=== PATIENT | female | born 1965 | race Two or more races ===

== ENCOUNTER 2020-09-21 14:27 | Outpatient (REF) | payer MEDICAID, SELFPAY | END 2020-09-21 14:28 | disposition home or self-care (01) | LOC: HO.RESP 14:27 | DX: Z13.89 Encounter for screening for other disorder (principal) ==

== ENCOUNTER 2020-09-26 12:56 | Outpatient (REF) | payer MEDICAID, SELFPAY ==
--- NOTE | 2020-09-26 | PFT_ITS ---
FLOWS: FEV1 of 73% of predicted at 2.22 L. FVC 70% of predicted at 2.65 L. FEV1 to FVC ratio of 0.84. No bronchodilator response. LUNG VOLUMES: Total lung capacity 77% of predicted at 4.27 L. Residual volume 75% of predicted at 1.51 L. Slow vital capacity 78% of predicted at 2.75 L. Expiratory reserve volume 22% of predicted at 0.24 L. Diffusion capacity is mildly decreased, diffusion capacity corrects to normal after adjustment for alveolar ventilation. IMPRESSION: Mild restrictive ventilatory defect with no bronchodilator response. Decreased expiratory reserve volume suggests extrathoracic restriction likely secondary to abdominal obesity. MD ELINA Spicer/MODL / [id number]
== END 2020-09-26 12:57 | disposition home or self-care (01) ==
LOC: HO.RESP 12:56
PROVIDERS: PCP Nurse Practitioner; Visit Provider Nurse Practitioner
DX: R06.02 Shortness of breath (principal)
CPT/HCPCS: 94060; 94727; 94729

== ENCOUNTER → 2020-12-22 08:50 | Outpatient (BNVA) | payer MEDICAID, SELFPAY | PROVIDERS: PCP Nurse Practitioner; Visit Provider Nurse Practitioner ==

== ENCOUNTER 2021-02-13 15:01 | Outpatient (REF) | payer MEDICAID, SELFPAY ==
--- NOTE | ~2021-02-13 | XR_ITS ---
EXAMINATION: XR ANKLE, RIGHT CLINICAL INFORMATION: Pain. Fall. COMPARISON: None TECHNIQUE: AP, lateral, and mortise views of the right ankle. FINDINGS: There is a soft tissue ossification adjacent to the inferior lateral malleolus suggestive of an avulsion fracture, age indeterminate. Clinical correlation is recommended. No other fracture is seen. The ankle mortise is normal. There is lateral soft tissue swelling. There are calcaneal spurs. XR/XR ankle RT min 3V IMPRESSION: Nondisplaced avulsion fracture of the lateral malleolus, age indeterminate. Clinical correlation recommended. Lateral soft tissue swelling. Reading will be provided by the Frederic work flow hoop punch and coiler operator on 02/14/2021
[2021-02-13 16:51] LABS: Alanine Aminotransferase 30 U/L (0-31); Albumin Level 4.4 g/dL (3.5-5.0); Alkaline Phosphatase 100 U/L (39-117); Amylase 39 U/L (28-100); Anion Gap 14 (12-20); Aspartate Amino Transferase 22 U/L (5-31); Bilirubin Total 0.4 mg/dL (0.0-1.0); Blood Urea Nitrogen 8 mg/dL (9-16); C Reactive Protein 0.74 mg/dL (< or = 0.50); Calcium 9.1 mg/dL (8.4-10.2); Carbon Dioxide 25 mmol/L (22-29); Chloride 101 mmol/L (96-108); Estimated Glomerular Filt Rate > 60; Glucose Random 103 mg/dL (60-115); Lipase 22 U/L (8-78); Potassium 4.2 mmol/L (3.3-5.1); Sodium 136 mmol/L (135-145); Total Protein 6.8 g/dL (6.5-8.0)
[2021-02-13 17:07] LABS: Basophils Percent Auto 0.4 % (0-2); Eosinophils Absolute Auto 0.1 X10*3/uL (0.0-0.4); Eosinophils Percent Auto 0.9 % (0-4); Hematocrit 36.3 % (37-47); Hemoglobin 12.3 g/dl (12.0-16.0); Imm Gran Abs Auto 0.02 X10*3/uL (0.00-0.03); Imm Gran Pct Auto 0.4 % (0.0-0.4); Lymphocytes Absolute Auto 1.3 X10*3/uL (1.2-4.9); MANUAL DIFF FLAG SCAN; Mean Corpuscular HGB Conc 33.9 g/dl (31.0-35.0); Mean Corpuscular Hemoglobin 29.7 pg (27.0-33.0); Mean Corpuscular Volume 87.7 fL (80-98); Mean Platelet Volume 11.1 fL (9.4-12.3); Monocytes Absolute Auto 0.6 X10*3/uL (0.1-1.2); Monocytes Percent Auto 9.8 % (2-11); Neutrophils Absolute Auto 3.7 X10*3/uL (2.0-8.3); Neutrophils Percent Auto 65.5 % (45-73); PLT CLUMP 1; Platelet Count 160 X10*3/uL (160-400); Red Blood Count 4.14 X10*6/uL (4.20-5.50); Red Cell Distribution Width 12.9 % (11.0-16.0); SCAN SMEAR FLAG 1; White Blood Count 5.7 X10*3/uL (4.8-10.8)
[2021-02-13 17:08] LABS: SLIDE REVIEW VERIFIED
[2021-02-13 17:13] LABS: TSH reflex Free T4 1.16 uIU/mL (0.32-4.0)
[2021-02-14 14:22] LABS: Transglutaminase Ab IgG 6 U/mL; Transglutaminase IgA 1 U/mL
== END 2021-02-13 15:02 | disposition home or self-care (01) ==
LOC: HO.XRAY 15:01
PROVIDERS: Absent Provider Emergency Medicine; PCP Nurse Practitioner; Visit Provider Nurse Practitioner
DX: M25.471 Effusion, right ankle (principal); M25.571 Pain in right ankle and joints of right foot; R68.81 Early satiety; R19.7 Diarrhea, unspecified; R14.0 Abdominal distension (gaseous); R11.10 Vomiting, unspecified; Z91.81 History of falling
CPT/HCPCS: 36415; 73610; 80053; 82150; 83516; 83690; 84443; 85025; 86140

== ENCOUNTER 2021-02-13 21:00 | Outpatient (REF) | payer MEDICAID, SELFPAY | END 2021-02-13 21:01 | disposition home or self-care (01) | LOC: HO.LNP 21:00 | PROVIDERS: Visit Provider Nurse Practitioner | DX: R10.9 Unspecified abdominal pain (principal) | CPT/HCPCS: 87338 ==

== ENCOUNTER 2021-12-31 09:34 | Emergency (ER) | payer MEDICAID, SELFPAY ==
--- NOTE | ~2021-12-31 | CT_ITS ---
EXAMINATION: CT ABDOMEN AND PELVIS WITH CONTRAST CLINICAL INFORMATION: Abdominal pain, distention. COMPARISON: CT abdomen 03/05/2018 TECHNIQUE: Multidetector volumetric images were obtained from the superior aspect of the liver through the pubic symphysis following administration 85 mL of Omnipaque 350 intravenous contrast. Sagittal and coronal reformatted images were obtained on the technologist's workstation. Oral contrast: No This CT examination was performed using dose optimization techniques as appropriate, variously including the following: *Automated exposure control *Adjustment of mA and/or kV according to patient size (this includes techniques or standardized protocols for targeted exams where dose is matched to indication/reason for exam; i.e. extremities or head) *Use of iterative reconstruction technique DLP: 895 mGy-cm FINDINGS: LUNG BASES: Mild linear and groundglass opacities in the right lower lobe, unchanged from previous. Normal heart size. No pericardial or pleural effusion. LIVER, GALLBLADDER, AND BILIARY TREE: The liver is normal in size, shape, and attenuation. No focal hepatic lesion or biliary ductal dilatation is present. Status postcholecystectomy. PANCREAS: Unremarkable. SPLEEN: Unremarkable. ADRENAL GLANDS: Unremarkable. KIDNEYS AND URETERS: The kidneys are normal in size, shape, and attenuation. No hydronephrosis, hydroureter, or calculi seen. Mild fullness of the left ureter, but no calculi seen. No perinephric stranding. 2.1 x 1.9 cm left renal upper pole cyst, mildly complex with peripheral wall calcification,, overall slightly smaller in size as compared to previous. BLADDER: Unremarkable. GASTROINTESTINAL TRACT: Stomach is partially distended. No dilated small bowel loops is seen. There is apparent wall thickening/submucosal prominence of the transverse colon, splenic flexure, descending colon, which could be related to lack of distention, but colitis cannot be excluded. There are colonic diverticula present. No evidence of definite diverticulitis. There is apparent wall thickening/submucosal prominence of the distal sigmoid colon and rectum, which could be related to lack of distention versus colitis. Redemonstrated is fat stranding adjacent to the rectum which was seen the prior study, and could be related to prior postsurgical result. No free fluid is seen. ABDOMINAL WALL: No significant hernia is appreciated. LYMPH NODES: No pathologically enlarged lymph nodes are seen. VASCULAR: Normal caliber aorta. PELVIC VISCERA: Uterus is surgically absent. No adnexal masses are seen. OSSEOUS STRUCTURES: Multilevel degenerative changes in the spine. No suspicious lytic or blastic lesion is seen. Spinal stimulator device seen in the thoracolumbar region. CT/CT abdomen pelvis w con IMPRESSION: 1. Apparent wall thickening/submucosal prominence of the transverse colon, splenic flexure, descending colon and portions of the sigmoid colon. This could be related to lack of distention, but colitis cannot be excluded. Colonic diverticulosis without evidence of diverticulitis. Clinically correlate. Follow-up CT for reassessment as clinically warranted. 2. Fat stranding in the pelvis and adjacent to the rectum, appearing similar to previous, could be related to postoperative scarring. 3. Mildly complex left renal cyst (Bosniak 2), slightly smaller in size as compared to the prior study. 4. Status postcholecystectomy. 5. Mild fullness of the left ureter, but no radiodense calculi seen. 6. Additional findings and details as above. Fleischner guidelines were followed.
[2021-12-31 09:42] VITALS: BP 91/53; PULSE 83; RESP 18; TEMP 36.8; O2SAT 99; BMI 36.1
--- NOTE | 2021-12-31 09:42 | ED.ABDPAIN ---
HPI - Abdominal Pain General Chief Complaint: Abdominal Pain Stated Complaint: abd pain Time Seen by Provider: 12/31/21 09:41 Source: patient Mode of arrival: ambulatory Limitations: no limitations History of Present Illness HPI narrative: Patient is a 56 year old female presenting to the emergency department today with upper abdominal pain. Patient states that last night she began to have upper abdominal pain and today, it is still present. Patient states that she is nauseous as well but has not vomited. Patient states that eating makes the pain worse. Patient denies any history of ulcers. Patient denies any NSAID use. Patient states that she has a history of diabetes for which she takes metformin. Patient denies any dizziness, lightheadedness, vomiting, fever, chills, blurry vision, double vision, loss of vision, chest pain, difficulty breathing, shortness of breath, back pain, night sweats, pain with urination, increased urinary frequency, increased urinary urgency, blood in her urine or stool, syncope or a near syncopal episode, recent trauma or falls, bowel incontinence, bladder incontinence, bowel retention, bladder retention, or any other complaints at this time. MD elicited complaint: abdominal pain Pertinent past history: none Onset (ago): day(s) (1) Exacerbating factors: eating Relieving factors: nothing Related Data Home Medications Medication Instructions Recorded Confirmed duloxetine 30 mg capsule,delayed 30 mg PO DAILY 12/22/20 release (Cymbalta) duloxetine 30 mg capsule,delayed 30 mg PO DAILY 12/22/20 release (Cymbalta) duloxetine 60 mg capsule,delayed 60 mg PO DAILY 12/22/20 release (Cymbalta) risperidone 3 mg tablet (Risperdal) 3 mg PO DAILY 12/22/20 Allergies Allergy/AdvReac Type Severity Reaction Status Date / Time bee pollen [BEE STINGS] Allergy Unknown UNKNOWN Verified 12/22/20 08:52 gabapentin [GABAPENTIN] Allergy Unknown UNKNOWN, Verified 12/22/20 08:52 memory loss shrimp [SHRIMP] Allergy Unknown UNKNOWN Verified 12/22/20 08:52 TARA Inhibitors AdvReac Unknown cough Uncoded 04/26/20 00:00 Review of Systems Constitutional: Reports no additional constitutional complaints, Denies chills, Denies fever(s) and Denies night sweats Eyes: Reports no additional eye complaints, Denies blurry vision, Denies change in vision, Denies diplopia, Denies eye discharge, Denies loss of vision and Denies eye pain Denies dizziness Cardiovascular: Reports no additional cardiovascular complaints, Denies chest pain, Denies lightheadedness, Denies Loss of Consciousness and Denies dyspnea Respiratory: Reports no additional respiratory complaints and Denies dyspnea Gastrointestinal: Reports no additional gastrointestinal complaints, Reports abdominal pain, Denies melena, Denies hematochezia, Denies change in bowel habits, Denies change in stool character and Reports nausea Genitourinary: Denies hematuria, Denies urinary frequency, Denies dysuria, Denies urinary incontinence, Denies urinary hesitancy and Denies urinary urgency Musculoskeletal: Reports no additional musculoskeletal complaints, Denies numbness and Denies tingling Denies dizziness, Denies loss of vision, Denies numbness and Denies tingling Psychiatric: Reports no additional psychiatric complaints Endocrine: Reports no additional endocrine complaints Hematologic/Lymphatic: Reports no additional hematologic/lymphatic complaints Allergic/Immunologic: Reports no additional allergic/immunologic complaints PMFSH Past Medical History Attestation statement: The following information was validated with the patient. Source: old records reviewed Surgical History History of carpal tunnel surgery History of cholecystectomy Hx of appendectomy Hx of colonoscopy (~2019) Hx of elbow surgery Hx of hysterectomy Family History Family History Father Dialysis patient Mother HTN (hypertension) Diabetes Maternal Grandmother Stroke Maternal Grandfather Alcoholic Paternal Uncle Stomach cancer Family/Other Stomach cancer Social History Social History Alcohol intake: current Alcohol intake frequency: does not drink Advance Directives: No Advance Directives Information Provided: No Physical Exam ED Vital Signs: Vital Signs - 24 hr 12/31/21 09:42 12/31/21 09:50 12/31/21 11:42 Temperature 98.3 F 97.6 F Pulse Rate 83 80 75 Respiratory Rate 18 18 15 Blood Pressure 91/53 L 101/48 L 128/50 L Pulse Oximetry 99 97 12/31/21 12:11 Temperature Pulse Rate 83 Respiratory Rate 15 Blood Pressure 143/54 H Pulse Oximetry 98 BMI result Body Mass Index 36.1 Const General: cooperative, no acute distress, alert and awake Nutritional Appearance: well nourished Orientation/consciousness: patient oriented x3 Limitations: no limitations HENMT Head: Yes normal to inspection and Yes atraumatic Ears: hearing grossly normal bilaterally and external ears normal General nose exam: Normal external nose present, no nasal discharge noted and no epistaxis Face and sinus: Yes normal facial exam, No abrasion and No laceration Mouth: Normal oral and palatal mucosa present, no drooling and no muffled voice Eyes General: appearance normal, both eyes and all related structures Periorbital: periorbital findings normal Eyelids: Yes eyelids normal Conjunctivae: conjunctivae normal Pupils: Equal, round and reactive pupils present EOM: EOMs intact bilaterally Neck Neck: Yes normal visual inspection, Yes full ROM and Yes no lymphadenopathy Chest Chest palpation & inspection: normal inspection of the chest Resp Effort & Inspection: normal respiratory effort and able to speak in complete sentences Auscultation: clear to auscultation bilaterally Cardio Rate: regular rate Rhythm: regular rhythm GI Inspection: Yes normal to inspection Palpation (GI): Soft to palpation and Tenderness to palpation present (GI) in the epigastrum Neuro General: patient oriented x3 and moves all extremities Cranial nerves: Yes Equal, round and reactive pupils present Cognition (Neuro): normal cognition Motor exam (neuro): 5/5 motor strength present throughout Sensory Exam: Normal double simultaneous stimulation for sensation Coordination: [id number] test normal Extrem General: Yes normal to inspection, Yes full ROM and Yes capillary refill normal Psych Appearance: grossly normal Mental Status: mental status grossly normal Affect: normal affect Attitude: cooperative Thought process: Normal thought process present Thought content: Normal thought content present Insight: Good insight present (Psych) MDM - Abdominal Pain MDM Narrative Medical decision making narrative: Patient is a 56 year old female presenting to the emergency department today with abdominal pain. Patient's physical exam showed tenderness to palpation in the epigastric area but was otherwise unremarkable. Patient's blood work was unremarkable. Patient's urine showed no acute process. Patient's abdominal CT showed a possible acute colitis but was otherwise unremarkable. I explained my physical exam findings as well as all test results to the patient. I answered all questions asked by the patient. Patient received IV protonix which she stated helped her symptoms significantly. I stressed the importance of the patient taking her medication as prescribed. I stressed the importance of the patient following up with her primary care provider. I stressed the importance of the patient returning to the emergency department immediately if her symptoms were to worsen or if she were to develop any dizziness, shortness of breath, difficulty breathing, chest pain, blurry vision, loss of vision, nausea, vomiting, abdominal pain, fever, chills, back pain, or any other complaints. Patient verbalized agreement and understanding with this treatment plan and discharge. Differential Diagnosis Differential diagnosis: Likely abdominal pain Differential diagnosis narrative:: gastritis, colitis Medical Records Attestation: I reviewed the patient's medical records. Lab Data Attestation: I reviewed the patient's lab results. Result diagrams: 12/31/21 10:07 12/31/21 10:07 Labs: Lab Results 12/31/21 12/31/21 12/31/21 Range/Units 09:52 10:07 10:07 WBC 4.7 L (4.8-10.8) X10*3/uL RBC 4.44 (4.20-5.50) X10*6/uL Hgb 13.1 (12.0-16.0) g/dl Hct 38.0 (37.0-47.0) % MCV 85.6 (80.0-98.0) fL MCH 29.5 (27.0-33.0) pg MCHC 34.5 (31.0-35.0) g/dl RDW 12.5 (11.0-16.0) % Plt Count 176 (160-400) X10*3/uL MPV 9.9 (9.4-12.3) fL Immature Gran % (Auto) 0.2 (0.0-0.4) % Neut % (Auto) 55.4 (45-73) % Lymph % (Auto) 31.8 (20-40) % [place] % (Auto) 9.8 (2-11) % Eos % (Auto) 2.6 (0-4) % Baso % (Auto) 0.2 (0-2) % Lymph # (Auto) 1.5 (1.2-4.9) X10*3/uL [place] # (Auto) 0.5 (0.1-1.2) X10*3/uL Eos # (Auto) 0.1 (0.0-0.4) X10*3/uL Baso # (Auto) 0.0 (0.0-0.2) X10*3/uL Abs Immat Gran (auto) 0.01 (0.00-0.03) X10*3/uL Absolute Neuts (auto) 2.6 (2.0-8.3) x10*3/uL Absolute Nucleated RBC 0.000 (0.0-0.012) X10*3/uL Nucleated RBC % (auto) 0.0 (0.0-0.2) /100WBC PT (9.9-13.0) SEC INR (0.9-1.1) APTT (24.1-38.0) SEC Sodium 139 (135-145) mmol/L Potassium 3.6 (3.3-5.1) mmol/L Chloride 105 (96-108) mmol/L Carbon Dioxide 23 (22-29) mmol/L Anion Gap 15 (12-20) BUN 11 (9-16) mg/dL Creatinine 0.84 (0.5-1.4) mg/dL Estim Creat Clear Calc 95.3 Estimated GFR > 60 POC Glucose 141 H (60-115) mg/dL Random Glucose 146 H (60-115) mg/dL Calcium 9.7 D (8.4-10.2) mg/dL Total Bilirubin 0.3 (0.0-1.0) mg/dL AST 24 (5-31) U/L ALT 21 (0-31) U/L Alkaline Phosphatase 72 D (39-117) U/L Total Protein 7.0 (6.5-8.0) g/dL Albumin 4.4 (3.5-5.0) g/dL Lipase 26 (8-78) U/L Urine Color Urine Appearance Urine pH (5.0-8.0) Ur Specific [place] (1.005-1.025) Urine Protein (NEG-TRACE) MG/DL Urine Glucose (UA) (NEG) MG/DL Urine Ketones (NEG) MG/DL Urine Blood (NEG) Urine Nitrite (NEG) Ur Leukocyte Esterase (NEG) Urine RBC (0) /HPF Urine WBC (0-4) /HPF Ur Squamous Epith Cells /LPF Urine Bacteria /LPF Hyaline Casts /LPF 12/31/21 12/31/21 Range/Units 10:07 11:41 WBC (4.8-10.8) X10*3/uL RBC (4.20-5.50) X10*6/uL Hgb (12.0-16.0) g/dl Hct (37.0-47.0) % MCV (80.0-98.0) fL MCH (27.0-33.0) pg MCHC (31.0-35.0) g/dl RDW (11.0-16.0) % Plt Count (160-400) X10*3/uL MPV (9.4-12.3) fL Immature Gran % (Auto) (0.0-0.4) % Neut % (Auto) (45-73) % Lymph % (Auto) (20-40) % [place] % (Auto) (2-11) % Eos % (Auto) (0-4) % Baso % (Auto) (0-2) % Lymph # (Auto) (1.2-4.9) X10*3/uL [place] # (Auto) (0.1-1.2) X10*3/uL Eos # (Auto) (0.0-0.4) X10*3/uL Baso # (Auto) (0.0-0.2) X10*3/uL Abs Immat Gran (auto) (0.00-0.03) X10*3/uL Absolute Neuts (auto) (2.0-8.3) x10*3/uL Absolute Nucleated RBC (0.0-0.012) X10*3/uL Nucleated RBC % (auto) (0.0-0.2) /100WBC PT 10.4 (9.9-13.0) SEC INR 0.9 (0.9-1.1) APTT 31.1 (24.1-38.0) SEC Sodium (135-145) mmol/L Potassium (3.3-5.1) mmol/L Chloride (96-108) mmol/L Carbon Dioxide (22-29) mmol/L Anion Gap (12-20) BUN (9-16) mg/dL Creatinine (0.5-1.4) mg/dL Estim Creat Clear Calc Estimated GFR POC Glucose (60-115) mg/dL Random Glucose (60-115) mg/dL Calcium (8.4-10.2) mg/dL Total Bilirubin (0.0-1.0) mg/dL AST (5-31) U/L ALT (0-31) U/L Alkaline Phosphatase (39-117) U/L Total Protein (6.5-8.0) g/dL Albumin (3.5-5.0) g/dL Lipase (8-78) U/L Urine Color YELLOW Urine Appearance CLEAR Urine pH 6.0 (5.0-8.0) Ur Specific [place] 1.015 (1.005-1.025) Urine Protein NEG (NEG-TRACE) MG/DL Urine Glucose (UA) NEG (NEG) MG/DL Urine Ketones NEG (NEG) MG/DL Urine Blood NEG (NEG) Urine Nitrite NEG (NEG) Ur Leukocyte Esterase NEG (NEG) Urine RBC 0 (0) /HPF Urine WBC 0 (0-4) /HPF Ur Squamous Epith Cells TRACE /LPF Urine Bacteria TRACE /LPF Hyaline Casts 1-4 /LPF Imaging Data CT scan - abdomen: Attestation: I personally reviewed and interpreted this imaging study as follows: Radiologist's impression: EXAMINATION: CT ABDOMEN AND PELVIS WITH CONTRAST? CLINICAL INFORMATION: Abdominal pain, distention.? COMPARISON: CT abdomen 03/05/2018? TECHNIQUE: Multidetector volumetric images were obtained from the superior aspect of the liver through the pubic symphysis following administration 85 mL of Omnipaque 350 intravenous contrast. Sagittal and coronal reformatted images were obtained on the technologist's workstation.? Oral contrast: No This CT examination was performed using dose optimization techniques as appropriate, variously including the following: *Automated exposure control *Adjustment of mA and/or kV according to patient size (this includes techniques or standardized protocols for targeted exams where dose is matched to indication/reason for exam; i.e. extremities or head) *Use of iterative reconstruction technique DLP: 895 mGy-cm FINDINGS: LUNG BASES: Mild linear and groundglass opacities in the right lower lobe, unchanged from previous. Normal heart size. No pericardial or pleural effusion.? LIVER, GALLBLADDER, AND BILIARY TREE: The liver is normal in size, shape, and attenuation. No focal hepatic lesion or biliary ductal dilatation is present. Status postcholecystectomy.? PANCREAS: Unremarkable.? SPLEEN: Unremarkable.? ADRENAL GLANDS: Unremarkable.? KIDNEYS AND URETERS: The kidneys are normal in size, shape, and attenuation. No hydronephrosis, hydroureter, or calculi seen. Mild fullness of the left ureter, but no calculi seen. No perinephric stranding.? 2.1 x 1.9 cm left renal upper pole cyst, mildly complex with peripheral wall calcification,, overall slightly smaller in size as compared to previous. BLADDER: Unremarkable.? GASTROINTESTINAL TRACT: Stomach is partially distended. No dilated small bowel loops is seen. There is apparent wall thickening/submucosal prominence of the transverse colon, splenic flexure, descending colon, which could be related to lack of distention, but colitis cannot be excluded. There are colonic diverticula present. No evidence of definite diverticulitis. There is apparent wall thickening/submucosal prominence of the distal sigmoid colon and rectum, which could be related to lack of distention versus colitis. Redemonstrated is fat stranding adjacent to the rectum which was seen the prior study, and could be related to prior postsurgical result. No free fluid is seen.? ABDOMINAL WALL: No significant hernia is appreciated.? LYMPH NODES: No pathologically enlarged lymph nodes are seen. VASCULAR: Normal caliber aorta. PELVIC VISCERA: Uterus is surgically absent. No adnexal masses are seen.? OSSEOUS STRUCTURES: Multilevel degenerative changes in the spine. No suspicious lytic or blastic lesion is seen. Spinal stimulator device seen in the thoracolumbar region.? CT/CT abdomen pelvis w con IMPRESSION: 1. Apparent wall thickening/submucosal prominence of the transverse colon, splenic flexure, descending colon and portions of the sigmoid colon. This could be related to lack of distention, but colitis cannot be excluded. Colonic diverticulosis without evidence of diverticulitis. Clinically correlate. Follow-up CT for reassessment as clinically warranted. ? 2. Fat stranding in the pelvis and adjacent to the rectum, appearing similar to previous, could be related to postoperative scarring. ? 3. Mildly complex left renal cyst (Bosniak 2), slightly smaller in size as compared to the prior study. ? 4. Status postcholecystectomy. ? 5. Mild fullness of the left ureter, but no radiodense calculi seen. ? 6. Additional findings and details as above. ? Fleischner guidelines were followed. Dictated By: Pepe Monroy MD Signed By: Electronically signed by Pepe Monroy MD 12/31/21 [id number] Discharge Plan Discharge Clinical Impression: Colitis Patient Disposition: Home, Self-Care Instructions: Colitis (ED) Additional Instructions: Follow up with your primary care provider. Return to the emergency department immediately if your symptoms worsen or if you develop any dizziness, shortness of breath, difficulty breathing, chest pain, blurry vision, loss of vision, nausea, vomiting, abdominal pain, fever, chills, back pain, or any other complaints. Referrals: Kavitha Hill [Primary Care Provider] - 2 days Interventions: ED Discharge Assessment Last Done: 12/31/21 13:21 Print Language: Austrian
--- NOTE | 2021-12-31 09:46 | PC.NURSE ---
Pt received from [facility]: Pt AOx4 and offers c/o epigastric abd pain. Pt states after BM this morning that was yellow and oily she started feeling dizziness and lightheadness. Pt states abd pain has been occurring since last night. NSR noted and lungs clear. Pt abd sound, soft and epigastric tenderness.
[2021-12-31 09:50] VITALS: BP 101/48; PULSE 80; RESP 18
[2021-12-31 09:55] LABS: Glucose, Whole Blood 141 mg/dL (60-115)
[2021-12-31 10:12] LABS: MANUAL DIFF FLAG NO
[2021-12-31] MEDS: 0.9 % Sodium Chloride 1,000 ML 999 ML IVCONT (10:12)
[2021-12-31] MEDS: Pantoprazole Sodium 40 MG/10 ML VIAL IVPUSH (10:13)
[2021-12-31 10:17] LABS: Basophils Percent Auto 0.2 % (0-2); Eosinophils Absolute Auto 0.1 X10*3/uL (0.0-0.4); Eosinophils Percent Auto 2.6 % (0-4); Hemoglobin 13.1 g/dl (12.0-16.0); Imm Gran Abs Auto 0.01 X10*3/uL (0.00-0.03); Imm Gran Pct Auto 0.2 % (0.0-0.4); Lymphocytes Absolute Auto 1.5 X10*3/uL (1.2-4.9); Lymphocytes Percent Auto 31.8 % (20-40); Mean Corpuscular HGB Conc 34.5 g/dl (31.0-35.0); Mean Corpuscular Hemoglobin 29.5 pg (27.0-33.0); Mean Corpuscular Volume 85.6 fL (80.0-98.0); Mean Platelet Volume 9.9 fL (9.4-12.3); Monocytes Absolute Auto 0.5 X10*3/uL (0.1-1.2); Monocytes Percent Auto 9.8 % (2-11); Neutrophils Absolute Auto 2.6 x10*3/uL (2.0-8.3); Neutrophils Percent Auto 55.4 % (45-73); Platelet Count 176 X10*3/uL (160-400); Red Blood Count 4.44 X10*6/uL (4.20-5.50); Red Cell Distribution Width 12.5 % (11.0-16.0); White Blood Count 4.7 X10*3/uL (4.8-10.8)
[2021-12-31 10:22] LABS: INTERNATIONAL NORM RATIO 0.9 (0.9-1.1); Prothrombin Time 10.4 SEC (9.9-13.0)
[2021-12-31 10:25] LABS: Partial Thromboplastin Time 31.1 SEC (24.1-38.0)
[2021-12-31 10:32] LABS: Alanine Aminotransferase 21 U/L (0-31); Albumin Level 4.4 g/dL (3.5-5.0); Alkaline Phosphatase 72 U/L (39-117); Anion Gap 15 (12-20); Aspartate Amino Transferase 24 U/L (5-31); Bilirubin Total 0.3 mg/dL (0.0-1.0); Blood Urea Nitrogen 11 mg/dL (9-16); Calcium 9.7 mg/dL (8.4-10.2); Carbon Dioxide 23 mmol/L (22-29); Chloride 105 mmol/L (96-108); Creatinine Clr Calc Pharmacy 95.3; Estimated Glomerular Filt Rate > 60; Glucose Random 146 mg/dL (60-115); Lipase 26 U/L (8-78); Potassium 3.6 mmol/L (3.3-5.1); Sodium 139 mmol/L (135-145)
[2021-12-31 11:42] VITALS: BP 128/50; PULSE 75; RESP 15; TEMP 36.4; O2SAT 97
[2021-12-31 11:48] LABS: Appearance Urine CLEAR; Color Urine YELLOW; Glucose Urine UA NEG (NEG); Leukocyte Esterase Urine NEG (NEG); Nitrite Urine NEG (NEG); Specific Gravity - Urine 1.015 (1.005-1.025); Urine Blood NEG (NEG); Urine Ketones NEG (NEG); Urine Protein NEG (NEG-TRACE)
[2021-12-31 11:58] LABS: Bacteria Urine TRACE /LPF; RBC Urine 0 /HPF (0); Squamous Epithelial Cell Urine TRACE /LPF; WBC Urine 0 /HPF (0-4)
[2021-12-31 12:11] VITALS: BP 143/54; PULSE 83; RESP 15; O2SAT 98
[2021-12-31] MEDS: iohexoL 350 MG/ML 100 ML INFUS..BTL IV (12:11)
== END 2021-12-31 13:41 | disposition home or self-care (01) ==
PROVIDERS: Physician Assistant Medical; Emergency Provider Emergency Medicine; PCP Nurse Practitioner
DX: K52.9 Noninfective gastroenteritis and colitis, unspecified (principal); E11.9 Type 2 diabetes mellitus without complications; Z90.49 Acquired absence of other specified parts of digestive tract; Z90.710 Acquired absence of both cervix and uterus
CPT/HCPCS: 36415; 74177; 80053; 81001; 82947; 83690; 85025; 85610; 85730; 96361; 96374; 99283; 99284; Q9967

== ENCOUNTER → 2022-02-11 16:01 | Outpatient (BNVA) | payer MEDICAID, SELFPAY | PROVIDERS: PCP Nurse Practitioner; Referring Provider Nurse Practitioner; Visit Provider Nurse Practitioner | DX: R14.0 Abdominal distension (gaseous) (principal); R19.7 Diarrhea, unspecified; R11.10 Vomiting, unspecified | CPT/HCPCS: 99212 ==

== ENCOUNTER 2022-02-12 14:49 | Outpatient (REF) | payer MEDICAID, SELFPAY ==
[2022-02-13 21:56] LABS: Gliadin Deamidated IgA Ab <1.0 U/mL; Gliadin Deamidated IgG Ab <1.0 U/mL; Transglutaminase Ab IgG <1.0 U/mL; Transglutaminase IgA <1.0 U/mL
== END 2022-02-12 14:50 | disposition home or self-care (01) ==
LOC: HO.LAB 14:49
PROVIDERS: PCP Nurse Practitioner; Visit Provider Nurse Practitioner
DX: R14.0 Abdominal distension (gaseous) (principal); R19.7 Diarrhea, unspecified
CPT/HCPCS: 36415; 86258; 86364

== ENCOUNTER → 2023-04-22 15:52 | Outpatient (BNVA) | payer MEDICAID, SELFPAY | PROVIDERS: PCP Nurse Practitioner; Visit Provider Nurse Practitioner | DX: R19.7 Diarrhea, unspecified (principal); R10.33 Periumbilical pain; G89.29 Other chronic pain | CPT/HCPCS: 99212 ==

== ENCOUNTER 2023-04-23 13:43 | Outpatient (REF) | payer MEDICAID, SELFPAY ==
--- NOTE | ~2023-04-23 | MM_ITS ---
EXAMINATION: MM DIAGNOSTIC DIGITAL BREAST TOMOSYNTHESIS, BILATERAL US DIAGNOSTIC ULTRASOUND BREAST, BILATERAL CLINICAL INFORMATION: Chronic bilateral breast pain with palpable areas. Due for yearly. The lifetime risk of breast cancer based on the Tyrer-Cuzick Model is 10%. COMPARISON: Mammography: 07/02/2018, 08/29/2016 TECHNIQUE: Digital breast tomosynthesis is performed in both the craniocaudal and mediolateral oblique views along with computer-aided detection (CAD). Synthesized 2D images are generated from the tomosynthesis. Additional spot right CC view is obtained. Ultrasound bilateral breasts is targeted to the areas of clinical concern using grayscale imaging and color Doppler without and with harmonics. Patient is able to point to the areas at time of imaging. FINDINGS: There are scattered areas of fibroglandular density (ACR BI-RADS breast composition Category b). There are no significant masses, abnormal calcifications, or other abnormalities. Parenchymal pattern is similar to prior studies. There is no developing density or architectural abnormality. No skin thickening or coarsening of the Adán's ligaments. The axilla and skin contours are unremarkable. No significant changes. Ultrasound bilateral breasts demonstrates no cystic or solid mass, architectural abnormality, or focal duct ectasia. No skin thickening or edema tracking in soft tissue planes. No hyperemia on color Doppler. Results are discussed with the patient at time of visit. MM/MM tomosynthesis diagnostic BI IMPRESSION: -No mammographic evidence of malignancy or inflammatory changes. -Unremarkable bilateral breast ultrasound. ASSESSMENT: BI-RADS 1: Negative RECOMMENDATION: 1. Patient should be managed based on the clinical impression. If there is still clinically palpable concern, further evaluation may be considered with surgical consult. Decision to proceed with biopsy should be based on clinical grounds and degree of clinical concern. 2. Otherwise, routine annual screening mammography. This patient's information was entered into a reminder system with a target due date for their next mammogram.
== END 2023-04-23 13:44 | disposition home or self-care (01) ==
LOC: HO.MAMMO 13:43
PROVIDERS: PCP Student in an Organized Health Care Education/Training Program; Visit Provider Student in an Organized Health Care Education/Training Program
DX: N64.4 Mastodynia (principal)
CPT/HCPCS: 76642; 77062; 77066

== ENCOUNTER 2023-05-08 15:19 | Outpatient (REF) | payer MEDICAID, SELFPAY ==
[2023-05-08 17:02] LABS: Alanine Aminotransferase 25 U/L (0-31); Albumin Level 4.2 g/dL (3.5-5.0); Alkaline Phosphatase 84 U/L (39-117); Anion Gap 13 (12-20); Aspartate Amino Transferase 18 U/L (5-31); Bilirubin Total 0.3 mg/dL (0.0-1.0); Blood Urea Nitrogen 9 mg/dL (9-16); Calcium 9.8 mg/dL (8.4-10.2); Carbon Dioxide 26 mmol/L (22-29); Chloride 105 mmol/L (96-108); Estimated Glomerular Filt Rate > 60; Glucose Random 106 mg/dL (60-115); Potassium 4.2 mmol/L (3.3-5.1); Sodium 140 mmol/L (135-145); Total Protein 7.1 g/dL (6.5-8.0)
== END 2023-05-08 15:20 | disposition home or self-care (01) ==
LOC: HO.LAB 15:19
PROVIDERS: Visit Provider Nurse Practitioner
DX: Z01.818 Encounter for other preprocedural examination (principal); R10.33 Periumbilical pain; G89.29 Other chronic pain
CPT/HCPCS: 36415; 80053; 85025

== ENCOUNTER 2023-06-13 11:51 | Day surgery (SDC) | payer MEDICAID, SELFPAY ==
[2023-06-11 09:46] VITALS: BMI 34.8
--- NOTE | 2023-06-11 15:03 | HO.ANESPROP2 ---
HPI - Anesthesia Eval Consult details Narrative: 58yo F for Upper Endoscopy 04/2023 cardiac w/u for CP with cath showing mild to moderate disease in right coronary with normal LVEDP [facility] Active Problems Active Problems: All Active Problems (Updated 05/30/23 @ 11:37 by Margy Michelle PA-C) Postmenopausal (Acute) CAD (coronary artery disease) (Acute) Hypertension (Acute) High cholesterol (Acute) Diabetes (Acute ~2016) Asthma (Acute) Nicotine dependence, cigarettes, uncomplicated (Acute) Tubular adenoma of colon (Acute ~2018) Periumbilical pain, chronic (Acute) Vomiting (Acute) Diarrhea (Acute) Abdominal bloating (Acute) Early satiety (Acute) Past Medical History Medical History (Updated 05/30/23 @ 11:37 by Margy Michelle PA-C) CAD (coronary artery disease) Diabetes (~2015) Fibromyalgia High cholesterol Hypertension Nicotine dependence, cigarettes, uncomplicated PTSD (post-traumatic stress disorder) Tubular adenoma of colon (~2018) Family History Family History Father Dialysis patient Mother HTN (hypertension) Diabetes Maternal Grandmother Stroke Maternal Grandfather Alcoholic Paternal Uncle Stomach cancer Family/Other Stomach cancer Surgical History Surgical History (Updated 05/30/23 @ 11:33 by Margy Michelle PA-C) History of appendectomy History of carpal tunnel surgery History of cholecystectomy History of colonoscopy History of elbow surgery History of hysterectomy Status post insertion of spinal cord stimulator Social History Social History Alcohol intake: current Alcohol intake frequency: does not drink Meds Allergies Allergy/AdvReac Type Severity Reaction Status Date / Time bee pollen [BEE STINGS] Allergy Severe Anaphylaxis Verified 06/11/23 09:41 shrimp [SHRIMP] Allergy Severe Anaphylaxis Verified 06/11/23 09:41 gabapentin [GABAPENTIN] Allergy Intermediate memory loss Verified 06/11/23 09:41 TARA Inhibitors AdvReac Intermediate cough Uncoded 06/11/23 09:41 Home Medications Medication Instructions Recorded Confirmed Last Taken Type duloxetine 60 mg capsule,delayed 60 mg PO BID 12/22/20 06/11/23 Unknown History release (Cymbalta) risperidone 3 mg tablet (Risperdal) 3 mg PO BEDTIME 12/22/20 06/11/23 Unknown History amlodipine 10 mg tablet 10 mg PO DAILY 02/11/22 06/11/23 Unknown History diphenhydramine HCl 25 mg capsule 25 mg PO BEDTIME PRN insomnia 02/11/22 06/11/23 Unknown History (Banophen) hydroxyzine pamoate 50 mg capsule 50 mg PO DAILY PRN anxiety 02/11/22 06/11/23 Unknown History metformin 500 mg tablet 1,000 mg PO BID 02/11/22 06/11/23 Unknown History omeprazole 40 mg capsule,delayed 40 mg PO DAILY 02/11/22 06/11/23 Unknown History release trazodone 100 mg tablet 250 mg PO BEDTIME 02/11/22 06/11/23 Unknown History epinephrine 0.3 mg/0.3 mL 0.3 mg IM ONCE PRN Anaphylaxis 04/22/23 06/11/23 Unknown History injection, auto-injector estradiol 0.5 mg tablet 0.5 mg PO QAM 04/22/23 06/11/23 Unknown History losartan 50 mg tablet 50 mg PO QAM 04/22/23 06/11/23 Unknown History oxcarbazepine 300 mg tablet 900 mg PO DAILY 04/22/23 06/11/23 Unknown History prazosin 1 mg capsule 1 mg PO BID 04/22/23 06/11/23 Unknown History albuterol sulfate 90 mcg/actuation 2 puff inhalation Q4H PRN Wheezing 06/11/23 06/11/23 Unknown History aerosol inhaler (Ventolin HFA) aspirin 81 mg tablet,delayed 81 mg PO DAILY 06/11/23 06/11/23 Unknown History release atorvastatin 20 mg tablet 20 mg PO DAILY 06/11/23 06/11/23 Unknown History famotidine 20 mg tablet 20 mg PO BEDTIME 06/11/23 06/11/23 Unknown History Exam Exam Date and Time: June 11, 2023 1503 Height,Weight and Vital Signs: Height 5 ft 7 in Weight 100.698 kg Pertinent Lab Results Pertinent Lab Results: Laboratory Tests 05/08/23 05/08/23 15:36 15:36 WBC 4.8 Hgb 12.9 Hct 36.7 L Plt Count 196 Sodium 140 Potassium 4.2 Chloride 105 Carbon Dioxide 26 BUN 9 Creatinine 0.81 Narrative Narrative: EKG 04/2023 NSR T wave abnormality, consider anterior ischemia Stress 04/2023 abnormal with partially reversible small in size, mild in intensity perfusion defect in the basal to distal anterior wall which can be seen with ischemic changes after exercise stress test at reduced capicity Cath 04/2023 No significant gradient on pullback across aortic valve Nml LVEDP Proximal portion of RCA is ectatic Left main is normal angiographically Circumflex and LAD had minimal CAD (Risk factor modification and maxamize medical therapy) Assessment and Plan Assessment Anesthesia Assessment: Chart Reviewed
[2023-06-13 13:29] VITALS: BMI 35.1
[2023-06-13 13:31] VITALS: BP 143/69; PULSE 55; RESP 16; TEMP 36.1; O2SAT 96
[2023-06-13] MEDS: Lactated Ringers 1,000 ML 100 ML IVCONT (13:51)
[2023-06-13 14:31] LABS: Glucose, Whole Blood 110 mg/dL (60-115)
--- NOTE | 2023-06-13 14:42 | MHC.SHP ---
Pre-Procedural Eval Section A Date of Service: 06/13/23 The patient is an INPATIENT: No The History & Physical has been completed within 30 days and I have reviewed it.: No Section B Chief Complaint: Epigastric pain, bloating, GERD, diarrhea Relevant Family History (Specify if Yes): Yes Relevant Social History: Tobacco Use (former smoker) Present Medications: see Short Stay Collaborative assessment Medical History: Significant History (CAD, hypertension) History of Previous Operations: Relevant previous surgery/procedure and date(s) (History of carpal tunnel surgery History of cholecystectomy Hx of appendectomy Hx of colonoscopy (~2019) Hx of elbow surgery Hx of hysterectomy) Allergies: Allergies Allergy/AdvReac Type Severity Reaction Status Date / Time bee pollen [BEE STINGS] Allergy Severe Anaphylaxis Verified 06/11/23 09:41 shrimp [SHRIMP] Allergy Severe Anaphylaxis Verified 06/11/23 09:41 gabapentin [GABAPENTIN] Allergy Intermediate memory loss Verified 06/11/23 09:41 TARA Inhibitors AdvReac Intermediate cough Uncoded 06/11/23 09:41 Review of Systems Sugical H&P ROS: Negative: Constitution, Cardiovascular, Respiratory and Gastrointestinal Exam Surgical H&P Exam: Normal: Heart, Normal: Lungs, Normal: Extremities and Normal: Abdomen Plan Diagnosis/Plan: Unchanged I have reviewed the history and physical and performed a pertinent physical examination on my patient. No changes have occurred unless specified. Time Spent With Patient Time: Total time managing care of this patient today ____ minutes.
--- NOTE | 2023-06-13 14:47 | W.PM.OPN ---
Operative Note Operative Note Date of Service: 06/13/23 Narrative: FLEXIBLE TRANSORAL UPPER GASTROINTESTINAL ENDOSCOPY WITH BIOPSIES Pre-op diagnosis: Abdominal pain and bloating, GERD, postprandial diarrhea Post-op diagnosis: GERD, gastritis, gastric polyps Endoscopist:? Marie Shah MD Anesthesia:?MAC Consent: Indications for the procedure and potential complications of bleeding, perforation, reaction to medications and missed diagnosis were discussed with the patient and informed consent was obtained. Instrument: Olympus GIF H 190 mid size upper endoscope Monitoring: Vital signs and clinical assessment, continuous EKG monitoring, Pulse oximetry, Carbon Dioxide monitoring and blood pressure monitoring were done throughout the procedure. Procedure: The patient was placed in the left lateral decubitis position and pre-procedure medications were administered and a bite block was placed. The endoscope was inserted into the mouth and advanced under direct vision to the third part of duodenum. A careful inspection was made as the upper endoscope was withdrawn including a retroflexed examination of the proximal stomach; Findings and interventions are described below. Findings: Larynx: Normal Esophagus: GE junction at 38 cms Irrgular Z line with 1 cms tongue of possible Soto's - biopsied. No esophagitis noted. Stomach: A few 5 to 8 mm benign appearing polyps in the gastric body - biopsied. Linear erythematous streaks in the gastric erythema without ulcers. Biopsies were obtained. Grade 2 flap valve on retroflexed examination of the cardia. Duodenum: Normal bulb and descending duodenum. Biopsies were obtained from 3rd part of the duodenum to check for celiac sprue Intervention: Biopsies as noted above Impression and Post Procedure Diagnosis: Endoscopy Findings: ESOPHAGUS: GE junction at 38 cms Irrgular Z line with 1 cms tongue of possible Soto's - biopsied. STOMACH: A few 5 to 8 mm benign appearing polyps in the gastric body - biopsied. Linear erythematous streaks in the gastric erythema without ulcers. DUODENUM: Normal - biopsied to check for celiac sprue Plan: Await pathology results Patient has an appointment on 06/27/23 in the GI Clinic with Venice López NP. Above findings were reviewed with the patient and GERD and Gastric Polyps handouts were given in the discharge area
--- NOTE | 2023-06-13 15:09 | P.CONAN_ITS ---
[facility] Active Problems Active Problems: All Active Problems (Updated 06/13/23 @ 13:28 by Daniella Ortez, RN) Early satiety (Acute) Abdominal bloating (Acute) Diarrhea (Acute) Vomiting (Acute) Periumbilical pain, chronic (Acute) Asthma (Acute) Postmenopausal (Acute) CAD (coronary artery disease) (Acute) Hypertension (Acute) High cholesterol (Acute) Diabetes (Acute ~2016) Nicotine dependence, cigarettes, uncomplicated (Acute) Tubular adenoma of colon (Acute ~2018) Past Medical History Medical History (Updated 06/13/23 @ 13:28 by Daniella Ortez, RN) Asthma Bipolar 1 disorder CAD (coronary artery disease) Depression Diabetes (~2016) Fibromyalgia High cholesterol Hypertension Nicotine dependence, cigarettes, uncomplicated PTSD (post-traumatic stress disorder) Tubular adenoma of colon (~2018) Family History Family History Father Dialysis patient Mother HTN (hypertension) Diabetes Maternal Grandmother Stroke Maternal Grandfather Alcoholic Paternal Uncle Stomach cancer Family/Other Stomach cancer Family history of problems with anesthesia: No Surgical History Surgical History History of appendectomy History of carpal tunnel surgery History of cholecystectomy History of colonoscopy History of elbow surgery History of hysterectomy Status post insertion of spinal cord stimulator History of Problems with Anesthesia: No Social History Social History Alcohol intake: current Alcohol intake frequency: does not drink Patient Tobacco Use Status: Former Tobacco user Quit Date: 2008 Use of substances other than those prescribed or required for medical reasons: No Substance Use Type Other:: last used 23-24 yrs ago Are you DNR?: No Advance Directives: No Advance Directives Information Provided: Yes Meds Allergies Allergy/AdvReac Type Severity Reaction Status Date / Time bee pollen [BEE STINGS] Allergy Severe Anaphylaxis Verified 06/11/23 09:41 shrimp [SHRIMP] Allergy Severe Anaphylaxis Verified 06/11/23 09:41 gabapentin [GABAPENTIN] Allergy Intermediate memory loss Verified 06/11/23 09:41 TARA Inhibitors AdvReac Intermediate cough Uncoded 06/11/23 09:41 Active Medications: Current Medications Lactated Ringer's (Lr) 1,000 mls @ 100 mls/hr IVCONT .Q10H MIRELLA Last Admin: 06/13/23 13:51 Dose: 100 mls/hr Home Medications Medication Instructions Recorded Confirmed Last Taken Type duloxetine 60 mg capsule,delayed 60 mg PO BID 12/22/20 06/13/23 Unknown History release (Cymbalta) risperidone 3 mg tablet (Risperdal) 3 mg PO BEDTIME 12/22/20 06/13/23 Unknown History amlodipine 10 mg tablet 10 mg PO DAILY 02/11/22 06/13/23 Unknown History diphenhydramine HCl 25 mg capsule 25 mg PO BEDTIME PRN insomnia 02/11/22 06/13/23 Unknown History (Banophen) hydroxyzine pamoate 50 mg capsule 50 mg PO DAILY PRN anxiety 02/11/22 06/13/23 Unknown History metformin 500 mg tablet 1,000 mg PO BID 02/11/22 06/13/23 Unknown History omeprazole 40 mg capsule,delayed 40 mg PO DAILY 02/11/22 06/13/23 Unknown History release trazodone 100 mg tablet 250 mg PO BEDTIME 02/11/22 06/13/23 Unknown History epinephrine 0.3 mg/0.3 mL 0.3 mg IM ONCE PRN Anaphylaxis 04/22/23 06/13/23 Unknown History injection, auto-injector estradiol 0.5 mg tablet 0.5 mg PO QAM 04/22/23 06/13/23 Unknown History losartan 50 mg tablet 50 mg PO QAM 04/22/23 06/13/23 Unknown History oxcarbazepine 300 mg tablet 900 mg PO DAILY 04/22/23 06/13/23 Unknown History prazosin 1 mg capsule 1 mg PO BID 04/22/23 06/13/23 Unknown History albuterol sulfate 90 mcg/actuation 2 puff inhalation Q4H PRN Wheezing 06/11/23 06/13/23 Unknown History aerosol inhaler (Ventolin HFA) aspirin 81 mg tablet,delayed 81 mg PO DAILY 06/11/23 06/13/23 Unknown History release atorvastatin 20 mg tablet 20 mg PO DAILY 06/11/23 06/13/23 Unknown History famotidine 20 mg tablet 20 mg PO BEDTIME 06/11/23 06/13/23 Unknown History Exam Exam Date and Time: June 13, 2023 1509 Height,Weight and Vital Signs: Height 5 ft 7 in Weight 101.605 kg Last Vital Signs Temp 97.0 F 06/13/23 13:31 Pulse 55 06/13/23 13:31 Resp 16 06/13/23 13:31 BP 143/69 H 06/13/23 13:31 Pulse Ox 96 06/13/23 13:31 O2 Del Method Room Air 06/13/23 13:31 Pertinent Lab Results Pertinent Lab Results: Laboratory Tests 06/13/23 13:54 POC Glucose 110 Airway Mallampati Class: III TM Dist: >3cm Neck ROM: Full Assessment and Plan Assessment Anesthesia Assessment: Anesthesia Plan Discussed and Chart Reviewed Final Anesthetic Review Family History of Problems with Anesthesia: No History of Problems with Anesthesia: No NPO: Yes ASA Class: III Final Preanesthetic Review: No Changes in Pt Med Stat, Meds/Allgs Chart Reviewed, Consent Obtained/Reviewed and Anes Risks/Benef Reviewed Patient Risk: Intermediate Procedure Risk: Low Anesthetic Plan Anesthetic Plan: GA Disposition: Standard PACU
[2023-06-13 15:16] VITALS: BP 136/76; PULSE 70; RESP 15; TEMP 36.9; O2SAT 97
[2023-06-13 15:35] VITALS: BP 168/80; PULSE 65; RESP 18; TEMP 36.7; O2SAT 99
== END 2023-06-13 15:50 | disposition home or self-care (01) ==
PROVIDERS: Visit Provider Internal Medicine Gastroenterology
PROC: 0DJ08ZZ Inspection of Upper Intestinal Tract, Via Natural or Artificial Opening Endoscopic (ICD-10-PCS; CPT 43235; principal; 2023-06-13 13:50)
DX: R10.13 Epigastric pain (principal); G89.29 Other chronic pain; R14.0 Abdominal distension (gaseous); R19.7 Diarrhea, unspecified; K21.9 Gastro-esophageal reflux disease without esophagitis; K29.50 Unspecified chronic gastritis without bleeding; K31.7 Polyp of stomach and duodenum; I25.10 Atherosclerotic heart disease of native coronary artery without angina pectoris; I10 Essential (primary) hypertension; E78.00 Pure hypercholesterolemia, unspecified; J45.909 Unspecified asthma, uncomplicated; E11.9 Type 2 diabetes mellitus without complications; F43.10 Post-traumatic stress disorder, unspecified; Z79.82 Long term (current) use of aspirin; Z79.84 Long term (current) use of oral hypoglycemic drugs; Z79.899 Other long term (current) drug therapy; Z88.8 Allergy status to other drugs, medicaments and biological substances; Z90.49 Acquired absence of other specified parts of digestive tract; Z87.891 Personal history of nicotine dependence
CPT/HCPCS: 43239; 82947; 88305; 88342

== ENCOUNTER → 2023-06-13 11:51 | Outpatient (BNV) | payer MEDICAID, SELFPAY | PROVIDERS: Visit Provider Internal Medicine Gastroenterology | DX: K29.70 Gastritis, unspecified, without bleeding (principal); K31.7 Polyp of stomach and duodenum; K21.9 Gastro-esophageal reflux disease without esophagitis | CPT/HCPCS: 43239 ==

== ENCOUNTER 2023-10-31 11:42 | Outpatient (REF) | payer MEDICAID, SELFPAY ==
[2023-10-31 12:22] LABS: Estimated Average Glucose 105 mg/dL; Hemoglobin A1c % 5.3 % (<6.0)
[2023-10-31 12:44] LABS: Alanine Aminotransferase 18 U/L (0-31); Albumin Level 4.5 g/dL (3.5-5.0); Alkaline Phosphatase 76 U/L (39-117); Anion Gap 12 (12-20); Aspartate Amino Transferase 17 U/L (5-31); Bilirubin Total 0.3 mg/dL (0.0-1.0); Blood Urea Nitrogen 11 mg/dL (9-16); Calcium 9.8 mg/dL (8.4-10.2); Carbon Dioxide 27 mmol/L (22-29); Chloride 105 mmol/L (96-108); Cholesterol 243 mg/dL (<200); Estimated Glomerular Filt Rate > 60; Glucose Random 113 mg/dL (60-115); HDL Cholesterol 45 mg/dL (>40); LDL Cholesterol Calculated 120 mg/dL (<100); Sodium 140 mmol/L (135-145); Total Protein 7.2 g/dL (6.5-8.0); Triglycerides 394 mg/dL (<150)
[2023-10-31 13:17] LABS: Folate 13.3 ng/mL (> or = 4.0)
[2023-10-31 13:22] LABS: Vitamin B12 526 pg/mL (200-900)
== END 2023-10-31 11:43 | disposition home or self-care (01) ==
LOC: HO.LAB 11:42
PROVIDERS: PCP Student in an Organized Health Care Education/Training Program; Visit Provider Student in an Organized Health Care Education/Training Program
DX: E11.59 Type 2 diabetes mellitus with other circulatory complications (principal); R07.9 Chest pain, unspecified
CPT/HCPCS: 36415; 71046; 80053; 80061; 82607; 82746; 83036

== ENCOUNTER 2023-11-12 14:54 | Outpatient (AMB) | payer MEDICAID, SELFPAY ==
[2023-11-12 14:57] VITALS: BP 130/74; PULSE 62; BMI 35.5
--- NOTE | 2023-11-12 14:57 | MHC.OFFVIS ---
Intake Vital Signs 11/12/23 14:57 Height 5 ft 7 in Weight 226 lb 10.163 oz BMI 35.5 BP 130/74 Blood Pressure Location Lt brachial Position Sitting Pulse 62 Intake Visit Reasons: NPV/EKG/HHC/Blaine Wilkinson Intake Note: NPV/EKG/ pt its feeling ok but its having some shortness of breath. Superintendent Renting Managing Required: No Accompanied by: Self / Same As Patient Allergies bee pollen [BEE STINGS] Allergy (Severe, Verified 06/11/23 09:41) Anaphylaxis shrimp [SHRIMP] Allergy (Severe, Verified 06/11/23 09:41) Anaphylaxis gabapentin [GABAPENTIN] Allergy (Intermediate, Verified 06/11/23 09:41) memory loss TARA Inhibitors Adverse Reaction (Intermediate, Uncoded 06/11/23 09:41) cough Medication List - Last Reconciled 11/12/23 by Khadar Vidal MD albuterol sulfate 90 mcg/actuation (Ventolin HFA) 2 puffs inhalation Q4H PRN amlodipine 10 mg PO DAILY aspirin 81 mg PO DAILY atorvastatin 20 mg PO DAILY cholestyramine (with sugar) 4 gram 4 grams PO BID diphenhydramine HCl (Banophen) 25 mg PO BEDTIME PRN duloxetine (Cymbalta) 60 mg PO BID epinephrine 0.3 mg IM ONCE PRN estradiol 0.5 mg PO QAM famotidine 20 mg PO BEDTIME hydroxyzine pamoate 50 mg PO DAILY PRN hyoscyamine sulfate 0.125 mg sublingual BID-QID losartan 50 mg PO QAM metformin 1,000 mg PO BID omeprazole 40 mg PO DAILY oxcarbazepine 900 mg PO DAILY prazosin 1 mg PO BID risperidone (Risperdal) 3 mg PO BEDTIME trazodone 250 mg PO BEDTIME HPI HPI Comments History of Present Illness Details 58-year-old female who is referred to us for abnormal EKG showing anterolateral T-wave inversions. She has noncardiac chest pain which is a sharp sensation lasting for few seconds the left side of the chest. She is saying she exercises and does not get significant symptoms during exercise. After exercise she feels sometimes chest discomfort along with a dizzy feeling. She gets some palpitations at that time too. I reviewed her chart and [facility] it appears she had T-wave inversions previously and had echocardiography performed last year which was completely normal. She subsequently had a stress test followed by cardiac catheterization which showed mild proximal RCA stenosis but no LAD or circumflex stenosis was noted. She also had intermittent left bundle-branch block. She is taking medications regularly currently. She has had her cholesterol was high but it has improved. Blood pressure control is good on amlodipine. [facility] Medical History (Updated 11/12/23 @ 15:33 by Khadar Vidal MD) Bipolar 1 disorder PTSD (post-traumatic stress disorder) Depression Fibromyalgia CAD (coronary artery disease) Hypertension High cholesterol Diabetes (~2016) Asthma Nicotine dependence, cigarettes, uncomplicated Tubular adenoma of colon (~2018) Surgical History Status post insertion of spinal cord stimulator History of elbow surgery History of colonoscopy History of hysterectomy History of appendectomy History of cholecystectomy History of carpal tunnel surgery Family History Father Dialysis patient Mother HTN (hypertension) Diabetes Maternal Grandmother Stroke Maternal Grandfather Alcoholic Paternal Uncle Stomach cancer Family/Other Stomach cancer Social History Alcohol intake: current Alcohol intake frequency: does not drink Patient Tobacco Use Status: Former Tobacco user Quit Date: 2008 Review of Systems Const Reports chills, Reports fatigue, Reports fever(s), Reports frequent falls, Reports weakness, Reports weight gain and Reports weight loss ENT Reports dizziness Card Reports chest pain, Reports leg edema, Reports lightheadedness, Reports palpitations, Reports dyspnea, Reports dyspnea on exertion and Reports orthopnea Resp Reports cough, Reports dyspnea and Reports dyspnea on exertion GI Reports bloating and Reports change in bowel habits Musc Reports muscle weakness, Reports numbness and Reports tingling Neuro Reports dizziness, Reports frequent falls, Reports numbness, Reports tingling and Reports weakness Endo Reports fatigue and Reports palpitations Physical Exam Vital Signs: Last Vital Signs Pulse 62 11/12/23 14:57 BP 130/74 11/12/23 14:57 BMI result Body Mass Index 35.5 GENERAL APPEARANCE: in no acute distress, pleasant. NECK: no carotid bruit, no jugular venous distention. SKIN: no suspicious lesions, warm and dry. HEART: no murmurs, regular rate and rhythm. LUNGS: clear to auscultation bilaterally. ABDOMEN: soft, nontender. EXTREMITIES: no edema. PERIPHERAL PULSES: equal. NEUROLOGIC: No gross deficits, AAO X 3 Office Procedures EKG Details: Sinus rhythm 62 beats per minute, normal axis, anterolateral T-wave inversions, consider ischemia (old changes when compared with ECGs at [facility]). QTC 442 milliseconds. [id number], Complete Assessment & Plan Assessment & Plan (1) Palpitations: Code(s): R00.2 - Palpitations (2) CAD (coronary artery disease): Comment: ( hospital admit 2015 for chest pain with negative MIBI) Code(s): I25.10 - Atherosclerotic heart disease of crow coronary artery without angina pectoris (3) Hypertension: Code(s): I10 - Essential (primary) hypertension Plan Pleasant 58 year female here for follow-up. She has background of hypertension and noncardiac chest pain. Blood pressure control is good. She has mild proximal RCA stenosis based on cardiac catheterization from April 2023. This is for medical management. The EKG changes are concerning but they are not new and have been present for long time and she had appropriate testing already done at [facility] with normal cardiac catheterization as well as echocardiography showing no wall motion abnormality. No history of sudden or ventricular tachycardia. She had intermittent left bundle-branch block. It is possible that she is feeling symptoms when she developed some bundle-branch block. Other possibility can be arrhythmia/PVCs. I have discussed with her and decided to arrange cardiac event monitor for her. Thank you for allowing me to participate in the care of your patient. Please feel free to contact me if you have any questions. Orders: Orders ECG 30 day event monitor Today R00.2 - Palpitations Coding Level of Care Code New Pt Level 4 (17414) Diagnoses Palpitations R00.2 CAD (coronary artery disease) I25.10 Hypertension I10 CPT Codes EKG - CPT: 38817-[id number], Complete ([id number])
== END 2023-11-12 15:32 | disposition home or self-care (01) ==
PROVIDERS: PCP Student in an Organized Health Care Education/Training Program; Referring Provider Student in an Organized Health Care Education/Training Program; Visit Provider Internal Medicine Cardiovascular Disease
DX: R00.2 Palpitations (principal); I25.10 Atherosclerotic heart disease of native coronary artery without angina pectoris; I10 Essential (primary) hypertension
CPT/HCPCS: 93010; 99204

== ENCOUNTER → 2023-11-12 14:54 | Outpatient (BNVA) | payer MEDICAID, SELFPAY | PROVIDERS: PCP Student in an Organized Health Care Education/Training Program; Visit Provider Internal Medicine Cardiovascular Disease | DX: R00.2 Palpitations (principal); I25.10 Atherosclerotic heart disease of native coronary artery without angina pectoris; I10 Essential (primary) hypertension | CPT/HCPCS: 93005; 99202 ==

== ENCOUNTER 2023-11-13 16:11 | Outpatient (REF) | payer MEDICAID, SELFPAY ==
--- NOTE | ~2023-11-13 | US_ITS ---
EXAMINATION: US RETROPERITONEAL LIMITED (RENAL ONLY) CLINICAL INFORMATION: Kidney cyst. COMPARISON: CT abdomen and pelvis with contrast 12/31/2021. Ultrasound kidneys and bladder 03/01/2020. Renal ultrasound 07/13/2018. TECHNIQUE: Real-time imaging of the kidneys. FINDINGS: RIGHT KIDNEY: 13.0 x 5.3 x 5.3 cm (SAG x AP x TRV). The kidney is normal in size, contour, and echogenicity. Renal cortical thickness is normal. No calculi or focal parenchymal lesions. No hydronephrosis. LEFT KIDNEY: 10.1 x 5.0 x 5.2 cm (SAG x AP x TRV). The kidney is normal in size, contour, and echogenicity. Renal cortical thickness is normal. No renal calculi or hydronephrosis. A benign upper pole 2.2 cm renal cyst is noted. Given the appearance on the prior CT scan where some calcification was seen in the wall of this cyst, although not appreciated on the current study, this makes this a benign Bosniak class II cyst which requires no additional imaging or follow up. No solid renal masses are seen. ADDITIONAL FINDINGS: Incidental note made of an echogenic liver consistent with hepatic steatosis and mild splenomegaly at 13 cm. US/US renal BI IMPRESSION: 1. Benign Bosniak class 2 left renal cyst. 2. Incidentally noted hepatic steatosis and mild splenomegaly.
== END 2023-11-13 16:12 | disposition home or self-care (01) ==
LOC: HO.US 16:11
PROVIDERS: PCP Student in an Organized Health Care Education/Training Program; Visit Provider Student in an Organized Health Care Education/Training Program
DX: N28.1 Cyst of kidney, acquired (principal)
CPT/HCPCS: 76775

== ENCOUNTER → 2023-11-21 10:54 | Outpatient (REF) | payer MEDICAID, SELFPAY ==
--- NOTE | 2023-11-21 10:57 | HM_ITS ---
Cardiac event monitor Indication: Palpitation Technique: Patient was hooked up to cardiac event monitor on 11/21/2019 for total of 30 days. Compliance rate was about 88%. Findings: Baseline was predominantly normal sinus rhythm with a heart rate in normal range 92% of time. Rare isolated PVCs were noted. No other significant arrhythmias were noted. No pauses or AV block noted. Patient activated the symptom button 10 times, with no associated symptoms reported. Some of the reported symptoms correlating with isolated PACs. Conclusion: 1. Baseline was normal sinus rhythm with rare isolated PVCs with no significant pauses 2. Some of the patient reported events correlated with isolated PVCs MTDD
== END ==
LOC: HO.CARD 10:54
PROVIDERS: PCP Student in an Organized Health Care Education/Training Program; Visit Provider Internal Medicine Cardiovascular Disease
DX: R00.2 Palpitations (principal)
CPT/HCPCS: 93270

== ENCOUNTER → 2023-11-21 10:57 | Outpatient (BNV) | payer MEDICAID, SELFPAY | PROVIDERS: PCP Student in an Organized Health Care Education/Training Program; Visit Provider Internal Medicine Cardiovascular Disease | DX: I49.3 Ventricular premature depolarization (principal) | CPT/HCPCS: 93272 ==

== ENCOUNTER 2024-03-15 14:36 | Outpatient (AMB) | payer MEDICAID, SELFPAY ==
[2024-03-15 15:06] VITALS: BP 120/64; PULSE 79; O2SAT 97; BMI 36.2
--- NOTE | 2024-03-15 15:06 | MHC.OFFVIS ---
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 Accompanied by: Self / Same As Patient Allergies bee pollen [BEE STINGS] Allergy (Severe, Verified 06/11/23 09:41) Anaphylaxis shrimp [SHRIMP] Allergy (Severe, Verified 06/11/23 09:41) Anaphylaxis gabapentin [GABAPENTIN] Allergy (Intermediate, Verified 06/11/23 09:41) memory loss TARA Inhibitors Adverse Reaction (Intermediate, Uncoded 06/11/23 09:41) cough Medication List - Last Reconciled 03/15/24 by Khadar Vidal MD albuterol sulfate 90 mcg/actuation (Ventolin HFA) 2 puffs inhalation Q4H PRN amlodipine 10 mg PO DAILY aspirin 81 mg PO DAILY atorvastatin 20 mg PO DAILY cholestyramine (with sugar) 4 gram 4 grams PO BID diphenhydramine HCl (Banophen) 25 mg PO BEDTIME PRN duloxetine (Cymbalta) 60 mg PO BID epinephrine 0.3 mg IM ONCE PRN famotidine 20 mg PO BEDTIME hydroxyzine pamoate 50 mg PO DAILY PRN losartan 50 mg PO QAM metformin 500 mg PO ONCE omeprazole 40 mg PO DAILY oxcarbazepine 900 mg PO DAILY prazosin 1 mg PO BID risperidone (Risperdal) 3 mg PO BEDTIME trazodone 250 mg PO BEDTIME HPI Comments Details: 58-year-old female who is referred to us for abnormal EKG showing anterolateral T-wave inversions. She has noncardiac chest pain which is a sharp sensation lasting for few seconds the left side of the chest. She is saying she exercises and does not get significant symptoms during exercise. After exercise she feels sometimes chest discomfort along with a dizzy feeling. She gets some palpitations at that time too. I reviewed her chart and [facility] it appears she had T-wave inversions previously and had echocardiography performed last year which was completely normal. She subsequently had a stress test followed by cardiac catheterization which showed mild proximal RCA stenosis but no LAD or circumflex stenosis was noted. She also had intermittent left bundle-branch block. She is taking medications regularly currently. She has had her cholesterol was high but it has improved. Blood pressure control is good on amlodipine. 03/15/2024: She returns for follow-up. She had cardiac event monitor which did not show any significant issues other than some PVCs. Some of her symptoms correlated with premature ventricular complexes. She is here today in his saying that since yesterday she has been getting burning sensation in her chest. She said this happened for many hours yesterday and has been happening since noon time today. She said she ate chicken which was spicy and after getting the burning sensation she took omeprazole. Blood pressure control is good. I have explained to her that her cardiac event monitor has shown some premature ventricular complexes. [facility] Medical History (Updated 03/15/24 @ 15:18 by Khadar Vidal MD) Bipolar 1 disorder PTSD (post-traumatic stress disorder) Depression Fibromyalgia CAD (coronary artery disease) Hypertension High cholesterol Diabetes (~2015) Asthma Nicotine dependence, cigarettes, uncomplicated Tubular adenoma of colon (~2017) Surgical History Status post insertion of spinal cord stimulator History of elbow surgery History of colonoscopy History of hysterectomy History of appendectomy History of cholecystectomy History of carpal tunnel surgery Family History Father Dialysis patient Mother HTN (hypertension) Diabetes Maternal Grandmother Stroke Maternal Grandfather Alcoholic Paternal Uncle Stomach cancer Family/Other Stomach cancer Social History Alcohol intake: current Alcohol intake frequency: does not drink Patient Tobacco Use Status: Former Tobacco user Quit Date: 2008 Review of Systems Const Denies chills, Denies fatigue, Denies fever(s), Denies frequent falls, Denies weakness, Denies weight gain and Denies weight loss ENT Denies dizziness Card Denies chest pain, Denies leg edema, Denies lightheadedness, Denies palpitations, Denies dyspnea and Denies dyspnea on exertion Resp Denies cough, Denies dyspnea and Denies dyspnea on exertion GI Denies hematochezia Musc Denies abnormal gait, Denies muscle weakness, Denies numbness, Denies radiating pain into limb and Denies tingling Neuro Denies abnormal gait, Denies dizziness, Denies frequent falls, Denies numbness, Denies tingling and Denies weakness Endo Denies fatigue and Denies palpitations Physical Exam Vital Signs: Last Vital Signs Pulse 79 03/15/24 15:06 BP 120/64 03/15/24 15:06 Pulse Ox 97 03/15/24 15:06 BMI result Body Mass Index 36.2 GENERAL APPEARANCE: in no acute distress, pleasant. NECK: no carotid bruit, no jugular venous distention. SKIN: no suspicious lesions, warm and dry. HEART: no murmurs, regular rate and rhythm. LUNGS: clear to auscultation bilaterally. ABDOMEN: soft, nontender. EXTREMITIES: no edema. PERIPHERAL PULSES: equal. NEUROLOGIC: No gross deficits, AAO X 3 Office Procedures EKG Details: Sinus rhythm 79 beats per minute, normal axis, left bundle-branch block, QTC 479 milliseconds. [id number], Complete Assessment & Plan Assessment & Plan (1) Palpitations: Code(s): R00.2 - Palpitations Category: Medical (2) Hypertension: Code(s): I10 - Essential (primary) hypertension Category: Medical (3) Burning chest pain: Code(s): R07.89 - Other chest pain Category: Medical Plan Pleasant 58 year female who is here for follow-up. She was seen for palpitations underwent cardiac event monitor did not show any significant arrhythmia other than occasional premature ventricular complexes. She did have some symptoms at times when she had PVCs. Will start her on metoprolol 25 mg twice a day to see if he can suppress the PVCs to some extent and has the palpitations. She is also complaining of burning chest discomfort which happened yesterday and today. Today it happened after eating baked chicken. She said she took omeprazole after the pain started. I have advised her to use some Maalox and use omeprazole 30 minutes before eating. EKG showing left bundle branch block which she is known to have intermittent left bundle-branch block in the past. Symptoms are likely GI in origin. Thank you for allowing me to participate in the care of your patient. Please feel free to contact me if you have any questions. Medications: New metoprolol tartrate 25 mg PO BID 60 tabs 4RF R00.2 - Palpitations Coding Level of Care Code Est Pt Level 4 (33517) Diagnoses Palpitations R00.2 Hypertension I10 Burning chest pain R07.89 CPT Codes EKG - CPT: 44045-[id number], Complete ([id number])
== END 2024-03-15 15:32 | disposition home or self-care (01) ==
PROVIDERS: PCP Student in an Organized Health Care Education/Training Program; Referring Provider Student in an Organized Health Care Education/Training Program; Visit Provider Internal Medicine Cardiovascular Disease
DX: R00.2 Palpitations (principal); I10 Essential (primary) hypertension; R07.89 Other chest pain
CPT/HCPCS: 93010; 99214

== ENCOUNTER → 2024-03-15 14:36 | Outpatient (BNVA) | payer MEDICAID, SELFPAY | PROVIDERS: PCP Student in an Organized Health Care Education/Training Program; Visit Provider Internal Medicine Cardiovascular Disease | DX: R00.2 Palpitations (principal); R07.89 Other chest pain; I10 Essential (primary) hypertension; R94.31 Abnormal electrocardiogram [ECG] [EKG]; I45.4 Nonspecific intraventricular block | CPT/HCPCS: 93005; 99212 ==

== ENCOUNTER 2024-05-05 14:18 | Outpatient (REF) | payer MEDICAID, SELFPAY | END 2024-05-05 14:19 | disposition home or self-care (01) | LOC: HO.MAMMO 14:18 | PROVIDERS: PCP Student in an Organized Health Care Education/Training Program; Visit Provider Student in an Organized Health Care Education/Training Program | DX: Z12.31 Encounter for screening mammogram for malignant neoplasm of breast (principal) | CPT/HCPCS: 77063; 77067 ==

== ENCOUNTER → 2024-05-05 14:30 | Outpatient (BNV) | payer MEDICAID, SELFPAY | PROVIDERS: PCP Student in an Organized Health Care Education/Training Program; Visit Provider Radiology Diagnostic Radiology | DX: Z12.31 Encounter for screening mammogram for malignant neoplasm of breast (principal) | CPT/HCPCS: 77063; 77067 ==

== ENCOUNTER 2024-05-27 14:45 | Outpatient (AMB) | payer MEDICAID, SELFPAY ==
[2024-05-27 14:47] VITALS: BP 119/67; PULSE 78; O2SAT 97; BMI 35.9
--- NOTE | 2024-05-27 14:47 | MHC.OFFVIS ---
Vital Signs 05/27/24 14:47 Height 5 ft 7 in Weight 229 lb 4.492 oz BMI 35.9 BP 119/67 Blood Pressure Location Rt brachial Position Sitting Pulse 78 Pulse Source Doppler Pulse Oximetry (%) 97 Oxygen Delivery Method Room Air Intake Visit Reasons: Asthma Allergies bee pollen [BEE STINGS] Allergy (Severe, Verified 06/11/23 09:41) Anaphylaxis shrimp [SHRIMP] Allergy (Severe, Verified 06/11/23 09:41) Anaphylaxis gabapentin [GABAPENTIN] Allergy (Intermediate, Verified 06/11/23 09:41) memory loss TARA Inhibitors Adverse Reaction (Intermediate, Uncoded 06/11/23 09:41) cough HPI HPI Asthma: Details: 59-year-old lady, former 30 pack-year smoker, quit approximately 10 years prior referred for evaluation of pulmonary component dyspnea. Patient has been started on Arnuity by primary care with no significant symptomatic response. She has been relying on albuterol MDI using it 2 to 3 times a day. She does have history of lung cancer in her uncle who was an avid smoker. Patient denies environmental allergies or exposure to industrial dusts. She did have recent pulmonary function test at [facility] showing no fixed obstruction, but mildly decreased diffusion capacity, and significant bronchodilator response. Patient is scheduled to undergo lung cancer screening CT chest on 05/28/2024. [facility] Medical History (Updated 05/27/24 @ 15:15 by West Pelayo MD) Bipolar 1 disorder PTSD (post-traumatic stress disorder) Depression Fibromyalgia CAD (coronary artery disease) Hypertension High cholesterol Diabetes (~2016) Asthma Nicotine dependence, cigarettes, uncomplicated Tubular adenoma of colon (~2018) Surgical History Status post insertion of spinal cord stimulator History of elbow surgery History of colonoscopy History of hysterectomy History of appendectomy History of cholecystectomy History of carpal tunnel surgery Family History Father Dialysis patient Mother HTN (hypertension) Diabetes Maternal Grandmother Stroke Maternal Grandfather Alcoholic Paternal Uncle Stomach cancer Family/Other Stomach cancer Social History Alcohol intake: current Alcohol intake frequency: does not drink Patient Tobacco Use Status: Former Tobacco user Review of Systems Const Denies daytime sleepiness, Denies excessive sweating, Denies fatigue, Denies fever(s), Denies lethargy, Denies malaise, Denies night sweats, Denies snoring and Denies weight loss Eyes Denies blurry vision and Denies itchy eyes ENT Denies nasal congestion, Denies post nasal drip, Denies sinus pain, Denies sinus pressure and Denies other ( Thrush) Card Denies chest pain, Denies pedal edema, Denies dyspnea, Reports dyspnea on exertion, Denies orthopnea and Denies paroxysmal nocturnal dyspnea Resp Denies cough, Denies hemoptysis, Denies excessive phlegm production, Denies dyspnea, Reports dyspnea on exertion, Denies snoring and Denies wheezing GI Denies abdominal pain and Denies heartburn Musc Denies myalgias, Denies arthralgias and Denies joint swelling Skin/Breast Denies rash Neuro Denies memory loss and Denies seizure-like activity Psych Denies abnormal sleep pattern, Denies anxiety and Denies memory loss Endo Denies excessive sweating, Denies fatigue and Denies heat intolerance Beto/Lymph Denies easy bruising Aller/Immun Denies itchy eyes, Denies seasonal rhinorrhea and Denies wheezing Physical Exam Vital Signs: Last Vital Signs Pulse 78 05/27/24 14:47 BP 119/67 05/27/24 14:47 Pulse Ox 97 05/27/24 14:47 Oxygen Delivery Method Room Air 05/27/24 14:47 BMI result Body Mass Index 35.9 Const General: no acute distress and alert Nutritional Appearance: obese Orientation/consciousness: Other orientation findings ( oriented) HEENT Head: Yes atraumatic Eyes General: appearance normal, both eyes and all related structures Sclerae: sclerae normal EOM: EOMs intact bilaterally Neck Neck: Yes supple Lymphatic: no lymphadenopathy noted Resp Effort & Inspection: normal respiratory effort and no use of accessory muscles Auscultation: clear to auscultation bilaterally Cardio Rate: regular rate Rhythm: regular rhythm Heart sounds: no gallops, no murmurs and no rubs Skin General skin exam: other ( warm) Extrem General: No clubbing, No cyanosis and No edema Assessment & Plan Assessment & Plan (1) Emphysema of lung: Code(s): J43.9 - Emphysema, unspecified Category: Medical (2) Asthma: Code(s): J45.909 - Unspecified asthma, uncomplicated Category: Medical (3) Nicotine dependence, cigarettes, uncomplicated: Comment: (History of CTA of chest done 03/04/2018 noted calcified granuloma of RLL that was stable to 2015 scan) Code(s): F17.210 - Nicotine dependence, cigarettes, uncomplicated Category: Medical Plan Underlying asthma/COPD overlap syndrome suboptimally controlled on Arnuity, will switch to Trelegy. Continue albuterol MDI. Results of pulmonary function test reviewed. Lung cancer screening CT chest is pending. Medications: New [id number] 200-62.5-25 mcg (Trelegy Ellipta) 1 inh inhalation DAILY 1 ea 6RF Coding Level of Care Code New Pt Level 4 (41169) Diagnoses Emphysema of lung J43.9 Asthma J45.909 Nicotine dependence, cigarettes, uncomplicated F17.210
== END 2024-05-27 15:11 | disposition home or self-care (01) ==
PROVIDERS: PCP Student in an Organized Health Care Education/Training Program; Visit Provider Internal Medicine Pulmonary Disease
DX: J43.9 Emphysema, unspecified (principal); J45.909 Unspecified asthma, uncomplicated; F17.210 Nicotine dependence, cigarettes, uncomplicated
CPT/HCPCS: 99204

== ENCOUNTER → 2024-05-27 14:45 | Outpatient (BNVA) | payer MEDICAID, SELFPAY | PROVIDERS: PCP Student in an Organized Health Care Education/Training Program; Visit Provider Internal Medicine Pulmonary Disease | DX: J45.909 Unspecified asthma, uncomplicated (principal); J43.9 Emphysema, unspecified; F17.210 Nicotine dependence, cigarettes, uncomplicated | CPT/HCPCS: 99202 ==

== ENCOUNTER 2024-05-28 10:53 | Outpatient (AMB) | payer MEDICAID, SELFPAY ==
--- NOTE | 2024-05-28 07:56 | A.OFFVIS_ITS ---
Intake Visit Reasons: Current Smoker Allergies bee pollen [BEE STINGS] Allergy (Severe, Verified 06/11/23 09:41) Anaphylaxis shrimp [SHRIMP] Allergy (Severe, Verified 06/11/23 09:41) Anaphylaxis gabapentin [GABAPENTIN] Allergy (Intermediate, Verified 06/11/23 09:41) memory loss TARA Inhibitors Adverse Reaction (Intermediate, Uncoded 06/11/23 09:41) cough HPI HPI Current Smoker: Details: Initial visit for this 59yo former smoker with a 45PYH. Patient has been smoking since age 13 for 31yrs years at 1-2ppd. . Denies marijuana use. Denies second hand smoke exposure. Denies exposure to chemicals or substances like asbestos. . Reports family history of lung cancer. Maternal uncle at 48yo. Denies personal history of cancers. . Denies chest CT in last year. History of CTA of chest done 03/04/2018 noted calcified granuloma of RLL that was stable to 2015 scan . Denies recent travel outside the [place]. Denies recent respiratory illness or recent hospitalization for respiratory issues. Reports testing positive for COVID in 2020. Admits receiving COVID Vaccine. x 4. . Denies fever, chills, new/worsening cough, hemoptysis, hoarseness or dysphagia. Denies significant chest pain, significant dyspnea or unintentional weight loss. Patient Lung Cancer Screening Questionnaire reviewed with patient by provider. . Shared Decision Making Completed. Patient meets criteria. Discussed in detail with patient, the risk vs benefit of LDCT screening. Patient consents to proceed with scan. Discussed smoking cessation. [facility] Medical History (Updated 05/28/24 @ 11:16 by Margy Michelle PA-C) Bipolar 1 disorder PTSD (post-traumatic stress disorder) Depression Fibromyalgia CAD (coronary artery disease) Hypertension High cholesterol Diabetes (~2016) Asthma Tubular adenoma of colon (~2018) Surgical History (Updated 05/28/24 @ 11:16 by Margy Michelle PA-C) Status post insertion of spinal cord stimulator History of elbow surgery History of colonoscopy History of hysterectomy History of appendectomy History of cholecystectomy History of carpal tunnel surgery Family History (Updated 05/28/24 @ 11:17 by Margy Michelle PA-C) Father Dialysis patient Mother HTN (hypertension) Diabetes Maternal Grandmother Stroke Maternal Grandfather Alcoholic Paternal Uncle Stomach cancer Family/Other Stomach cancer Maternal Uncle Lung cancer Social History (Updated 05/28/24 @ 11:16 by Margy Michelle PA-C) Alcohol intake: current Alcohol intake frequency: does not drink Patient Tobacco Use Status: Former Tobacco user Years Smoked: (onset 13yo, 1-2ppd x 31 - 45PYH - quit 2008) Assessment & Plan Assessment & Plan (1) Personal history of tobacco use: Comment: (former smoker - onset 13yo, 1-2ppd x 31 - 45PYH - quit 2008) Code(s): Z87.891 - Personal history of nicotine dependence Category: Social Hx Plan: - SDM visit completed today in office. - Patient meets criteria for LDCT for lung cancer screening purposes and is asymptomatic. - Smoking cessation counseling offered. Patients can always call [phone]. - Will arrange for a LDCT scan of the chest for screening purposes at [facility]. - Risks, benefits, and alternatives were discussed in detail and the patient agrees to proceed. - Risks discussed include but are not limited to: radiation exposure, anxiety during testing and while awaiting results, false negatives, false positives and possibility of additional intervention such as further imaging or surgical procedures for benign disease. - Benefits are obviously detection of lung cancer at an early stage which can lead to improved outcomes. - Discussed the importance of screening program compliance with adherence to yearly LDCT scan as scheduled - or sooner interval scans for personalized screening regimen. - Discussed follow up plan. Our office will send a letter discussing results and if needed set up phone call and office visit based on CT findings. - Patient educated on results categorization and the management decisions for suspicious findings potentially found on the screening LDCT scan. Any patient with a Lung RADS score of 3 or 4 will be reviewed by a multidisciplinary team at [facility] to form a plan of action in regards to scan findings. - If further work up is warranted for a suspicious lung finding this will be followed by the Lung Cancer Screening program in conjunction with the Thoracic Surgery Department at [facility]. - A copy of the office note and LDCT will be sent to the patient's PCP - as well as documentation on any associated further plans of care. - Incidental findings on LDCT are the PCP's responsibility. These findings are indicated with an S finding on the LDCT Assessment. A note discussing the fin dings will be sent to the PCP who is then responsible for further management. - All questions answered.? Coding Level of Care Code Lung Cancer Screening G0296 Diagnoses Personal history of tobacco use Z87.891
== END 2024-05-28 11:23 | disposition home or self-care (01) ==
PROVIDERS: PCP Student in an Organized Health Care Education/Training Program; Referring Provider Student in an Organized Health Care Education/Training Program; Visit Provider Physician Assistant Medical
DX: Z87.891 Personal history of nicotine dependence (principal)
CPT/HCPCS: G0296

== ENCOUNTER 2024-05-28 11:16 | Outpatient (REF) | payer MEDICAID, SELFPAY ==
--- NOTE | ~2024-05-28 | CT_ITS ---
EXAMINATION: CT LOW-DOSE SCREENING CHEST WITHOUT CONTRAST CLINICAL INFORMATION: Personal history of nicotine dependence. Former smoker. The patient has a 62 pack-year history of smoking, having quit 14 years ago. COMPARISON: X-ray chest October 31, 2023. CTA chest March 04, 2018. TECHNIQUE: Multidetector volumetric CT imaging of the chest is performed on a Siemens SOMATOM Definition scanner without contrast using low dose technique. Additional 2D coronal and sagittal reformatted images and axial 3D maximum intensity projection (MIP) images are generated on the CT workstation. This CT examination was performed using dose optimization techniques as appropriate, variously including the following: *Automated exposure control *Adjustment of mA and/or kV according to patient size (this includes techniques or standardized protocols for targeted exams where dose is matched to indication/reason for exam; i.e. extremities or head) *Use of iterative reconstruction technique TOTAL EXAM DLP: 59 mGy-cm. CTDIvol: 1.94 mGy. FINDINGS: PULMONARY NODULES: Again seen is an area of atelectasis/scarring in the right lower lobe which is flat on coronal imaging and similar in appearance when compared with the 2018 study. No new or concerning lung nodule seen. LUNGS: Lungs bilaterally symmetrically expanded. There is mild emphysema and bronchial thickening without bronchiectasis. No effusion or pneumothorax. Central airways patent. MEDIASTINUM: No mediastinal, hilar or axillary adenopathy or free fluid collection. CORONARY ARTERY CALCIFICATION: None visualized on this study. THYROID GLAND: The left lobe of the thyroid is enlarged similar to 03/04/2018 with a 1.7 cm mass. CARDIOVASCULAR STRUCTURES: Aortic and heart size normal. There is a trace pericardial effusion. CHEST WALL/AXILLA: Unremarkable. UPPER ABDOMEN: Included portions of the solid organs in the upper abdomen unremarkable on noncontrast imaging. Status post cholecystectomy. OSSEOUS STRUCTURES: No suspicious focal findings. Spinal stimulation catheters are present. CT/CT lung screening IMPRESSION: No suspicious lung nodules are seen. Again seen is an area of atelectasis/scarring in the right lower lobe which is flat on coronal imaging and similar in appearance when compared with the 03/04/2018 study. ASSESSMENT: 1. Lung-RADS Category 2: Benign appearance or behavior of nodules. N/A 2. Lung-RADS Category S: Negative. There are no clinically significant or potentially clinically significant findings not related to the lungs requiring urgent additional evaluation. RECOMMENDATION: Continued routine annual low-dose CT lung screening in 1 year is recommended. An order for CT CHEST LOW DOSE CANCER SCREENING ([id number]) can be placed. Electronically signed by: Collin Feng MD 07/15/2024 10:18 PM EDT
== END 2024-05-28 11:17 | disposition home or self-care (01) ==
LOC: HO.CT 11:16
PROVIDERS: PCP Student in an Organized Health Care Education/Training Program; Visit Provider Nurse Practitioner Family
DX: Z12.2 Encounter for screening for malignant neoplasm of respiratory organs (principal); Z87.891 Personal history of nicotine dependence
CPT/HCPCS: 71271; G0296

== ENCOUNTER 2024-06-14 10:31 | Outpatient (AMB) | payer MEDICAID, SELFPAY ==
--- NOTE | 2024-06-14 10:47 | A.OFFVIS_ITS ---
Vital Signs 06/14/24 10:50 Height 5 ft 7 in Weight 229 lb 4.492 oz BMI 35.9 BP 130/72 Blood Pressure Location Lt brachial Position Sitting Pulse 60 Pulse Source Monitor Intake Visit Reasons: 3m follow up Intake Note: 3 mth f/up- for past 2 days pt have been having chest pain with lightheadedness. [place]mer Regulator Required: No Accompanied by: Self / Same As Patient Allergies bee pollen [BEE STINGS] Allergy (Severe, Verified 06/11/23 09:41) Anaphylaxis shrimp [SHRIMP] Allergy (Severe, Verified 06/11/23 09:41) Anaphylaxis gabapentin [GABAPENTIN] Allergy (Intermediate, Verified 06/11/23 09:41) memory loss TARA Inhibitors Adverse Reaction (Intermediate, Uncoded 06/11/23 09:41) cough Medication List - Last Reconciled 06/14/24 by Khadar Vidal MD albuterol sulfate 90 mcg/actuation (Ventolin HFA) 2 puffs inhalation Q4H PRN amlodipine 10 mg PO DAILY aspirin 81 mg PO DAILY atorvastatin 20 mg PO DAILY cholestyramine (with sugar) 4 gram 4 grams PO BID diphenhydramine HCl (Banophen) 25 mg PO BEDTIME PRN duloxetine (Cymbalta) 60 mg PO BID epinephrine 0.3 mg IM ONCE PRN famotidine 20 mg PO BEDTIME lxvcmkqcofh-wyrtrhcwm-baykrkpe 200-62.5-25 mcg (Trelegy Ellipta) 1 inh inhalation DAILY hydroxyzine pamoate 50 mg PO DAILY PRN losartan 50 mg PO QAM metformin 500 mg PO ONCE metoprolol tartrate 25 mg PO BID omeprazole 40 mg PO DAILY oxcarbazepine 900 mg PO DAILY prazosin 1 mg PO BID risperidone (Risperdal) 3 mg PO BEDTIME trazodone 250 mg PO BEDTIME HPI Comments Details: 58-year-old female who is referred to us for abnormal EKG showing anterolateral T-wave inversions. She has noncardiac chest pain which is a sharp sensation lasting for few seconds the left side of the chest. She is saying she exercises and does not get significant symptoms during exercise. After exercise she feels sometimes chest discomfort along with a dizzy feeling. She gets some palpitations at that time too. I reviewed her chart and [facility] it appears she had T-wave inversions previously and had echocardiography performed last year which was completely normal. She subsequently had a stress test followed by cardiac catheterization which showed mild proximal RCA stenosis but no LAD or circumflex stenosis was noted. She also had intermittent left bundle-branch block. She is taking medications regularly currently. She has had her cholesterol was high but it has improved. Blood pressure control is good on amlodipine. 03/15/2024: She returns for follow-up. She had cardiac event monitor which did not show any significant issues other than some PVCs. Some of her symptoms correlated with premature ventricular complexes. She is here today in his saying that since yesterday she has been getting burning sensation in her chest. She said this happened for many hours yesterday and has been happening since noon time today. She said she ate chicken which was spicy and after getting the burning sensation she took omeprazole. Blood pressure control is good. I have explained to her that her cardiac event monitor has shown some premature ventricular complexes. 06/14/24: She is here for f/u. She is saying with PPI her chest burning improved but she is now getting chest pressure and dyspnea. This is random but does happen with exertion. [facility] Medical History (Updated 06/14/24 @ 11:14 by Khadar Vidal MD) Bipolar 1 disorder PTSD (post-traumatic stress disorder) Depression Fibromyalgia CAD (coronary artery disease) Hypertension High cholesterol Diabetes (~2016) Asthma Tubular adenoma of colon (~2018) Surgical History Status post insertion of spinal cord stimulator History of elbow surgery History of colonoscopy History of hysterectomy History of appendectomy History of cholecystectomy History of carpal tunnel surgery Family History Father Dialysis patient Mother HTN (hypertension) Diabetes Maternal Grandmother Stroke Maternal Grandfather Alcoholic Paternal Uncle Stomach cancer Family/Other Stomach cancer Maternal Uncle Lung cancer Social History Alcohol intake: current Alcohol intake frequency: does not drink Patient Tobacco Use Status: Former Tobacco user Years Smoked: (onset 13yo, 1-2ppd x 31 - 45PYH - quit 2008) Review of Systems Const Denies chills, Denies fatigue, Denies fever(s), Denies frequent falls, Reports w eakness, Denies weight gain and Denies weight loss ENT Reports dizziness Card Reports chest pain, Denies leg edema, Reports lightheadedness, Reports p alpitations, Reports dyspnea and Reports dyspnea on exertion Resp Denies cough, Reports dyspnea and Reports dyspnea on exertion GI Denies hematochezia Musc Denies abnormal gait, Denies muscle weakness, Denies numbness, Denies radiating pain into limb and Denies tingling Neuro Denies abnormal gait, Reports dizziness, Denies frequent falls, Denies numbness, Denies tingling and Reports weakness Endo Denies fatigue and Reports palpitations Physical Exam Vital Signs: Last Vital Signs Pulse 60 06/14/24 10:50 BP 130/72 06/14/24 10:50 BMI result Body Mass Index 35.9 GENERAL APPEARANCE: in no acute distress, pleasant. NECK: no carotid bruit, no jugular venous distention. SKIN: no suspicious lesions, warm and dry. HEART: no murmurs, regular rate and rhythm. LUNGS: clear to auscultation bilaterally. ABDOMEN: soft, nontender. EXTREMITIES: no edema. PERIPHERAL PULSES: equal. NEUROLOGIC: No gross deficits, AAO X 3 Office Procedures EKG Details: Normal sinus rhythm 60 beats per minute, right axis deviation, nonspecific intraventricular conduction delay with QRS of 136 milliseconds, poor R-wave progression, QTC 508 milliseconds. [id number], Complete Assessment & Plan Assessment & Plan (1) Hypertension: Code(s): I10 - Essential (primary) hypertension Category: Medical (2) Burning chest pain: Code(s): R07.89 - Other chest pain Category: Medical (3) SOB (shortness of breath): Code(s): R06.02 - Shortness of breath Category: Medical Plan 59 female here for f/u. Bp well controlled. CP and SOB- will arrange coronary CTA to assess for obstructive CAD. Taking meds regularly. f/u in few months. Orders: Orders CT Cardiac Coronary Angio Today R06.02 - Shortness of breath Coding Level of Care Code Est Pt Level 4 (70037) Diagnoses Hypertension I10 Burning chest pain R07.89 SOB (shortness of breath) R06.02 CPT Codes EKG - CPT: 75244-[id number], Complete ([id number])
[2024-06-14 10:50] VITALS: BP 130/72; PULSE 60; BMI 35.9
== END 2024-06-14 11:23 | disposition home or self-care (01) ==
PROVIDERS: PCP Student in an Organized Health Care Education/Training Program; Referring Provider Student in an Organized Health Care Education/Training Program; Visit Provider Internal Medicine Cardiovascular Disease
DX: I10 Essential (primary) hypertension (principal); R07.89 Other chest pain; R06.02 Shortness of breath
CPT/HCPCS: 93010; 99214

== ENCOUNTER → 2024-06-14 10:31 | Outpatient (BNVA) | payer MEDICAID, SELFPAY | PROVIDERS: PCP Student in an Organized Health Care Education/Training Program; Visit Provider Internal Medicine Cardiovascular Disease | DX: I10 Essential (primary) hypertension (principal); R07.89 Other chest pain; R06.00 Dyspnea, unspecified; R06.02 Shortness of breath | CPT/HCPCS: 93005; 99212 ==

== ENCOUNTER 2024-06-16 12:53 | Outpatient (AMB) | payer MEDICAID, SELFPAY ==
[2024-06-16 13:11] VITALS: BP 127/66; PULSE 69; O2SAT 94; BMI 35.9
--- NOTE | 2024-06-16 13:11 | MHC.OFFVIS ---
Vital Signs 06/16/24 13:11 Height 5 ft 7 in Weight 229 lb BMI 35.9 BP 127/66 Blood Pressure Location Rt brachial Position Sitting Pulse 69 Pulse Source Doppler Pulse Oximetry (%) 94 Oxygen Delivery Method Room Air Intake Visit Reasons: Asthma Allergies bee pollen [BEE STINGS] Allergy (Severe, Verified 06/16/24 13:15) Anaphylaxis shrimp [SHRIMP] Allergy (Severe, Verified 06/16/24 13:15) Anaphylaxis gabapentin [GABAPENTIN] Allergy (Intermediate, Verified 06/16/24 13:15) memory loss TARA Inhibitors Adverse Reaction (Intermediate, Uncoded 06/11/23 09:41) cough HPI HPI Asthma: Details: 59-year-old lady, former 30 pack-year smoker, quit approximately 10 years prior referred for evaluation of pulmonary component dyspnea. Patient has been started on Arnuity by primary care with no significant symptomatic response. She has been relying on albuterol MDI using it 2 to 3 times a day. She does have history of lung cancer in her uncle who was an avid smoker. Patient denies environmental allergies or exposure to industrial dusts. She did have recent pulmonary function test at [facility] showing no fixed obstruction, but mildly decreased diffusion capacity, and significant bronchodilator response. Patient is scheduled to undergo lung cancer screening CT chest on 05/28/2024. After the last office visit patient was not able to receive Trelegy and continued on Arnuity only with suboptimal control of his symptoms. She had CT chest with results not available for this visit, reviewed by me and does not show worrisome pulmonary nodules. She does complain of nocturnal dry cough that gets worse when patient lays down. [facility] Medical History (Updated 06/16/24 @ 14:28 by West Pelayo MD) Bipolar 1 disorder PTSD (post-traumatic stress disorder) Depression Fibromyalgia CAD (coronary artery disease) Hypertension High cholesterol Diabetes (~2016) Asthma Tubular adenoma of colon (~2018) Surgical History Status post insertion of spinal cord stimulator History of elbow surgery History of colonoscopy History of hysterectomy History of appendectomy History of cholecystectomy History of carpal tunnel surgery Family History Father Dialysis patient Mother HTN (hypertension) Diabetes Maternal Grandmother Stroke Maternal Grandfather Alcoholic Paternal Uncle Stomach cancer Family/Other Stomach cancer Maternal Uncle Lung cancer Social History Alcohol intake: current Alcohol intake frequency: does not drink Patient Tobacco Use Status: Former Tobacco user Years Smoked: (onset 13yo, 1-2ppd x 31 - 45PYH - quit 2008) Review of Systems Const Denies daytime sleepiness, Denies excessive sweating, Denies fatigue, Denies fever(s), Denies lethargy, Denies malaise, Denies night sweats, Denies snoring and Denies weight loss Eyes Denies blurry vision and Denies itchy eyes ENT Denies nasal congestion, Denies post nasal drip, Denies sinus pain, Denies sinus pressure and Denies other ( Thrush) Card Denies chest pain, Denies pedal edema, Denies dyspnea, Denies orthopnea and Denies paroxysmal nocturnal dyspnea Resp Reports cough, Denies hemoptysis, Denies excessive phlegm production, Denies dyspnea, Denies snoring and Denies wheezing GI Denies abdominal pain and Denies heartburn Musc Denies myalgias, Denies arthralgias and Denies joint swelling Skin/Breast Denies rash Neuro Denies memory loss and Denies seizure-like activity Psych Denies abnormal sleep pattern, Denies anxiety and Denies memory loss Endo Denies excessive sweating, Denies fatigue and Denies heat intolerance Beto/Lymph Denies easy bruising Aller/Immun Denies itchy eyes, Denies seasonal rhinorrhea and Denies wheezing Physical Exam Vital Signs: Last Vital Signs Pulse 69 06/16/24 13:11 BP 127/66 06/16/24 13:11 Pulse Ox 94 06/16/24 13:11 Oxygen Delivery Method Room Air 06/16/24 13:11 BMI result Body Mass Index 35.9 Const General: no acute distress and alert Nutritional Appearance: obese Orientation/consciousness: Other orientation findings ( oriented) HEENT Head: Yes atraumatic Eyes General: appearance normal, both eyes and all related structures Sclerae: sclerae normal EOM: EOMs intact bilaterally Neck Neck: Yes supple Lymphatic: no lymphadenopathy noted Resp Effort & Inspection: normal respiratory effort and no use of accessory muscles Auscultation: clear to auscultation bilaterally Cardio Rate: regular rate Rhythm: regular rhythm Heart sounds: no gallops, no murmurs and no rubs Skin General skin exam: other ( warm) Extrem General: No clubbing, No cyanosis and No edema Assessment & Plan Assessment & Plan (1) Cough: Code(s): R05.9 - Cough, unspecified Category: Medical Plan: Nonproductive worsening at night and when laying down on the background of underlying significant GERD, will increase PPI to twice a day. (2) GERD (gastroesophageal reflux disease): Code(s): K21.9 - Gastro-esophageal reflux disease without esophagitis Category: Medical Plan: Expect to improve with increasing PPI to twice a day. Continue famotidine. (3) Asthma: Code(s): J45.909 - Unspecified asthma, uncomplicated Category: Medical Plan: Suboptimal control on Arnuity, unable to get Trelegy. Will add Anoro. Continue albuterol MDI. (4) Pulmonary nodules: Code(s): R91.8 - Other nonspecific abnormal finding of lung field Category: Medical Plan: Results of CT scan not available for current visit, reviewed by me and does not show worrisome nodules at this time. Continue with yearly screening. Medications: New fluticasone furoate 100 mcg/actuation (Arnuity Ellipta) 1 inh inhalation DAILY 30 ea 6RF umeclidinium-vilanterol 62.5-25 mcg/actuation (Anoro Ellipta) 1 inh inhalation DAILY 1 ea 6RF Changed From omeprazole 40 mg PO DAILY To omeprazole 40 mg PO BID 60 caps 3RF 30 days Discontinued ioqwwrntdzk-hyjuauzmi-mjetguyx 200-62.5-25 mcg (Trelegy Ellipta) Discontinued Reason: Doctor's Order 1 inh inhalation DAILY 1 ea 6RF Coding Level of Care Code Est Pt Level 5 (19014) Diagnoses Cough R05.9 GERD (gastroesophageal reflux disease) K21.9 Asthma J45.909 Pulmonary nodules R91.8
== END 2024-06-16 13:51 | disposition home or self-care (01) ==
PROVIDERS: PCP Student in an Organized Health Care Education/Training Program; Referring Provider Student in an Organized Health Care Education/Training Program; Visit Provider Internal Medicine Pulmonary Disease
DX: J45.909 Unspecified asthma, uncomplicated (principal); K21.9 Gastro-esophageal reflux disease without esophagitis; R91.8 Other nonspecific abnormal finding of lung field
CPT/HCPCS: 99214

== ENCOUNTER → 2024-06-16 12:53 | Outpatient (BNVA) | payer MEDICAID, SELFPAY | PROVIDERS: PCP Student in an Organized Health Care Education/Training Program; Visit Provider Internal Medicine Pulmonary Disease | DX: J45.909 Unspecified asthma, uncomplicated (principal); R05.9 Cough, unspecified; K21.9 Gastro-esophageal reflux disease without esophagitis; R91.8 Other nonspecific abnormal finding of lung field; Z79.899 Other long term (current) drug therapy | CPT/HCPCS: 99212 ==

== ENCOUNTER 2024-06-24 13:16 | Outpatient (REF) | payer MEDICAID, SELFPAY ==
[2024-06-24 16:17] LABS: Hematocrit 37.9 % (37.0-47.0); Mean Corpuscular HGB Conc 34.3 g/dl (31.0-35.0); Mean Corpuscular Hemoglobin 30.2 pg (27.0-33.0); Mean Corpuscular Volume 88.1 fL (80.0-98.0); Mean Platelet Volume 10.8 fL (9.4-12.3); Platelet Count 205 X10*3/uL (160-400); Red Cell Distribution Width 12.7 % (11.0-16.0); White Blood Count 4.9 X10*3/uL (4.8-10.8)
[2024-06-24 16:30] LABS: Estimated Average Glucose 111 mg/dL; Hemoglobin A1c % 5.5 % (<6.0)
[2024-06-24 16:32] LABS: Alanine Aminotransferase 39 U/L (0-31); Albumin Level 4.6 g/dL (3.5-5.0); Alkaline Phosphatase 94 U/L (39-117); Anion Gap 13 (12-20); Aspartate Amino Transferase 32 U/L (5-31); Bilirubin Total 0.4 mg/dL (0.0-1.0); Blood Urea Nitrogen 9 mg/dL (9-16); Carbon Dioxide 25 mmol/L (22-29); Chloride 104 mmol/L (96-108); Cholesterol 145 mg/dL (<200); Estimated Glomerular Filt Rate > 60; Glucose Random 132 mg/dL (60-115); HDL Cholesterol 46 mg/dL (>40); LDL Cholesterol Calculated 61 mg/dL (<100); Sodium 138 mmol/L (135-145); Total Protein 7.2 g/dL (6.5-8.0); Triglycerides 193 mg/dL (<150)
[2024-06-24 16:48] LABS: TSH reflex Free T4 0.83 uIU/mL (0.32-4.0); Vitamin D 25-OH Total 94.2 ng/mL (>30)
[2024-06-24 17:06] LABS: Folate 10.4 ng/mL (> or = 4.0); Vitamin B12 438 pg/mL (200-900)
[2024-06-24 17:36] LABS: CT PCR NOT DETECTED (Not Detect.); NG PCR NOT DETECTED (Not Detect.)
[2024-06-25 08:28] LABS: HBS Num1 9.42 mIU/mL (0-7.99); HBc Num1 5.61 S/CO (0.00-0.79); HBsAGNum1 0.39 S/CO (0.00-0.99); HIV AB/AG Nonreactive (Nonreactive); HIV Num 1 0.05 S/CO (0.00-0.99); Hepatitis B Surface Antigen Negative (Negative); ~Hepatitis C Antibody Nonreactive (Nonreactive)
[2024-06-25 08:31] LABS: Syphilis Screen Nonreactive (Nonreactive)
[2024-06-25 10:51] LABS: HBS Num2 9.52 mIU/mL (0-7.99); ~Hepatitis B Surface Antibody GRAYZONE (Nonreactive)
[2024-06-25 10:52] LABS: HBc Num3 5.75 S/CO; Hepatitis B Core Antibody Reactive (Nonreactive)
[2024-06-26 08:08] LABS: Hepatitis B Core Antibody IgM NON-REACTIVE (NON-REACTIVE)
== END 2024-06-24 13:17 | disposition home or self-care (01) ==
LOC: HO.HHCL 13:16
PROVIDERS: Visit Provider Student in an Organized Health Care Education/Training Program
DX: Z00.00 Encounter for general adult medical examination without abnormal findings (principal); E11.59 Type 2 diabetes mellitus with other circulatory complications
CPT/HCPCS: 36415; 80053; 80061; 82306; 82607; 82746; 83036; 84443; 85027; 86704; 86705; 86706; 86780; 86803; 87340; 87389; 87491; 87591

== ENCOUNTER 2024-07-28 11:23 | Outpatient (REF) | payer MEDICAID, SELFPAY ==
--- NOTE | ~2024-07-28 | US_ITS ---
EXAMINATION: US THYROID CLINICAL INFORMATION: Lung CT found incidental thyroid lobe mass 1.7 cm reported. COMPARISON: CT lung screening 05/28/2024. TECHNIQUE: Linear transducer grayscale and color Doppler examination with attention to the region of the thyroid. FINDINGS: SIZE: Measurements of the thyroid lobes and nodules are given in sagittal, anteroposterior and transverse dimensions respectively. Right Thyroid Lobe: 3.9 x 1.0 x 1.3 cm, volume 2.6 mL. Parenchyma: The gland echotexture is heterogeneous. Thyroid vascularity is normal. Left Thyroid Lobe: 4.8 x 2.2 x 2.3 cm, volume 12.6 mL. Parenchyma: The gland echotexture is heterogeneous. Thyroid vascularity is normal. Isthmus: 0.7 cm in maximum AP dimension. Estimated total number of nodules greater than or equal to 1 cm: 2. [employer] Supervisor nodules are described as follows: 1. Location: Right upper pole. Size: 0.8 x 0.5 x 0.6 cm, volume 0.11 mL. Nodule characteristics: Composition: Spongiform (0). ACR TI-RADS total points: 0 ACR TI-RADS category: 1 2. Location: Right mid pole. Size: 0.5 x 0.4 x 0.4 cm, volume 0.04 mL. Nodule characteristics: Composition: Spongiform (0). ACR TI-RADS total points: 0 ACR TI-RADS category: 1 3. Location: Left lower/mid pole. Size: 2.9 x 2.0 x 2.4 cm, volume 7.1 mL. Nodule characteristics: Composition: Solid/almost completely solid (2). Echogenicity: Hypoechoic (2). Shape: Not taller than wide (0). Margins: Smooth (0). Echogenic Foci: Punctate echogenic foci (3). ACR TI-RADS total points: 7 ACR TI-RADS category: 5 4. Location: Left mid pole. Size: 1.6 x 1.2 x 1.2 cm, volume 1.2 mL. Nodule characteristics: Composition: Solid/almost completely solid (2). Echogenicity: Hypoechoic (2). Shape: Not taller than wide (0). Margins: Smooth (0). Echogenic Foci: None (0). ACR TI-RADS total points: 4 ACR TI-RADS category: 4 NODES: No lymphadenopathy is seen in the tissue surrounding the thyroid gland. US/US thyroid IMPRESSION: 1. Left mid/lower pole 2.9 cm TR 5 nodule for which fine-needle aspiration biopsy is recommended. 2. Left mid pole 1.6 cm TR 4 nodules qualifies for fine-needle aspiration biopsy. ACR TI-RADS RECOMMENDATION REFERENCE: Ultrasound-guided fine-needle aspiration, followup ultrasound, no further follow up. * TR1 (0 point) and TR2 (2 points): No FNA or follow up. * TR3 (3 points): FNA if more than or equal to 2.5 cm in maximum dimension, followup ultrasound in 1, 3 and 5 years if 1.5 to 2.4 cm in maximum dimension. * TR4 (4-6 points): FNA if more than or equal to 1.5 cm in maximum dimension, followup ultrasound in 1, 2, 3 and 5 years if 1 to 1.4 cm in maximum dimension. * TR5 (more than or equal to 7 points): FNA if more than or equal to 1 cm in maximum dimension, followup ultrasound every year for 5 years if 0.5 to 0.9 cm in maximum dimension. * TR3, TR4 or TR5 nodules that are below the size threshold for followup receive no follow up. Electronically signed by: Codie Frances DO 09/24/2024 04:27 PM [facility]
== END 2024-07-28 11:24 | disposition home or self-care (01) ==
LOC: HO.US 11:23
PROVIDERS: PCP Student in an Organized Health Care Education/Training Program; Visit Provider Student in an Organized Health Care Education/Training Program
DX: E07.9 Disorder of thyroid, unspecified (principal)
CPT/HCPCS: 76536

== ENCOUNTER 2024-10-13 13:39 | Outpatient (AMB) | payer MEDICAID, SELFPAY ==
[2024-10-13 14:50] VITALS: BP 130/72; PULSE 82; BMI 36.3
--- NOTE | 2024-10-13 14:50 | A.OFFVIS_ITS ---
Vital Signs 10/13/24 14:50 Height 5 ft 7 in Weight 231 lb 14.821 oz BMI 36.3 BP 130/72 Blood Pressure Location Rt brachial Position Sitting Pulse 82 Pulse Source Pulse Oximeter Intake Visit Reasons: 3 mth f/up CTA bmc Intake Note: 3 mth/cta Controlled Area Checker Required: No Accompanied by: Self / Same As Patient Allergies bee pollen [BEE STINGS] Allergy (Severe, Verified 06/16/24 13:15) Anaphylaxis shrimp [SHRIMP] Allergy (Severe, Verified 06/16/24 13:15) Anaphylaxis gabapentin [GABAPENTIN] Allergy (Intermediate, Verified 06/16/24 13:15) memory loss TARA Inhibitors Adverse Reaction (Intermediate, Uncoded 06/11/23 09:41) cough Medication List - Last Reconciled 10/13/24 by Khadar Vidal MD albuterol sulfate 90 mcg/actuation (Ventolin HFA) 2 puffs inhalation Q4H PRN amlodipine 10 mg PO DAILY aspirin 81 mg PO DAILY atorvastatin 20 mg PO DAILY cholestyramine (with sugar) 4 gram 4 grams PO BID diphenhydramine HCl (Banophen) 25 mg PO BEDTIME PRN duloxetine (Cymbalta) 60 mg PO BID epinephrine 0.3 mg IM ONCE PRN famotidine 20 mg PO BEDTIME fluticasone furoate 100 mcg/actuation (Arnuity Ellipta) 1 inh inhalation DAILY hydroxyzine pamoate 50 mg PO DAILY PRN losartan 50 mg PO QAM metformin 500 mg PO ONCE metoprolol tartrate 25 mg PO BID omeprazole 40 mg PO BID oxcarbazepine 900 mg PO DAILY prazosin 1 mg PO BID risperidone (Risperdal) 3 mg PO BEDTIME trazodone 250 mg PO BEDTIME umeclidinium-vilanterol 62.5-25 mcg/actuation (Anoro Ellipta) 1 inh inhalation DAILY HPI Comments Details: 59-year-old female who is referred to us for abnormal EKG showing anterolateral T-wave inversions. She has noncardiac chest pain which is a sharp sensation lasting for few seconds the left side of the chest. She is saying she exercises and does not get significant symptoms during exercise. After exercise she feels sometimes chest discomfort along with a dizzy feeling. She gets some palpitations at that time too. I reviewed her chart and [facility] it appears she had T-wave inversions previously and had echocardiography performed last year which was completely normal. She subsequently had a stress test followed by cardiac catheterization which showed mild proximal RCA stenosis but no LAD or circumflex stenosis was noted. She also had intermittent left bundle-branch block. She is taking medications regularly currently. She has had her cholesterol was high but it has improved. Blood pressure control is good on amlodipine. 03/15/2024: She returns for follow-up. She had cardiac event monitor which did not show any significant issues other than some PVCs. Some of her symptoms correlated with premature ventricular complexes. She is here today in his saying that since yesterday she has been getting burning sensation in her chest. She said this happened for many hours yesterday and has been happening since noon time today. She said she ate chicken which was spicy and after getting the burning sensation she took omeprazole. Blood pressure control is good. I have explained to her that her cardiac event monitor has shown some premature ventricular complexes. 06/14/24: She is here for f/u. She is saying with PPI her chest burning improved but she is now getting chest pressure and dyspnea. This is random but does happen with exertion. 10/13/2024: She is here for follow-up. She was referred for coronary CTA because of ongoing chest pain and dyspnea. Coronary CTA did not show any significant coronary artery disease. There was mild plaque in the mid LAD noted. I have reassured her that chest pains are not due to coronary disease. She is already on baby aspirin and atorvastatin. She had viral illness recently and is recovering from that. Denying any chest pain or significant shortness of breath on follow-up. [facility] Medical History (Updated 06/16/24 @ 14:28 by West Pelayo MD) Bipolar 1 disorder PTSD (post-traumatic stress disorder) Depression Fibromyalgia CAD (coronary artery disease) Hypertension High cholesterol Diabetes (~2016) Asthma Tubular adenoma of colon (~2018) Surgical History Status post insertion of spinal cord stimulator History of elbow surgery History of colonoscopy History of hysterectomy History of appendectomy History of cholecystectomy History of carpal tunnel surgery Family History Father Dialysis patient Mother HTN (hypertension) Diabetes Maternal Grandmother Stroke Maternal Grandfather Alcoholic Paternal Uncle Stomach cancer Family/Other Stomach cancer Maternal Uncle Lung cancer Social History (Reviewed 10/13/24 @ 14:53 by Yajaira Maldonado [facility]) Alcohol intake: current Alcohol intake frequency: does not drink Patient Tobacco Use Status: Former Tobacco user Years Smoked: (onset 13yo, 1-2ppd x 31 - 45PYH - quit 2008) Review of Systems Const Denies chills, Denies fatigue, Denies fever(s), Denies frequent falls, Denies weakness, Denies weight gain and Denies weight loss ENT Denies dizziness Card Denies chest pain, Denies leg edema, Denies lightheadedness, Denies palpitations, Denies dyspnea and Denies dyspnea on exertion Resp Denies cough, Denies dyspnea and Denies dyspnea on exertion GI Denies hematochezia Musc Denies abnormal gait, Denies muscle weakness, Denies numbness, Denies radiating pain into limb and Denies tingling Neuro Denies abnormal gait, Denies dizziness, Denies frequent falls, Denies numbness, Denies tingling and Denies weakness Endo Denies fatigue and Denies palpitations Physical Exam Vital Signs: Last Vital Signs Pulse 82 10/13/24 14:50 BP 130/72 10/13/24 14:50 BMI result Body Mass Index 36.3 GENERAL APPEARANCE: in no acute distress, pleasant. NECK: no carotid bruit, no jugular venous distention. SKIN: no suspicious lesions, warm and dry. HEART: no murmurs, regular rate and rhythm. LUNGS: clear to auscultation bilaterally. ABDOMEN: soft, nontender. EXTREMITIES: no edema. PERIPHERAL PULSES: equal. NEUROLOGIC: No gross deficits, AAO X 3 Assessment & Plan Assessment & Plan (1) Hypertension: Code(s): I10 - Essential (primary) hypertension Category: Medical (2) Burning chest pain: Code(s): R07.89 - Other chest pain Category: Medical (3) SOB (shortness of breath): Code(s): R06.02 - Shortness of breath Category: Medical Plan [age] year female with background history of asthma, diabetes, hypertension hyperlipidemia presenting for follow-up. She was complaining of chest pains in the past. Currently denying any chest discomfort. Also denying shortness of breath. She underwent coronary CTA to rule out obstructive coronary artery disease. Very mild plaque was noted in the mid LAD on the coronary CTA. She is on aspirin and atorvastatin. I have reassured her that chest discomfort is not due to coronary artery disease based on the coronary CTA findings. Blood pressure is well controlled. She will follow-up with us in 9 months. Thank you for allowing me to participate in the care of your patient. Please feel free to contact me if you have any questions. Coding Level of Care Code Est Pt Level 3 (44808) Diagnoses Hypertension I10 Burning chest pain R07.89 SOB (shortness of breath) R06.02
== END 2024-10-13 15:08 | disposition home or self-care (01) ==
PROVIDERS: PCP Student in an Organized Health Care Education/Training Program; Visit Provider Internal Medicine Cardiovascular Disease
DX: I10 Essential (primary) hypertension (principal); R07.89 Other chest pain; R06.02 Shortness of breath
CPT/HCPCS: 99213

== ENCOUNTER → 2024-10-13 13:39 | Outpatient (BNVA) | payer MEDICAID, SELFPAY | PROVIDERS: PCP Student in an Organized Health Care Education/Training Program; Visit Provider Internal Medicine Cardiovascular Disease | DX: R07.89 Other chest pain (principal); R06.02 Shortness of breath; I10 Essential (primary) hypertension | CPT/HCPCS: 99212 ==

== ENCOUNTER 2024-10-18 14:00 | Outpatient (AMB) | payer MEDICAID, SELFPAY ==
[2024-10-18 14:06] VITALS: BP 142/74; PULSE 85; O2SAT 96; BMI 36.4
--- NOTE | 2024-10-18 14:06 | A.OFFVIS_ITS ---
Vital Signs 10/18/24 14:06 Height 5 ft 7 in Weight 232 lb 9.403 oz BMI 36.4 BP 142/74 H Blood Pressure Location Lt brachial Position Sitting Pulse 85 Pulse Source Doppler Pulse Oximetry (%) 96 Oxygen Delivery Method Room Air Intake Visit Reasons: Asthma Allergies bee pollen [BEE STINGS] Allergy (Severe, Verified 06/16/24 13:15) Anaphylaxis shrimp [SHRIMP] Allergy (Severe, Verified 06/16/24 13:15) Anaphylaxis gabapentin [GABAPENTIN] Allergy (Intermediate, Verified 06/16/24 13:15) memory loss TARA Inhibitors Adverse Reaction (Intermediate, Uncoded 06/11/23 09:41) cough HPI HPI Asthma: Details: 59-year-old lady, former 30 pack-year smoker, quit approximately 10 years prior referred for evaluation of pulmonary component dyspnea. Patient has been started on Arnuity by primary care with no significant symptomatic response. She has been relying on albuterol MDI using it 2 to 3 times a day. She does have history of lung cancer in her uncle who was an avid smoker. Patient denies environmental allergies or exposure to industrial dusts. She did have recent pulmonary function test at [facility] showing no fixed obstruction, but mildly decreased diffusion capacity, and significant bronchodilator response. Patient is scheduled to undergo lung cancer screening CT chest on 05/28/2024. After the last office visit patient continued on Anoro and Arnuity with overall reasonable baseline control his symptoms. She does complain of intermittent episodes of dyspnea and paroxysmal nocturnal dyspnea. [facility]LY [facility], [facility] Medical History (Updated 10/18/24 @ 14:24 by West Pelayo MD) Bipolar 1 disorder PTSD (post-traumatic stress disorder) Depression Fibromyalgia CAD (coronary artery disease) Hypertension High cholesterol Diabetes (~2016) Asthma Tubular adenoma of colon (~2018) Surgical History Status post insertion of spinal cord stimulator History of elbow surgery History of colonoscopy History of hysterectomy History of appendectomy History of cholecystectomy History of carpal tunnel surgery Family History Father Dialysis patient Mother HTN (hypertension) Diabetes Maternal Grandmother Stroke Maternal Grandfather Alcoholic Paternal Uncle Stomach cancer Family/Other Stomach cancer Maternal Uncle Lung cancer Social History Alcohol intake: current Alcohol intake frequency: does not drink Patient Tobacco Use Status: Former Tobacco user Years Smoked: (onset 13yo, 1-2ppd x 31 - 45PYH - quit 2008) Review of Systems Const Denies daytime sleepiness, Denies excessive sweating, Denies fatigue, Denies fever(s), Denies lethargy, Denies malaise, Denies night sweats, Denies snoring and Denies weight loss Eyes Denies blurry vision and Denies itchy eyes ENT Denies nasal congestion, Denies post nasal drip, Denies sinus pain, Denies sinus pressure and Denies other ( Thrush) Card Denies chest pain, Denies pedal edema, Denies dyspnea, Denies orthopnea and Reports paroxysmal nocturnal dyspnea Resp Denies cough, Denies hemoptysis, Denies excessive phlegm production, Denies dyspnea, Denies snoring and Denies wheezing GI Denies abdominal pain and Denies heartburn Musc Denies myalgias, Denies arthralgias and Denies joint swelling Skin/Breast Denies rash Neuro Denies memory loss and Denies seizure-like activity Psych Denies abnormal sleep pattern, Denies anxiety and Denies memory loss Endo Denies excessive sweating, Denies fatigue and Denies heat intolerance Beto/Lymph Denies easy bruising Aller/Immun Denies itchy eyes, Denies seasonal rhinorrhea and Denies wheezing Physical Exam Vital Signs: Last Vital Signs Pulse 85 10/18/24 14:06 BP 142/74 H 10/18/24 14:06 Pulse Ox 96 10/18/24 14:06 Oxygen Delivery Method Room Air 10/18/24 14:06 BMI result Body Mass Index 36.4 Const General: no acute distress and alert Nutritional Appearance: obese Orientation/consciousness: Other orientation findings ( oriented) HEENT Head: Yes atraumatic Eyes General: appearance normal, both eyes and all related structures Sclerae: sclerae normal EOM: EOMs intact bilaterally Neck Neck: Yes supple Lymphatic: no lymphadenopathy noted Resp Effort & Inspection: normal respiratory effort and no use of accessory muscles Auscultation: clear to auscultation bilaterally Cardio Rate: regular rate Rhythm: regular rhythm Heart sounds: no gallops, no murmurs and no rubs Skin General skin exam: other ( warm) Extrem General: No clubbing, No cyanosis and No edema Assessment & Plan Assessment & Plan (1) Asthma: Code(s): J45.909 - Unspecified asthma, uncomplicated Category: Medical Plan: Baseline controlled on Arnuity, Anoro, and albuterol MDI. Continue current regimen. (2) Dyspnea on exertion: Code(s): R06.09 - Other forms of dyspnea Category: Medical Plan: Unclear etiology, will obtain cardiopulmonary exercise test. Coding Level of Care Code Est Pt Level 4 (21979) Complex EM visit Add On G2211 Diagnoses Asthma J45.909 Dyspnea on exertion R06.09
== END 2024-10-18 14:23 | disposition home or self-care (01) ==
PROVIDERS: PCP Student in an Organized Health Care Education/Training Program; Visit Provider Internal Medicine Pulmonary Disease
DX: J45.909 Unspecified asthma, uncomplicated (principal); R06.09 Other forms of dyspnea
CPT/HCPCS: 99214

== ENCOUNTER → 2024-10-18 14:00 | Outpatient (BNVA) | payer MEDICAID, SELFPAY | PROVIDERS: PCP Student in an Organized Health Care Education/Training Program; Visit Provider Internal Medicine Pulmonary Disease | DX: J45.909 Unspecified asthma, uncomplicated (principal); R06.09 Other forms of dyspnea; Z87.891 Personal history of nicotine dependence | CPT/HCPCS: 99212 ==

== ENCOUNTER 2024-10-26 11:03 | Outpatient (AMB) | payer MEDICAID, SELFPAY ==
--- NOTE | 2024-10-26 11:07 | MHC.OFFVIS ---
Vital Signs 10/26/24 11:08 Height 5 ft 7 in Weight 231 lb 7.766 oz BMI 36.3 BP 140/82 H Blood Pressure Location Lt brachial Position Sitting Pulse 67 Pulse Source Pulse Oximeter Intake Visit Reasons: Multiple thyroid nodules Intake Note: New patient present today for Multiple thyroid nodules. Parking Manager Required: No Accompanied by: Self / Same As Patient Allergies bee pollen [BEE STINGS] Allergy (Severe, Verified 10/26/24 11:11) Anaphylaxis shrimp [SHRIMP] Allergy (Severe, Verified 10/26/24 11:11) Anaphylaxis gabapentin [GABAPENTIN] Allergy (Intermediate, Verified 10/26/24 11:11) memory loss TARA Inhibitors Adverse Reaction (Intermediate, Uncoded 10/26/24 11:11) cough Medication List - Last Reconciled 10/26/24 by Rani Forbes MD albuterol sulfate 90 mcg/actuation (Ventolin HFA) 2 puffs inhalation Q4H PRN amlodipine 10 mg PO DAILY aspirin 81 mg PO DAILY atorvastatin 20 mg PO DAILY cholestyramine (with sugar) 4 gram 4 grams PO BID diphenhydramine HCl (Banophen) 25 mg PO BEDTIME PRN duloxetine (Cymbalta) 60 mg PO BID epinephrine 0.3 mg IM ONCE PRN famotidine 20 mg PO BEDTIME fluticasone furoate 100 mcg/actuation (Arnuity Ellipta) 1 inh inhalation DAILY hydroxyzine pamoate 50 mg PO DAILY PRN losartan 50 mg PO QAM metformin 500 mg PO ONCE metoprolol tartrate 25 mg PO BID omeprazole 40 mg PO BID oxcarbazepine 900 mg PO DAILY prazosin 1 mg PO BID risperidone (Risperdal) 3 mg PO BEDTIME trazodone 250 mg PO BEDTIME umeclidinium-vilanterol 62.5-25 mcg/actuation (Anoro Ellipta) 1 inh inhalation DAILY HPI Comments Details: A 59-year-old female here today for nontoxic multinodular goiter. She had a low dose lung cancer screening CT scan in May 2024 which showed the thyroid nodules. Subsequently ultrasound 07/28/2024 showed bilateral thyroid nodules with dominant left-sided nodules, a 2.9 cm low/mid left thyroid lobe nodule which is solid, hypoechoic, labeled to have punctate echogenic foci though not on my assessment, labeled as a TR 5 nodule. Another 1.6 cm solid hypoechoic TR 4 category nodule. Both of these meet criteria for FNA. Patient currently denies heat or cold intolerance, diarrhea or constipation, hair loss, palpitation, anxiety, weight changes, mood changes, low energy, changes in appearance of eyes or vision changes, tremors, increased diaphoresis or dry skin. ? Reports intermittent swallowing. Patient denies pain on swallowing or voice changes or difficulty breathing. Patient denies any history of childhood neck radiation. Denies having ever used lithium, amiodarone or biotin supplements. Patient denies any family history of thyroid cancer or thyroid disease. Physical exam General: sitting comfortably in no acute distress HEENT: normocephalic/atraumatic, EOM intact, moist oral mucosa Neck: supple, palpable 2 cm left sided nodule , no dorsocervical or supraclavicular fat pads Cardiac: normal heart sounds Pulm: normal breath sounds B/L, no added breath sounds Abd: not distended, no tenderness Extremities: no edema, no signs of myxedema Neuro: AAO x3, Speech: normal, no facial droop, moving all 4 extremities Laboratory Tests 06/24/24 13:25 TSH 0.83 US THYROID 07/28/24 CLINICAL INFORMATION: Lung CT found incidental thyroid lobe mass 1.7 cm reported. COMPARISON: CT lung screening 05/28/2024. TECHNIQUE: Linear transducer grayscale and color Doppler examination with attention to the region of the thyroid. FINDINGS: SIZE: Measurements of the thyroid lobes and nodules are given in sagittal, anteroposterior and transverse dimensions respectively. Right Thyroid Lobe: 3.9 x 1.0 x 1.3 cm, volume 2.6 mL. Parenchyma: The gland echotexture is heterogeneous. Thyroid vascularity is normal. Left Thyroid Lobe: 4.8 x 2.2 x 2.3 cm, volume 12.6 mL. Parenchyma: The gland echotexture is heterogeneous. Thyroid vascularity is normal. Isthmus: 0.7 cm in maximum AP dimension. Estimated total number of nodules greater than or equal to 1 cm: 2. Bit Tripoler nodules are described as follows: 1. Location: Right upper pole. Size: 0.8 x 0.5 x 0.6 cm, volume 0.11 mL. Nodule characteristics: Composition: Spongiform (0). ACR TI-RADS total points: 0 ACR TI-RADS category: 1 2. Location: Right mid pole. Size: 0.5 x 0.4 x 0.4 cm, volume 0.04 mL. Nodule characteristics: Composition: Spongiform (0). ACR TI-RADS total points: 0 ACR TI-RADS category: 1 3. Location: Left lower/mid pole. Size: 2.9 x 2.0 x 2.4 cm, volume 7.1 mL. Nodule characteristics: Composition: Solid/almost completely solid (2). Echogenicity: Hypoechoic (2). Shape: Not taller than wide (0). Margins: Smooth (0). Echogenic Foci: Punctate echogenic foci (3). ACR TI-RADS total points: 7 ACR TI-RADS category: 5 4. Location: Left mid pole. Size: 1.6 x 1.2 x 1.2 cm, volume 1.2 mL. Nodule characteristics: Composition: Solid/almost completely solid (2). Echogenicity: Hypoechoic (2). Shape: Not taller than wide (0). Margins: Smooth (0). Echogenic Foci: None (0). ACR TI-RADS total points: 4 ACR TI-RADS category: 4 NODES: No lymphadenopathy is seen in the tissue surrounding the thyroid gland. US/US thyroid IMPRESSION: 1. Left mid/lower pole 2.9 cm TR 5 nodule for which fine-needle aspiration biopsy is recommended. 2. Left mid pole 1.6 cm TR 4 nodules qualifies for fine-needle aspiration biopsy. [facility] Medical History (Updated 10/26/24 @ 11:25 by Rani Forbes MD) Multinodular goiter Bipolar 1 disorder PTSD (post-traumatic stress disorder) Depression Fibromyalgia CAD (coronary artery disease) Hypertension High cholesterol Diabetes (~2016) Asthma Tubular adenoma of colon (~2018) Surgical History Status post insertion of spinal cord stimulator History of elbow surgery History of colonoscopy History of hysterectomy History of appendectomy History of cholecystectomy History of carpal tunnel surgery Family History Father Dialysis patient Mother HTN (hypertension) Diabetes Maternal Grandmother Stroke Maternal Grandfather Alcoholic Paternal Uncle Stomach cancer Family/Other Stomach cancer Maternal Uncle Lung cancer Social History Alcohol intake: current Alcohol intake frequency: does not drink Patient Tobacco Use Status: Former Tobacco user Years Smoked: (onset 13yo, 1-2ppd x 31 - 45PYH - quit 2008) Physical Exam Vital Signs: Last Vital Signs Pulse 67 10/26/24 11:08 BP 140/82 H 10/26/24 11:08 BMI result Body Mass Index 36.3 Assessment & Plan Assessment & Plan (1) Multinodular goiter: Code(s): E04.2 - Nontoxic multinodular goiter Category: Medical Plan: 59-year-old female with no family history of thyroid cancer, with no personal history of head or neck radiation who was found to have nontoxic multinodular goiter, on most recent ultrasound in July 2024. I reviewed the images myself of the ultrasound 07/28/2024 showed bilateral thyroid nodules with dominant left-sided nodules, a 2.9 cm low/mid left thyroid lobe nodule which is solid, hypoechoic, labeled to have punctate echogenic foci though not on my assessment, labeled as a TR 5 nodule. Another 1.6 cm solid hypoechoic TR 4 category nodule. Both of these meet criteria for FNA. I explained that it is common to have thyroid nodules. About 95% of the time these nodules are benign. However if the nodule is > 1 cm in size or suspicious on ultrasound then a fine need aspiration biopsy is recommended. We discussed that a FNAB involves 4-5 passes with a small gauge needle and material obtained is sent off for cytology.If the cytopathology is benign then the nodule will be followed annually with repeat ultrasounds. However if it is suspicious or malignant, we will need to discuss further management. Indeterminate cytology can be further investigated with repeat FNA, genetic testing or empiric lobectomy. Malignant cytology is managed with either lobectomy or total thyroidectomy. We discussed briefly that thyroid cancer is, in most patients, an indolent disease that does not affect mortality. We will arrange for FNA of the left lower/mid 2.9 cm in the left mid 1.6 cm thyroid nodules at next available opening and patient will follow up with me in clinic thereafter for results and further decision making. TSH normal from June 2024. Plan: -scheduled for FNA of the left mid/lower 2.9 cm in the left mid 1.6 cm thyroid nodules and follow up 2 weeks after to discuss results Plan I spent 45 minutes in reviewing the record, seeing the patient and documenting in the medical record. Orders: Orders US biopsy thyroid Today E04.2 - Nontoxic multinodular goiter Patient Instructions: We will schedule you for biopsies of your two left sided thyroid nodules and a follow up 2 weeks after to discuss results Coding Level of Care Code New Pt Level 4 (65344) Diagnoses Multinodular goiter E04.2 Time Spent (min) 45
[2024-10-26 11:08] VITALS: BP 140/82; PULSE 67; BMI 36.3
== END 2024-10-26 11:29 | disposition home or self-care (01) ==
PROVIDERS: PCP Student in an Organized Health Care Education/Training Program; Visit Provider Student in an Organized Health Care Education/Training Program
DX: E04.2 Nontoxic multinodular goiter (principal)
CPT/HCPCS: 99204

== ENCOUNTER → 2024-10-26 11:03 | Outpatient (BNVA) | payer MEDICAID, SELFPAY | PROVIDERS: PCP Student in an Organized Health Care Education/Training Program; Visit Provider Student in an Organized Health Care Education/Training Program | DX: E04.2 Nontoxic multinodular goiter (principal) | CPT/HCPCS: 99202 ==

== ENCOUNTER 2024-11-17 09:45 | Outpatient (REF) | payer MEDICAID, SELFPAY ==
--- NOTE | 2024-11-17 10:32 | PCN2_ITS ---
Brief Operative Note Date of procedure: 11/17/24 Pre-op diagnosis: A. left mid/lower 2.9 cm thyroid nodule FNA biopsy B. left mid 1.6 cm thyr Post-op diagnosis: same Procedure: THYROID FINE NEEDLE ASPIRATION PROCEDURE NOTE ? PROCEDURE PERFORMED: Ultrasound-guided FNA of thyroid nodule ? OPERATORS: Dr. Rani Forbes ? INDICATION: left mid/lower 2.9 cm and left mid 1.6 cm thyroid nodules FNA biopsy ; FNA performed to assess for malignancy ? DESCRIPTION OF PROCEDURE: The indications for FNA (to assess for malignancy) were reviewed with the patient in detail. Potential complications (e.g., bleeding, infection, damage to local structures, absence of clear diagnosis after FNA) were reviewed. Alternatives to FNA including conservative observation or surgery were described. The patient understood and agreed to proceed. This was documented by the signing of the written informed consent form. A time-out was performed to confirm the patient's identity and the site of planned FNA. The nodules of interest were identified using ultrasound (14 MHz linear array probe). The sites of FNA was then draped in the usual fashion and carefully cleaned and prepared using alcohol swabs. The skin at the previously-identified sites of needle insertion was iced and sprayed with numbing spray. Under ultrasound guidance, for each nodule 4__ passes were performed using a 1.5-inch, 25-gauge needle, and sample was obtained via capillary action. The needle tip was clearly visualized to be within the nodule at the time of sampling for _4_ of 4__ passes for each nodule. The patient tolerated the procedure well. There were no immediate complications. A small adhesive bandage was applied, and the patient was advised to take acetaminophen (rather than NSAIDs) for any discomfort and to report any signs of inflammation/infection or marked swelling. IMPRESSION: Technically successful ultrasound-guided fine needle aspiration of left mid/lower 2.9 cm and left mid 1.6 cm thyroid nodules. PLAN: The patient was advised that I will provide follow-up regarding the cytol ogy result and any subsequent plans. Rani Forbes MD Endocrinology Attending Condition: stable Disposition: same day
== END 2024-11-17 09:46 | disposition home or self-care (01) ==
LOC: HO.US 09:45
PROVIDERS: PCP Student in an Organized Health Care Education/Training Program; Visit Provider Student in an Organized Health Care Education/Training Program
DX: E04.2 Nontoxic multinodular goiter (principal)
CPT/HCPCS: 10005; 10006; 88173

== ENCOUNTER → 2024-11-17 09:45 | Outpatient (BNV) | payer MEDICAID, SELFPAY | PROVIDERS: PCP Student in an Organized Health Care Education/Training Program; Visit Provider Student in an Organized Health Care Education/Training Program | DX: E04.2 Nontoxic multinodular goiter (principal) | CPT/HCPCS: 10005; 10006 ==

== ENCOUNTER 2024-11-18 12:57 | Outpatient (AMB) | payer MEDICAID, SELFPAY ==
[2024-11-18 13:15] VITALS: BP 122/78; PULSE 74; O2SAT 99; BMI 36.5
--- NOTE | 2024-11-18 13:15 | A.OFFVIS_ITS ---
Vital Signs 11/18/24 13:15 Height 5 ft 7 in Weight 233 lb BMI 36.5 BP 122/78 Blood Pressure Location Rt brachial Position Sitting Pulse 74 Pulse Source Doppler Pulse Oximetry (%) 99 Oxygen Delivery Method Room Air Intake Visit Reasons: Asthma Allergies bee pollen [BEE STINGS] Allergy (Severe, Verified 11/18/24 13:20) Anaphylaxis shrimp [SHRIMP] Allergy (Severe, Verified 11/18/24 13:20) Anaphylaxis gabapentin [GABAPENTIN] Allergy (Intermediate, Verified 11/18/24 13:20) memory loss TARA Inhibitors Adverse Reaction (Intermediate, Uncoded 10/26/24 11:11) cough HPI HPI Asthma: Details: 59-year-old lady, former 30 pack-year smoker, quit approximately 10 years prior now followed for dyspnea, asthma, and possible obstructive sleep apnea. After the last office visit patient cardiopulmonary exercise test that demonstrated no pulmonary or cardiac limitations to her exercise capacity. She has tried using Anoro, however she has difficulties tolerating powder inhalers. She has complain of unrestful sleep and multiple awakenings. [facility] Medical History (Updated 11/18/24 @ 15:15 by West Pelayo MD) Multinodular goiter Bipolar 1 disorder PTSD (post-traumatic stress disorder) Depression Fibromyalgia CAD (coronary artery disease) Hypertension High cholesterol Diabetes (~2016) Asthma Tubular adenoma of colon (~2018) Surgical History Status post insertion of spinal cord stimulator History of elbow surgery History of colonoscopy History of hysterectomy History of appendectomy History of cholecystectomy History of carpal tunnel surgery Family History Father Dialysis patient Mother HTN (hypertension) Diabetes Maternal Grandmother Stroke Maternal Grandfather Alcoholic Paternal Uncle Stomach cancer Family/Other Stomach cancer Maternal Uncle Lung cancer Social History Alcohol intake: current Alcohol intake frequency: does not drink Patient Tobacco Use Status: Former Tobacco user Years Smoked: (onset 13yo, 1-2ppd x 31 - 45PYH - quit 2008) Review of Systems Const Reports daytime sleepiness, Denies excessive sweating, Denies fatigue, Denies fever(s), Reports lethargy, Denies malaise, Denies night sweats, Reports snoring and Denies weight loss Eyes Denies blurry vision and Denies itchy eyes ENT Denies nasal congestion, Denies post nasal drip, Denies sinus pain, Denies sinus pressure and Denies other ( Thrush) Card Denies chest pain, Denies pedal edema, Denies dyspnea, Denies orthopnea and Denies paroxysmal nocturnal dyspnea Resp Denies cough, Denies hemoptysis, Denies excessive phlegm production, Denies dyspnea, Reports snoring and Denies wheezing GI Denies abdominal pain and Denies heartburn Musc Denies myalgias, Denies arthralgias and Denies joint swelling Skin/Breast Denies rash Neuro Denies memory loss and Denies seizure-like activity Psych Denies abnormal sleep pattern, Denies anxiety and Denies memory loss Endo Denies excessive sweating, Denies fatigue and Denies heat intolerance Beto/Lymph Denies easy bruising Aller/Immun Denies itchy eyes, Denies seasonal rhinorrhea and Denies wheezing Physical Exam Vital Signs: Last Vital Signs Pulse 74 11/18/24 13:15 BP 122/78 11/18/24 13:15 Pulse Ox 99 11/18/24 13:15 Oxygen Delivery Method Room Air 11/18/24 13:15 BMI result Body Mass Index 36.5 Const General: no acute distress and alert Nutritional Appearance: obese Orientation/consciousness: Other orientation findings ( oriented) HEENT Head: Yes atraumatic Eyes General: appearance normal, both eyes and all related structures Sclerae: sclerae normal EOM: EOMs intact bilaterally Neck Neck: Yes supple Lymphatic: no lymphadenopathy noted Resp Effort & Inspection: normal respiratory effort and no use of accessory muscles Auscultation: clear to auscultation bilaterally Cardio Rate: regular rate Rhythm: regular rhythm Heart sounds: no gallops, no murmurs and no rubs Skin General skin exam: other ( warm) Extrem General: No clubbing, No cyanosis and No edema Assessment & Plan Assessment & Plan (1) Asthma: Code(s): J45.909 - Unspecified asthma, uncomplicated Category: Medical Plan: Poor tolerance of powder inhalers, will switch Anoro to BrezTri. Continue albuterol MDI. (2) ANDRES (obstructive sleep apnea): Code(s): G47.33 - Obstructive sleep apnea (adult) (pediatric) Category: Medical Plan: Unrestful sleep, daytime sleepiness, snoring. [place] Sleepiness Scale score of 16. Will obtain home sleep study. Orders: Orders RT home sleep study Today G47.33 - Obstructive sleep apnea (adult) (pediatric) Medications: New ahcdwqqalo-djfeyzsu-dtfoofasod 160-9-4.8 mcg/actuation (Breztri Aerosphere) 2 inhalations inhalation BID 1 ea 6RF Discontinued fluticasone furoate 100 mcg/actuation (Arnuity Ellipta) Discontinued Reason: Doctor's Order 1 inh inhalation DAILY 30 ea 6RF umeclidinium-vilanterol 62.5-25 mcg/actuation (Anoro Ellipta) Discontinued Reason: Doctor's Order 1 inh inhalation DAILY 1 ea 6RF Coding Level of Care Code Est Pt Level 4 (10737) Complex EM visit Add On G2211 Diagnoses Asthma J45.909 ANDRES (obstructive sleep apnea) G47.33
== END 2024-11-18 13:40 | disposition home or self-care (01) ==
PROVIDERS: PCP Student in an Organized Health Care Education/Training Program; Visit Provider Internal Medicine Pulmonary Disease
DX: J45.909 Unspecified asthma, uncomplicated (principal); G47.33 Obstructive sleep apnea (adult) (pediatric)
CPT/HCPCS: 99214

== ENCOUNTER → 2024-11-18 12:57 | Outpatient (BNVA) | payer MEDICAID, SELFPAY | PROVIDERS: PCP Student in an Organized Health Care Education/Training Program; Visit Provider Internal Medicine Pulmonary Disease | DX: J45.909 Unspecified asthma, uncomplicated (principal); G47.33 Obstructive sleep apnea (adult) (pediatric) | CPT/HCPCS: 99212 ==

== ENCOUNTER 2024-12-01 15:02 | Outpatient (AMB) | payer MEDICAID, SELFPAY ==
[2024-12-01 15:04] VITALS: BP 160/82; PULSE 76; BMI 36.8
--- NOTE | 2024-12-01 15:04 | MHC.OFFVIS ---
Vital Signs 12/01/24 15:04 Height 5 ft 7 in Weight 235 lb 3.732 oz BMI 36.8 BP 160/82 H Blood Pressure Location Lt brachial Position Sitting Pulse 76 Pulse Source Pulse Oximeter Intake Visit Reasons: Biopsy f/u Intake Note: Patient present today for biopsy results. Instructional Coach Required: No Accompanied by: Self / Same As Patient Allergies bee pollen [BEE STINGS] Allergy (Severe, Verified 12/01/24 15:09) Anaphylaxis shrimp [SHRIMP] Allergy (Severe, Verified 12/01/24 15:09) Anaphylaxis gabapentin [GABAPENTIN] Allergy (Intermediate, Verified 12/01/24 15:09) memory loss TARA Inhibitors Adverse Reaction (Intermediate, Uncoded 12/01/24 15:09) cough Medication List - Last Reconciled 12/01/24 by Rani Forbes MD albuterol sulfate 90 mcg/actuation (Ventolin HFA) 2 puffs inhalation Q4H PRN amlodipine 10 mg PO DAILY aspirin 81 mg PO DAILY atorvastatin 20 mg PO DAILY wuisavnfod-ptqvooxo-rgnxkpbmsl 160-9-4.8 mcg/actuation (Breztri Aerosphere) 2 inhalations inhalation BID cholestyramine (with sugar) 4 gram 4 grams PO BID diphenhydramine HCl (Banophen) 25 mg PO BEDTIME PRN duloxetine (Cymbalta) 60 mg PO BID epinephrine 0.3 mg IM ONCE PRN famotidine 20 mg PO BEDTIME hydroxyzine pamoate 50 mg PO DAILY PRN losartan 50 mg PO QAM metformin 500 mg PO ONCE metoprolol tartrate 25 mg PO BID omeprazole 40 mg PO BID oxcarbazepine 900 mg PO DAILY prazosin 1 mg PO BID risperidone (Risperdal) 3 mg PO BEDTIME trazodone 250 mg PO BEDTIME HPI Comments Details: A 59-year-old female here today for nontoxic multinodular goiter. She had a low dose lung cancer screening CT scan in May 2024 which showed the thyroid nodules. Subsequently ultrasound 07/28/2024 showed bilateral thyroid nodules with dominant left-sided nodules, a 2.9 cm low/mid left thyroid lobe nodule which is solid, hypoechoic, labeled to have punctate echogenic foci though not on my assessment, labeled as a TR 5 nodule. Another 1.6 cm solid hypoechoic TR 4 category nodule. Both of these meet criteria for FNA. Patient currently denies heat or cold intolerance, diarrhea or constipation, hair loss, palpitation, anxiety, weight changes, mood changes, low energy, changes in appearance of eyes or vision changes, tremors, increased diaphoresis or dry skin. ? Reports intermittent swallowing. Patient denies pain on swallowing or voice changes or difficulty breathing. Patient denies any history of childhood neck radiation. Denies having ever used lithium, amiodarone or biotin supplements. Patient denies any family history of thyroid cancer or thyroid disease. Interval history 11/17/2024 underwent FNA of the left mid/low 2.9 cm nodule which came back as benign, [place] category 2 and FNA of the left mid 1.6 cm nodule which came back as AUS with nuclear atypia, [place] category 3. Afirma pending. Physical exam General: sitting comfortably in no acute distress HEENT: normocephalic/atraumatic, EOM intact, moist oral mucosa Neck: supple, palpable 2 cm left sided nodule , no dorsocervical or supraclavicular fat pads Cardiac: normal heart sounds Pulm: normal breath sounds B/L, no added breath sounds Abd: not distended, no tenderness Extremities: no edema, no signs of myxedema Neuro: AAO x3, Speech: normal, no facial droop, moving all 4 extremities Laboratory Tests 06/24/24 13:25 TSH 0.83 US THYROID 07/28/24 CLINICAL INFORMATION: Lung CT found incidental thyroid lobe mass 1.7 cm reported. COMPARISON: CT lung screening 05/28/2024. TECHNIQUE: Linear transducer grayscale and color Doppler examination with attention to the region of the thyroid. FINDINGS: SIZE: Measurements of the thyroid lobes and nodules are given in sagittal, anteroposterior and transverse dimensions respectively. Right Thyroid Lobe: 3.9 x 1.0 x 1.3 cm, volume 2.6 mL. Parenchyma: The gland echotexture is heterogeneous. Thyroid vascularity is normal. Left Thyroid Lobe: 4.8 x 2.2 x 2.3 cm, volume 12.6 mL. Parenchyma: The gland echotexture is heterogeneous. Thyroid vascularity is normal. Isthmus: 0.7 cm in maximum AP dimension. Estimated total number of nodules greater than or equal to 1 cm: 2. Drill [place] Hand nodules are described as follows: 1. Location: Right upper pole. Size: 0.8 x 0.5 x 0.6 cm, volume 0.11 mL. Nodule characteristics: Composition: Spongiform (0). ACR TI-RADS total points: 0 ACR TI-RADS category: 1 2. Location: Right mid pole. Size: 0.5 x 0.4 x 0.4 cm, volume 0.04 mL. Nodule characteristics: Composition: Spongiform (0). ACR TI-RADS total points: 0 ACR TI-RADS category: 1 3. Location: Left lower/mid pole. Size: 2.9 x 2.0 x 2.4 cm, volume 7.1 mL. Nodule characteristics: Composition: Solid/almost completely solid (2). Echogenicity: Hypoechoic (2). Shape: Not taller than wide (0). Margins: Smooth (0). Echogenic Foci: Punctate echogenic foci (3). ACR TI-RADS total points: 7 ACR TI-RADS category: 5 4. Location: Left mid pole. Size: 1.6 x 1.2 x 1.2 cm, volume 1.2 mL. Nodule characteristics: Composition: Solid/almost completely solid (2). Echogenicity: Hypoechoic (2). Shape: Not taller than wide (0). Margins: Smooth (0). Echogenic Foci: None (0). ACR TI-RADS total points: 4 ACR TI-RADS category: 4 NODES: No lymphadenopathy is seen in the tissue surrounding the thyroid gland. US/US thyroid IMPRESSION: 1. Left mid/lower pole 2.9 cm TR 5 nodule for which fine-needle aspiration biopsy is recommended. 2. Left mid pole 1.6 cm TR 4 nodules qualifies for fine-needle aspiration biopsy. [facility] Medical History (Updated 11/18/24 @ 15:15 by West Pelayo MD) Multinodular goiter Bipolar 1 disorder PTSD (post-traumatic stress disorder) Depression Fibromyalgia CAD (coronary artery disease) Hypertension High cholesterol Diabetes (~2016) Asthma Tubular adenoma of colon (~2018) Surgical History (Updated 12/01/24 @ 15:11 by MARNIE Arita) History of suburethral sling procedure Status post insertion of spinal cord stimulator History of elbow surgery History of colonoscopy History of hysterectomy History of appendectomy History of cholecystectomy History of carpal tunnel surgery Family History Father Dialysis patient Mother HTN (hypertension) Diabetes Maternal Grandmother Stroke Maternal Grandfather Alcoholic Paternal Uncle Stomach cancer Family/Other Stomach cancer Maternal Uncle Lung cancer Social History Alcohol intake: current Alcohol intake frequency: does not drink Patient Tobacco Use Status: Former Tobacco user Years Smoked: (onset 13yo, 1-2ppd x 31 - 45PYH - quit 2008) Physical Exam Vital Signs: Last Vital Signs Pulse 76 12/01/24 15:04 BP 160/82 H 12/01/24 15:04 BMI result Body Mass Index 36.8 Assessment & Plan Assessment & Plan (1) Multinodular goiter: Code(s): E04.2 - Nontoxic multinodular goiter Category: Medical Plan: 59-year-old female with no family history of thyroid cancer, with no personal history of head or neck radiation who was found to have nontoxic multinodular goiter, on most recent ultrasound in July 2024. I reviewed the images myself of the ultrasound 07/28/2024 showed bilateral thyroid nodules with dominant left-sided nodules, a 2.9 cm low/mid left thyroid lobe nodule which is solid, hypoechoic, labeled to have punctate echogenic foci though not on my assessment, labeled as a TR 5 nodule. Another 1.6 cm solid hypoechoic TR 4 category nodule. Both of these meet criteria for FNA. 11/17/2024 underwent FNA of the left mid/low 2.9 cm nodule which came back as benign, [place] category 2 and FNA of the left mid 1.6 cm nodule which came back as AUS with nuclear atypia, [place] category 3. Afirma pending. I explained to the patient that benign results me less than 3% chance of malignancy and AUS results means 6-18% chance of malignancy. We will wait for the results of the Afirma testing. If those come back benign for now we will plan for a 1 year follow up with repeat thyroid ultrasound and labs. If Afirma testing is concerning, we will bring her back sooner TSH normal from June 2024. Plan: -pending results of Afirma test Plan See above Orders: Orders US thyroid 1 Year E04.2 - Nontoxic multinodular goiter TSH reflex Free T4 1 Year E04.2 - Nontoxic multinodular goiter Patient Instructions: We will call you with the results of the genetic test once they are back For now assuming everything is going to be okay, do thyroid ultrasound in 1 year along with blood work a few prior weeks prior to your follow up with me in 1 year Coding Level of Care Code Est Pt Level 3 (62352) Diagnoses Multinodular goiter E04.2
--- OUTSIDE RECORDS SUMMARY | 2024-12-01 17:07 | XMS_ITS | Encounter Summary ---
Author Organization [employer] Address [address] [place] [address] [place] [address] Care Team Providers Care Oven Attendant Name Role Phone Mecca Couch MD Primary Care Pro vider Reason for Visit * Reason Comments Med Refill Encounter Details Date Type Department Care Team ([facility] st Contact Info) Description 11/12/2024 Refill [facility] [address] [place], [place] [phone] Mecca Couch MD [address] [place] [address] Social History Tobacco Use Types Packs/Day Years Used Date Smoking Tobacco: Former Cigarettes Smokeless Tobacco: Never Comments:Started at 13 y of age -stopped 15 y ago at her 44 y of age , used to smoke 1 1/2 PQT , x 31 years --PQT a year calc 46.5 Alcohol Use Standard Drinks/Week Comments Not Currently 0 (1 standard drink = 0.6 oz pure alcohol) hx of alcoholism from 32 to 35 years -now stopped Depression Answer Date Recorded Patient Health Questionnaire-9 Score 10 06/29/2024 Patient Health Questionnaire-9 Score 10 06/29/2024 Last PHQ-9: Questionnaire Data Not on file 0 06/29/2024 Housing Stability Answer Date Recorded What is your housing situation today? I have gabino wright 02/11/[address] you li ve. Do you have problems with any of the following? None of the above 02/11/2024 Food Insecurity Answer Date Recorded Within the past 12 months, y ou worried that your food would run out before you got money to buy more: Often true 02/11/2024 Within the past 12 months,th e food you bought just didn't last and you didn't have enough money to get more: Often true 08/2024 Transportation Answer Date Recorded In the past 12 months, has l ack of transportation kept you from medical appts, meetings, work or from getting things needed for daily living? No 02/11/2024 Utilities Answer Date Recorded In the past 12 months, has t he electric, gas, oil or water company threatened to shut off services in your home? Yes 02/11/2024 Depression Answer Date Recorded Patient Health Questionnaire-2 Score 2 06/29/2024 Comments No Sex and Gender Information Value Date Recorded Sex Assigned at Female 09/02/2022 10:29 AM EDT Legal Sex Female 10:29 AM EDT Gender Identity Female 09/02/2022 10:29 AM EDT Sexual Orientation Straight 09/02/2022 10 :29 AM EDT documented as of this encounter Plan of Treatment Upcoming Encounters Date Type Department Care Team (Late st Contact Info) Description 02/03/2025 1:15 PM EDT Office Visit [facility] [address] [place] [phone] Mecca Couch MD [address] [place] [address] [phone] documented as of this encounter Visit Diagnoses Not on filedocumented in this encounter Additional Health Concerns Assessment Noted Time PHQ-9 Depression Total Score: 10 024 2:38 PM EDT documented as of this encounter Care Teams Oven Attendant Relationship Specialty Start Date End Date Mecca Couch MD [address] [place] [phone] PCP - General Internal Medicine 03/28/23 documented as of this encounter
--- OUTSIDE RECORDS SUMMARY | 2024-12-01 17:07 | XMS_ITS | Encounter Summary ---
Author Organization [employer] Address [address] [place] [address] [place] [address] Care Team Providers Care Gynecologist Name Role Phone Mecca Couch MD Primary Care Pro vider Reason for Visit * Reason Onset Date Comments Med Refill 07/08/2023 Encounter Details Date Type Department Care Team ([facility] st Contact Info) Description 07/08/2023 Telephone [facility] [address] [place], [place] [phone] Mecca Couch MD [address] [place] [address] Med Refill Social History Tobacco Use Types Packs/Day Years Used Date Smoking Tobacco: Former Cigarettes Smokeless Tobacco: Never Comments:Started at 13 y of age -stopped 14 y ago at her 44 y of age , used to smoke 1 1/2 PQT , x 31 years --PQT a year calc 46.5 Alcohol Use Standard Drinks/Week Comments Not Currently 0 (1 standard drink = 0.6 oz pure alcohol) hx of alcoholism from 32 to 35 years -now stopped Depression Answer Date Recorded Patient Health Questionnaire-9 Score 6 04/01/2023 Depression Answer Date Recorded Patient Health Questionnaire-2 Score 2 04/01/2023 Comments No Sex and Gender Information Value Date Recorded Sex Assigned at Female 09/02/2022 10:29 AM EDT Legal Sex Female 10:29 AM EDT Gender Identity Female 09/02/2022 10:29 AM EDT Sexual Orientation Straight 09/02/2022 10 :29 AM EDT documented as of this encounter Miscellaneous Notes * Telephone Encounter - Neida Cruz LPN - 07/08/2023 1:37 PM EDT Medication was sent to [id number] on 06/13/23 with 2 refills. * Telephone Encounter - Evangelina Silverio - 07/08/2023 1:27 PM EDT Tc from pt requesting medication refill on dulaglutide (Trulicity) 0.75 MG/0.5ML solution pen-injector documented in this encounter Plan of Treatment Upcoming Encounters Date Type Department Care Team (Late st Contact Info) Description 02/03/2025 1:15 PM EDT Office Visit [facility] [address] [place] [phone] Mecca Couch MD [address] [place] [address] [phone] documented as of this encounter Visit Diagnoses Not on filedocumented in this encounter Additional Health Concerns Assessment Noted Time PHQ-9 Depression Total Score: 6 04/01/20 23 9:29 AM EDT documented as of this encounter Care Teams Gynecologist Relationship Specialty Start Date End Date Mecca Couch MD [address] [place] [address] [phone] PCP - General Internal Medicine 03/28/23 documented as of this encounter
--- OUTSIDE RECORDS SUMMARY | 2024-12-01 17:07 | XMS_ITS | Encounter Summary ---
Author Organization [employer] Address [address] [place] [address] [place] [address] Care Team Providers Care Mail Distributor Name Role Phone Mecca Couch MD Primary Care Pro vider Reason for Visit * Reason Onset Date Comments Med Refill 11/22/2024 Encounter Details Date Type Department Care Team (Late st Contact Info) Description 11/22/2024 Refill [facility] [address] [place], [place] [phone] Mecca Couch MD [address] [place] [address] Social History Tobacco Use Types Packs/Day Years [...] Description 02/03/2025 1:15 PM EDT Office Visit [facility] [address] [place] [phone] Mecca Couch MD [address] [place] [phone] documented as of this encounter Visit Diagnoses Not on filedocumented in this encounter Additional Health Concerns Assessment Noted Time PHQ-9 Depression Total Score: 10 024 2:38 PM EDT documented as of this encounter Care Teams Mail Distributor Relationship Specialty Start Date End Date Mecca Couch MD [address] [place] [phone] PCP - General Internal Medicine 03/28/23 documented as of this encounter
--- OUTSIDE RECORDS SUMMARY | 2024-12-01 17:07 | XMS_ITS | Encounter Summary ---
Author Organization [employer] Address [address] [place] [address] [place] [address] Care Team Providers Care Oxidized Finish Plater Name Role Phone Mecca Couch MD Primary Care Pro vider Reason for Visit * Reason Onset Date Comments Nurse Triage 11/29/2024 Encounter Details Date Type Department Care Team ([facility] st Contact Info) Description 11/29/2024 Telephone [facility] [address] [place], [place] [phone] Mecca Couch MD [address] [place] [address] Nurse Triage Social History Tobacco Use Types Packs/Day Years [...] encounter Miscellaneous Notes * Telephone Encounter - Herminia Botello LPN - 11/29/2024 11:49 AM EST Triage call returned to patient who reports that she had had increased pain in right hand that started with middle finger last . Had had increased pain overall for about 1.5 months. Now with swelling from hand to elbow on the right side. No redness or warmth. Takes Tylenol with codeine and has no relief. Patient without injury. Disposition reviewed and patient in agreement with plan. No PCP or Team appts. Available at time of call. [facility] hours and availability provided for patient evaluation. Triage nurse informed the patient may have a wait of 1-2 hours because [facility] may have delays due to patient volume or symptom acuity. Insurance verified as active. Protocol Used: Hand Pain (Adult) Protocol-Based Disposition: Go to Office or Video Visit Now Positive Triage Questions: * Severe pain (e.g., excruciating, unable to use hand at all) * Moderate pain (e.g., interferes with normal activities) and present > 3 days * All higher-acuity triage questions were negative Care Advice Discussed: * Pain Medicines * Reasons To Call Back - You become worse * Telephone Encounter - Ez Jaquez - 11/29/2024 11:30 AM EST Symptom: Hand or Wrist Swelling Outcome: Schedule an urgent appointment (within 1 hour) or talk to a nurse or provider soon Reason: Can't use the hand normally The caller accepted this outcome. Contact pt at [phone] documented in this encounter Plan of Treatment Upcoming Encounters Date Type Department Care Team (Late st Contact Info) Description 02/03/2025 1:15 PM EDT Office Visit [facility] [address] [place] [address] [phone] Mecca Couch MD [address] [place] [phone] documented as of this encounter Visit Diagnoses Not on filedocumented in this encounter Additional Health Concerns Assessment Noted Time PHQ-9 Depression Total Score: 10 024 2:38 PM EDT documented as of this encounter Care Teams Oxidized Finish Plater Relationship Specialty Start Date End Date Mecca Couch MD [address] [place] [address] [phone] PCP - General Internal Medicine 03/28/23 documented as of this encounter
--- OUTSIDE RECORDS SUMMARY | 2024-12-01 17:07 | XMS_ITS | Clinical Summary ---
Author Organization [employer] Address [address] [place] [address] [address] [place] [address] Care Team Providers Care Psychologist Experimental Name Role Phone Mecca Couch MD Primary Care Pro vider Allergies Active Allergy Reactions Criticality Noted Date Comments Bee Venom High 02/14/2017 Other reaction(s): Anaphylaxis Gabapentin 03/13/2020 Other reaction(s): Hives / Skin Rash Shellfish-Derived Products Anaphylaxis High 06/26/2020 Shrimp (Diagnostic) 04/01/2023 Medications diphenhydrAMINE (BENADryl) 25 MG capsule take 1 Capsule by oral route at bedtime Active prazosin (Minipress) 1 MG capsule Take 1 capsule by mouth every 12 (twelve) hours. Active DULoxetine (Cymbalta) [address] capsule Take 60 mg by mouth 2 times daily. Do not crush or chew. Active hydrOXYzine HCl (Atarax) 50 MG tablet Take by mouth at bedtime. Active risperiDONE (RisperDAL) 3 MG tablet Take 3 mg by mouth at bedtime. Active OXcarbazepine (Trileptal) 300 MG tablet Take 300 mg by mouth 2 times daily. 1 tab in am and 2 tab pm-by psychiatrist Active traZODone (Desyrel) 100 MG tablet Take 2 tablets by mouth. Active aspirin 81 MG EC tablet Take 81 mg by mouth. 023 Active Blood Glucose Monitoring Suppl (FreeStyle Lite) w/Device kit 1 Device in the morning. 1 kit 023 Active Alcohol Swabs (Alcohol Pads) 70 % padsIndications :Type 2 diabetes mellitus with other circulatory complication, without long-term current use of insulin (CMS/[facility]) 1 Units in the morning. 100 each 023 Active nitroglycerin (Nitrostat) 0.[address] 1 TABLET (0.4 MG) UNDER THE TONGUE EVERY 5 MINUTES NEEDED FOR CHEST PAIN 25 tablet 023 Active omega-3 (Fish Oil) 1000 MG capsule TAKE 1 CAPSULE BY MOUTH IN THE MORNING-NOT COVERED 90 capsule 023 Active omeprazole (PriLOSEC) [address] capsule TAKE 1 CAPSULE BY MOUTH EVERY DAY BEFORE A MEAL 90 capsule 024 Active amLODIPine (Norvasc) 10 MG tablet TAKE 1 TABLET BY MOUTH EVERY DAY 90 tablet 1 024 Active Blood Pressure Monitor kit 1 Device in the morning. 1 kit 024 Active estradiol (Estrace) 0.1 MG/GM vaginal cream Insert 1 g into the vagina Once per day. 1g vaginally x 14d, then twice weekly thereafter 45 g 2 Active dulaglutide (Trulicity) 3 MG/0.5ML solution pen-injectorInd ications:Type 2 diabetes mellitus with other circulatory complication, without long-term current use of insulin (CMS/HCC) Inject 3 mg under the skin 1 (one) time per week. 4 each Active Anoro Ellipta 62.5-25 MCG/ACT aerosol powder INHALE 1 PUFF BY MOUTH DAILY Active Arnuity Ellipta 100 MCG/ACT inhaler Inhale 1 puff Once per day. Active EPINEPHrine (Epipen) 0.3 MG/0.3ML injection syringe INJECT INTRAMUSCULARLY 0.3ML ONCE NEEDED FOR ANAPHYLAXIS, SEEK EVALUATION IN EMERGENCY ROOM AFTER USE 2 each 1 Active losartan (Cozaar) 100 MG tabletIndicatio ns:Essential hypertension Take 1 tablet (100 mg) by mouth in the morning. 90 tablet Active atorvastatin (Lipitor) 80 MG tablet Take 1 tablet (80 mg) by mouth in the morning. 90 tablet Active metoprolol tartrate (Lopressor) 50 MG tablet TAKE 1 TABLET BY MOUTH TWICE A DAY 180 tablet Active glucose blood (FREESTYLE LITE) test strip TEST BLOOD SUGAR ONCE DAILY 100 strip 8 024 Active Ventolin HFA 108 (90 Base) MCG/ACT inhaler INHALE 2 PUFFS BY MOUTH EVERY 4 HOURS 18 g 2 025 Active famotidine (Pepcid) 20 MG tablet TAKE 1 TABLET BY MOUTH AT BEDTIME 90 tablet 025 Active Ventolin HFA 108 (90 Base) MCG/ACT inhaler INHALE 2 PUFFS BY MOUTH EVERY 4 HOURS 18 g 2 023 2024 Discontinued famotidine (Pepcid) 20 MG tablet Take 1 tablet (20 mg) by mouth at bedtime. 90 tablet 024 2024 Discontinued(R eorder (will not trigger notification to Pharmacy)) Active Problems Problem Noted Date Diagnosed Date CAD (coronary artery disease) 06/11/2023 Assessment & Plan (06/11/2023 5:29 PM EDT): -from cash reconciliation specialist records 04/2023 Cardiac stress test : ST depression noted and Myocardial perfusion study : with abnormal partially reversible small mild intensity perfusion defect in basal to distal anterior wall. -Pt was seen at hospital on 05/01/2023,pt underwent cardiac angiography reporting mild to moderate RCA disease Asymptomatic now -advised to continue care with cash reconciliation specialist-planned per pt to have cardiac image and to f up w cards on 06/24/2023 -continue Statins,ASA,BB and ,NG prn Renal cyst 05/01/2023 Assessment & Plan (06/11/2023 5:04 PM EDT): -pelvic US 2018: s/p Hysterectomy.,Incidental left ureterocele. -RENAL us 2019 RIGHT KIDNEY:There is a 2.3 x 2.1 x 1.8 cm cyst exophytic to the upper pole with small area of wall calcification. This does not appear appreciably changed from previous exams. No calculi or mass. No hydronephrosis. -referred today x renal US to f up exophytic cyst Assessment & Plan (05/01/2023 5:18 PM EDT): -pelvic US 2018: s/p Hysterectomy.,Incidental left ureterocele. -RENAL us 2019 RIGHT KIDNEY:There is a 2.3 x 2.1 x 1.8 cm cyst exophytic to the upper pole with small area of wall calcification. This does not appear appreciably changed from previous exams. No calculi or mass. No hydronephrosis. -will refer at next visit x renal US to f up exophytic cyst Asthma 04/01/2023 Assessment & Plan (06/11/2023 5:00 PM EDT): -well controlled -states using albuterol rarely maybe once a year -refill med already Assessment & Plan (05/01/2023 5:13 PM EDT): -well controlled -states using albuterol rarely maybe once a year -refill med already Assessment & Plan (04/01/2023 2:08 PM EDT): -well controlled -states using albuterol rarely maybe once a year -refill med today Class 1 obesity 04/01/2023 Assessment & Plan (06/11/2023 5:13 PM EDT): Gained 7 pounds in last 2 months -Advised pt to improve diet and exercise,discussed healthy life style -discussed tin whiz machine operator referral --referred again today -will start GLP1 Assessment & Plan (05/01/2023 5:39 PM EDT): Gained 4 pounds in last month -Advised pt to improve diet and exercise,discussed healthy life style -discussed tin whiz machine operator referral --referred already -has apt scheduled -may consider GLP1 x weight and DM at next visit Assessment & Plan (04/01/2023 2:19 PM EDT): -Advised pt to improve diet and exercise,discussed healthy life style -discussed tin whiz machine operator referral --referred today -may consider GLP1 x weight and DM at next visit Cocaine abuse in remission 04/01/2023 Tobacco use 04/01/2023 Assessment & Plan (06/11/2023 5:18 PM EDT): Started at 13 y of age -stopped 14 y ago at her 44 y of age , used to smoke 1 1/2 PQT , x 31 years --PQT a year calc 46.5 -CTA chest w and w/o contrast 2018: No pulmonary embolus seen. Unchanged calcified right lower lobe nodules.Again seen is linear atelectasis or scar along the lateral periphery of the right lower lobe, This was present previously and was larger, with a greater AP dimension.VTE: negative -CRX 2018 No significant abnormality is noted involving the heart, lungs,mediastinum, bony thorax or soft tissues. -referred already x cardiothoracic x lung ca screening -pt stopped smoking 14 y ago so still needs screening ---per pt has apt x CT chest for 06/29/2023 Assessment & Plan (05/01/2023 5:26 PM EDT): Started at 13 y of age -stopped 14 y ago at her 44 y of age , used to smoke 1 1/2 PQT , x 31 years --PQT a year calc 46.5 -CTA chest w and w/o contrast 2018: No pulmonary embolus seen. Unchanged calcified right lower lobe nodules.Again seen is linear atelectasis or scar along the lateral periphery of the right lower lobe, This was present previously and was larger, with a greater AP dimension.VTE: negative -CRX 2018 No significant abnormality is noted involving the heart, lungs,mediastinum, bony thorax or soft tissues. -referred already x cardiothoracic x lung ca screening -pt stopped smoking 14 y ago so still needs screening ---has apt w lung ca screening program x 06/06/2023 Assessment & Plan (04/01/2023 2:22 PM EDT): Started at 13 y of age -stopped 14 y ago at her 44 y of age , used to smoke 1 1/2 PQT , x 31 years --PQT a year calc 46.5 -CTA chest w and w/o contrast 2018: No pulmonary embolus seen. Unchanged calcified right lower lobe nodules.Again seen is linear atelectasis or scar along the lateral periphery of the right lower lobe, This was present previously and was larger, with a greater AP dimension.VTE: negative -CRX 2018 No significant abnormality is noted involving the heart, lungs,mediastinum, bony thorax or soft tissues. -referred today x cardiothoracic x lung ca screening -pt stopped smoking 14 y ago so still needs screening Health care maintenance 04/01/2023 Assessment & Plan (06/11/2023 5:19 PM EDT): -bl Dx MM and US 04/2023 : BI-RADS 1: Negative -pap smear 04/2023 here: neg/HPV neg -colonoscopy: per pt in 2018 to repeat in 5 years-already saw GI and rec to repeat in 2024 -vaccines: s/P COVID 19 X3,Reports also had 2 boosters w Bivalent-pt will bring record, s/p tdap in 2013, s/p p20 03/2023 , will offer shingrix at next apt, Hep B core + w neg surf ab/ag-no indication x vaccination Assessment & Plan (05/01/2023 5:32 PM EDT): -bl Dx MM and US 04/2023 : BI-RADS 1: Negative -pap smear 04/2023 here: neg/HPV neg -colonoscopy: per pt in 2018 to repeat in 5 years-already saw GI and rec to repeat in 2024 -vaccines: s/P COVID 19 X3,Reports also had 2 boosters w Bivalent-will bring record, s/p tdap in 2013, s/p p20 03/2023 , will offer shingrix at next apt, Hep B core + w neg surf ab/ag-no indication x vaccination Assessment & Plan (04/01/2023 2:33 PM EDT): -MM 2018 : BI-RADS 1: Negative -pap smear Pt is unsure if had total or partial hysterectomy and I can not find documentation of it ,also with chronic oral E2 use x menopausal symptoms x at least x 2 years--referred today to [facility] to eval need x pap and to discuss about menopausal symptoms -will hold x now estrace while evaluating breast symptoms. -colonoscopy: per pt in 2018 to repeat in 5 years-referred today to GI -vaccines: s/P COVID 19 X3,Reports also had 2 boosters w Bivalent-will bring record, s/p tdap in 2013, today here p20 , will offer shingrix at next apt ---- -labs x annual exam today -pt agreed to have STI testing including HIV to have for baseline 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 10/25/2022 GERD (gastroesophageal reflux disease) Assessment & Plan (06/11/2023 5:03 PM EDT): Pt on chronic PPI prn -w ongoing GERD symptoms w no major change w PPis -already f w GI planned x EGD for 06/13/2023 -continue famotidine HS started at last visit Assessment & Plan (05/01/2023 5:17 PM EDT): Pt on chronic PPI prn -w ongoing GERD symptoms w no major change w PPis -already f w GI planned x EGD once is cleared by her cash reconciliation specialist -for now will add famotidine HS Assessment & Plan (04/01/2023 2:12 PM EDT): Pt on chronic PPI taking every 3 days x long time -referred today to GI HTN (hypertension) 01/27/2019 Assessment & Plan (06/11/2023 5:30 PM EDT): -BP here slight controlled today ,reports at home majority of BP are < 140/90 But sometimes having Bps elevated in 150s -states to be complaint w meds -EKG x baseline TWI in V2-V3,AvL and Q wave in lead III 03/2023 Microalb neg -opthalmo seen 03/2023 Normal exam per pt -and has f up in 06/23/2023 ---- -continue amlodipine 10 mg daily -continue losartan 50 mg -continue metoprolol 25 mg BID -will repeat chem today after increased losartan dose -f BP in 8 weeks,advised pt to bring home BP readings and to also follow w cardiology this month -if at home having multiple uncontrolled BP may need to consider to increase losartan vs BB dose ? Assessment & Plan (05/01/2023 5:39 PM EDT): -BP here slight elevated today -states BP is better controlled at home < 140/90s -states to be complaint w meds -EKG x baseline TWI in V2-V3,AvL and Q wave in lead III 03/2023 Microalb neg ---- -continue amlodipine 10 mg daily -continue losartan 50 mg -increased from 25 mg daily last visit 1 mo ago -also started on metoprolol 25 mg BID by her cards -will repeat chem at next apt if not done at hospital today to monitor after increased losartan dose -opthalmo seen 03/2023 Normal exam per pt -f BP in 6 weeks Assessment & Plan (04/01/2023 2:12 PM EDT): -BP here slight elevated but normal on manual check up but pt reports at home has several readings of elevated BP some times in 190s -states to be complaint w meds -EKG today x baseline TWI in V2-V3,AvL ---- -continue amlodipine 10 mg and advise to take pm instead of am -advise to increase losartan to 50 mg from 25 mg daily -will reval at next visit and if tolerating well meds may px combination pill -chem in 4 weeks after increased losartan dose -opthalmo seen 03/2023 Normal exam per pt -microalb ordered today -referred today to cards x abnormal EKG w hx of mx comorbidities-states sometimes pain in chest but describes some of them as stabbing -currently asymptomatic Type 2 diabetes mellitus 02/18/2018 Assessment & Plan (06/11/2023 5:32 PM EDT): There is hx of DM2 03/2023 Hb1AC 5.9 ,LDL 79.microalb neg -pt on metformin 1 gr BID -will start ozempic weekly 0,25 mg x 4 weeks and then 0.5 mg weekly ( pt denies hx of pancreatitis and now fx of personal hx of thyroid ca) -explained possible SE and how to inj med -noted message of contraindication w shrimp allergy?-I call our pharmacist here and there was no clear contraindication for use . -explained pt that if GLP1 is approved then to decrease metformin dose to 500 mg BID ( will take 1/2 Tab BID , if not able to cut in half will call clinic for me to prescribe 500 mg tab) -DM labs in 2 mo --if stable e 6 mo -opthlmo 03/2023 -Normal per pt - gauge checker referral today Assessment & Plan (05/01/2023 5:22 PM EDT): There is hx of DM2 03/2023 Hb1AC 5.9 ,LDL 79.microalb neg -pt on metformin 1 gr BID -will discuss at next apt w pt about adding trulicity 0.75 mg if no contraindications( covered by her insurance x DM) and maybe decrease metformin dose to 500 mg BID -DM labs in 3 mo --if stable e 6 mo -opthlmo 03/2023 -Normal per pt -will refer at next visit to gauge checker Assessment & Plan (04/01/2023 2:18 PM EDT): -pt on metformin 1 gr BID -DM labs today -opthlmo 03/2023 -Normal per pt -will refer at next visit to gauge checker Female stress incontinence 01/23/2017 Assessment & Plan (06/11/2023 5:03 PM EDT): -pt saw in the past uroGYN x urinary incontinence Assessment & Plan (05/01/2023 5:17 PM EDT): -pt saw in the past uroGYN x urinary incontinence Assessment & Plan (04/01/2023 2:14 PM EDT): -pelvic US 2018: s/p Hysterectomy.,Incidental left ureterocele. -RENAL us 2019 RIGHT KIDNEY: There is a 2.3 x 2.1 x 1.8 cm cyst exophytic to the upper pole withsmall area of wall calcification. This does not appear appreciably changed from previous exams. No calculi or mass. No hydronephrosis. -will refer at next visit x renal US to f up exophytic cyst -pt saw in the past uroGYN x urinary incontinence Fibromyalgia 01/23/2017 Assessment & Plan (06/11/2023 5:06 PM EDT): -CERVICAL SPINE MRI WO contrast 2018:Minor cervical spondylosis without significant canal or foraminal stenosis at any level. -LUMBAR MRI W/O CONTRAST 2018 :Transitional anatomy. As confirmed on the previous plain films, there are articulating transverse processes at the lower most thoracic type segment and 5 nonrib-bearing lumbar-type vertebral bodies are considered for this report with the last completely developed intervertebral disc considered L5-S1. - At L5-S1, epidural lipomatosis nearly completely effaces the thecal sac. Multifactorial degenerative changes result in mild bilateral foraminal narrowing at this level. - At L4-L5, there is moderate disc volume loss and epidural lipomatosis mildly narrows the thecal sac. Mild bilateral foraminal narrowing at this level. -from records pt w hx of Lumbar radiculopathy s/p spinalcord stimulator -pt confirms to have stimulator in place but not working -pt states that cause worsen symptoms and never f up -will ask pt if would like to have stimulator removed at next apt -referred to her cable testers helper to continue care but was told that here specialist dont f w fibromyalgia -pt in mx meds x psych care including cymbalta 60 mg BID -will continue to monitor x now Assessment & Plan (05/01/2023 5:20 PM EDT): -CERVICAL SPINE MRI WO contrast 2018:Minor cervical spondylosis without significant canal or foraminal stenosis at any level. -LUMBAR MRI W/O CONTRAST 2018 :Transitional anatomy. As confirmed on the previous plain films, there are articulating transverse processes at the lower most thoracic type segment and 5 nonrib-bearing lumbar-type vertebral bodies are considered for this report with the last completely developed intervertebral disc considered L5-S1. - At L5-S1, epidural lipomatosis nearly completely effaces the thecal sac. Multifactorial degenerative changes result in mild bilateral foraminal narrowing at this level. - At L4-L5, there is moderate disc volume loss and epidural lipomatosis mildly narrows the thecal sac. Mild bilateral foraminal narrowing at this level. -from records pt w hx of Lumbar radiculopathy s/p spinalcord stimulato -pt confirms to have stimulator in place but not working -pt states that cause worsen symptoms and never f up -will ask pt if would like to have stimulator removed at next apt -referred to her cable testers helper to continue care but was told that here specialist dont f w fibromyalgia -pt in mx meds x psych care including cymbalta 60 mg BID -will continue to monitor x now Assessment & Plan (04/01/2023 2:17 PM EDT): -CERVICAL SPINE MRI WO contrast 2018:Minor cervical spondylosis without significant canal or foraminal stenosis at any level. -LUMBAR MRI W/O CONTRAST 2018 :Transitional anatomy. As confirmed on the previous plain films, there are articulating transverse processes at the lower most thoracic type segment and 5 nonrib-bearing lumbar-type vertebral bodies are considered for this report with the last completely developed intervertebral disc considered L5-S1. - At L5-S1, epidural lipomatosis nearly completely effaces the thecal sac. Multifactorial degenerative changes result in mild bilateral foraminal narrowing at this level. - At L4-L5, there is moderate disc volume loss and epidural lipomatosis mildly narrows the thecal sac. Mild bilateral foraminal narrowing at this level. -from records pt w hx of Lumbar radiculopathy s/p spinalcord stimulator?? -will confirm w pt at next visit -referred today to her cable testers helper to continue care -pt in mx meds x psych care including cymbalta 60 mg BID Anxiety 08/27/2016 Bipolar disorder 08/27/2016 Assessment & Plan (06/11/2023 5:16 PM EDT): PHQ9; 6 ( 03/2023) Pt f w psychiatrist -Dr Sin Cochran at [facility] -continue care w specialist -pt on trazodone,risperidone, prazosin,trileptal ,atarax and duloxetine -pt reports was advised in ER to stop duloxetine but she is not sure the reason,pt states she already is following w her psychiatrist to eval reason for that but she is still taking for now per psychiatrist recommendation-next apt w psychiatrist is 07/14/2023 Assessment & Plan (05/01/2023 5:23 PM EDT): PHQ9; 6 ( 03/2023) Pt f w psychiatrist -Dr Sin Cochran at [facility] per pt on mx meds-states to be stable Pt appears anxious -continue care w specialist Assessment & Plan (04/01/2023 2:37 PM EDT): PHQ9; 6 today Pt f w psychiatrist -Dr Sin Cochran at [facility] per pt on mx meds-states to be stable Pt appears anxious -continue care w specialist Hypertriglyceridemia 08/27/2016 Assessment & Plan (06/11/2023 5:17 PM EDT): 03/2023 total ch 169, HDL 47, Trig 361, LDL 79 Pt compliant w statins - added 6 weeks ago omega 3 daily -repeat fasting lipids in 2 mo Assessment & Plan (05/01/2023 5:25 PM EDT): 03/2023 total ch 169, HDL 47, Trig 361, LDL 79 Pt compliant w statins - add today omega 3 daily -pt has hx of shellfish allergy BUT reports took omega 3 before w no SE -repeat fasting lipids in 3 mo Resolved Problems Problem Noted Date Diagnosed Date Resolved Date Diabetes due to underlying c ondition w oth circulatory comp 05/01/2023 05/01/2023 Encounters Date Type Department Care Team Description 12/01/2024 Refill [facility] [address] [place] [address] Mecca Couch MD 11/29/2024 Telephone [facility] [address] [place] [address] Mecca Couch MD Nurse Triage 11/29/2024 Telephone [facility] [address] [place] [address] Mceca Couch MD Appointment Request 11/26/2024 Telephone [facility] [address] [place] [address] Mecca Couch MD Med Refill 11/26/2024 Refill [facility] [address] [place] [address] Mecca Couch MD 11/26/2024 Refill [facility] [address] [place] [address] Mecca Couch MD 11/23/2024 Telephone [facility] [address] [place] [address] Mecca Couch MD Results 11/22/2024 Refill [facility] [address] [place] [address] Mecca Couch MD 11/17/2024 Orders Only GENERIC EXTERNAL DATA DEPARTMENT Provider, Generic External Data 11/12/[address] [address] Mecca Couch MD Call Back Request 11/12/[address] [address] Mecca Cuoch MD Nurse Triage 11/12/[address] [address] Mecca Couch MD 10/12/[address] [address] Mecca Couch MD 09/27/2024 Orders Only [address] [address] Mecca Couch MD Multiple thyroid nodules (Primary Dx) 09/27/[address] [address] Janee Hemphill, KRISTIE Results; Referral 09/24/2024 Orders Only [address] [address] Mecca Couch MD Multiple thyroid nodules (Primary Dx) 09/24/2024 Orders Only [address] [address] Mecca Couch MD Multiple thyroid nodules (Primary Dx) 09/11/[address] [address] Mecca Couch MD from Last 3 Months Immunizations Name Administration Dates Next Due Influenza injectable quadriv alent preservative free 09/24/2023 Influenza, IIV3, injectable 11/13/2015 Moderna Covid-19 Vaccine 12+ 09/10/2021,05,02/13/2021 Pneumococcal Conjugate PCV 20 04/01/2023 Tdap 01/21/2024,11/13/2015,02/07/2014 Zoster, Recombinant 09/24/2023 Family History Medical History Relation Name Comments DM2,renal failure on HD Father HTN,HLD Mother Relation Name Status Comments Father Mother Social History Tobacco Use Types Packs/Day Years Used Date Smoking Tobacco: Former Cigarettes Smokeless Tobacco: Never Tobacco Cessation:Counseling Given: Not Answered Comments:Started at 13 y of age -stopped [...] Orientation Straight 09/02/2022 10 :29 AM EDT Last Filed Vital Signs Vital Sign Reading Time Taken Comments Blood Pressure 143/66 07/16/2024 2:18 PM EDT Pulse 74 07/16/2024 2:18 PM EDT Temperature 36.7 ??C (98.1 ??F) 07/16/2024 2:18 PM ED T Respiratory Rate 24 07/16/2024 2:18 PM EDT Oxygen Saturation 96% 06/29/2024 2:34 PM EDT Inhaled Oxygen Concentration - - Weight 106 kg (233 lb) 07/16/2024 2:18 PM EDT Height 170.2 cm (5' 7 ) 06/29/2024 2:34 PM EDT Body Mass Index 36.49 06/29/2024 2:34 PM EDT Plan of Treatment Upcoming Encounters Date Type Department Care Team (Late st Contact Info) Description 02/03/2025 1:15 PM EDT Office Visit [facility] [address] [place] [address] Mecca Couch MD [address] [place] [address] Health Maintenance Due Date Last Done Comments CT Colonography 1967 Colonoscopy 1967 Colorectal Cancer Screening 1967 FIT DNA/Cologuard 1967 FIT 1967 FOBT 1967 Sigmoidoscopy 1967 Diabetes: Foot Exam 1977 Eye Exam 1977 Alcohol/Substance Use Screening 1979 Hepatitis A Vaccines (1 of 2 - Risk 2-dose series) 1986 Hepatitis B Vaccines (1 of 3 - 19+ 3-dose series) 1986 Zoster Vaccines (2 of 2) 11/19/2023 09/24/2023 Diabetes: Urine Protein Screening 04/03/2024 04/03/2023 Diabetes: Hemoglobin A1C 12/25/2024 024, 10/31/2023, 04/03/2023, Additional history exists Depression Monitoring (PHQ-9) 12/30/2024 06/29/2024, 06/29/2024 SDOH Screening 02/10/2025 02/11/2024 Lipid Panel 06/24/2025 06/24/2024, 12/07/2023, 04/03/2023, Additional history exists Depression Screening 06/29/2025 06/29/2024, 06/29/20 24 Tobacco Screening 06/29/2025 06/29/2024 Mammogram 05/05/2026 05/05/2024, 07/03/2018 DTaP/Tdap/Td Vaccines (4 - Td or Tdap) 01/20/2034 01/21/2024, 11/13/2015, 02/07/2014 RSV Patients and Patients Aged 60 years or older (1 - 1-dose 75+ series) 2042 Pneumococcal Vaccine: 50+ Years Completed 04/01/2023 Cervical Cancer Screening Discontinued HPV/Cotest Discontinued 04/24/2023 Pap Smear Discontinued 04/24/2023 HIV Screening Completed 06/24/2024, 04/03/2023 Hepatitis C Screening Completed 06/24/2024 , 04/03/2023, 07/07/2020 COVID-19 Vaccine Completed 07/19/2024, , 08/15/2022, Additional history exists Influenza Vaccine Completed 07/19/2024, , 11/13/2015 HIB Vaccines Aged Out No longer eligi ble based on patient's age to complete this topic HPV Vaccines Aged Out No longer eligi ble based on patient's age to complete this topic IPV Vaccines Aged Out No longer eligi ble based on patient's age to complete this topic Meningococcal Vaccine Aged Out No chely christopher eligible based on patient's age to complete this topic RSV under 20 months Aged Out No longe r eligible based on patient's age to complete this topic Rotavirus Vaccines Aged Out No longer eligible based on patient's age to complete this topic Procedures Procedure Name Priority Date/Time Associated Diagnosis Comments FINE NEEDLE ASPIRATION Routine 10:30 AM EST HEPATITIS C AB W/REFL TO HCV RNA, QN, PCR Routine 06/24/2024 1:25 PM EDT Annual physical exam HIV 1/2 ANTIGEN/ANTIBODY, FOURTH GENERATION W/RFL Routine 06/24/2024 1:25 PM EDT Annual physical exam HEMOGLOBIN A1C Routine 06/24/2024 1:25 PM EDT Type 2 diabetes mellitus with other circulatory complication, without long-term current use of insulin (CMS/HCC) LIPID PANEL, STANDARD Routine 06/24/2024 1:25 PM EDT Type 2 diabetes mellitus with other circulatory complication, without long-term current use of insulin (CMS/HCC) BI MAMMOGRAM SCREENING TOMOSYNTHESIS BILATERAL Routine 05/05/2024 2:39 PM EDT Breast cancer screening by mammogram IMAGE-GUIDED PAP W/AGE BASED SCR PROTOCOLS Routine 04/24/2023 2:25 PM EDT Cervical cancer screening Screening examination for venereal disease ALBUMIN, RANDOM URINE W/O CREATININE Routine 04/03/2023 8:13 AM EDT Type 2 diabetes mellitus without complication, unspecified whether prison insulin use (CMS/HCC) from Last 3 Months or Most Recently Relevant to Health Maintenance Results * Fine needle aspiration (11/17/2024 10:30 AM EST) 11/17/2024 10:3 0 AM EST 11/17/2024 12:15 PM EST [facility] - 11/22/2024 5:17 PM EST ----- ------- Name: Mecca Lundy ?Age/Sex: 59/F ? : 1965 Unit#: [id number] ?? Attend Dr: Rani Forbes MD ?Re11/17/24 ?Status: DEP REF ? Location: HO.US ? Disch: ? ----- ------- SPEC : [id number] ?RECD: 11/17/24-1215 ? STATUS: ??SOUT ? REQ NUM: [id number] ? NOHEMI: 11/17/24-1030 ? SUBM DR: Rani Forbes MD ? ENTERED: ??11/18/24-1202 ?SP TYPE: Cytology ? OTHR DR: Mecca Couch MD ORDERED: ??Fine Ndl Asp/2 ? Diagnosis ?? A. ??Thyroid, left mid/lower nodule, fine needle aspiration biopsy (cytology): ? -Talala System Classification:? Benign (category 2) ? -Description:? Benign follicular cells (mixed normal and micro- follicles), scant colloid, ?? and blood. ? B. ??Thyroid, left mid nodule, fine needle aspiration biopsy (cytology): ? -Talala System Classification: Atypia of undetermined significance - nuclear atypia ?? (category 3) ? -Description: Hypercellular specimen with follicular cells with nuclear enlargement with ?? nucleoli, and focal overlap/crowding. Background of benign follicular cells, Hurthle cell ?? change and occasional scattered macrophages. If Afirma was collected, it will be sent for ?? testing with addendum to follow. ?Clinical History A. Left mid/lower 2.9 cm thyroid nodule FNA biopsy B. Left mid 1.6 cm thyroid nodule FNA biopsy ? Material Received ?? A. Left mid/lower 2.9 cm thyroid nodule FNA biopsy ?? B. Left mid 1.6 cm thyroid nodule FNA biopsy ? Gross Description A. Received are 25 cc of bloody tinged CytoLyt fluid from which a ThinPrep slide is prepared. B. Received are 25 cc of bloody tinged CytoLyt fluid from which a ThinPrep slide is prepared. Copies To: ?? Rani Forbes MD ?? [facility] Endocrinology ?? [address] ?? [place] [address] ?? [phone] ? CONTINUED ON NEXT PAGE ----- ------- Name: Mecca Lundy ?Age/Sex: 59/F ? : 1965 Unit#: [id number] ?? Attend Dr: Rani Forbes MD ?Re11/17/24 ?Status: DEP REF ? Location: .US ? Disch: ? ----- ------- SPEC : [id number] ?RECD: 11/17/24-1215 ? STATUS: ??SOUT ? REQ NUM: [id number] ? NOHEMI: 11/17/24-1030 ? SUBM DR: Rani Forbes MD ? ENTERED: ??11/18/24-1202 ?SP TYPE: Cytology ? OTHR DR: Mecca Couch MD ORDERED: ??Fine Ndl Asp/2 ? Copies To: ??(Continued) ?? [email or web address] ?? Mecca Couch MD ?? [address] [facility] ?? [place] [address] ?? [phone] ----- ------- Signed (signature on file) Sharyn Richard 11/22/24 1717 ? ----- ------- ? END OF REPORT ? us Generic External Data Provider LAB CYTOLOGY VINAY SALAZAR Final Result Performing Organization Address [facility] Co de Phone Number [facility] [address] [place] [address] [phone] * Hepatitis C Antibody with Reflex to HCV, RNA, Quantitative, Real-Time PCR (06/24/2024 1:25 PM EDT) Hepatitis C Antibody Nonreactive Nonreactive [facility] Comment:Antibodies to HCV no t detected; does not exclude early acuteHCV infection. Blood Venous blood specimen / Unknown 06/24/2024 1:25 PM EDT 06/24/2024 4:01 PM EDT us Mecca Wilkinson MD LAB BLOOD ORDERAB LES Final Result Performing Organization Address [facility] Co de Phone Number [facility] [address] [place] [address] [phone] * HIV-1/2 Antigen and Antibodies, Fourth Generation, with Reflexes (06/24/2024 1:25 PM EDT) HIV AB/AG Nonreactive Nonreactive [facility] Comment:HIV-1 p24 Ag and/or HIV-1/HIV-2 Ab not detected.A test result that is nonreactive does not exclude thepossibility of exposure to or infection with HIV-1 and/orHIV-2. Nonreactive results in this assay for individualswith prior exposure to HIV-1 and/or HIV-2 may be due toantigen and antibody levels that are below the limit ofdetection of this assay.The [employer] HIV Ag/Ab Combo assay result andsupplemental assay results should be interpreted inconjunction with the patient's clinical presentation,history and other laboratory results. If the results areinconsistent with clinical evidence, additional testing issuggested to confirm the result. Blood Venous blood specimen / Unknown 06/24/2024 1:25 PM EDT 06/24/2024 4:01 PM EDT us Mecca Wilkinson MD LAB BLOOD ORDERAB LES Final Result [facility] [address] [place] [address] [phone] * Hemoglobin A1c (06/24/2024 1:25 PM EDT) Pathologist [facility] Hemoglobin A1c 5.5 <6.0 % [facility] Comment:Hemoglobin A1C Refer ence Range Adults: 4.8 - 6.0 % Non diabetic: < 6.0 % Goal: < 7.0 %Additional Action Suggested: > 8.0 %Note: Hemoglobin A1c results are invalid for patients with abnormal amounts of HbF. Blood transfusions may impact the HbA1c concentration in the patient sample. Estimated Average Glucose 111 mg/dL [facility] Comment:eAG = Estimated ave rage glucose which is %A1C expressed asaverage glucose, using the formula of the V2S-LxspdbeActsxhd Glucose study (ADAG), Diabetes Care, Vol.31,#8,Jun. 2007 Blood Venous blood specimen / Unknown 06/24/2024 1:25 PM EDT 06/24/2024 4:01 PM EDT Mecca Wilkinson MD LAB BLOOD ORDERAB LES Final Result Performing Organization Address [facility]/ZIP Co de Phone Number [facility] [address] [place] [address] [phone] * (ABNORMAL) Lipid Panel, Standard (06/24/2024 1:25 PM EDT) Triglycerides 193(H) <150 mg/dL [facility] Comment:Desirable Triglyceri de: less than 150 mg/dLBorderline High Triglyceride 150-199 mg/dLHigh Triglyceride: 200-499 mg/dLVery High Triglyceride: greater than or equal to 5OO mg/dL Cholesterol 145 <200 mg/dL [facility] Comment:Desirable Cholestero l: less than 200 mg/dLBorderline High Cholesterol: 200-239 mg/dLHigh Cholesterol: greater than 239 mg/dL LDL Cholesterol Calculated 61 <100 mg/dL [facility] Comment:Desirable LDL: less than 100 mg/dLNear Optimal/Above Optimal LDL: 110- 129 mg/dLBorderline High LDL: 130-159 mg/dLHigh LDL: 160-189 mg/dLVery High LDL: greater than or equal to 190 mg/dL HDL Cholesterol 46 >40 mg/dL [facility] Comment:Desirable HDL: great er than 40 mg/dL Note: This HDL assay may give artificially low results in patients with liver disease. Blood Venous blood specimen / Unknown 06/24/2024 1:25 PM EDT 06/24/2024 4:01 PM EDT Mecca Wilkinson MD LAB BLOOD ORDERAB LES Final Result Performing Organization Address City/[facility]/ZIP Co de Phone Number [facility] [address] [place] [address] [phone] * BI Mammogram Screening Tomosynthesis Bilateral (05/05/2024 2:39 PM EDT) Anatomical Region Laterality Modality Breast Bilateral Mammography 05/05/2024 2:39 PM EDT Narrative 05/25/2024 9:09 PM EDT ? [facility] ? [address] ?[place], [place] [address] ? Mammography Report ? Signed ? Patient: Lundy,Mecca ?MR#: [id number] ?? 5 ? : 1965 ?Acct:[id number] ? Age/Sex: 59 / F ?ADM Date: 05/05/24 ? Loc: HO.MAMMO ? Attending Dr: Mecca Wilkinson MD ? Ordering Physician: RUCHI ONTIVEROS CNAdam ?Results: 1 ?? Negative ? Date of Service: 05/05/24 ?Follow Up: 1 Year From Orig ?? inal Mammogram ? Procedure(s): MM tomosynthesis screening BI ?? Accession Number(s): [id number] ? cc: Mecca Couch MD; RUCHI ONTIVEROS CNM ? EXAMINATION: ?? MM SCREENING DIGITAL BREAST TOMOSYNTHESIS, BILATERAL ? CLINICAL INFORMATION: ? Screening. Asymptomatic. ? COMPARISON: ?? Mammography: This study is compared with prior exams dating back to ?? 2018. ? TECHNIQUE: ?? Digital breast tomosynthesis is performed in both the craniocaudal and ?? mediolateral oblique views along with computer-aided detection (CAD). ?? Synthesized 2D images are generated from the tomosynthesis. ? FINDINGS: ?? There are scattered areas of fibroglandular density (ACR BI-RADS breast ?? composition Category b). ? There are no significant masses, abnormal calcifications, or other ?? abnormalities. ? MM/MM tomosynthesis screening BI ?? IMPRESSION: ?? No mammographic evidence of malignancy. ? ASSESSMENT: ? BI-RADS BI-RADS 1 - Negative ? RECOMMENDATION: ?? Routine annual mammography screening. ? 1 year F/U ? This examination should not preclude the clinical evaluation of a ?? suspicious palpable abnormality. ? This patient's information was entered into a reminder system with a ?? target due date for their next mammogram. ? Dictated By: ?Aracelis Hameed MD ? Signed By: ?<Electronically signed by Aracelis Hameed MD in OV> ? 05/25/242104 ? DD/ 1439 ? TD/TT: ? Customer Service Engineer: ? Procedure Note Donjeraldcrowdaronter, Image - 05/25/2024 [place] [facility] [address] [place] [address] Mammography Report Signed Patient: Demi Lundy#: [id number] 5 : 1965Acct:[id number] Age/Sex: 59 / FADM Date: 05/05/24 Loc: HO.MAMMO Attending Dr: Mecca Wilkinson MD Ordering Physician: RUCHI ONTIVEROSesults: 1 Negative Date of Service: 05/05/24Follow Up: 1 Year From Orig inal Mammogram Procedure(s): MM tomosynthesis screening BI Accession Number(s): [id number] cc: Mecca Couch MD; RUCHI ONTIVEROS CNM EXAMINATION: MM SCREENING DIGITAL BREAST TOMOSYNTHESIS, BILATERAL CLINICAL INFORMATION: Screening. Asymptomatic. COMPARISON: Mammography: This study is compared with prior exams dating back to 2018. TECHNIQUE: Digital breast tomosynthesis is performed in both the craniocaudal and mediolateral oblique views along with computer-aided detection (CAD). Synthesized 2D images are generated from the tomosynthesis. FINDINGS: There are scattered areas of fibroglandular density (ACR BI-RADS breast composition Category b). There are no significant masses, abnormal calcifications, or other abnormalities. MM/MM tomosynthesis screening BI IMPRESSION: No mammographic evidence of malignancy. ASSESSMENT: BI-RADS BI-RADS 1 - Negative RECOMMENDATION: Routine annual mammography screening. 1 year F/U This examination should not preclude the clinical evaluation of a suspicious palpable abnormality. This patient's information was entered into a reminder system with a target due date for their next mammogram. Dictated By: Aracelis Hameed MD Signed By: <Electronically signed by Aracelis Hameed MD in OV> 05/25/24 2105 DD/ 1439 TD/TT: Customer Service Engineer: Ruchi REECE IMG BI PROCEDURES Final R esult * Image-Guided Pap with Age-Based Screening Protocols (04/24/2023 2:25 PM EDT) Comment [employer] Comment: This order for age-based cervical cancer and STI screening follows ACOG guidelines(PB 168, 140, YGV072). See individual assays for performing site location. Clinical Information: None given [email or web address] LMP: NONE GIVEN [employer] Prev. PAP: NONE GIVEN [employer] Prev. BX: NONE GIVEN [facility] SOURCE: None given [employer] Statement Of Adequacy: [email or web address] Comment: Satisfactory for evaluation. Endocervical/transformation zone component absent. Interpretation/ Result: Negative for intraepithelial lesion or malignancy. [employer] COMMENT: This Pap test has been evaluated with computer assisted technology. [employer] Cytotechnolog[employer] t: [email or web address] Comment: MSM, CT(ASCP) CT screening location: [address] ??[phone] (Always Message) [facility] [place] [facility] Comment: EXPLANATORY NOTE: The Pap is a screening test for cervical cancer. It is not a diagnostic test and is subject to false negative and false positive results. It is most reliable when a satisfactory sample, regularly obtained, is submitted with relevant clinical findings and history, and when the Pap result is evaluated along with historic and current clinical information. HPV nRNA E6/E7 Not Detected Not Detected [facility] [place] [facility] Comment: Methodology: Kerrick Kleaner Operator-Mediated Amplification This assay detects E6/E7 viral messenger RNA (mRNA) from 14 high-risk HPV types (16,18,31,33,35,39,45,51,52,56,58,59,66,68). Cervical sources are required for HPV testing. If a vaginal source from a patient who has had a total hysterectomy with removal of cervix was submitted, please contact the testing laboratory for alternative testing options. For additional information, please refer to http://education.[employer]/faq/KPE425j2 (This link if provided for information/ educational purposes only.) Pap Vial 04/24/2023 2:25 PM EDT 04/25/2023 1:57 AM EDT Ruchi Ontiveros [facility] LAB BLOOD ORDERABLES Michelle patel Result [facility] [address], [place] [address] [facility] [place] [facility] [address] [place] [address] * Albumin, Random Urine W/O Creatinine (04/03/2023 8:13 AM EDT) Albumin, Urine 1.3 See Note: mg/dL [facility] [place] [facility] Comment: Reference Range: Reference Range Not established [facility] [place] [facility] Comment: The ADA defines abnormalities in albumin excretion as follows: Albuminuria Category ? Result (mcg/mg creatinine) Normal to Mildly increased ?<30 Moderately increased ?30-299 Severely increased ?> OR = 300 The ADA recommends that at least two of three specimens collected within a 3-6 month period be abnormal before considering a patient to be within a diagnostic category. Urine Urine specimen obtained by clean catch procedure / Unknown 04/03/2023 8:13 AM EDT 04/03/2023 8:13 AM EDT Narrative [facility] - 04/07/2023 11:50 PM EDT FASTING:YES FASTING: YES Mecca Wilkinson MD LAB URINE ORDERAB LES Final Result [facility] [address], [place] [address] [facility] [address] [place] [address] from Last 3 Months or Most Recently Relevant to Health Maintenance Insurance [facility] STANDARD Care Teams Psychologist Experimental Relationship Specialty Start Date End Date eMcca Couch MD [address] [place] [phone] PCP - General Internal Medicine 03/28/23
--- OUTSIDE RECORDS SUMMARY | 2024-12-01 17:07 | XMS_ITS | Encounter Summary ---
Author Organization [employer] Address [address] [place] [address] [place] [address] Care Team Providers Care Carton Liner Name Role Phone Mecca Couch MD Primary Care Pro vider Reason for Visit * Reason Onset Date Comments Med Refill 07/20/2024 Encounter Details Date Type Department Care Team (Late st Contact Info) Description 07/20/2024 Refill [facility] [address] [place], [place] [phone] Mecca Couch MD [address] [place] [address] Type 2 diabetes mellitus with other circulatory complication, without long-term current use of insulin ([facility]) Social History Tobacco Use Types Packs/Day Years [...] Description 02/03/2025 1:15 PM EDT Office Visit [facility] [address] [place] [address] [phone] Mecca Couch MD [address] [place] [phone] documented as of this encounter Visit Diagnoses Diagnosis Type 2 diabetes mellitus with other circulatory complication, without long-term current use of insulin ([facility]) documented in this encounter Additional Health Concerns Assessment Noted Time PHQ-9 Depression Total Score: 10 024 2:38 PM EDT documented as of this encounter Care Teams Carton Liner Relationship Specialty Start Date End Date Mecca Couch MD [address] [place] [address] [phone] PCP - General Internal Medicine 03/28/23 documented as of this encounter
--- OUTSIDE RECORDS SUMMARY | 2024-12-01 17:07 | XMS_ITS | Encounter Summary ---
Author Organization [employer] Address [address] [place] [address] [place] [address] Care Team Providers Care Allied Health Professional Name Role Phone Mecca Couch MD Primary Care Pro vider Reason for Visit * Reason Onset Date Comments Results 11/23/2024 Encounter Details Date Type Department Care Team ([facility] st Contact Info) Description 11/23/2024 Telephone [facility] [address] [place], [place] [phone] Mecca Couch MD [address] [place] [address] Results Social History Tobacco Use Types Packs/Day Years [...] encounter Miscellaneous Notes * Telephone Encounter - Janee Hemphill RN - 11/24/2024 11:14 AM EST Addressed on other encounter from 11/12/24. * Telephone Encounter - Sameera Vang - 11/23/2024 4:05 PM EST TC from pt requesting call back regarding Results. Type of results: Fine needle aspiration Date when done: 11/17/2024 Facility: [facility] documented in this encounter Plan of Treatment Upcoming Encounters Date Type Department Care Team (Late st Contact Info) Description 02/03/2025 1:15 PM EDT Office Visit [facility] [address] [place] [address] [phone] Mecca Couch MD [address] [place], [place] [phone] documented as of this encounter Visit Diagnoses Not on filedocumented in this encounter Additional Health Concerns Assessment Noted Time PHQ-9 Depression Total Score: 10 024 2:38 PM EDT documented as of this encounter Care Teams Allied Health Professional Relationship Specialty Start Date End Date Mecca Couch MD [address] [place] [phone] PCP - General Internal Medicine 03/28/23 documented as of this encounter
--- OUTSIDE RECORDS SUMMARY | 2024-12-01 17:07 | XMS_ITS | Encounter Summary ---
Author Organization [employer] Address [address] [place] [address] 7t [place] [address] Care Team Providers Care Special Day Class Teacher Name Role Phone Mecca Couch MD Primary Care Pro vider Reason for Visit * Reason Comments Med Refill Encounter Details Date Type Department Care Team ([facility] st Contact Info) Description 04/07/2023 Refill [facility] [address] [place], [place] [phone] Mecca Mclain MD [address] [place] [address] Social History Tobacco Use Types Packs/Day Years [...] Patient Health Questionnaire-2 Score 2 04/01/2023 Comments Unknown Sex and Gender Information Value Date Recorded Sex Assigned at Female 09/02/2022 10:29 AM EDT Legal Sex Female 10:29 AM EDT Gender Identity Female 09/02/2022 10:29 AM EDT Sexual Orientation Straight 09/02/2022 10 :29 AM EDT COVID-19 Exposure Response Date Recorded In the last 10 days, have yo u been in contact with someone who was confirmed or suspected to have Coronavirus/COVID-19? No / Unsure 04/01/2023 9:11 AM EDT documented as of this encounter Plan of Treatment Upcoming Encounters Date Type Department Care Team (Late st Contact Info) Description 02/03/2025 1:15 PM EDT Office Visit [facility] [address] [place] [address] Mecca Couch MD [address] [place], [place] [phone] documented as of this encounter Visit Diagnoses Not on filedocumented in this encounter Additional Health Concerns Assessment Noted Time PHQ-9 Depression Total Score: 6 04/01/20 9:29 AM EDT documented as of this encounter Care Teams Special Day Class Teacher Relationship Specialty Start Date End Date Mecca Couch MD [address] [place] [phone] PCP - General Internal Medicine 03/28/23 documented as of this encounter
--- OUTSIDE RECORDS SUMMARY | 2024-12-01 17:07 | XMS_ITS | Encounter Summary ---
Author Organization [employer] Address [address] [place] [address] 7[address] [place] [address] Care Team Providers Care Keno Writer / Runner Name Role Phone Mecca Couch MD Primary Care Pro vider Reason for Visit * Reason Comments Med Refill Encounter Details Date Type Department Care Team (Late Contact Info) Description 06/30/2023 Refill [facility] [address] [place] [address] Cinthya Mckeon FNP [address] [place] [phone] Essential hypertension Social History Tobacco Use Types Packs/Day Years [...] Encounters Date Type Department Care Team (Late Contact Info) Description 02/03/2025 1:15 PM EDT Office Visit [facility] [address] [place] [address] Mecca Couch MD [address] [place] [phone] documented as of this encounter Visit Diagnoses Diagnosis Essential hypertension Unspecified essential hypertension documented in this encounter Additional Health Concerns Assessment Noted Time PHQ-9 Depression Total Score: 6 04/01/20 23 9:29 AM EDT documented as of this encounter Care Teams Keno Writer / Runner Relationship Specialty Start Date End Date Mecca Couch MD [address] [place], [place] [phone] PCP - General Internal Medicine 03/28/23 documented as of this encounter
--- OUTSIDE RECORDS SUMMARY | 2024-12-01 17:07 | XMS_ITS | Encounter Summary ---
Author Organization [employer] Address [address] [place] [address] [place] [address] Care Team Providers Care Network Contract Manager Name Role Phone Mecca Couch MD Primary Care Pro vider Reason for Visit * Reason Onset Date Comments Med Refill 08/14/2023 Encounter Details Date Type Department Care Team ([facility] st Contact Info) Description 08/14/2023 Telephone [facility] MEDICINE [address] [place], [place] [phone] Mecca Couch MD [address] [place] [address] Med Refill Social History Tobacco Use Types [...] Recorded Patient Health Questionnaire-9 Score 6 04/01/2023 Housing Stability Answer Date Recorded What is your housing situation today? I have gabino wright 08/10/[address] you li ve. Do you have problems with any of the following? None of the above 08/10/2023 Food Insecurity Answer Date Recorded Within the past 12 months, y ou worried that your food would run out before you got money to buy more: Often true 08/10/2023 Within the past 12 months,th e food you bought just didn't last and you didn't have enough money to get more: Often true 06/2023 Transportation Answer Date Recorded In the past 12 months, has l ack of transportation kept you from medical appts, meetings, work or from getting things needed for daily living? Yes, it has kept me from medical appointments or getting medications. 08/10/2023 Utilities Answer Date Recorded In the past 12 months, has t he electric, gas, oil or water company threatened to shut off services in your home? Yes 08/10/2023 Depression Answer Date Recorded Patient Health Questionnaire-2 Score 2 04/01/2023 Comments No Sex and Gender Information Value Date Recorded Sex Assigned at Female 09/02/2022 10:29 AM EDT Legal Sex Female 10:29 AM EDT Gender Identity Female 09/02/2022 10:29 AM EDT Sexual Orientation Straight 09/02/2022 10 :29 AM EDT documented as of this encounter Miscellaneous Notes * Telephone Encounter - Neida Cruz LPN - 08/14/2023 9:41 AM EDT Medication is prescribed by Cardiology (Nadia Grant) * Telephone Encounter - Consuelo George - 08/14/2023 9:25 AM EDT Tc from pt requesting med refill for medication metoprolol tartrate (Lopressor) 25 MG tablet. documented in this encounter Plan of Treatment Upcoming Encounters Date Type Department Care Team (Late st Contact Info) Description 02/03/2025 1:15 PM EDT Office Visit [facility] MEDICINE [address] [place] [address] [phone] Mecca Couch MD [address] [place], [place] [phone] documented as of this encounter Visit Diagnoses Not on filedocumented in this encounter Additional Health Concerns Assessment Noted Time PHQ-9 Depression Total Score: 6 04/01/20 23 9:29 AM EDT documented as of this encounter Care Teams Network Contract Manager Relationship Specialty Start Date End Date Mecca Couch MD [address] [place] [phone] PCP - General Internal Medicine 03/28/23 documented as of this encounter
--- OUTSIDE RECORDS SUMMARY | 2024-12-01 17:07 | XMS_ITS | Encounter Summary ---
Author Organization [employer] Address [address] [place] [address] [place] [address] Care Team Providers Care Tree Thinner Name Role Phone Mecca Couch MD Primary Care Pro vider Reason for Visit * Reason Onset Date Comments Appointment Request 11/29/2024 Encounter Details Date Type Department Care Team ([facility] st Contact Info) Description 11/29/2024 Telephone [facility] MEDICINE [address] [place], [place] [phone] Mecca Couch MD [address] [place] [address] Appointment Request Social History Tobacco Use Types Packs/Day Years [...] encounter Miscellaneous Notes * Telephone Encounter - Antoni Overton - 11/29/2024 9:25 AM EST TC from pt wanting to schedule a visit with A primary care provider regarding multiple results. Pt confirmed had already contacted Dr. Malone office regarding FNA results. But wants to review other results.. Per Regulo Byrne Her last results were from June and were not concerning so I don't think its appropriate to schedule with another provider If she wants, I can let the [place] know so she sees Blaine as soon as she is back Pt disconnected call prior to me having a chance to advise her. Message placed private , will not be on portal documented in this encounter Plan of Treatment Upcoming Encounters Date Type Department Care Team (Late st Contact Info) Description 02/03/2025 1:15 PM EDT Office Visit [facility] MEDICINE [address] [place] [address] Mecca Couch MD [address] [place], [place] [phone] documented as of this encounter Visit Diagnoses Not on filedocumented in this encounter Additional Health Concerns Assessment Noted Time PHQ-9 Depression Total Score: 10 024 2:38 PM EDT documented as of this encounter Care Teams Tree Thinner Relationship Specialty Start Date End Date Mecca Couch MD [address] [place] [phone] PCP - General Internal Medicine 03/28/23 documented as of this encounter
--- OUTSIDE RECORDS SUMMARY | 2024-12-01 17:07 | XMS_ITS | Encounter Summary ---
Author Organization [employer] Address [address] [place] [address] [place] [address] Care Team Providers Care Lecturer In Computer Science Name Role Phone Mecca Couch MD Primary Care Pro vider Reason for Visit * Reason Onset Date Comments Med Refill 09/01/2023 Encounter Details Date Type Department Care Team ([facility] st Contact Info) Description 09/01/2023 Refill [facility] MEDICINE [address] [place], [place] [phone] Mecca Couch MD [address] [place] [address] Social History Tobacco Use Types Packs/Day Years [...] housing situation today? I have gabino wright 08/26/[address] you li ve. Do you have problems with any of the following? None of the above 08/26/2023 Food Insecurity Answer Date Recorded Within the past 12 months, y ou worried that your food would run out before you got money to buy more: Often true 08/26/2023 Within the past 12 months,th e food you bought just didn't last and you didn't have enough money to get more: Often true Transportation Answer Date Recorded In the past [...] Description 02/03/2025 1:15 PM EDT Office Visit [facility] MEDICINE [address] [place] [address] Mecca Couch MD [address] [place] [address] documented as of this encounter Visit Diagnoses Not on filedocumented in this encounter Additional Health Concerns Assessment Noted Time PHQ-9 Depression Total Score: 6 04/01/20 23 9:29 AM EDT documented as of this encounter Care Teams Lecturer In Computer Science Relationship Specialty Start Date End Date Mecca Couch MD [address] [place] [phone] PCP - General Internal Medicine 03/28/23 documented as of this encounter
--- OUTSIDE RECORDS SUMMARY | 2024-12-01 17:07 | XMS_ITS | Encounter Summary ---
Author Organization [employer] Address [address] [place] [address] [place] [address] Care Team Providers Care Scrap Crusher Name Role Phone Mecca Couch MD Primary Care Pro vider Reason for Visit * Reason Onset Date Comments Nurse Triage 11/12/2024 Encounter Details Date Type Department Care Team ([facility] st Contact Info) Description 11/12/2024 Telephone [facility] MEDICINE [address] [place], [place] [phone] Mecca Couch MD [address] [place] [address] Nurse Triage Social History Tobacco Use Types [...] encounter Miscellaneous Notes * Telephone Encounter - Anjali White RN - 11/12/2024 4:20 PM EST Called pt. Via [employer] labor supervisor [phone] [address]. No answer. Commercial Credit Reviewer left message to call back [facility] nurses at [phone]. Called back x2. No answer and went to voice mail. Called back x3. Pt. States that she speaks Croatian. Pt. States that she has been having right upper abdominal pain x 3-4 weeks on and off but over the past 2 days the pain happens every time she eats. Belly is not swollen and pt. Does get nausea also when she eats. Pt. Had Gall bladder removed year ago so she states it is not her gall bladder. I advised pt. To gp to ED but pt. States that she dos not have pain at present and it is intermittent. Pt wants to be seen to get some testing ordered to start the process of seeing what it could be. No blood in stool or urine. Last BM this am WNL. Protocol Used: Abdominal Pain - Female (Adult) Protocol-Based Disposition: See in Office or Video Visit Today Video visit offer not recorded Positive Triage Question: * Patient wants to be seen * All higher-acuity triage questions were negative Care Advice Discussed: * Rest * Drink Clear Fluids * Diet * Pass a Stool * Avoid Aspirin and NSAIDs * Telephone Encounter - Yaritzabrandon Taj - 11/12/2024 4:14 PM EST Symptom: Abdominal Pain - Female - Not Outcome: Schedule an urgent appointment (within 4 hours) or talk to a nurse or provider soon Reason: Getting worse The caller accepted this outcome. documented in this encounter Plan of Treatment Upcoming Encounters Date Type Department Care Team (Late st Contact Info) Description 02/03/2025 1:15 PM EDT Office Visit [facility] MEDICINE [address] [place] [address] [phone] Mecca Couch MD [address] [place] [address] documented as of this encounter Visit Diagnoses Not on filedocumented in this encounter Additional Health Concerns Assessment Noted Time PHQ-9 Depression Total Score: 10 024 2:38 PM EDT documented as of this encounter Care Teams Scrap Crusher Relationship Specialty Start Date End Date Mecca Couch MD [address] [place] [phone] PCP - General Internal Medicine 03/28/23 documented as of this encounter
--- OUTSIDE RECORDS SUMMARY | 2024-12-01 17:07 | XMS_ITS | Encounter Summary ---
Author Organization [employer] Address [address] [place] [address] [place] [address] Care Team Providers Care Balling Machine Operator Name Role Phone Mecca oCuch MD Primary Care Pro vider Reason for Visit * Reason Comments Med Refill Encounter Details Date Type Department Care Team (Late st Contact Info) Description 06/05/2023 Refill [facility] MEDICINE [address] [place], [place] [phone] Mecca Couch MD [address] [place] [address] Essential hypertension Social History Tobacco Use Types [...] Description 02/03/2025 1:15 PM EDT Office Visit [facility] MEDICINE [address] [place] [address] Mecca Couch MD [address] [place], [place] [phone] documented as of this encounter Visit Diagnoses Diagnosis Essential hypertension Unspecified essential hypertension documented in this encounter Additional Health Concerns Assessment Noted Time PHQ-9 Depression Total Score: 6 04/01/20 9:29 AM EDT documented as of this encounter Care Teams Balling Machine Operator Relationship Specialty Start Date End Date Mecca Couch MD [address] [place] [address] PCP - General Internal Medicine 03/28/23 documented as of this encounter
--- OUTSIDE RECORDS SUMMARY | 2024-12-01 17:07 | XMS_ITS | Encounter Summary ---
Author Organization [employer] Address [address] [place] [address] 7t [place] [address] Care Team Providers Care Nutrition Services Aide Name Role Phone Mecca Couch MD Primary Care Pro vider Encounter Details Date Type Department Care Team (Late st Contact Info) Description 11/17/2024 Orders Only GENERIC EXTERNAL DATA DEPARTMENT Provider, Generic External Data Social History Tobacco Use Types Packs/Day Years [...] Upcoming Encounters Date Type Department Care Team ([facility] st Contact Info) Description 02/03/2025 1:15 PM EDT Office Visit [facility] MEDICINE [address] [place] [address] [phone] Mecca Couch MD [address] [place], [place] [phone] documented as of this encounter Procedures Procedure Name Priority Date/Time Associated Diagnosis Comments FINE NEEDLE ASPIRATION Routine 11/17/2024 10:30 AM EST documented in this encounter Results * Fine needle aspiration (11/17/2024 10:30 AM EST) 11/17/2024 10:3 0 AM EST 11/17/2024 12:15 PM EST [facility] - 11/22/2024 5:17 PM EST ----- ------- Name: Mecca Lundy ?Age/Sex: 59/F ? : 1965 Unit#: [id number] ?? Attend Dr: Rani Forbes MD ?Re11/17/24 ?Status: DEP REF ? Location: HO.US ? Disch: ? ----- ------- SPEC : [id number] ?RECD: 11/17/24-5 ? STATUS: ??SOUT ? REQ NUM: [id number] ? NOHEMI: 11/17/24-1030 ? SUBM DR: Rani Forbes MD ? ENTERED: ??11/18/24-1202 ?SP TYPE: Cytology ? OTHR DR: Mecca Couch MD ORDERED: ??Fine Ndl Asp/2 ? Diagnosis ?? A. ??Thyroid, left mid/lower nodule, fine needle aspiration biopsy (cytology): ? -[place] System Classification:? Benign (category 2) ? -Description:? Benign follicular cells (mixed normal and micro- follicles), scant colloid, ?? and blood. ? B. ??Thyroid, left mid nodule, fine needle aspiration biopsy (cytology): ? -[place] System Classification: Atypia of undetermined significance - [...] Copies To: ?? Rani Forbes MD ?? [facility] ?? [address] [facility] ?? [place] [address] ?? [phone] ? CONTINUED ON NEXT PAGE ----- ------- Name: Mecca Lundy ?Age/Sex: 59/F ? : 1965 Unit#: [id number] ?? Attend Dr: Rani Forbes MD ?Re11/17/24 ?Status: DEP REF ? Location: HO.US ? Disch: ? ----- ------- SPEC : [id number] ?RECD: 11/17/24-5 ? STATUS: ??SOUT ? REQ NUM: [id number] ? NOHEMI: 11/17/24-1030 ? SUBM DR: Rani Forbes MD ? ENTERED: ??11/18/24-1202 ?SP TYPE: Cytology ? OTHR DR: Mecca Couch MD ORDERED: ??Fine Ndl Asp/2 ? Copies To: ??(Continued) ?? [email or web address] ?? Mecca Couch MD ?? [address] [facility] ?? [place] [address] ?? [phone] ----- ------- Signed (signature on file) Sharyn Ramos 11/22/247 ? ----- ------- ? END OF REPORT ? us Generic External Data Provider LAB CYTOLOGY VINAY SALAZAR Final Result [facility] [address] [place] [address] [phone] documented in this encounter Visit Diagnoses Not on filedocumented in this encounter Additional Health Concerns Assessment Noted Time PHQ-9 Depression Total Score: 10 06/29/2 024 2:38 PM EDT documented as of this encounter Care Teams Nutrition Services Aide Relationship Specialty Start Date End Date Mecca Couch MD [address] [place] [address] PCP - General Internal Medicine 03/28/23 documented as of this encounter
--- OUTSIDE RECORDS SUMMARY | 2024-12-01 17:07 | XMS_ITS | Encounter Summary ---
Author Organization [employer] Address [address] [place] [address] [place] [address] Care Team Providers Care Boiler Tender Name Role Phone Mecca Couch MD Primary Care Pro vider Reason for Visit * Reason Comments Med Refill Encounter Details Date Type Department Care Team (Late st Contact Info) Description 06/11/2023 Refill [facility] MEDICINE [address] [place], [place] [phone] Mecca Couch MD [address] [place] [address] Essential hypertension Social History Tobacco Use Types [...] Description 02/03/2025 1:15 PM EDT Office Visit [facility] MEDICINE [address] [place] [address] Mecca Couch MD [address] [place], [place] [phone] documented as of this encounter Visit Diagnoses Diagnosis Essential hypertension Unspecified essential hypertension documented in this encounter Additional Health Concerns Assessment Noted Time PHQ-9 Depression Total Score: 6 04/01/20 9:29 AM EDT documented as of this encounter Care Teams Boiler Tender Relationship Specialty Start Date End Date Mecca Couch MD [address] [place] [address] PCP - General Internal Medicine 03/28/23 documented as of this encounter
--- OUTSIDE RECORDS SUMMARY | 2024-12-01 17:07 | XMS_ITS | Encounter Summary ---
Author Organization [employer] Address [address] [place] [address] [place] [address] Care Team Providers Care Laundry Laborer Name Role Phone Mecca Couch MD Primary Care Pro vider Reason for Visit * Reason Onset Date Comments Med Refill 07/06/2023 Encounter Details Date Type Department Care Team (Late st Contact Info) Description 07/06/2023 Refill [facility] MEDICINE [address] [place], [place] [phone] Mecca Couch MD [address] [place] [address] Social History Tobacco Use Types Packs/Day Years [...] Description 02/03/2025 1:15 PM EDT Office Visit [facility] MEDICINE [address] [place] [address] Mecca Couch MD [address] [place] [address] documented as of this encounter Visit Diagnoses Not on filedocumented in this encounter Additional Health Concerns Assessment Noted Time PHQ-9 Depression Total Score: 6 04/01/20 9:29 AM EDT documented as of this encounter Care Teams Laundry Laborer Relationship Specialty Start Date End Date Mecca Couch MD [address] [place] [address] PCP - General Internal Medicine 03/28/23 documented as of this encounter
--- OUTSIDE RECORDS SUMMARY | 2024-12-01 17:07 | XMS_ITS | Encounter Summary ---
Author Organization [employer] Address [address] [place] [address] [place] [address] Care Team Providers Care Tank Cooper Name Role Phone Mecca Couch MD Primary Care Pro vider Reason for Visit * Reason Onset Date Comments Medication Question 06/17/2023 Encounter Details Date Type Department Care Team ([facility] st Contact Info) Description 06/17/2023 Telephone [facility] MEDICINE [address] [place], [place] [phone] Mecca Couch MD [address] [place] [address] Medication Question Social History Tobacco Use Types Packs/Day Years [...] encounter Miscellaneous Notes * Telephone Encounter - Beatrice Browning RN - 06/17/2023 1:37 PM EDT Please review and advise and we will queue med * Telephone Encounter - Violette Villasenor - 06/17/2023 11:14 AM EDT Tc from pt requesting a new script for glucose meter. Please contact at [phone] documented in this encounter Plan of Treatment Upcoming Encounters Date Type Department Care Team (Late st Contact Info) Description 02/03/2025 1:15 PM EDT Office Visit [facility] MEDICINE [address] [place] [address] [phone] Mecca Couch MD [address] [place], [place] [phone] documented as of this encounter Visit Diagnoses Not on filedocumented in this encounter Additional Health Concerns Assessment Noted Time PHQ-9 Depression Total Score: 6 04/01/20 9:29 AM EDT documented as of this encounter Care Teams Tank Cooper Relationship Specialty Start Date End Date Mecca Couch MD [address] [place] [address] PCP - General Internal Medicine 03/28/23 documented as of this encounter
--- OUTSIDE RECORDS SUMMARY | 2024-12-01 17:07 | XMS_ITS | Encounter Summary ---
Author Organization [employer] Address [address] [place] [address] [place] [address] Care Team Providers Care Truck Driver Helper Name Role Phone Mecca Couch MD Primary Care Pro vider Reason for Visit * Reason Comments Med Refill Encounter Details Date Type Department Care Team ([facility] st Contact Info) Description 11/26/2024 Refill [facility] MEDICINE [address] [place], [place] [phone] Mecca Couch MD [address] [place], [place] [phone] Social History Tobacco Use Types Packs/Day Years [...] 1:15 PM EDT Office Visit [facility] MEDICINE [address] [place] [address] Mecca Couch MD [address] [place] [address] [phone] documented as of this encounter Visit Diagnoses Not on filedocumented in this encounter Additional Health Concerns Assessment Noted Time PHQ-9 Depression Total Score: 10 024 2:38 PM EDT documented as of this encounter Care Teams Truck Driver Helper Relationship Specialty Start Date End Date Mecca Couch MD [address] [place] [phone] PCP - General Internal Medicine 03/28/23 documented as of this encounter
--- OUTSIDE RECORDS SUMMARY | 2024-12-01 17:07 | XMS_ITS | Clinical Summary ---
Author Organization [facility] Address [id number] [place] [phone] Care Team Providers Care Rock Room Worker Name Role Phone Mecca Couch MD Primary Care Pro vider Medications Medication Sig Dispensed Refills Start Date End Date Status albuterol HFA (PROAIR HFA ; PROVENTIL HFA ; VENTOLIN HFA) 90 mcg/actuation inhaler Inhale 2 puffs by mouth every 6 (six) hours if needed for wheezing. Active amLODIPine (NORVASC) 10 mg tablet Take 1 tablet (10 mg total) by mouth 1 (one) time each day. Active aspirin 81 mg EC tablet Take 1 tablet (81 mg total) by mouth 1 (one) time each day. Active atorvastatin (LIPITOR) 80 mg tablet Take 1 tablet (80 mg total) by mouth at bedtime. Active diphenhydrAMINE (BENADRYL) 25 mg capsule Take 1 capsule (25 mg total) by mouth every 6 (six) hours if needed for itching. Active dulaglutide (Trulicity) 1.5 mg/0.5 mL pen injector injection Inject 0.5 mL (1.5 mg total) under the skin every 7 (seven) days. Active DULoxetine (CYMBALTA) [address] capsule Take 1 capsule (60 mg total) by mouth 1 (one) time each day. Do not crush or chew. Active famotidine (PEPCID) 20 mg tablet Take 1 tablet (20 mg total) by mouth. Active omeprazole (PriLOSEC) [address] capsule Take 1 capsule (40 mg total) by mouth 1 (one) time each day. Do not crush or chew. Active nitroglycerin (NITRODUR) 0.4 mg/hr Place 1 patch on the skin 1 (one) time each day. Active metoprolol succinate (TOPROL-XL) 50 mg 24 hr tablet Take 1 tablet (50 mg total) by mouth 1 (one) time each day. Do not crush or chew. Active losartan (COZAAR) 100 mg tablet Take 1 tablet (100 mg total) by mouth 1 (one) time each day. Active hydrOXYzine HCL (ATARAX) 50 mg tablet Take 1 tablet (50 mg total) by mouth. Active fluticasone furoate (Arnuity Ellipta) 200 mcg/actuation blister with device inhaler Inhale 1 puff by mouth 1 (one) time each day. Active OXcarbazepine (TRILEPTAL) 300 mg tablet Take 1 tablet (300 mg total) by mouth 2 (two) times a day. Active prazosin (MINIPRESS) 1 mg capsule Take 1 capsule (1 mg total) by mouth 3 (three) times a day. Active risperiDONE (RisperDAL) 3 mg tablet Take 1 tablet (3 mg total) by mouth 2 (two) times a day. Active traZODone (DESYREL) 100 mg tablet Take 1 tablet (100 mg total) by mouth at bedtime. Active Active Problems Problem Noted Date Diagnosed Date Anxiety 09/09/2024 Bipolar disorder 09/09/2024 Hypertriglyceridemia 09/09/2024 Female stress incontinence 09/09/2024 Fibromyalgia 09/09/2024 T2DM (type 2 diabetes mellitus) 09/09/2024 HTN (hypertension) 09/09/2024 GERD (gastroesophageal reflux disease) 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 09/09/2024 Asthma 09/09/2024 Class 1 obesity 09/09/2024 CAD (coronary artery disease) 09/09/2024 Renal cyst 09/09/2024 Tobacco use 09/09/2024 Social History Tobacco Use Types Packs/Day Years Used Date Smoking Tobacco: Never Assessed Sex and Gender Information Value Date Recorded Sex Assigned at Not on file Gender Identity Not on file Sexual Orientation Not on file Last Filed Vital Signs Vital Sign Reading Time Taken Comments Blood Pressure - - Pulse - - Temperature - - Respiratory Rate - - Oxygen Saturation - - Inhaled Oxygen Concentration - - Weight 106 kg (233 lb 3.2 oz) 07/27/2024 1:44 PM EDT Height 170.2 cm (5' 7 ) 07/27/2024 1:44 PM EDT Body Mass Index 36.52 07/27/2024 1:44 PM EDT Plan of Treatment Health Maintenance Due Date Last Done Comments Breast Cancer Screening 1967 Diabetes: Annual GFR (Glomer ular Filtration Rate) 1967 Pneumococcal Vaccine: Pediat rics (0 to 5 Years) and At-Risk Patients (6 to 64 Years) (1 of 2 - PCV) 1973 Diabetes: Annual Foot Exam 1977 Diabetes: Annual Retina Eye Exam 1977 DTaP,Tdap,and Td Vaccines (1 - Tdap) 1986 Hepatitis A Vaccines (1 of 2 - Risk 2-dose series) 1986 Hepatitis B Vaccines (1 of 3 - 19+ 3-dose series) 1986 Cervical Cancer Screening: P ap Smear 1988 Zoster Vaccines (1 of 2) 2017 COVID-19 Vaccine (2023-2 5 season) 2024 Influenza Vaccine (#1) 2024 Cholesterol Screening (Lipid Panel) 08/06/2024 Colorectal Cancer Screening: Colonoscopy 08/06/2024 Depression Screening 08/06/2024 HIV Screening 08/06/2024 Hepatitis C Screening 08/06/2024 Social Influencers of Health Screening 08/06/2024 Diabetes: Annual Urine Albumin-Creatinine Ratio (uACR) 08/13/2024 Diabetes: Blood Sugar Contro l Test (HGBA1C) 08/13/2024 Hypertension/CHF/CAD Annual BMP Blood Test 08/13/2024 HIB Vaccines Aged Out No longer eligi ble based on patient's age to complete this topic HPV Vaccines Aged Out No longer eligi ble based on patient's age to complete this topic IPV Vaccines Aged Out No longer eligi ble based on patient's age to complete this topic MMR Vaccines Aged Out No longer eligi ble based on patient's age to complete this topic Meningococcal ACWY Vaccine Aged Out N o longer eligible based on patient's age to complete this topic RSV Immunization Patients Un aminah 20 months Aged Out No longer eligible b ased on patient's age to complete this topic Varicella Vaccines Aged Out No longer eligible based on patient's age to complete this topic Care Teams Rock Room Worker Relationship Specialty Start Date End Date Mecca Couch MD 9 [facility] 9 [place] [address] PCP - General 04/20/24
--- OUTSIDE RECORDS SUMMARY | 2024-12-01 17:07 | XMS_ITS | Encounter Summary ---
Author Organization [employer] Address [address] [place] [address] [place] [address] Care Team Providers Care Risk Lead Name Role Phone Mecca Couch MD Primary Care Pro vider Reason for Visit * Reason Onset Date Comments Call Back Request 11/12/2024 Encounter Details Date Type Department Care Team ([facility] st Contact Info) Description 11/12/2024 Telephone [facility] [address] [place], [place] [phone] Mecca Couch MD [address] [place], [place] [phone] Call Back Request Social History Tobacco Use Types Packs/Day [...] Encounter - Janee Hemphill RN - 11/24/2024 2:09 PM EST Incoming phone call from pt asking about results from FNA procedure on 11/17. Advised pt to call [facility] Dr Forbes's office directly to ask about results. Gave contact info for Dr Forbes [phone]. Pt wrote down phone number, verbalized understanding, to call back PRN. * Telephone Encounter - Janee Hemphill RN - 11/24/2024 11:13 AM EST Telephone call returned to pt, no answer, left voicemail to call back [facility]. Procedure performed by Dr Forbes at [facility], to advise pt to call [facility] Endocrinology at [phone]. Patient to call back PRN. * Telephone Encounter - Janee Hemphill RN - 11/18/2024 9:40 AM EST Per [facility], FNA results from 11/17/24 not yet available. Will retask. * Telephone Encounter - Janee Hemphill RN - 11/17/2024 1:37 PM EST Per [facility], pt had fine needle aspiration procedure today. Results not yet processed. Will retask. * Telephone Encounter - Janee Hemphill RN - 11/15/2024 4:26 PM EST Checked [facility], no results yet for FNA. Will task to check again. * Telephone Encounter - Caty Lopez RN - 11/13/2024 11:48 AM EST Pt looking for results for FNA completed 11/17/24 at [facility]. Results not yet available in [facility]. Will retaks to check again next week. Telephone call placed to pt to let her know that results aren't available but that I am monitoring her chart for them and will let her know when we get them. * Telephone Encounter - Sameera Vang - 11/12/2024 4:14 PM EST Tc from pt requesting a callback in regards results documented in this encounter Plan of Treatment Upcoming Encounters Date Type Department Care Team (Late st Contact Info) Description 02/03/2025 1:15 PM EDT Office Visit [address] [address] Mecca Couch MD [address] [place] [address] documented as of this encounter Visit Diagnoses Not on filedocumented in this encounter Additional Health Concerns Assessment Noted Time PHQ-9 Depression Total Score: 10 024 2:38 PM EDT documented as of this encounter Care Teams Risk Lead Relationship Specialty Start Date End Date Mecca Couch MD [address] [place] [address] PCP - General Internal Medicine 03/28/23 documented as of this encounter
--- OUTSIDE RECORDS SUMMARY | 2024-12-01 17:07 | XMS_ITS | Encounter Summary ---
Author Organization [employer] Address [address] [place] [address] [place] [address] Care Team Providers Care Grief Counsellor Name Role Phone Mecca Couch MD Primary Care Pro vider Reason for Visit * Reason Comments Med Refill Encounter Details Date Type Department Care Team ([facility] st Contact Info) Description 12/01/[address] [facility] [address] [place], [place] [phone] Mecca Couch MD 230 [place], [place] [phone] Social History Tobacco Use Types Packs/Day Years [...] Description 02/03/2025 1:15 PM EDT Office Visit [facility] [address] [place] [phone] Mecca Couch MD [address] [place] [phone] documented as of this encounter Visit Diagnoses Not on filedocumented in this encounter Additional Health Concerns Assessment Noted Time PHQ-9 Depression Total Score: 10 024 2:38 PM EDT documented as of this encounter Care Teams Grief Counsellor Relationship Specialty Start Date End Date Mecca Couch MD [address] [place] [address] PCP - General Internal Medicine 03/28/23 documented as of this encounter
--- OUTSIDE RECORDS SUMMARY | 2024-12-01 17:07 | XMS_ITS | Encounter Summary ---
Author Organization [facility] Address [address] [place] [address] Care Team Providers Care Publications Sales Representative Name Role Phone Cinthya Mckeon Primary Care Provider [phone] Mecca Couch MD Primary Care Pro vider Encounter Details Date Type Department Care Team (Late Contact Info) Description 10/25/2022 Abstract [facility] [address] [place] [phone] Cinthya Mckeon FNP [address] [place] [address] Social History Tobacco Use Types Packs/Day Years Used Date Smoking Tobacco: Never Assessed Comments Unknown Sex and Gender Information Value [...] 1:15 PM EDT Office Visit [facility] [address] [place] [address] Mecca Couch MD [address] [place] [address] documented as of this encounter Visit Diagnoses Not on filedocumented in this encounter Care Teams Publications Sales Representative Relationship Specialty Start Date End Date Cinthya Mckeon FNP [address] [place] [address] PCP - General Family Medicine 06/27/22 03/27/23 Mecca Couch MD [address] [place] [address] PCP - General Internal Medicine 03/28/23 documented as of this encounter
--- OUTSIDE RECORDS SUMMARY | 2024-12-01 17:07 | XMS_ITS | Encounter Summary ---
Author Organization [facility] Address [address] [place] [address] [place] [address] Care Team Providers Care Customer Energy Specialist Name Role Phone Mecca Couch MD Primary Care Pro vider Reason for Visit * Reason Comments Med Refill Encounter Details Date Type Department Care Team ([facility] st Contact Info) Description 11/26/2024 Refill [facility] [address] [place], [place] [phone] Mceca Couch MD 230 [place], [place] [phone] Social History Tobacco Use Types Packs/Day Years [...] Description 02/03/2025 1:15 PM EDT Office Visit [facility] [address] [place] [address] Mecca Couch MD [address] [place] [address] [phone] documented as of this encounter Visit Diagnoses Not on filedocumented in this encounter Additional Health Concerns Assessment Noted Time PHQ-9 Depression Total Score: 10 024 2:38 PM EDT documented as of this encounter Care Teams Customer Energy Specialist Relationship Specialty Start Date End Date Mecca Couch MD [address] [place] [address] PCP - General Internal Medicine 03/28/23 documented as of this encounter
--- OUTSIDE RECORDS SUMMARY | 2024-12-01 17:07 | XMS_ITS | Encounter Summary ---
Author Organization [employer] Address [address] [place] [address] [place] [address] Care Team Providers Care Floor Refinisher Name Role Phone Mecca Couch MD Primary Care Pro vider Reason for Visit * Reason Onset Date Comments Med Refill 11/26/2024 Encounter Details Date Type Department Care Team ([facility] st Contact Info) Description 11/26/2024 Telephone [facility] [address] [place], [place] [phone] Mecca Couch MD 230 [place], [place] [phone] Med Refill Social History Tobacco Use Types [...] encounter Miscellaneous Notes * Telephone Encounter - Kerry Lakhani LPN - 11/26/2024 4:15 PM EST Medication requested should have refills * Telephone Encounter - Sameera Vang - 11/26/2024 4:13 PM EST TC from pt requesting medication refill. Medications needing refill : dulaglutide (Trulicity) 3 MG/0.5ML solution pen-injector To be sent to: [facility]/pharmacy #[id number] [place], [place] - [address] AT [employer] [facility] documented in this encounter Plan of Treatment Upcoming Encounters Date Type Department Care Team (Late st Contact Info) Description 02/03/2025 1:15 PM EDT Office Visit [facility] [address] [place] [address] Mecca Couch MD [address] [place], [place] [phone] documented as of this encounter Visit Diagnoses Not on filedocumented in this encounter Additional Health Concerns Assessment Noted Time PHQ-9 Depression Total Score: 10 024 2:38 PM EDT documented as of this encounter Care Teams Floor Refinisher Relationship Specialty Start Date End Date Mecca Couch MD [address] [place] [address] PCP - General Internal Medicine 03/28/23 documented as of this encounter
--- OUTSIDE RECORDS SUMMARY | 2024-12-01 17:07 | XMS_ITS | Encounter Summary ---
Author Organization [employer] Address [address] [place] [address] [place] [address] Care Team Providers Care Field Support Technician Name Role Phone Mecca Couch MD Primary Care Pro vider Reason for Visit * Reason Onset Date Comments Medication Problem 11/27/2023 Encounter Details Date Type Department Care Team ([facility] st Contact Info) Description 11/27/2023 Telephone [facility] 230 [place], [place] [phone] Mecca Couch MD 230 [place] [address] Medication Problem Social History Tobacco Use Types Packs/Day Years [...] encounter Miscellaneous Notes * Telephone Encounter - Jailene Smith - 11/27/2023 12:34 PM EST Tc from pt requesting alternative to dulaglutide (Trulicity) 1.5 MG/0.5ML solution pen-injector, due to having problems to find it. documented in this encounter Plan of Treatment Upcoming Encounters Date Type Department Care Team (Late st Contact Info) Description 02/03/2025 1:15 PM EDT Office Visit [facility] MED[facility]INE [address] [place] [phone] Mecca Couch MD [address] [place] [phone] documented as of this encounter Visit Diagnoses Not on filedocumented in this encounter Additional Health Concerns Assessment Noted Time PHQ-9 Depression Total Score: 6 04/01/20 23 9:29 AM EDT documented as of this encounter Care Teams Field Support Technician Relationship Specialty Start Date End Date Mecca Couch MD [address] [place] [address] PCP - General Internal Medicine 03/28/23 documented as of this encounter
== END 2024-12-01 15:29 | disposition home or self-care (01) ==
PROVIDERS: PCP Student in an Organized Health Care Education/Training Program; Visit Provider Student in an Organized Health Care Education/Training Program
DX: E04.2 Nontoxic multinodular goiter (principal)
CPT/HCPCS: 99213

== ENCOUNTER → 2024-12-01 15:02 | Outpatient (BNVA) | payer MEDICAID, SELFPAY | PROVIDERS: PCP Student in an Organized Health Care Education/Training Program; Visit Provider Student in an Organized Health Care Education/Training Program | DX: E04.2 Nontoxic multinodular goiter (principal) | CPT/HCPCS: 99212 ==

== ENCOUNTER 2025-06-16 15:10 | Outpatient (REF) | payer MEDICAID, SELFPAY ==
--- NOTE | ~2025-06-16 | MM_ITS ---
EXAMINATION: MM SCREENING DIGITAL BREAST TOMOSYNTHESIS, BILATERAL CLINICAL INFORMATION: Screening. Asymptomatic. COMPARISON: Mammography: Comparison is made with available priors TECHNIQUE: Digital breast mammography with tomosynthesis is performed in both the craniocaudal and mediolateral oblique views along with computer-aided detection (CAD). FINDINGS: There are scattered areas of fibroglandular density (ACR BI-RADS breast composition Category b). There are no significant masses, abnormal calcifications, or other abnormalities. MM/MM tomosynthesis screening BI IMPRESSION: No mammographic evidence of malignancy. ASSESSMENT: BI-RADS BI-RADS 1 - Negative RECOMMENDATION: Routine annual mammography screening. 1 year F/U This examination should not preclude the clinical evaluation of a suspicious palpable abnormality. This patient's information was entered into a reminder system with a target due date for their next mammogram. Electronically signed by: Agueda Mcqueen DO 06/21/2025 02:01 PM EDT
--- OUTSIDE RECORDS SUMMARY | 2025-06-16 15:41 | XMS_ITS | Clinical Summary ---
Author Organization [address] [place] [address] [place] [phone] Phone Care Team Providers Care Pepper Picker Name Role Phone Delta Couch MD Primary Care Pro vider Medications albuterol HFA (PROAIR HFA ; PROVENTIL HFA [...] Date Diagnosed Date Anxiety 09/09/2024 Bipolar disorder ([facility] V24, [facility] V28) 05/2024 Hypertriglyceridemia 09/09/2024 Female stress incontinence 09/09/2024 Fibromyalgia 09/09/2024 T2DM (type 2 diabetes mellitus) ([facility] V24, [facility] V28) 09/09/2024 HTN (hypertension) 09/09/2024 GERD (gastroesophageal reflux disease) 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 09/09/2024 Asthma 09/09/2024 Class 1 obesity 09/09/2024 CAD (coronary artery disease) 09/09/2024 Renal cyst 09/09/2024 Tobacco use 09/09/2024 Social History Tobacco Use Types Packs/Day Years Used Date Smoking Tobacco: Never Assessed Comments Unknown Sex and Gender Information Value Date Recorded Sex Assigned at Not on file Legal Sex Female 12:37 PM EST Gender Identity Not on file Sexual Orientation [...] 07/27/2024 1:44 PM EDT Plan of Treatment Upcoming Encounters Date Type Department Care Team (Late st Contact Info) Description 07/11/2025 10:45 AM EDT Consult Orthopedic Surgery - [place] [address] [facility] [address] [place] [phone] Farshad Ramirez DPM 175 [facility] [address] [place] [address] Health Maintenance Due Date Last Done Comments Breast Cancer Screening 1967 Diabetes: Annual GFR (Glomer ular Filtration Rate) 1967 Diabetes: Annual Foot Exam 1977 Diabetes: Annual Retina Eye Exam 1977 DTaP,Tdap,and Td Vaccines (1 - Tdap) 1986 Hepatitis A Vaccines (1 of 2 - Risk 2-dose series) 1986 Hepatitis B Vaccines (1 of 3 - 19+ 3-dose series) 1986 Pneumococcal Vaccine: 50+ Ye ars (1 of 2 - PCV) 1986 Cervical Cancer Screening: P ap Smear 1988 Zoster Vaccines (1 of 2) 2017 COVID-19 Vaccine (2023-2 5 season) 2024 Cholesterol Screening (Lipid Panel) 08/06/2024 Colorectal Cancer Screening: Colonoscopy 08/06/2024 HIV Screening 08/06/2024 Hepatitis C Screening 08/06/2024 Social Influencers of Health Screening 08/06/2024 Diabetes: Annual Urine Albumin-Creatinine Ratio (uACR) 08/13/2024 Diabetes: Blood Sugar Contro l Test (HGBA1C) 08/13/2024 Hypertension/CHF/CAD Annual BMP Blood Test 08/13/2024 Depression Screening 11/03/2024 Influenza Vaccine (#1) 2025 HIB Vaccines Aged Out No longer eligi [...] patient's age to complete this topic Meningococcal B Vaccine Aged Out No l onger eligible based on patient's age to complete this topic RSV Immunization Patients Un aminah 20 months Aged Out No longer eligible b ased on patient's age to complete this topic Varicella Vaccines Aged Out No longer eligible based on patient's age to complete this topic Insurance MEDICAID - [place] Care Teams Pepper Picker Relationship Specialty Start Date End Date Delta Couch MD [address] [phone] PCP - General 04/20/24
--- OUTSIDE RECORDS SUMMARY | 2025-06-16 15:41 | XMS_ITS | Encounter Summary ---
Author Organization [employer] Address [address] [place] [address] 7 [place] [address] Care Team Providers Care Principal Strategist Name Role Phone Mecca Couch MD Primary Care Pro vider Lizeth Singleton RN Unavailable [phone] Reason for Visit * Reason Comments Med Refill Encounter Details Date Type Department Care Team ([facility] Contact Info) Description 06/11/2023 Refill [facility] 230 [place], [place] [phone] Mecca Couch MD [address] [place], [place] [phone] Essential hypertension Social History Tobacco Use Types [...] Upcoming Encounters Date Type Department Care Team ([facility] st Contact Info) Description 06/21/2025 3:15 PM EDT Office Visit [facility] OPTOMETRY [address] [place], [place] [phone] Dimas Kavitha, OD [address] [place] [address] 08/09/2025 9:45 AM EDT Office Visit [facility] MEDICINE [address] [place] [address] Mecca Couch MD [address] [place] [address] documented as of this encounter Visit Diagnoses Diagnosis Essential hypertension Unspecified essential hypertension documented in this encounter Additional Health Concerns Assessment Noted Time PHQ-9 Depression Total Score: 6 04/01/20 23 9:29 AM EDT documented as of this encounter Care Teams Principal Strategist Relationship Specialty Start Date End Date Mecca Couch MD [address] [place] [address] PCP - General Internal Medicine 03/28/23 Lizeth Singleton RN [address] [place] [address] Registered Nurse Family Medicine 05/12/25 06/07/25 documented as of this encounter
== END 2025-06-16 15:11 | disposition home or self-care (01) ==
LOC: HO.MAMMO 15:10
PROVIDERS: PCP Student in an Organized Health Care Education/Training Program; Visit Provider Student in an Organized Health Care Education/Training Program
DX: Z12.31 Encounter for screening mammogram for malignant neoplasm of breast (principal)
CPT/HCPCS: 77063; 77067

== ENCOUNTER → 2025-06-16 15:15 | Outpatient (BNV) | payer MEDICAID, SELFPAY | PROVIDERS: PCP Student in an Organized Health Care Education/Training Program; Visit Provider Internal Medicine | DX: Z12.31 Encounter for screening mammogram for malignant neoplasm of breast (principal) | CPT/HCPCS: 77063; 77067 ==

== ENCOUNTER 2025-06-30 13:55 | Outpatient (REF) | payer MEDICAID, SELFPAY ==
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
--- OUTSIDE RECORDS SUMMARY | 2025-06-30 14:46 | XMS_ITS | Clinical Summary ---
Author Organization [address] [place] [address] [place] [phone] Phone Care Team Providers Care Monotype Keyboard Operator Name Role Phone Delta Couch MD Primary [...] Date Diagnosed Date Anxiety 09/09/2024 Bipolar disorder ([facility] V24, [facility] V28) 05/2024 Hypertriglyceridemia 09/09/2024 Female stress incontinence 09/09/2024 Fibromyalgia 09/09/2024 T2DM (type 2 diabetes mellitus) ([facility] V24, [facility] /[facility] V28) 09/09/2024 HTN (hypertension) 09/09/2024 GERD (gastroesophageal [...] 10:45 AM EDT Consult Orthopedic Surgery - [address] [phone] Farshad Ramirez, KAREEN [address] [place] [address] Health Maintenance Due Date Last Done Comments [...] Vaccines (1 of 2) 2017 COVID-19 Vaccine ( - 2023-2 5 season) 2024 Cholesterol Screening (Lipid Panel) [...] topic Insurance MEDICAID - [place] Care Teams Monotype Keyboard Operator Relationship Specialty Start Date End Date Delta Couch MD [address] [phone] PCP - General 04/20/24
--- OUTSIDE RECORDS SUMMARY | 2025-06-30 14:46 | XMS_ITS | Encounter Summary ---
Author Organization [employer] Address [address] [facility] [address] [place] [address] Care Team Providers Care Hydrostatic Tester Name Role Phone Mecca Couch MD Primary Care Pro vider Encounter Details Date Type Department Care Team (Latest Contact Info) Description 06/30/2025 Travel Social History Tobacco Use Types Packs/Day Years [...] Upcoming Encounters Date Type Department Care Team ([facility] st Contact Info) Description 08/09/2025 9:45 AM EDT Office Visit [facility] [address] [place] [phone] Mecca Couch MD [address] [place] [phone] documented as of this encounter Visit Diagnoses Not on filedocumented in this encounter Additional Health Concerns Assessment Noted Time PHQ-9 Depression Total Score: 22 025 10:39 AM EDT documented as of this encounter Care Teams Hydrostatic Tester Relationship Specialty Start Date End Date Mecca Couch MD [address] [place] [phone] PCP - General Internal Medicine 03/28/23 documented as of this encounter
--- OUTSIDE RECORDS SUMMARY | 2025-06-30 14:46 | XMS_ITS | Encounter Summary ---
Author Organization [employer] Address [address] [place] [address] [address] [place] [address] Care Team Providers Care Grease Machine Worker Name Role Phone Mecca Couch MD Primary Care Pro vider Lizeth Singleton RN Unavailable [phone] Reason for Visit * Reason Comments Med Refill Encounter Details Date Type Department Care Team ([facility] st Contact Info) Description 04/07/2023 Refill [facility] [address] [place], [place] [phone] Mecca Mclain MD [address] [place] [address] Social History Tobacco Use Types Packs/Day Years [...] Description 08/09/2025 9:45 AM EDT Office Visit [facility] [address] [place] [phone] Mecca Couch MD [address] [place] [phone] documented as of this encounter Visit Diagnoses Not on filedocumented in this encounter Additional Health Concerns Assessment Noted Time PHQ-9 Depression Total Score: 6 04/01/20 23 9:29 AM EDT documented as of this encounter Care Teams Grease Machine Worker Relationship Specialty Start Date End Date Mecca Couch MD [address] [place] [phone] PCP - General Internal Medicine 03/28/23 Lizeth Singleton RN [address] [place] [phone] Registered Nurse Family Medicine 05/12/25 06/07/25 documented as of this encounter
--- OUTSIDE RECORDS SUMMARY | 2025-06-30 14:46 | XMS_ITS | Encounter Summary ---
Author Organization [employer] Address [address] [place] [address] [address] [place] [address] Care Team Providers Care Head Sawyer Name Role Phone Mecca Couch MD Primary Care Pro vider Lizeth Singleton RN Unavailable [phone] Reason for Visit * Reason Onset Date Comments Medication Problem 11/27/2023 Encounter Details Date Type Department Care Team ([facility] st Contact Info) Description 11/27/2023 Telephone [facility] [address], [place] [phone] Mecca Couch MD [address] [place], [place] [phone] Medication Problem Social History Tobacco Use Types [...] Description 08/09/2025 9:45 AM EDT Office Visit [facility] [address] [place] [address] Mecca Couch MD [address] [place] [address] documented as of this encounter Visit Diagnoses Not on filedocumented in this encounter Additional Health Concerns Assessment Noted Time PHQ-9 Depression Total Score: 6 04/01/20 23 9:29 AM EDT documented as of this encounter Care Teams Head Sawyer Relationship Specialty Start Date End Date Mecca Couch MD [address] [place] [phone] PCP - General Internal Medicine 03/28/23 Lizeth Singleton RN [address] [place] [phone] Registered Nurse Family Medicine 05/12/25 06/07/25 documented as of this encounter
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
--- OUTSIDE RECORDS SUMMARY | 2025-06-30 14:46 | XMS_ITS | Encounter Summary ---
Author Organization [employer] Address [address] [place] [address] 7 [place] [address] Care Team Providers Care Off Premise Service Representative Name Role Phone Cinthya Mckeon Primary Care Provider [phone] Mecca Couch MD Primary Care Pro vider Lizeth Singleton RN Unavailable [phone] Encounter Details Date Type Department Care Team (Late st Contact Info) Description 10/25/2022 Abstract [facility]INE [address] [place] [address] Cinthya Mckeon FNP 505 [place] [address] Social History Tobacco Use Types Packs/Day Years [...] Description 08/09/2025 9:45 AM EDT Office Visit [facility] [address] [place] [address] Mecca Couch MD 230 [place] [address] documented as of this encounter Visit Diagnoses Not on filedocumented in this encounter Care Teams Off Premise Service Representative Relationship Specialty Start Date End Date Cinthya Mckeon FNP 230 [place] [address] PCP - General Family Medicine 06/27/22 03/27/23 Mecca Couch MD 230 [place] [address] PCP - General Internal Medicine 03/28/23 Lizeth Singleton RN [address] [place] [address] Registered Nurse Family Medicine 05/12/25 06/07/25 documented as of this encounter
--- OUTSIDE RECORDS SUMMARY | 2025-06-30 14:46 | XMS_ITS | Encounter Summary ---
Author Organization [employer] Address [address] [place] [address] 7 [place] [address] Care Team Providers Care Community Planner Name Role Phone Mecca Couch MD Primary Care Pro vider Lizeth Singleton RN Unavailable [phone] Reason for Visit * Reason Comments Med Refill Encounter Details Date Type Department Care Team ([facility] st Contact Info) Description 12/01/[address] [facility] MEDICINE 230 [place], [place] [phone] Mecca Couch MD 230 [place], [place] [phone] Social History Tobacco Use Types Packs/Day Years [...] Description 08/09/2025 9:45 AM EDT Office Visit [facility] MEDICINE [address] [place] [address] Mecca Couch MD [address] [place] [address] documented as of this encounter Visit Diagnoses Not on filedocumented in this encounter Additional Health Concerns Assessment Noted Time PHQ-9 Depression Total Score: 10 024 2:38 PM EDT documented as of this encounter Care Teams Community Planner Relationship Specialty Start Date End Date Mecca Couch MD [address] [place] [address] PCP - General Internal Medicine 03/28/23 Lizeth Singleton RN 505 [place] [address] Registered Nurse Family Medicine 05/12/25 06/07/25 documented as of this encounter
--- OUTSIDE RECORDS SUMMARY | 2025-06-30 14:46 | XMS_ITS | Encounter Summary ---
Author Organization [employer] Address [address] [place] [address] 7 [place] [address] Care Team Providers Care Collision Technician Name Role Phone Mecca Couch MD Primary Care Pro vider Lizeth Singleton RN Unavailable [phone] Reason for Visit * Reason Comments Med Refill Encounter Details Date Type Department Care Team ([facility] Contact Info) Description 06/05/2023 Refill [facility] MEDICINE 230 [place], [place] [phone] Mecca Couch MD 230 [place], [place] [phone] Essential hypertension Social History Tobacco Use Types [...] Description 08/09/2025 9:45 AM EDT Office Visit [facility]INE 230 [place] [address] Mecca Couch MD [address] [place] [address] [phone] documented as of this encounter Visit Diagnoses Diagnosis Essential hypertension Unspecified essential hypertension documented in this encounter Additional Health Concerns Assessment Noted Time PHQ-9 Depression Total Score: 6 04/01/20 23 9:29 AM EDT documented as of this encounter Care Teams Collision Technician Relationship Specialty Start Date End Date Mecca Couch MD 230 [place], [place] [phone] PCP - General Internal Medicine 03/28/23 Lizeth Singleton RN [address] [place] [address] Registered Nurse Family Medicine 05/12/25 06/07/25 documented as of this encounter
--- OUTSIDE RECORDS SUMMARY | 2025-06-30 14:46 | XMS_ITS | Encounter Summary ---
Author Organization [employer] Address [address] [place] [address] 7 [place] [address] Care Team Providers Care Pantograph Machine Set Up Operator Name Role Phone Mecca Couch MD Primary Care Pro vider Lizeth Singleton RN Unavailable [phone] Reason for Visit * Reason Onset Date Comments Med Refill 08/14/2023 Encounter Details Date Type Department Care Team ([facility] st Contact Info) Description 08/14/2023 Telephone [facility] MED[facility]INE 230 [place], [place] [phone] Mecca Couch MD 230 [place], [place] [phone] Med Refill Social History Tobacco Use Types [...] 08/09/2025 9:45 AM EDT Office Visit [facility] 230 [place], [place] [phone] Mecca Couch MD 230 [place], [place] [phone] documented as of this encounter Visit Diagnoses Not on filedocumented in this encounter Additional Health Concerns Assessment Noted Time PHQ-9 Depression Total Score: 6 04/01/20 9:29 AM EDT documented as of this encounter Care Teams Pantograph Machine Set Up Operator Relationship Specialty Start Date End Date Mecca Couch MD [address] [place] [address] PCP - General Internal Medicine 03/28/23 Lizeth Singleton RN [address] [place] [address] Registered Nurse Family Medicine 05/12/25 06/07/25 documented as of this encounter
--- OUTSIDE RECORDS SUMMARY | 2025-06-30 14:46 | XMS_ITS | Encounter Summary ---
Author Organization [employer] Address [address] [place] [address] 7 [place] [address] Care Team Providers Care Water Taxi Ferry Operator Name Role Phone Mecca Couch MD Primary Care Pro vider Lizeth Singleton RN Unavailable [phone] Reason for Visit * Reason Onset Date Comments Med Refill 07/08/2023 Encounter Details Date Type Department Care Team ([facility] st Contact Info) Description 07/08/2023 Telephone [facility] MEDICINE 230 [place], [place] [phone] Mecca Couch MD 230 [place], [place] [phone] Med Refill Social History Tobacco Use Types [...] 1:37 PM EDT Medication was sent to [id number] on 06/13/23 with 2 refills. * Telephone Encounter - Evangelina Sawyer - 07/08/2023 1:27 PM EDT Tc from pt requesting medication refill on dulaglutide (Trulicity) 0.75 MG/0.5ML solution pen-injector documented in this encounter Plan of Treatment Upcoming Encounters Date Type Department Care Team (Late st Contact Info) Description 08/09/2025 9:45 AM EDT Office Visit [facility] MEDICINE [address] [place] [address] Mecca Couch MD [address] [place] [address] documented as of this encounter Visit Diagnoses Not on filedocumented in this encounter Additional Health Concerns Assessment Noted Time PHQ-9 Depression Total Score: 6 04/01/20 23 9:29 AM EDT documented as of this encounter Care Teams Water Taxi Ferry Operator Relationship Specialty Start Date End Date Mecca Couch MD 230 [place] [address] PCP - General Internal Medicine 03/28/23 Lizeth Singleton RN 505 [place] [address] Registered Nurse Family Medicine 05/12/25 06/07/25 documented as of this encounter
--- OUTSIDE RECORDS SUMMARY | 2025-06-30 14:46 | XMS_ITS | Encounter Summary ---
Author Organization [employer] Address [address] [place] [address] 7 [place] [address] Care Team Providers Care Broodmare Foreman Name Role Phone Mecca Couch MD Primary Care Pro vider Lizeth Singleton RN Unavailable [phone] Reason for Visit * Reason Onset Date Comments Med Refill 07/06/2023 Encounter Details Date Type Department Care Team (Late st Contact Info) Description 07/06/2023 Refill [facility] MEDICINE 230 [place], [place] [phone] Mecca Couch MD 230 [place], [place] [phone] Social History Tobacco Use Types Packs/Day Years [...] Description 08/09/2025 9:45 AM EDT Office Visit [facility] MEDICINE 230 [place], [place] [phone] Mecca Couch MD [address] [place] [address] [phone] documented as of this encounter Visit Diagnoses Not on filedocumented in this encounter Additional Health Concerns Assessment Noted Time PHQ-9 Depression Total Score: 6 04/01/20 23 9:29 AM EDT documented as of this encounter Care Teams Broodmare Foreman Relationship Specialty Start Date End Date Mecca Couch MD [address] [place] [address] [phone] PCP - General Internal Medicine 03/28/23 Lizeth Singleton RN [address] [place] [address] Registered Nurse Family Medicine 05/12/25 06/07/25 documented as of this encounter
--- OUTSIDE RECORDS SUMMARY | 2025-06-30 14:46 | XMS_ITS | Encounter Summary ---
Author Organization [employer] Address [address] [place] [address] 7 [place] [address] Care Team Providers Care Crop Specialist Name Role Phone Mecca Couch MD Primary Care Pro vider Lizeth Singleton RN Unavailable [phone] Reason for Visit * Reason Comments Med Refill Encounter Details Date Type Department Care Team ([facility] Contact Info) Description 06/11/2023 Refill [facility] MEDICINE 230 [place], [place] [phone] Mecca Couch MD 230 [place], [place] [phone] Essential hypertension Social History Tobacco Use Types [...] Description 08/09/2025 9:45 AM EDT Office Visit [facility] MEDICINE 230 [place] [address] Mecca Couch MD [address] [place] [address] [phone] documented as of this encounter Visit Diagnoses Diagnosis Essential hypertension Unspecified essential hypertension documented in this encounter Additional Health Concerns Assessment Noted Time PHQ-9 Depression Total Score: 6 04/01/20 23 9:29 AM EDT documented as of this encounter Care Teams Crop Specialist Relationship Specialty Start Date End Date Mecca Couch MD 230 [place], [place] [phone] PCP - General Internal Medicine 03/28/23 Lizeth Singleton RN [address] [place] [address] Registered Nurse Family Medicine 05/12/25 06/07/25 documented as of this encounter
--- OUTSIDE RECORDS SUMMARY | 2025-06-30 14:46 | XMS_ITS | Encounter Summary ---
Author Organization [employer] Address [address] [place] [address] 7 [place] [address] Care Team Providers Care Power System Engineer Name Role Phone Mecca Couch MD Primary Care Pro vider Lizeth Singleton RN Unavailable [phone] Reason for Visit * Reason Onset Date Comments Med Refill 09/01/2023 Encounter Details Date Type Department Care Team ([facility] st Contact Info) Description 09/01/2023 Refill [facility] MEDICINE 230 [place], [place] [phone] Mecca Couch MD 230 [place], [place] [phone] Social History Tobacco Use Types Packs/Day Years [...] Description 08/09/2025 9:45 AM EDT Office Visit [facility] MEDICINE [address] [place] [address] Mecca Couch MD [address] [place] [address] documented as of this encounter Visit Diagnoses Not on filedocumented in this encounter Additional Health Concerns Assessment Noted Time PHQ-9 Depression Total Score: 6 04/01/20 23 9:29 AM EDT documented as of this encounter Care Teams Power System Engineer Relationship Specialty Start Date End Date Mecca Couch MD [address] [place] [address] PCP - General Internal Medicine 03/28/23 Lizeth Singleton RN [address] [place] [address] Registered Nurse Family Medicine 05/12/25 06/07/25 documented as of this encounter
--- OUTSIDE RECORDS SUMMARY | 2025-06-30 14:46 | XMS_ITS | Encounter Summary ---
Author Organization [employer] Address [address] [facility] 7t [place] [address] Care Team Providers Care Piping Engineer Name Role Phone Mecca Couch MD Primary Care Pro vider Lizeth Singleton RN Unavailable [phone] Reason for Visit * Reason Comments Med Refill Encounter Details Date Type Department Care Team (Late st Contact Info) Description 06/30/2023 Refill [facility] MEDICINE 230 [place] [address] Cinthya Mckeon FNP 505 [place] [address] Essential hypertension Social History Tobacco Use Types [...] Description 08/09/2025 9:45 AM EDT Office Visit [facility]INE 230 [place] [address] Mecca Couch MD 230 [place], [place] [phone] documented as of this encounter Visit Diagnoses Diagnosis Essential hypertension Unspecified essential hypertension documented in this encounter Additional Health Concerns Assessment Noted Time PHQ-9 Depression Total Score: 6 04/01/20 23 9:29 AM EDT documented as of this encounter Care Teams Piping Engineer Relationship Specialty Start Date End Date Mecca Couch MD 230 [place], [place] [phone] PCP - General Internal Medicine 03/28/23 Lizeth Singleton RN 505 [place] [address] Registered Nurse Family Medicine 05/12/25 06/07/25 documented as of this encounter
--- OUTSIDE RECORDS SUMMARY | 2025-06-30 14:46 | XMS_ITS | Encounter Summary ---
Author Organization [employer] Address [address] [place] [address] 7 [place] [address] Care Team Providers Care Custom Marine Canvas Fabricator Name Role Phone Mecca Couch MD Primary Care Pro vider Lizeth Singleton RN Unavailable [phone] Reason for Visit * Reason Onset Date Comments Med Refill 07/20/2024 Encounter Details Date Type Department Care Team (Late st Contact Info) Description 07/20/2024 Refill [facility] MEDICINE 230 [place], [place] [phone] Mecca Couch MD 230 [place], [place] [phone] Type 2 diabetes mellitus with other circulatory complication, without long-term current use of insulin ([facility] Social History Tobacco Use Types Packs/Day Years [...] Description 08/09/2025 9:45 AM EDT Office Visit [facility] MEDICINE [address] [place] [address] Mecca Couch MD [address] [place] [address] documented as of this encounter Visit Diagnoses Diagnosis Type 2 diabetes mellitus with other circulatory complication, without long-term current use of insulin ([facility]) documented in this encounter Additional Health Concerns Assessment Noted Time PHQ-9 Depression Total Score: 10 024 2:38 PM EDT documented as of this encounter Care Teams Custom Marine Canvas Fabricator Relationship Specialty Start Date End Date Mecca Couch MD [address] [place] [address] PCP - General Internal Medicine 03/28/23 Lizeth Singleton RN [address] [place] [address] Registered Nurse Family Medicine 05/12/25 06/07/25 documented as of this encounter
--- OUTSIDE RECORDS SUMMARY | 2025-06-30 14:46 | XMS_ITS | Encounter Summary ---
Author Organization [employer] Address [address] [place] [address] 7 [place] [address] Care Team Providers Care Speeder Machine Operator Name Role Phone Mecca Couch MD Primary Care Pro vider Lizeth Singleton RN Unavailable [phone] Reason for Visit * Reason Comments Med Refill Encounter Details Date Type Department Care Team ([facility] st Contact Info) Description 11/26/2024 Refill [facility] MED[facility]INE 230 [place], [place] [phone] Mecca Couch MD 230 [place], [place] [phone] Social History Tobacco Use Types Packs/Day Years [...] Description 08/09/2025 9:45 AM EDT Office Visit [facility] MEDICINE [address] [place] [address] Mecca Couch MD [address] [place] [address] documented as of this encounter Visit Diagnoses Not on filedocumented in this encounter Additional Health Concerns Assessment Noted Time PHQ-9 Depression Total Score: 10 024 2:38 PM EDT documented as of this encounter Care Teams Speeder Machine Operator Relationship Specialty Start Date End Date Mecca Couch MD [address] [place] [address] PCP - General Internal Medicine 03/28/23 Lizeth Singleton RN 505 [place] [address] Registered Nurse Family Medicine 05/12/25 06/07/25 documented as of this encounter
--- OUTSIDE RECORDS SUMMARY | 2025-06-30 14:46 | XMS_ITS | Encounter Summary ---
Author Organization [employer] Address [address] [place] [address] 7 [place] [address] Care Team Providers Care Crm Dynamics Developer Name Role Phone Mecca Couch MD Primary Care Pro vider Lizeth Singleton RN Unavailable [phone] Reason for Visit * Reason Comments Med Refill Encounter Details Date Type Department Care Team ([facility] st Contact Info) Description 11/26/2024 Refill [facility] 230 [place], [place] [phone] Mecca Couch MD 230 [place], [place] [phone] Social History Tobacco Use Types Packs/Day Years [...] Office Visit [facility] MED[facility] [address] [place] [address] Mecca Couch MD [address] [place] [address] documented as of this encounter Visit Diagnoses Not on filedocumented in this encounter Additional Health Concerns Assessment Noted Time PHQ-9 Depression Total Score: 10 024 2:38 PM EDT documented as of this encounter Care Teams Crm Dynamics Developer Relationship Specialty Start Date End Date Mecca Couch MD [address] [place] [address] PCP - General Internal Medicine 03/28/23 Lizeth Singleton RN 505 [place] [address] Registered Nurse Family Medicine 05/12/25 06/07/25 documented as of this encounter
== END 2025-06-30 13:56 | disposition home or self-care (01) ==
LOC: HO.HHCX 13:55
PROVIDERS: PCP Student in an Organized Health Care Education/Training Program; Visit Provider Family Medicine
DX: S83.92XA Sprain of unspecified site of left knee, initial encounter (principal); M94.0 Chondrocostal junction syndrome [Tietze]
CPT/HCPCS: 71110; 73564

== ENCOUNTER → 2025-06-30 14:00 | Outpatient (BNV) | payer MEDICAID, SELFPAY | PROVIDERS: PCP Student in an Organized Health Care Education/Training Program; Visit Provider Radiology Diagnostic Radiology | DX: R07.89 Other chest pain (principal); M25.462 Effusion, left knee | CPT/HCPCS: 71110; 73564 ==

== ENCOUNTER 2025-07-08 10:58 | Outpatient (REF) | payer MEDICAID, SELFPAY ==
--- NOTE | ~2025-07-08 | US_ITS ---
CLINICAL HISTORY: LUQ pain on and off chronic US abdomen complete Comparison: US/SR - US KIDNEY BILATERAL - 11/13/23 16:[address]/IN/SR - CT ABDOMEN PELVIS WITH IV CONTRAST - 12/31/21 12:17 EST Findings: The visualized pancreas head is normal. The visualized aorta and inferior vena cava are normal caliber. The liver is enlarged, right lobe length is 18.4 cm. Moderately increased echogenicity of the liver parenchyma, no focal lesion is seen. No intrahepatic bile duct dilatation. The common duct is 4 mm in diameter. The gallbladder is normal. Negative sonographic Feliz sign. The main portal vein is patent with antegrade flow. The right kidney is normal, 11.6 cm in length. The left kidney demonstrates avascular cyst 2.3 cm in the upper pole, not well visualized due to limited acoustic window, previously 2.2 cm, otherwise left kidney is normal, 11.8 cm in length. The spleen is normal, 12 cm in length. No free fluid in the abdomen. Impression: 1. Hepatomegaly with diffuse steatosis. 2. Left renal cyst. This document has been electronically signed by: Alicia Jones MD on 07/08/2025 14:43:13
--- OUTSIDE RECORDS SUMMARY | 2025-07-08 12:00 | XMS_ITS | Encounter Summary ---
Author Organization [employer] Address [address] [place] [address] 7 [place] [address] Care Team Providers Care Machine Pecan Gatherer Name Role Phone Mecca Couch MD Primary Care Pro vider Lzieth Singleton RN Unavailable [phone] Reason for Visit * Reason Comments Med Refill Encounter Details Date Type Department Care Team ([facility] Contact Info) Description 06/11/[address] [facility] MEDICINE 230 [place], [place] [phone] Mecca Couch MD 230 [place], [place] [phone] Essential hypertension Social History Tobacco Use Types [...] Upcoming Encounters Date Type Department Care Team ([facility] st Contact Info) Description 08/09/2025 9:45 AM EDT Office Visit [facility] MEDICINE 230 [place] [address] Mecca Couch MD [address] [place] [address] [phone] documented as of this encounter Visit Diagnoses Diagnosis Essential hypertension Unspecified essential hypertension documented in this encounter Additional Health Concerns Assessment Noted Time PHQ-9 Depression Total Score: 6 04/01/20 23 9:29 AM EDT documented as of this encounter Care Teams Machine Pecan Gatherer Relationship Specialty Start Date End Date Mecca Couch MD 230 [place], [place] [phone] PCP - General Internal Medicine 03/28/23 Lizeth Singleton RN [address] [place] [address] Registered Nurse Family Medicine 05/12/25 06/07/25 documented as of this encounter
--- OUTSIDE RECORDS SUMMARY | 2025-07-08 12:00 | XMS_ITS | Clinical Summary ---
Author Organization [address] [place] [address] [place] [phone] Phone Care Team Providers Care Commissary Production Supervisor Name Role Phone Delta Couch MD Primary [...] Date Diagnosed Date Anxiety 09/09/2024 Bipolar disorder ([facility] V24, [facility] V28) 05/2024 Hypertriglyceridemia 09/09/2024 Female stress incontinence 09/09/2024 Fibromyalgia 09/09/2024 T2DM (type 2 diabetes mellitus) ([facility] V24, [facility] V28) 09/09/2024 HTN (hypertension) 09/09/2024 GERD (gastroesophageal [...] 10:45 AM EDT Consult Orthopedic Surgery - [place] [address] [facility] 250 [place] [phone] Farshad Ramirez, KAREEN [address] [address] Health Maintenance Due Date Last Done Comments [...] 1988 Zoster Vaccines (1 of 2) 2017 Cholesterol Screening (Lipid Panel) 08/06/2024 Colorectal Cancer Screening: Colonoscopy 08/06/2024 HIV Screening 08/06/2024 Hepatitis C Screening 08/06/2024 Social Influencers of Health Screening 08/06/2024 Diabetes: Annual Urine Albumin-Creatinine Ratio (uACR) 08/13/2024 Diabetes: Blood Sugar Contro l Test (HGBA1C) 08/13/2024 Hypertension/CHF/CAD Annual BMP Blood Test 08/13/2024 Depression Screening 11/03/2024 COVID-19 Vaccine ( - 2023-2 5 season) 2025 Influenza Vaccine (#1) 2025 HIB Vaccines Aged [...] topic Insurance MEDICAID - [place] Care Teams Commissary Production Supervisor Relationship Specialty Start Date End Date Delta Couch MD [address] [phone] PCP - General 04/20/24
--- OUTSIDE RECORDS SUMMARY | 2025-07-08 12:00 | XMS_ITS | Encounter Summary ---
Author Organization [employer] Address [address] [place] [address] 7 [place] [address] Care Team Providers Care Telecine Operator Name Role Phone Mecca Couch MD Primary Care Pro vider Lizeth Singleton RN Unavailable [phone] Reason for Visit * Reason Comments Med Refill Encounter Details Date Type Department Care Team ([facility] Contact Info) Description 06/05/2023 Refill [facility] MEDICINE 230 [place], [place] [phone] Mecca Couch MD 230 [place], [place] [phone] Essential hypertension Social History Tobacco Use Types [...] Upcoming Encounters Date Type Department Care Team ([facility] st Contact Info) Description 08/09/2025 9:45 AM EDT Office Visit [facility] MEDICINE 230 [place] [address] Mecca Couch MD [address] [place] [address] [phone] documented as of this encounter Visit Diagnoses Diagnosis Essential hypertension Unspecified essential hypertension documented in this encounter Additional Health Concerns Assessment Noted Time PHQ-9 Depression Total Score: 6 04/01/20 23 9:29 AM EDT documented as of this encounter Care Teams Telecine Operator Relationship Specialty Start Date End Date Mecca Couch MD 230 [place], [place] [phone] PCP - General Internal Medicine 03/28/23 Lizeth Singleton RN [address] [place] [address] Registered Nurse Family Medicine 05/12/25 06/07/25 documented as of this encounter
--- OUTSIDE RECORDS SUMMARY | 2025-07-08 12:00 | XMS_ITS | Encounter Summary ---
Author Organization [employer] Address [address] [place] [address] 7 [place] [address] Care Team Providers Care Chief Supply Chain Officer Name Role Phone Mecca Couch MD Primary Care Pro vider Lizeth Singleton RN Unavailable [phone] Reason for Visit * Reason Onset Date Comments Med Refill 07/06/2023 Encounter Details Date Type Department Care Team (Late st Contact Info) Description 07/06/2023 Refill [facility] [address] [place], [place] [phone] Mecca Couch MD [address] [place], [place] [phone] Social History Tobacco Use Types Packs/Day Years [...] Description 08/09/2025 9:45 AM EDT Office Visit [facility] [address] [place], [place] [phone] Mecca Couch MD [address] [place] [address] [phone] documented as of this encounter Visit Diagnoses Not on filedocumented in this encounter Additional Health Concerns Assessment Noted Time PHQ-9 Depression Total Score: 6 04/01/20 23 9:29 AM EDT documented as of this encounter Care Teams Chief Supply Chain Officer Relationship Specialty Start Date End Date Mecca Couch MD [address] [place] [address] [phone] PCP - General Internal Medicine 03/28/23 Lizeth Singleton RN [address] [place] [phone] Registered Nurse Family Medicine 05/12/25 06/07/25 documented as of this encounter
--- OUTSIDE RECORDS SUMMARY | 2025-07-08 12:00 | XMS_ITS | Encounter Summary ---
Author Organization [employer] Address [address] [place] [address] 7 [place] [address] Care Team Providers Care Dairy Bacteriologist Name Role Phone Cinthya Mckeon Primary Care Provider [phone] Mecca Couch MD Primary Care Pro vider Lizeth Singleton RN Unavailable [phone] Encounter Details Date Type Department Care Team (Late st Contact Info) Description 10/25/2022 Abstract [facility] [address] [place] [address] Cinthya Mckeon FNP [address] [place] [address] Social History Tobacco Use Types Packs/Day Years [...] 9:45 AM EDT Office Visit [facility] [address] [place] [phone] Mecca Couch MD [address] [place] [address] documented as of this encounter Visit Diagnoses Not on filedocumented in this encounter Care Teams Dairy Bacteriologist Relationship Specialty Start Date End Date Cinthya Mckeon FNP [address] [place] [address] PCP - General Family Medicine 06/27/22 03/27/23 Mecca Couch MD [address] [place] [address] PCP - General Internal Medicine 03/28/23 Lizeth Singleton RN [address] [place] [phone] Registered Nurse Family Medicine 05/12/25 06/07/25 documented as of this encounter
--- OUTSIDE RECORDS SUMMARY | 2025-07-08 12:01 | XMS_ITS | Encounter Summary ---
Author Organization [employer] Address [address] [facility] 7t [place] [address] Care Team Providers Care Garnett Machine Operator Name Role Phone Mecca Couch MD Primary Care Pro vider Lizeth Singleton RN Unavailable Reason for Visit * Reason Comments Med Refill Encounter Details Date Type Department Care Team ([facility] st Contact Info) Description 04/07/2023 Refill [facility] [address] [place], [place] [phone] Mecca Mclain MD [address] [place] [address] Social History Tobacco Use Types Packs/Day Years [...] Description 08/09/2025 9:45 AM EDT Office Visit [facility] [address] [place] [phone] Mecca Couch MD [address] [place] [address] [phone] documented as of this encounter Visit Diagnoses Not on filedocumented in this encounter Additional Health Concerns Assessment Noted Time PHQ-9 Depression Total Score: 6 04/01/20 23 9:29 AM EDT documented as of this encounter Care Teams Garnett Machine Operator Relationship Specialty Start Date End Date Mecca Couch MD [address] [place] [phone] PCP - General Internal Medicine 03/28/23 Lizeth Singleton RN [address] [place] [phone] Registered Nurse Family Medicine 05/12/25 06/07/25 documented as of this encounter
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
--- OUTSIDE RECORDS SUMMARY | 2025-07-08 12:01 | XMS_ITS | Encounter Summary ---
Author Organization [employer] Address [address] [place] [address] 7 [place] [address] Care Team Providers Care Cattle Shipper Name Role Phone Mecca Couch MD Primary Care Pro vider Lizeth Singleton RN Unavailable [phone] Reason for Visit * Reason Comments Med Refill Encounter Details Date Type Department Care Team ([facility] st Contact Info) Description 11/26/2024 Refill [facility] [address] [place], [place] [phone] Mecca Couch MD [address] [place], [place] [phone] Social History Tobacco Use Types Packs/Day Years [...] Description 08/09/2025 9:45 AM EDT Office Visit [facility] [address] [place] [phone] Mecca Couch MD [address] [place] [phone] documented as of this encounter Visit Diagnoses Not on filedocumented in this encounter Additional Health Concerns Assessment Noted Time PHQ-9 Depression Total Score: 10 024 2:38 PM EDT documented as of this encounter Care Teams Cattle Shipper Relationship Specialty Start Date End Date Mecca Couch MD [address] [place] [phone] PCP - General Internal Medicine 03/28/23 Lizeth Singleton RN [address] [place] [address] Registered Nurse Family Medicine 05/12/25 06/07/25 documented as of this encounter
--- OUTSIDE RECORDS SUMMARY | 2025-07-08 12:01 | XMS_ITS | Encounter Summary ---
Author Organization [employer] Address [address] [place] [address] 7 [place] [address] Care Team Providers Care Valve Setter Name Role Phone Mecca Couch MD Primary Care Pro vider Lizeth Singleton RN Unavailable [phone] Reason for Visit * Reason Comments Med Refill Encounter Details Date Type Department Care Team ([facility] st Contact Info) Description 12/01/2024 Refill [facility] [address] [place], [place] [phone] Mecca Couch MD [address] [place], [place] [phone] Social History Tobacco Use Types Packs/Day Years [...] Description 08/09/2025 9:45 AM EDT Office Visit [facility] [address] [place] [phone] Mecca Couch MD [address] [place] [phone] documented as of this encounter Visit Diagnoses Not on filedocumented in this encounter Additional Health Concerns Assessment Noted Time PHQ-9 Depression Total Score: 10 024 2:38 PM EDT documented as of this encounter Care Teams Valve Setter Relationship Specialty Start Date End Date Mecca Couch MD [address] [place] [phone] PCP - General Internal Medicine 03/28/23 Lizeth Singleton RN [address] [place] [address] Registered Nurse Family Medicine 05/12/25 06/07/25 documented as of this encounter
--- OUTSIDE RECORDS SUMMARY | 2025-07-08 12:01 | XMS_ITS | Encounter Summary ---
Author Organization [employer] Address [address] [facility] 7t [place] [address] Care Team Providers Care Patent Searcher Name Role Phone Mecca Couch MD Primary Care Pro vider Lizeth Singleton RN Unavailable [phone] Reason for Visit * Reason Comments Med Refill Encounter Details Date Type Department Care Team (Late st Contact Info) Description 06/30/2023 Refill [facility] [address] [place] [address] Cinthya Mckeon FNP [address] [place] [address] Essential hypertension Social History Tobacco Use Types [...] Description 08/09/2025 9:45 AM EDT Office Visit [facility] [address] [place] [address] Mecca Couch MD 230 [place], [place] [phone] documented as of this encounter Visit Diagnoses Diagnosis Essential hypertension Unspecified essential hypertension documented in this encounter Additional Health Concerns Assessment Noted Time PHQ-9 Depression Total Score: 6 04/01/20 23 9:29 AM EDT documented as of this encounter Care Teams Patent Searcher Relationship Specialty Start Date End Date Mecca Couch MD 230 [place], [place] [phone] PCP - General Internal Medicine 03/28/23 Lizeth Singleton RN 505 [place] [address] Registered Nurse Family Medicine 05/12/25 06/07/25 documented as of this encounter
--- OUTSIDE RECORDS SUMMARY | 2025-07-08 12:01 | XMS_ITS | Encounter Summary ---
Author Organization [employer] Address [address] [place] [address] 7 [place] [address] Care Team Providers Care Waxer Name Role Phone Mecca Cuoch MD Primary Care Pro vider Lizeth Singleton RN Unavailable [phone] Reason for Visit * Reason Onset Date Comments Med Refill 09/01/2023 Encounter Details Date Type Department Care Team ([facility] st Contact Info) Description 09/01/2023 Refill [facility] [address] [place], [place] [phone] Mecca Couch MD 230 [place], [place] [phone] Social History Tobacco Use Types Packs/Day Years [...] Description 08/09/2025 9:45 AM EDT Office Visit [facility] [address] [place] [phone] Mecca Couch MD [address] [place] [address] documented as of this encounter Visit Diagnoses Not on filedocumented in this encounter Additional Health Concerns Assessment Noted Time PHQ-9 Depression Total Score: 6 04/01/20 23 9:29 AM EDT documented as of this encounter Care Teams Waxer Relationship Specialty Start Date End Date Mecca Couch MD [address] [place] [phone] PCP - General Internal Medicine 03/28/23 Lizeth Singleton RN [address] [place] [address] Registered Nurse Family Medicine 05/12/25 06/07/25 documented as of this encounter
--- OUTSIDE RECORDS SUMMARY | 2025-07-08 12:01 | XMS_ITS | Encounter Summary ---
Author Organization [employer] Address [address] [place] [address] 7 [place] [address] Care Team Providers Care Sewage Plant Operator Name Role Phone Mecca Couch MD Primary Care Pro vider Lizeth Singleton RN Unavailable [phone] Reason for Visit * Reason Onset Date Comments Medication Problem 11/27/2023 Encounter Details Date Type Department Care Team ([facility] st Contact Info) Description 11/27/2023 Telephone [facility] [address] [place], [place] [phone] Mecca Couch MD [address] [place], [place] [phone] Medication Problem Social History Tobacco Use Types [...] Visit [facility] [address] [place] [address] Mecca Couch MD [address] [place] [address] documented as of this encounter Visit Diagnoses Not on filedocumented in this encounter Additional Health Concerns Assessment Noted Time PHQ-9 Depression Total Score: 6 04/01/20 23 9:29 AM EDT documented as of this encounter Care Teams Sewage Plant Operator Relationship Specialty Start Date End Date Mecca Couch MD [address] [place] [address] PCP - General Internal Medicine 03/28/23 Lizeth Singleton RN [address] [place] [address] Registered Nurse Family Medicine 05/12/25 06/07/25 documented as of this encounter
--- OUTSIDE RECORDS SUMMARY | 2025-07-08 12:01 | XMS_ITS | Encounter Summary ---
Author Organization [employer] Address [address] [place] [address] 7 [place] [address] Care Team Providers Care Space Planner Name Role Phone Mecca Couch MD Primary Care Pro vider Lizeth Singleton RN Unavailable [phone] Reason for Visit * Reason Onset Date Comments Med Refill 08/14/2023 Encounter Details Date Type Department Care Team ([facility] st Contact Info) Description 08/14/2023 Telephone [facility] 230 [place], [place] [phone] Mecca Couch MD 230 [place], [place] [phone] Med Refill Social History Tobacco Use Types [...] Description 08/09/2025 9:45 AM EDT Office Visit [facility] [address] [place], [place] [phone] Mecca Couch MD [address] [place], [place] [phone] documented as of this encounter Visit Diagnoses Not on filedocumented in this encounter Additional Health Concerns Assessment Noted Time PHQ-9 Depression Total Score: 6 04/01/20 9:29 AM EDT documented as of this encounter Care Teams Space Planner Relationship Specialty Start Date End Date Mecca Couch MD [address] [place] [phone] PCP - General Internal Medicine 03/28/23 Lizeth Singleton RN [address] [place] [phone] Registered Nurse Family Medicine 05/12/25 06/07/25 documented as of this encounter
--- OUTSIDE RECORDS SUMMARY | 2025-07-08 12:01 | XMS_ITS | Encounter Summary ---
Author Organization [employer] Address [address] [place] [address] 7 [place] [address] Care Team Providers Care R&D Engineer Name Role Phone Mecca Couch MD Primary Care Pro vider Lizeth Singleton RN Unavailable [phone] Reason for Visit * Reason Onset Date Comments Med Refill 07/08/2023 Encounter Details Date Type Department Care Team ([facility] st Contact Info) Description 07/08/2023 Telephone [facility] 230 [place], [place] [phone] Mecca Couch MD 230 [place], [place] [phone] Med Refill Social History Tobacco Use Types [...] 1:37 PM EDT Medication was sent to [id number] on 06/13/23 with 2 refills. * Telephone Encounter - Evangelina Sawyer - 07/08/2023 1:27 PM EDT Tc from pt requesting medication refill on dulaglutide (Trulicity) 0.75 MG/0.5ML solution pen-injector documented in this encounter Plan of Treatment Upcoming Encounters Date Type Department Care Team (Late st Contact Info) Description 08/09/2025 9:45 AM EDT Office Visit [facility] [address] [place] [phone] Mecca Couch MD [address] [place] [phone] documented as of this encounter Visit Diagnoses Not on filedocumented in this encounter Additional Health Concerns Assessment Noted Time PHQ-9 Depression Total Score: 6 04/01/20 23 9:29 AM EDT documented as of this encounter Care Teams R&D Engineer Relationship Specialty Start Date End Date Mecca Couch MD [address] [place] [address] PCP - General Internal Medicine 03/28/23 Lizeth Singleton RN 505 [place] [address] Registered Nurse Family Medicine 05/12/25 06/07/25 documented as of this encounter
--- OUTSIDE RECORDS SUMMARY | 2025-07-08 12:01 | XMS_ITS | Encounter Summary ---
Author Organization [employer] Address [address] [place] [address] 7 [place] [address] Care Team Providers Care Woods Superintendent Name Role Phone Mecca Couch MD Primary Care Pro vider Lizeth Singleton RN Unavailable [phone] Reason for Visit * Reason Comments Med Refill Encounter Details Date Type Department Care Team ([facility] st Contact Info) Description 11/26/2024 Refill [facility] 230 [place], [place] [phone] Mecca Couch MD 230 [place], [place] [phone] Social History Tobacco Use Types Packs/Day Years [...] 08/09/2025 9:45 AM EDT Office Visit [facility] [address] [place] [address] Mecca Couch MD [address] [place] [address] documented as of this encounter Visit Diagnoses Not on filedocumented in this encounter Additional Health Concerns Assessment Noted Time PHQ-9 Depression Total Score: 10 024 2:38 PM EDT documented as of this encounter Care Teams Woods Superintendent Relationship Specialty Start Date End Date Mecca Couch MD [address] [place] [address] PCP - General Internal Medicine 03/28/23 Lizeth Singleton RN 505 [place] [address] Registered Nurse Family Medicine 05/12/25 06/07/25 documented as of this encounter
--- OUTSIDE RECORDS SUMMARY | 2025-07-08 12:01 | XMS_ITS | Encounter Summary ---
Author Organization [employer] Address [address] [place] [address] 7 [place] [address] Care Team Providers Care Wood Repatcher Name Role Phone Mecca Couch MD Primary Care Pro vider Lizeth Singleton RN Unavailable [phone] Reason for Visit * Reason Onset Date Comments Med Refill 07/20/2024 Encounter Details Date Type Department Care Team (Late st Contact Info) Description 07/20/2024 Refill [facility] 230 [place], [place] [phone] Mecca Couch MD 230 [place], [place] [phone] Type 2 diabetes mellitus with other circulatory complication, without long-term current use of insulin ([facility]) Social History Tobacco Use Types Packs/Day Years [...] Description 08/09/2025 9:45 AM EDT Office Visit [facility] [address] [place] [address] Mecca Couch MD [address] [place] [phone] documented as of this encounter Visit Diagnoses Diagnosis Type 2 diabetes mellitus with other circulatory complication, without long-term current use of insulin ([facility]) documented in this encounter Additional Health Concerns Assessment Noted Time PHQ-9 Depression Total Score: 10 024 2:38 PM EDT documented as of this encounter Care Teams Wood Repatcher Relationship Specialty Start Date End Date Mecca Couch MD [address] [place] [address] PCP - General Internal Medicine 03/28/23 Lizeth Singleton RN [address] [place] [address] Registered Nurse Family Medicine 05/12/25 06/07/25 documented as of this encounter
== END 2025-07-08 10:59 | disposition home or self-care (01) ==
LOC: HO.US 10:58
PROVIDERS: PCP Student in an Organized Health Care Education/Training Program; Visit Provider Student in an Organized Health Care Education/Training Program
DX: R10.12 Left upper quadrant pain (principal)
CPT/HCPCS: 76700

== ENCOUNTER → 2025-07-08 11:01 | Outpatient (BNV) | payer MEDICAID, SELFPAY | PROVIDERS: PCP Student in an Organized Health Care Education/Training Program; Visit Provider Radiology Diagnostic Radiology | DX: R16.0 Hepatomegaly, not elsewhere classified (principal) | CPT/HCPCS: 76700 ==

== ENCOUNTER 2025-07-26 13:20 | Outpatient (AMB) | payer MEDICAID, SELFPAY ==
--- NOTE | 2025-07-26 13:29 | A.OFFVIS_ITS ---
Vital Signs 07/26/25 13:30 Height 5 ft 7 in Weight 233 lb 3.985 oz BMI 36.5 BP 110/70 Blood Pressure Location Lt brachial Position Sitting Pulse 72 Pulse Source Monitor Intake Visit Reasons: km r/s-9 mth f/up Application Support Technician Required: No Accompanied by: Self / Same As Patient Allergies bee pollen (BEE STINGS) Allergy (Severe, Verified 07/26/25 13:34) Anaphylaxis shrimp (SHRIMP) Allergy (Severe, Verified 07/26/25 13:34) Anaphylaxis gabapentin (GABAPENTIN) Allergy (Intermediate, Verified 07/26/25 13:34) memory loss TARA Inhibitors Adverse Reaction (Intermediate, Uncoded 12/01/24 15:09) cough Medication List - Last Reconciled 07/26/25 by Nate Montano NP albuterol sulfate 90 mcg/actuation (Ventolin HFA) 2 puffs inhalation Q4H PRN amlodipine 10 mg PO DAILY aspirin 81 mg PO DAILY atorvastatin 20 mg PO DAILY afswfzvchy-fmwfsyvy-cfqzmaehca 160-9-4.8 mcg/actuation (Breztri Aerosphere) 2 inhalations inhalation BID cholestyramine (with sugar) 4 gram 4 grams PO BID diphenhydramine HCl (Banophen) 25 mg PO BEDTIME PRN duloxetine (Cymbalta) 60 mg PO BID epinephrine 0.3 mg IM ONCE PRN famotidine 20 mg PO BEDTIME hydroxyzine pamoate 50 mg PO DAILY PRN losartan 50 mg PO QAM metoprolol tartrate 25 mg PO BID omeprazole 40 mg PO BID oxcarbazepine 900 mg PO DAILY prazosin 1 mg PO BID quetiapine 100 mg PO BEDTIME risperidone (Risperdal) 3 mg PO BEDTIME tirzepatide (Mounjaro) 2.5 mg subcut QWEEK tramadol 50 mg PO DAILY HPI Comments Details: This is a 60-year-old female patient coming in for a follow-up visit. Patient with a history of hypertension, hyperlipidemia, mild coronary artery disease, and obesity who was previously in the office for ongoing chest discomfort. Patient at that time tried PPIs and had improved symptoms of her burning chest discomfort. Today, patient reports feeling well overall with intermittent symptoms of palpitations where patient has the skipped beats with a pinch in her left upper chest that resolves within seconds. Patient is also reporting inte rmittent shortness of breath with exertion which is not there all the time. Patient states that she is now on Mounjaro for weight loss and has lost about 3- 4 lb. Patient states that her PCP's going to titrate her medication up for therapeutic weight loss. Patient also notes that she is trying to stay more active by walking 15 minutes after each meal. Patient is otherwise denying any exertional chest pain, dizziness, orthopnea, PND, leg edema, presyncope, or syncope. Patient is reporting compliance with all her medications. [facility] Medical History Multinodular goiter Bipolar 1 disorder PTSD (post-traumatic stress disorder) Depression Fibromyalgia CAD (coronary artery disease) Hypertension High cholesterol Diabetes (~2015) Asthma Tubular adenoma of colon (~2018) Surgical History History of suburethral sling procedure Status post insertion of spinal cord stimulator History of elbow surgery History of colonoscopy History of hysterectomy History of appendectomy History of cholecystectomy History of carpal tunnel surgery Family History Father Dialysis patient Mother HTN (hypertension) Diabetes Maternal Grandmother Stroke Maternal Grandfather Alcoholic Paternal Uncle Stomach cancer Family/Other Stomach cancer Maternal Uncle Lung cancer Social History Alcohol intake: current Alcohol intake frequency: does not drink Patient Tobacco Use Status: Former Tobacco user Years Smoked: (onset 13yo, 1-2ppd x 31 - 45PYH - quit 2008) Review of Systems Const Denies daytime sleepiness, Denies difficulty sleeping, Denies snoring, Denies stops breathing during sleep and Denies weakness ENT Reports dizziness Card Denies chest pain, Denies rapid heart rate, Denies irregular heart rhythm, Denies claudication, Denies leg edema, Reports lightheadedness, Reports palpitations, Reports dyspnea, Reports dyspnea on exertion, Denies orthopnea, Denies paroxysmal nocturnal dyspnea and Denies slow heart rate Resp Denies cough, Reports dyspnea, Reports dyspnea on exertion and Denies snoring GI Reports no additional complaints, Denies hematochezia, Denies change in stool character and Denies dyspepsia Musc Denies abnormal gait, Denies muscle weakness and Denies numbness Neuro Denies abnormal gait, Reports dizziness, Denies numbness and Denies weakness Endo Reports palpitations Physical Exam Vital Signs: Last Vital Signs Pulse 72 07/26/25 13:30 BP 110/70 07/26/25 13:30 BMI result Body Mass Index 36.5 Const General: cooperative, healthy appearing, comfortable and no acute distress Orientation/consciousness: patient oriented x3 HEENT Head: Yes normal to inspection Neck Neck: Yes normal visual inspection, Yes trachea midline and Yes supple Chest Chest palpation & inspection: normal inspection of the chest Resp Effort & Inspection: normal respiratory effort Auscultation: clear to auscultation bilaterally, no crackles, no rales, no rhonchi and no wheezes Cardio Jugular venous distension: no JVD Palpation: normal PMI Rate: regular rate Rhythm: regular rhythm Heart sounds: S1 normal heart sound present, S2 normal heart sound present, no click, no gallops, no murmurs and no rubs Peripheral pulses: Peripheral pulses 2+ throughout GI Inspection: Yes normal to inspection Palpation (GI): Soft to palpation Auscultation: normal bowel sounds Skin General skin exam: no rashes or lesions noted Neuro General: patient oriented x3 Extrem General: Yes normal to inspection, No no pedal edema and No calf tenderness Psych Appearance: grossly normal Mental Status: mental status grossly normal Speech and movement: Normal speech and movement present Office Procedures EKG Details: EKG today showed normal sinus rhythm, rate 72 beats per minute, rightward axis, nonspecific intraventricular block, nonspecific STT wave, [place] ND, [place]. [id number], Complete Assessment & Plan Assessment & Plan (1) CAD (coronary artery disease): Comment: ( hospital admit 2014 for chest pain with negative MIBI) Code(s): I25.10 - Atherosclerotic heart disease of [place] coronary artery without angina pectoris Category: Medical Plan: 05/02/2023-cardiac catheterization showed 30% stenosis in the RCA with minimal coronary artery disease in the circumflex and LAD. 11/21/2023-patient underwent cardiac even monitor that showed baseline normal sinus rhythm with isolated PVCs. 07/22/2024-coronary CTA showed mild LAD disease. Patient has chest pains have resolved since going on famotidine. Today for reports of palpitations, patient did have some PVCs that correlated with the symptoms and therefore most likely patient is feeling the PVCs. Patient is already on metoprolol therapy. Continue with this. For intermittent shortness of breath, patient underwent cardiopulmonary stress test that showed reduced exercise capacity. Patient also has plans for us sleep study with pulmonology. We will repeat an echo to look for any dysfunction of the LV systolic and diastolic. Most recent LDL within goal. Continue statin therapy. (2) Palpitations: Code(s): R00.2 - Palpitations Category: Medical Plan: As above. (3) Dyspnea on exertion: Code(s): R06.09 - Other forms of dyspnea Category: Medical Plan: As above. (4) Hypertension: Code(s): I10 - Essential (primary) hypertension Category: Medical Plan: Blood pressure is well-controlled. Continue current regimen. Advised monitoring blood pressures at home with a goal less than 130/80. Advised low- salt diet. (5) High cholesterol: Code(s): E78.00 - Pure hypercholesterolemia, unspecified Category: Medical Plan: As above. Advised heart healthy diet, regular exercise, losing weight, med compliance, and aggressive management of vascular risk factors. Follow up in 6 months. In the interim, patient will call the office with any concerns or change in symptoms. This note was generated using voice recognition software. While every effort has been made to ensure accuracy and proper hearing impaired teacher, there may be occasional errors that could affect the content or meaning of the described symptoms. Orders: Orders AMB EKG-In Office Today R00.2 - Palpitations CA echo transthoracic complete Today R06.09 - Other forms of dyspnea Coding Level of Care Code Est Pt Level 4 (64407) Complex EM visit Add On G2211 Diagnoses CAD (coronary artery disease) I25.10 Palpitations R00.2 Dyspnea on exertion R06.09 Hypertension I10 High cholesterol E78.00 CPT Codes EKG - CPT: 06462-[id number], Complete ([id number]) Time Spent (min) 32 Comment Time spent in reviewing the chart, test results, assessment, counseling and documentation.
[2025-07-26 13:30] VITALS: BP 110/70; PULSE 72; BMI 36.5
--- OUTSIDE RECORDS SUMMARY | 2025-07-26 16:22 | XMS_ITS | Encounter Summary ---
Author Organization [email or web address] Address [address] [facility] 7t [place] [address] Care Team Providers Care Issuing Operator Name Role Phone Mecca Couch MD Primary Care Pro vider Reason for Visit * Reason Comments Med Refill Encounter Details Date Type Department Care Team ([facility] st Contact Info) Description 07/26/2025 Refill [facility] [address] [place], [place] [phone] Neida Barlow DO 230 [place] [address] Acute pain of left knee Social History Tobacco Use Types Packs/Day Years [...] Description 08/09/2025 9:45 AM EDT Office Visit [facility] [address] [place] [address] [phone] Mecca Couch MD [address] [place] [address] documented as of this encounter Visit Diagnoses Diagnosis Acute pain of left knee documented in this encounter Additional Health Concerns Assessment Noted Time PHQ-9 Depression Total Score: 22 025 10:39 AM EDT documented as of this encounter Care Teams Issuing Operator Relationship Specialty Start Date End Date Mecca Couch MD [address] [place] [address] [phone] PCP - General Internal Medicine 03/28/23 documented as of this encounter
--- OUTSIDE RECORDS SUMMARY | 2025-07-26 16:22 | XMS_ITS | Encounter Summary ---
Author Organization [employer] Address [address] [place] [address] 7 [place] [address] Care Team Providers Care Sewing Machines Salesperson Name Role Phone Mecca Couch MD Primary Care Pro vider Lizeth Singleton RN Unavailable [phone] Reason for Visit * Reason Comments Med Refill Encounter Details Date Type Department Care Team ([facility] Contact Info) Description 06/11/2023 Refill [facility] 230 [place], [place] [phone] Mecca Couch MD 230 [place], [place] [phone] Essential hypertension Social History Tobacco Use Types [...] Upcoming Encounters Date Type Department Care Team ([facility] st Contact Info) Description 08/09/2025 9:45 AM EDT Office Visit [facility] [address] [place] [address] Mecca Couch MD [address] [place] [address] [phone] documented as of this encounter Visit Diagnoses Diagnosis Essential hypertension Unspecified essential hypertension documented in this encounter Additional Health Concerns Assessment Noted Time PHQ-9 Depression Total Score: 6 04/01/20 23 9:29 AM EDT documented as of this encounter Care Teams Sewing Machines Salesperson Relationship Specialty Start Date End Date Mecca Couch MD 230 [place], [place] [phone] PCP - General Internal Medicine 03/28/23 Lizeth Singleton RN [address] [place] [address] Registered Nurse Family Medicine 05/12/25 06/07/25 documented as of this encounter
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
--- OUTSIDE RECORDS SUMMARY | 2025-07-26 16:22 | XMS_ITS | Encounter Summary ---
Author Organization [employer] Address [address] [place] [address] 7 [place] [address] Care Team Providers Care Financial Services Sales Representative Name Role Phone Mecca Couch MD Primary Care Pro vider Lizeth Singleton RN Unavailable [phone] Reason for Visit * Reason Onset Date Comments Med Refill 08/14/2023 Encounter Details Date Type Department Care Team ([facility] st Contact Info) Description 08/14/2023 Telephone [facility] [address] [place], [place] [phone] Mceca Couch MD [address] [place], [place] [phone] Med Refill Social History Tobacco Use Types [...] 9:45 AM EDT Office Visit [facility] [address] [place], [place] [phone] Mecca Couch MD [address] [place], [place] [phone] documented as of this encounter Visit Diagnoses Not on filedocumented in this encounter Additional Health Concerns Assessment Noted Time PHQ-9 Depression Total Score: 6 04/01/20 9:29 AM EDT documented as of this encounter Care Teams Financial Services Sales Representative Relationship Specialty Start Date End Date Mecca Couch MD [address] [place] [address] PCP - General Internal Medicine 03/28/23 Lizeth Singleton RN [address] [place] [phone] Registered Nurse Family Medicine 05/12/25 06/07/25 documented as of this encounter
--- OUTSIDE RECORDS SUMMARY | 2025-07-26 16:22 | XMS_ITS | Encounter Summary ---
Author Organization [employer] Address [address] [place] [address] 7 [place] [address] Care Team Providers Care Grain Broker And Market Operator Name Role Phone Mecca Couch MD Primary Care Pro vider Lizeth Singleton RN Unavailable [phone] Reason for Visit * Reason Comments Med Refill Encounter Details Date Type Department Care Team ([facility] Contact Info) Description 06/05/2023 Refill [facility] [address] [place], [place] [phone] Mecca Couch MD [address] [place], [place] [phone] Essential hypertension Social History Tobacco Use Types [...] Upcoming Encounters Date Type Department Care Team ([facility] st Contact Info) Description 08/09/2025 9:45 AM EDT Office Visit [facility] [address] [place] [address] Mecca Couch MD [address] [place] [address] [phone] documented as of this encounter Visit Diagnoses Diagnosis Essential hypertension Unspecified essential hypertension documented in this encounter Additional Health Concerns Assessment Noted Time PHQ-9 Depression Total Score: 6 04/01/20 23 9:29 AM EDT documented as of this encounter Care Teams Grain Broker And Market Operator Relationship Specialty Start Date End Date Mecca Couch MD [address] [place], [place] [phone] PCP - General Internal Medicine 03/28/23 Lizeth Singleton RN [address] [place] [phone] Registered Nurse Family Medicine 05/12/25 06/07/25 documented as of this encounter
--- OUTSIDE RECORDS SUMMARY | 2025-07-26 16:22 | XMS_ITS | Encounter Summary ---
Author Organization [employer] Address [address] [place] [address] 7 [place] [address] Care Team Providers Care Computer Technician Name Role Phone Mecca Couch MD Primary Care Pro vider Lizeth Singleton RN Unavailable [phone] Reason for Visit * Reason Onset Date Comments Medication Problem 11/27/2023 Encounter Details Date Type Department Care Team ([facility] st Contact Info) Description 11/27/2023 Telephone [facility] MEDICINE 230 [place], [place] [phone] Mecca Couch MD 230 [place], [place] [phone] Medication Problem Social History Tobacco Use Types [...] Description 08/09/2025 9:45 AM EDT Office Visit [facility] MEDICINE 230 [place] [address] Mecca Couch MD 230 [place] [address] documented as of this encounter Visit Diagnoses Not on filedocumented in this encounter Additional Health Concerns Assessment Noted Time PHQ-9 Depression Total Score: 6 04/01/20 23 9:29 AM EDT documented as of this encounter Care Teams Computer Technician Relationship Specialty Start Date End Date Mecca Couch MD [address] [place] [address] PCP - General Internal Medicine 03/28/23 Lizeth Singleton RN [address] [place] [address] Registered Nurse Family Medicine 05/12/25 06/07/25 documented as of this encounter
--- OUTSIDE RECORDS SUMMARY | 2025-07-26 16:22 | XMS_ITS | Clinical Summary ---
Author Organization [address] [place] [address] [place] [phone] Phone Care Team Providers Care Electric Golf Cart Repairer Name Role Phone Delta Couch MD Primary [...] Date Diagnosed Date Anxiety 09/09/2024 Bipolar disorder ([facility], [facility] V28) 05/2024 Hypertriglyceridemia 09/09/2024 Female stress incontinence 09/09/2024 Fibromyalgia 09/09/2024 T2DM (type 2 diabetes mellitus) ([facility]24, [facility] V28) 09/09/2024 HTN (hypertension) 09/09/2024 [...] topic Insurance MEDICAID - [place] Care Teams Electric Golf Cart Repairer Relationship Specialty Start Date End Date Delta Couch MD [address] [phone] PCP - General 04/20/24
--- OUTSIDE RECORDS SUMMARY | 2025-07-26 16:22 | XMS_ITS | Encounter Summary ---
Author Organization [employer] Address [address] [place] [address] 7 [place] [address] Care Team Providers Care Supervisor Cold Rolling Name Role Phone Cinthya Mckeon Primary Care Provider [phone] Mecca Couch MD Primary Care Pro vider Lizeth Singleton RN Unavailable [phone] Encounter Details Date Type Department Care Team (Late st Contact Info) Description 10/25/2022 Abstract [facility] MEDICINE 230 [place] [address] Cinthya Mckeon FNP [address] [place] [address] Social History Tobacco Use Types Packs/Day Years [...] Office Visit [facility] MEDICINE [address] [place] [address] Mecca Couch MD 230 [place] [address] documented as of this encounter Visit Diagnoses Not on filedocumented in this encounter Care Teams Supervisor Cold Rolling Relationship Specialty Start Date End Date Cinthya Mckeon FNP 230 [place] [address] PCP - General Family Medicine 06/27/22 03/27/23 Mecca Couch MD 230 [place] [address] PCP - General Internal Medicine 03/28/23 Lizeth Singleton RN [address] [place] [address] Registered Nurse Family Medicine 05/12/25 06/07/25 documented as of this encounter
--- OUTSIDE RECORDS SUMMARY | 2025-07-26 16:22 | XMS_ITS | Encounter Summary ---
Author Organization [employer] Address [address] [facility] 7t [place] [address] Care Team Providers Care Pyrotechnician Name Role Phone Mecca Couch MD Primary Care Pro vider Lizeth Singleton RN Unavailable [phone] Reason for Visit * Reason Comments Med Refill Encounter Details Date Type Department Care Team ([facility] st Contact Info) Description 04/07/2023 Refill [facility] MEDICINE 230 [place], [place] [phone] Mecca Mclain MD 230 [place] [address] Social History Tobacco Use Types Packs/Day Years [...] Office Visit [facility] MEDICINE [address] [place] [address] Mecca Couch MD [address] [place] [address] [phone] documented as of this encounter Visit Diagnoses Not on filedocumented in this encounter Additional Health Concerns Assessment Noted Time PHQ-9 Depression Total Score: 6 04/01/20 23 9:29 AM EDT documented as of this encounter Care Teams Pyrotechnician Relationship Specialty Start Date End Date Mecca Couch MD [address] [place] [address] PCP - General Internal Medicine 03/28/23 Lizeth Singleton RN [address] [place] [address] Registered Nurse Family Medicine 05/12/25 06/07/25 documented as of this encounter
--- OUTSIDE RECORDS SUMMARY | 2025-07-26 16:22 | XMS_ITS | Encounter Summary ---
Author Organization [employer] Address [address] [facility] 7t [place] [address] Care Team Providers Care Engineer Operations And Maintenance Name Role Phone Mecca Couch MD Primary Care Pro vider Lizeth Singleton RN Unavailable [phone] Reason for Visit * Reason Comments Med Refill Encounter Details Date Type Department Care Team (Late st Contact Info) Description 06/30/2023 Refill [facility] MEDICINE 230 [place] [address] Cinthya Mckeon FNP 505 [place] [address] Essential hypertension Social History Tobacco Use Types [...] Description 08/09/2025 9:45 AM EDT Office Visit [facility] MEDICINE 230 [place] [address] Mecca Couch MD 230 [place], [place] [phone] documented as of this encounter Visit Diagnoses Diagnosis Essential hypertension Unspecified essential hypertension documented in this encounter Additional Health Concerns Assessment Noted Time PHQ-9 Depression Total Score: 6 04/01/20 23 9:29 AM EDT documented as of this encounter Care Teams Engineer Operations And Maintenance Relationship Specialty Start Date End Date Mecca Couch MD 230 [place], [place] [phone] PCP - General Internal Medicine 03/28/23 Lizeth Singleton RN 505 [place] [address] Registered Nurse Family Medicine 05/12/25 06/07/25 documented as of this encounter
--- OUTSIDE RECORDS SUMMARY | 2025-07-26 16:22 | XMS_ITS | Encounter Summary ---
Author Organization [employer] Address [address] [place] [address] 7 [place] [address] Care Team Providers Care Scrap Charger Name Role Phone Mecca Couch MD Primary Care Pro vider Lizeth Singleton RN Unavailable [phone] Reason for Visit * Reason Onset Date Comments Med Refill 09/01/2023 Encounter Details Date Type Department Care Team ([facility] st Contact Info) Description 09/01/2023 Refill [facility] MEDICINE 230 [place], [place] [phone] Mecca Couch MD 230 [place], [place] [phone] Social History Tobacco Use Types Packs/Day Years [...] Description 08/09/2025 9:45 AM EDT Office Visit [facility] MEDICINE [address] [place] [address] Mecca Couch MD [address] [place] [address] documented as of this encounter Visit Diagnoses Not on filedocumented in this encounter Additional Health Concerns Assessment Noted Time PHQ-9 Depression Total Score: 6 04/01/20 23 9:29 AM EDT documented as of this encounter Care Teams Scrap Charger Relationship Specialty Start Date End Date Mecca Couch MD [address] [place] [address] PCP - General Internal Medicine 03/28/23 Lizeth Singleton RN [address] [place] [address] Registered Nurse Family Medicine 05/12/25 06/07/25 documented as of this encounter
--- OUTSIDE RECORDS SUMMARY | 2025-07-26 16:22 | XMS_ITS | Encounter Summary ---
Author Organization [employer] Address [address] [place] [address] 7 [place] [address] Care Team Providers Care Director Food And Beverage Name Role Phone Mecca Couch MD Primary Care Pro vider Lizeth Singleton RN Unavailable [phone] Reason for Visit * Reason Onset Date Comments Med Refill 07/06/2023 Encounter Details Date Type Department Care Team (Late st Contact Info) Description 07/06/2023 Refill [facility] MEDICINE 230 [place], [place] [phone] Mecca Couch MD 230 [place], [place] [phone] Social History Tobacco Use Types Packs/Day Years [...] [facility] MEDICINE 230 [place], [place] [phone] Mecca Couch MD [address] [place] [address] [phone] documented as of this encounter Visit Diagnoses Not on filedocumented in this encounter Additional Health Concerns Assessment Noted Time PHQ-9 Depression Total Score: 6 04/01/20 23 9:29 AM EDT documented as of this encounter Care Teams Director Food And Beverage Relationship Specialty Start Date End Date Mecca Couch MD [address] [place] [address] [phone] PCP - General Internal Medicine 03/28/23 Lizeth Singleton RN [address] [place] [address] Registered Nurse Family Medicine 05/12/25 06/07/25 documented as of this encounter
--- OUTSIDE RECORDS SUMMARY | 2025-07-26 16:22 | XMS_ITS | Encounter Summary ---
Author Organization [employer] Address [address] [place] [address] 7 [place] [address] Care Team Providers Care Forging Engineer Name Role Phone Mecca Couch MD Primary Care Pro vider Lizeth Singleton RN Unavailable [phone] Reason for Visit * Reason Onset Date Comments Med Refill 07/08/2023 Encounter Details Date Type Department Care Team ([facility] st Contact Info) Description 07/08/2023 Telephone [facility] MEDICINE 230 [place], [place] [phone] Mecca Couch MD 230 [place], [place] [phone] Med Refill Social History Tobacco Use Types [...] 1:37 PM EDT Medication was sent to [id number] on 06/13/23 with 2 refills. * Telephone Encounter - Evangelina Sawyer - 07/08/2023 1:27 PM EDT Tc from pt requesting medication refill on dulaglutide (Trulicity) 0.75 MG/0.5ML solution pen-injector documented in this encounter Plan of Treatment Upcoming Encounters Date Type Department Care Team (Late st Contact Info) Description 08/09/2025 9:45 AM EDT Office Visit [facility] MEDICINE [address] [place] [phone] Mecca Couch MD [address] [place] [address] documented as of this encounter Visit Diagnoses Not on filedocumented in this encounter Additional Health Concerns Assessment Noted Time PHQ-9 Depression Total Score: 6 04/01/20 23 9:29 AM EDT documented as of this encounter Care Teams Forging Engineer Relationship Specialty Start Date End Date Mecca Couch MD 230 [place] [address] PCP - General Internal Medicine 03/28/23 Lizeth Singleton RN 505 [place] [address] Registered Nurse Family Medicine 05/12/25 06/07/25 documented as of this encounter
--- OUTSIDE RECORDS SUMMARY | 2025-07-26 16:23 | XMS_ITS | Encounter Summary ---
Author Organization [employer] Address [address] [place] [address] 7 [place] [address] Care Team Providers Care Stummel Selector Name Role Phone Mecca Couch MD Primary Care Pro vider Lizeth Singleton RN Unavailable [phone] Reason for Visit * Reason Comments Med Refill Encounter Details Date Type Department Care Team ([facility] st Contact Info) Description 12/01/2024 Refill [facility] MEDICINE 230 [place], [place] [phone] Mecca Couch MD 230 [place], [place] [phone] Social History Tobacco Use Types Packs/Day Years [...] Description 08/09/2025 9:45 AM EDT Office Visit [facility] MEDICINE [address] [place] [address] Mecca Couch MD [address] [place] [address] documented as of this encounter Visit Diagnoses Not on filedocumented in this encounter Additional Health Concerns Assessment Noted Time PHQ-9 Depression Total Score: 10 024 2:38 PM EDT documented as of this encounter Care Teams Stummel Selector Relationship Specialty Start Date End Date Mecca Couch MD [address] [place] [address] PCP - General Internal Medicine 03/28/23 Lizeth Singleton RN 505 [place] [address] Registered Nurse Family Medicine 05/12/25 06/07/25 documented as of this encounter
--- OUTSIDE RECORDS SUMMARY | 2025-07-26 16:23 | XMS_ITS | Encounter Summary ---
Author Organization [employer] Address [address] [place] [address] 7 [place] [address] Care Team Providers Care Pai Gow Manager Name Role Phone Mecca Couch MD Primary Care Pro vider Lizeth Singleton RN Unavailable [phone] Reason for Visit * Reason Comments Med Refill Encounter Details Date Type Department Care Team ([facility] st Contact Info) Description 11/26/2024 Refill [facility] MEDICINE 230 [place], [place] [phone] Mecca Couch MD 230 [place], [place] [phone] Social History Tobacco Use Types Packs/Day Years [...] Description 08/09/2025 9:45 AM EDT Office Visit [facility] MEDICINE [address] [place] [address] Mecca Couch MD [address] [place] [address] documented as of this encounter Visit Diagnoses Not on filedocumented in this encounter Additional Health Concerns Assessment Noted Time PHQ-9 Depression Total Score: 10 024 2:38 PM EDT documented as of this encounter Care Teams Pai Gow Manager Relationship Specialty Start Date End Date Mecca Couch MD [address] [place] [address] PCP - General Internal Medicine 03/28/23 Lizeth Singleton RN 505 [place] [address] Registered Nurse Family Medicine 05/12/25 06/07/25 documented as of this encounter
--- OUTSIDE RECORDS SUMMARY | 2025-07-26 16:23 | XMS_ITS | Encounter Summary ---
Author Organization [employer] Address [address] [place] [address] 7 [place] [address] Care Team Providers Care Geodesist Name Role Phone Mecca Couch MD Primary Care Pro vider Lizeth Singleton RN Unavailable [phone] Reason for Visit * Reason Comments Med Refill Encounter Details Date Type Department Care Team ([facility] st Contact Info) Description 11/26/2024 Refill [facility] MEDICINE 230 [place], [place] [phone] Mecca Couch MD 230 [place], [place] [phone] Social History Tobacco Use Types Packs/Day Years [...] [facility] MEDICINE [address] [place] [address] Mecca Couch MD [address] [place] [address] documented as of this encounter Visit Diagnoses Not on filedocumented in this encounter Additional Health Concerns Assessment Noted Time PHQ-9 Depression Total Score: 10 024 2:38 PM EDT documented as of this encounter Care Teams Geodesist Relationship Specialty Start Date End Date Mecca Couch MD [address] [place] [address] PCP - General Internal Medicine 03/28/23 Lizeth Singleton RN 505 [place] [address] Registered Nurse Family Medicine 05/12/25 06/07/25 documented as of this encounter
--- OUTSIDE RECORDS SUMMARY | 2025-07-26 16:23 | XMS_ITS | Encounter Summary ---
Author Organization [employer] Address 75 [facility] 7t [place] [address] Care Team Providers Care Gamb Cutter Name Role Phone Mecca Couch MD Primary Care Pro vider Reason for Visit * Reason Comments Med Refill Encounter Details Date Type Department Care Team ([facility] st Contact Info) Description 07/11/2025 Refill [facility] 230 [place], [place] [phone] Neida Barlow DO 230 [place] [address] Social History Tobacco Use Types Packs/Day Years [...] Description 08/09/2025 9:45 AM EDT Office Visit [facility] MEDICINE [address] [place] [address] [phone] Mecca Couch MD [address] [place] [address] documented as of this encounter Visit Diagnoses Not on filedocumented in this encounter Additional Health Concerns Assessment Noted Time PHQ-9 Depression Total Score: 22 025 10:39 AM EDT documented as of this encounter Care Teams Gamb Cutter Relationship Specialty Start Date End Date Mecca Couch MD [address] [place] [address] [phone] PCP - General Internal Medicine 03/28/23 documented as of this encounter
--- OUTSIDE RECORDS SUMMARY | 2025-07-26 16:23 | XMS_ITS | Encounter Summary ---
Author Organization [employer] Address [address] [place] [address] 7 [place] [address] Care Team Providers Care Room Service Manager Name Role Phone Mecca Couch MD Primary Care Pro vider Lizeth Singleton RN Unavailable [phone] Reason for Visit * Reason Onset Date Comments Med Refill 07/20/2024 Encounter Details Date Type Department Care Team (Late st Contact Info) Description 07/20/2024 Refill [facility] MEDICINE 230 [place], [place] [phone] Mecca Couch MD 230 [place], [place] [phone] Type 2 diabetes mellitus with other circulatory complication, without long-term current use of insulin ([facility]) Social History Tobacco Use Types Packs/Day Years [...] Description 08/09/2025 9:45 AM EDT Office Visit [facility] MEDICINE [address] [place] [address] Mecca Couch MD [address] [place] [address] documented as of this encounter Visit Diagnoses Diagnosis Type 2 diabetes mellitus with other circulatory complication, without long-term current use of insulin ([facility]) documented in this encounter Additional Health Concerns Assessment Noted Time PHQ-9 Depression Total Score: 10 024 2:38 PM EDT documented as of this encounter Care Teams Room Service Manager Relationship Specialty Start Date End Date Mecca Couch MD [address] [place] [address] PCP - General Internal Medicine 03/28/23 Lizeth Singleton RN [address] [place] [address] Registered Nurse Family Medicine 05/12/25 06/07/25 documented as of this encounter
== END 2025-07-26 14:02 | disposition home or self-care (01) ==
LOC: HO.HCS 13:21
PROVIDERS: PCP Student in an Organized Health Care Education/Training Program
DX: I25.10 Atherosclerotic heart disease of native coronary artery without angina pectoris (principal); R00.2 Palpitations; R06.09 Other forms of dyspnea; I10 Essential (primary) hypertension; E78.00 Pure hypercholesterolemia, unspecified
CPT/HCPCS: 93010; 99214

== ENCOUNTER → 2025-07-26 13:20 | Outpatient (BNVA) | payer MEDICAID, SELFPAY | PROVIDERS: PCP Student in an Organized Health Care Education/Training Program | DX: I25.10 Atherosclerotic heart disease of native coronary artery without angina pectoris (principal); I10 Essential (primary) hypertension; R00.2 Palpitations; R06.09 Other forms of dyspnea; E78.00 Pure hypercholesterolemia, unspecified; I45.4 Nonspecific intraventricular block; R94.31 Abnormal electrocardiogram [ECG] [EKG] | CPT/HCPCS: 93005; 99212 ==

== ENCOUNTER → 2025-08-26 13:41 | Outpatient (REF) | payer MEDICAID, SELFPAY ==
--- NOTE | 2025-08-26 13:47 | CA_ITS ---
Transthoracic Echocardiogram Patient (Last, First, Middle): Mecca Lundy, Gender: Female Date of : 1965 Age: 60 Procedure Date: 08/26/2025 Procedure Type: Transthoracic Echocardiogram Location: OP Height: 170.18 cm Weight: 105.69 kg BSA: 2.16 m2 Heart Rate: 70 bpm BP: 110 / 70 mmHg Inspecting Engineer: [place] Referring MD: Nate Montano NP Tire Changer: Joe Griffith MD Symptoms: R06.09 - Other forms of dyspnea Study Quality: Fair ECG Rhythm: Sinus Conclusions: - 1. Low normal LV ejection fraction 50-55% with moderately increased wall thickness with impaired relaxation filling pattern 2. Normal cardiac valvular Dopplers 3. Normal calculated RV systolic pressure 4. No gross pericardial effusion Findings Left Ventricle Normal left ventricular cavity size. There is moderately increased left ventricular wall thickness. The left ventricular systolic function is low normal. The visually estimated ejection fraction is between 50-55%. Spectral Doppler is indicative of an impaired relaxation filling pattern. Right Ventricle Normal right ventricular cavity size and systolic function. Atria The left atrium is likely dilated. There is no evidence of interatrial shunt. The right atrium is normal in size. Aortic Valve The aortic valve structure and function is likely normal. There is no aortic valve stenosis. There is no aortic valve regurgitation. Mitral Valve There is mild anterior and posterior mitral leaflet thickening. There is trace mitral valve regurgitation. There is no mitral valve stenosis. Pulmonic Valve The pulmonic valve is likely normal. Tricuspid Valve Likely normal tricuspid valve structure and function. There is trace tricuspid valve regurgitation. The right ventricular systolic pressure is normal. The right ventricular systolic pressure is 19 mmHg. Normal right atrial pressure. There is no evidence of pulmonary hypertension. Great Vessels All visible segments of the aorta are normal in size. The pulmonary artery was not well visualized. There is no dilatation of the ascending aorta measuring 3.10 cm. Venous The inferior vena cava is normal in size and collapses greater than 50% with inspiration. Pericardium/Pleural There is no evidence of pericardial effusion. Prior Study Comparison No prior study available for comparison. Measurements 2D Linear Measurements IVSd: 1.54 0.6-0.9/0.6-1.0 cm LVIDd: 4.94 3.9-5.3/4.2-5.9 cm LVIDd Index: 2.29 2.4-3.2/2.2-3.1 cm/m2 LVIDs: 3.74 2.0-3.6 cm LVPWd: 1.40 0.7-1.1 cm LA Diam: 4.60 2.7-3.8/3.0-4.0 cm LAIDs Index: 2.13 1.5-2.3 cm/m2 LV Mass: 383.50 67-162/88-224 g LV Mass Index: 177.55 43-95/49-115 g/m2 LVOT Diam: 2.30 3.0+(-)1.3 cm 2D Systolic Function EF 4C: 42.70 >55% EF 2C: 62.50 >55% EF BiP: 53.20 >55% Mitral Valve MV Pk E: 0.56 MV PK A: 0.90 MV Decel Time: 196.00 E/A: 0.60 E'Lateral: 5.55 E'Medial: 5.87 E/E' Med: 9.60 E/E' Lat: 10.10 PHT: 57.00 MVA PHT: 3.86 Decel [place]: 2.86 Aortic Valve AoV Pk Shola: 1.61 AoV Pk Grad: 10.00 BRICE: 2.89 LVOT LVOT Pk Shola: 1.14 LVOT Mn Shola: 0.86 LVOT VTI: 0.23 LVOT Pk Grad: 5.00 LVOT Mn Grad: 3.00 LVOT Diam: 2.30 LVOT Area: 4.15 Diastolic Function MV Pk E: 0.56 MV Pk A: 0.90 E/A: 0.60 E'Medial: 5.87 E/E' Med: 9.60 E' Laterial: 5.55 E/E' Lat: 10.10 Right Ventricle TAPSE (mm): 19.00 TVS' Shola: 9.03 Tricuspid Valve TR Pk Shola: 1.98 TR Pk Grad: 16.00 RA Press: 3.00 RVSP: 19.00 Great Vessels Aorta Sinus of Valsalva: 3.40 2.0-3.5 cm Ao Asc: 3.10 2.1-3.4 cm Ao Arch: 2.60 Ao Desc: 2.20 Pulmonary Veins Pulm Vein S/D 1.60 Pulmonary Valve PV Pk Shola: 0.98 Peak PV Grad: 4.00 Updated in Other Vendor System with Status of Final Joe Griffith MD electronically signed on 08/28/2025 12:48:10 PM with status of Final
--- OUTSIDE RECORDS SUMMARY | 2025-08-26 15:40 | XMS_ITS | Encounter Summary ---
Author Organization [employer] Address [address] [place] [address] 7 [place] [address] Care Team Providers Care Greenhouse Instructor Name Role Phone Mecca Couch MD Primary Care Pro vider Lizeth Singleton RN Unavailable Unavailable Reason for Visit * Reason Comments Med Refill Encounter Details Date Type Department Care Team (Late Contact Info) Description 06/11/2023 Refill [facility] MEDICINE 230 [place], [place] [phone] Mecca Couch MD 230 [place] [address] Essential hypertension Social History Tobacco Use Types [...] Department Care Team (Late Contact Info) Description 10/10/2025 1:30 PM EST Clinical Support [address] [address] 10/20/2025 9:00 AM EST Office Visit [address] [address] Mecca Couch MD [address] [place] [address] documented as of this encounter Visit Diagnoses Diagnosis Essential hypertension Unspecified essential hypertension documented in this encounter Additional Health Concerns Assessment Noted Time PHQ-9 Depression Total Score: 6 04/01/20 23 9:29 AM EDT documented as of this encounter Care Teams Greenhouse Instructor Relationship Specialty Start Date End Date Mecca Couch MD [address] [place] [address] PCP - General Internal Medicine 03/28/23 Lizeth Singleton RN [address] [place] [address] Registered Nurse Family Medicine 05/12/25 06/07/25 documented as of this encounter
--- OUTSIDE RECORDS SUMMARY | 2025-08-26 15:40 | XMS_ITS | Encounter Summary ---
Author Organization [employer] Address [address] [place] [address] 7 [place] [address] Care Team Providers Care Pond Supervisor Name Role Phone Mecca Couch MD Primary Care Pro vider Lizeth Singleton RN Unavailable Unavailable Reason for Visit * Reason Onset Date Comments Med Refill 07/08/2023 Encounter Details Date Type Department Care Team ([facility] st Contact Info) Description 07/08/2023 Telephone [facility] MEDICINE 230 [place], [place] [phone] Mecca Couch MD 230 [place], [place] [phone] Med Refill Social History Tobacco Use Types [...] 1:37 PM EDT Medication was sent to [facility][id number] on 06/13/23 with 2 refills. * Telephone Encounter - Evangelina Sawyer - 07/08/2023 1:27 PM EDT Tc from pt requesting medication refill on dulaglutide (Trulicity) 0.75 MG/0.5ML solution pen-injector documented in this encounter Plan of Treatment Upcoming Encounters Date Type Department Care Team (Late st Contact Info) Description 10/10/2025 1:30 PM EST Clinical Support [address] [address] 10/20/2025 9:00 AM EST Office Visit [address] [address] Mecca Couch MD [address] [place] [address] documented as of this encounter Visit Diagnoses Not on filedocumented in this encounter Additional Health Concerns Assessment Noted Time PHQ-9 Depression Total Score: 6 04/01/20 23 9:29 AM EDT documented as of this encounter Care Teams Pond Supervisor Relationship Specialty Start Date End Date Mecca Couch MD [address] [place] [address] PCP - General Internal Medicine 03/28/23 Lizeth Singleton RN [address] [place] [address] Registered Nurse Family Medicine 05/12/25 06/07/25 documented as of this encounter
--- OUTSIDE RECORDS SUMMARY | 2025-08-26 15:40 | XMS_ITS | Encounter Summary ---
Author Organization [employer] Address [address] [place] [address] 7 [place] [address] Care Team Providers Care Supervisor Pipeline Name Role Phone Mecca Couch MD Primary Care Pro vider Lizeth Singleton RN Unavailable Unavailable Reason for Visit * Reason Comments Med Refill Encounter Details Date Type Department Care Team (Late Contact Info) Description 06/05/2023 Refill [facility] MEDICINE 230 [place], [place] [phone] Mecca Couch MD 230 [place] [address] Essential hypertension Social History Tobacco Use Types [...] Description 10/10/2025 1:30 PM EST Clinical Support [address] [address] 10/20/2025 9:00 AM EST Office Visit [address] [address] Mecca Couch MD [address] [place] [address] documented as of this encounter Visit Diagnoses Diagnosis Essential hypertension Unspecified essential hypertension documented in this encounter Additional Health Concerns Assessment Noted Time PHQ-9 Depression Total Score: 6 04/01/20 23 9:29 AM EDT documented as of this encounter Care Teams Supervisor Pipeline Relationship Specialty Start Date End Date Mecca Couch MD [address] [place] [address] PCP - General Internal Medicine 03/28/23 Lizeth Singleton RN [address] [place] [address] Registered Nurse Family Medicine 05/12/25 06/07/25 documented as of this encounter
--- OUTSIDE RECORDS SUMMARY | 2025-08-26 15:40 | XMS_ITS | Encounter Summary ---
Author Organization [employer] Address [address] [place] [address] 7 [place] [address] Care Team Providers Care Ship Engineer Name Role Phone Mecca Couch MD Primary Care Pro vider Reason for Visit * Reason Onset Date Comments call back request 08/09/2025 Encounter Details Date Type Department Care Team ([facility] st Contact Info) Description 08/09/2025 Telephone [facility] MEDICINE 230 [place], [place] [phone] Mecca Couch MD 230 [place] [address] call back request Social History Tobacco Use Types Packs/Day Years [...] encounter Miscellaneous Notes * Telephone Encounter - Starla Valdez - 08/09/2025 12:36 PM EDT Tc from retuning call from encounter 08/09 Please contact pt at [phone] documented in this encounter Plan of Treatment Upcoming Encounters Date Type Department Care Team ([facility] st Contact Info) Description 10/10/2025 1:30 PM EST Clinical Support [facility] MEDICINE [address] [place] [address] 10/20/2025 9:00 AM EST Office Visit [facility] [address] [place] [address] Mecca Couch MD [address] [place] [address] documented as of this encounter Visit Diagnoses Not on filedocumented in this encounter Additional Health Concerns Assessment Noted Time PHQ-9 Depression Total Score: 22 025 10:39 AM EDT documented as of this encounter Care Teams Ship Engineer Relationship Specialty Start Date End Date Mecca Couch MD [address] [place] [address] PCP - General Internal Medicine 03/28/23 documented as of this encounter
--- OUTSIDE RECORDS SUMMARY | 2025-08-26 15:40 | XMS_ITS | Encounter Summary ---
Author Organization [email or web address] Address [address] [place] [address] 7 [place] [address] Care Team Providers Care Quantitative Analyst Developer Name Role Phone Mecca Couch MD Primary Care Pro vider Lizeth Singleton RN Unavailable Unavailable Reason for Visit * Reason Onset Date Comments Med Refill 07/06/2023 Encounter Details Date Type Department Care Team (Late st Contact Info) Description 07/06/2023 Refill [facility] MEDICINE 230 [place], [place] [phone] Mecca Couch MD 230 [place] [address] Social History Tobacco Use Types Packs/Day Years [...] Description 10/10/2025 1:30 PM EST Clinical Support [address] [address] 10/20/2025 9:00 AM EST Office Visit [address] [address] Mecca Couch MD [address] [place] [address] documented as of this encounter Visit Diagnoses Not on filedocumented in this encounter Additional Health Concerns Assessment Noted Time PHQ-9 Depression Total Score: 6 04/01/20 23 9:29 AM EDT documented as of this encounter Care Teams Quantitative Analyst Developer Relationship Specialty Start Date End Date Mecca Couch MD [address] [place] [address] PCP - General Internal Medicine 03/28/23 Lizeth Singleton RN [address] [place] [address] Registered Nurse Family Medicine 05/12/25 06/07/25 documented as of this encounter
--- OUTSIDE RECORDS SUMMARY | 2025-08-26 15:40 | XMS_ITS | Clinical Summary ---
Author Organization [address] [place] [address] [place] [phone] Phone Care Team Providers Care Roll Forming Machine Set Up Mechanic Name Role Phone Delta Couch MD Primary [...] Date Diagnosed Date Anxiety 09/09/2024 Bipolar disorder ([facility] V24, [facility] V28) 05/2024 Hypertriglyceridemia 09/09/2024 Female stress incontinence 09/09/2024 Fibromyalgia 09/09/2024 T2DM (type 2 diabetes mellitus) ([facility] V24, [facility] V28) 09/09/2024 HTN (hypertension) 09/09/2024 GERD [...] Last Done Comments Breast Cancer Screening 1965 Colorectal Cancer Screening: Colonoscopy 1967 Diabetes: Annual GFR (Glomer ular Filtration [...] Cervical Cancer Screening: P ap Smear 1988 RSV Immunization Adult Patie nts (1 - Risk 50-74 years 1-dose series) 2017 Zoster Vaccines (1 of 2) 2017 Cholesterol Screening (Lipid Panel) 08/06/2024 HIV Screening 08/06/2024 Hepatitis C Screening [...] topic Insurance MEDICAID - [place] Care Teams Roll Forming Machine Set Up Mechanic Relationship Specialty Start Date End Date Delta Couch MD [address] [phone] PCP - General 04/20/24
--- OUTSIDE RECORDS SUMMARY | 2025-08-26 15:41 | XMS_ITS | Encounter Summary ---
Author Organization [employer] Address [address] [place] [address] 7 [place] [address] Care Team Providers Care Studio Operator Name Role Phone Mecca Couch MD Primary Care Pro vider Lizeth Singleton RN Unavailable Unavailable Reason for Visit * Reason Onset Date Comments Med Refill 09/01/2023 Encounter Details Date Type Department Care Team ([facility] st Contact Info) Description 09/01/2023 Refill [facility] MEDICINE 230 [place], [place] [phone] Mecca Couch MD 230 [place] [address] Social History Tobacco Use Types Packs/Day Years [...] Description 10/10/2025 1:30 PM EST Clinical Support [address] [address] 10/20/2025 9:00 AM EST Office Visit [address] [address] Mecca Couch MD [address] [place] [address] documented as of this encounter Visit Diagnoses Not on filedocumented in this encounter Additional Health Concerns Assessment Noted Time PHQ-9 Depression Total Score: 6 04/01/20 23 9:29 AM EDT documented as of this encounter Care Teams Studio Operator Relationship Specialty Start Date End Date Mecca Couch MD [address] [place] [address] PCP - General Internal Medicine 03/28/23 Lizeth Singleton RN [address] [place] [address] Registered Nurse Family Medicine 05/12/25 06/07/25 documented as of this encounter
--- OUTSIDE RECORDS SUMMARY | 2025-08-26 15:41 | XMS_ITS | Continuity of Care Document ---
Author Organization [place] - [facility], [facility] Address [address] [place] [address] Care Team Providers Care Health Advisor Name Role Phone ADONIS PETE Referring Provider [phone] Assessment Encounter Date Assessment Date Assessment LastModified by Organization Details LastModified Time 08/24/2025 08/24/2025 Assessment: Extreme pain today utilizing the same activities and exercises as last session. Patient demonstrating functional extension and flexion ROM but is limited by pain at both end ranges. No instability within knee with valgus/varus stress testing at 0 and 30 degrees with (-) Mesfin and (-) sag sign. Patient unable to withstand any resistance other than gravity in [place] exercises. Patient did perform level 2 step ups today which is an increase from previous ability to complete level 1 box step ups. Plan: Continue 1-2x/wk with LE stretch/strength programming to tolerance. [email or web address] Not available 08/24/2025 14:29:52 Plan of Treatment Reminders Order Date Submit Date Provider Last Modified By Organization Details Last Modified Time Details Appointments PT FOLLOW -UP 025 12:30PM ERICA MEJÍA PT Not available Not available Not available PT FOLLOW -UP 025 12:30PM Edmar Boogie DPAnh Not available Not available Not available PT FOLLOW -UP 025 01:00PM ERICA MEJÍA PT Not available Not available Not available PT FOLLOW -UP 025 11:30AM ERICA MEJÍA PT Not available Not available Not available Lab None record ed. Referral None record ed. Procedures None record ed. Surgeries None record ed. Imaging None record ed. Medication Orders None record ed. Patient TargetsNo targets recorded. Patient InstructionsNo instructions recorded. Reason for Referral None Reported. Problems Name Problem SNOMED Code Status Onset Date Resolution Date Notes Provider Name and Address Organization Details Recorded Time Pain of left knee region 861416204969643 Active 2024 Neida bello [facility] 13:34:03 Problem Notes None recorded. Procedures Surgical History Date Name Laterality Status Provider Name and Address Organization Details Recorded Time 82626 Therapeutic Exercise (1:1) completed ERICA ALFONZO, PT [address], [place], [address], [facility] 08/23/2025 21:43:36 60996: Hot or Cold Pack completed ERICA ALFONZO, PT [address], [place], [address], [facility] 08/23/2025 21:43:36 86429: Manual therapy completed ERICA ALFONZO, PT [address], [place], [address], [facility] 08/23/2025 21:43:36 [address]888 Therapeutic Exercise (1:1) completed ERICA ALFONZO, PT [address], [place], [address], [facility] 08/21/2025 20:19:55 5 [address]: Hot or Cold Pack completed ERICA ALFONZO, PT [address], [place], [address], [facility] 08/19/2025 00:00:21 43684: Manual therapy completed ERICA ALFONZO, PT [address], [place], [address], [facility] 08/19/2025 00:00:21 [address]806 Therapeutic Exercise (1:1) completed ERICA ALFONZO, PT [address], [place], [address], [facility] 08/16/2025 13:02:26 15588: Hot or Cold Pack completed ERICA MEJÍA, PT [address], [place], [address], [facility] 08/16/2025 08:36:03 83976: Manual therapy completed ERICA MEJÍA, PT [address], [place], [address], [facility] 08/16/2025 13:02:44 [address]0742 Therapeutic Exercise (1:1) completed Nigel Howard, AT [address], [place], [address], [facility] 08/09/2025 12:29:15 02922: Hot or Cold Pack completed Nigel Howard, AT [address], [place], [address], [facility] 08/09/2025 13:40:37 20331: Manual therapy completed Nigel Howard, AT [address], [place], [address], [facility] 08/09/2025 12:29:15 21862 Therapeutic Exercise (1:1) completed Nigel Howard, AT [address], [place], [address], [facility] 08/03/2025 14:27:14 71188: Manual therapy completed Nigel Howard, AT [address], [place], [address], [facility] 08/03/2025 14:27:22 48715 Therapeutic Exercise (1:1) completed ERICA MEJÍA, PT [address], [place], [address], [facility] 07/28/2025 21:47:42 06190: Low complexity PT Eval completed ERICA MAXWELLTTON, PT [address], [place], [address], [facility] 07/28/2025 21:47:38 Imaging Results None recorded. Procedure Notes None recorded. Medical Equipment None Reported. Medications Name Sig Start Date Stop Date Status Note LastModified by Organization Details LastModified Time celecoxib 200 mg capsule TAKE 1 CAPSULE BY MOUTH EVERY DAY active Not Available Not Available No t Available atorvastatin 80 mg tablet TAKE 1 TABLET (80 MG) BY MOUTH IN THE MORNING active Not Available Not Available Not Available nystatin 100,000 unit/mL oral suspension TAKE 5 ML'S BY MOUTH 4 TIMES DAILY FOR 14 DAYS active Not Available Not Available Not Available acetaminophe n 325 mg tablet TAKE 1 TABLET BY MOUTH EVERY 4 HOURS NEEDED FOR PAIN active Not Available Not Available No t Available prazosin 1 mg capsule TAKE ONE (1) CAPSULE BY MOUTH DAILY AND TWO (2) CAPSULES AT BEDTIME active Not Available Not Available No t Available hydroxyzine pamoate 50 mg capsule TAKE 1 CAPSULE BY MOUTH EVERY DAY NEEDED FOR ANXIETY active Not Available Not Available No t Available oxcarbazepin e 300 mg tablet TAKE 1 TABLET BY MOUTH EVERY DAY IN THE MORNING AND TAKE 2 TABLETS AT BEDTIME active Not Available Not Available No t Available tramadol 50 mg tablet TAKE 1 TABLET BY MOUTH EVERY 8 HOURS NEEDED FOR SEVERE PAIN FOR UP TO 5 DAYS active Not Available Not Available No t Available quetiapine 100 mg tablet TAKE 1 TABLET BY MOUTH EVERYDAY AT BEDTIME active Not Available Not Available No t Available risperidone 3 mg tablet TAKE 1/2 TABLET BY MOUTH EVERY MORNING AND TAKE 1 TABLET EVERY EVENING active Not Available Not Available No t Available acetaminophe n ER 650 mg tablet,exten ded release PLEASE SEE ATTACHED FOR DETAILED DIRECTIONS active Not Available Not Available N ot Available famotidine 20 mg tablet TAKE 1 TABLET BY MOUTH AT BEDTIME active Not Available Not Available No t Available trazodone 100 mg tablet TAKE 2 TABLETS BY MOUTH EVERY DAY AT BEDTIME active Not Available Not Available No t Available baclofen 10 mg tablet TAKE 1 TABLET (10 MG) BY MOUTH NEEDED IN THE MORNING , AT NOON, AND AT BEDTIME FOR MUSCLE SPASMS active Not Available Not Available No t Available lidocaine 5 % topical patch PLEASE SEE ATTACHED FOR DETAILED DIRECTIONS active Not Available Not Available N ot Available metoprolol tartrate 50 mg tablet TAKE 1 TABLET BY MOUTH TWICE A DAY active Not Available Not Available No t Available Banophen 25 mg capsule TAKE 2 CAPSULES BY MOUTH AT BEDTIME NEEDED active Not Available Not Available No t Available ibuprofen 600 mg tablet TAKE 1 TABLET BY MOUTH EVERY 6 HOURS NEEDED FOR PAIN active Not Available Not Available No t Available estradiol 0.01% (0.1 mg/gram) vaginal cream INSERT 1 GRAM INTO THE VAGINA ONCE PER DAY FOR 2 WEEKS THEN TWICE WEEKLY THEREAFTER active Not Available Not Available N ot Available methylpredni solone 4 mg tablets in a dose pack TAKE 6 TABLETS ON DAY 1 DIRECTED ON PACKAGE AND DECREASE BY 1 TAB EACH DAY FOR A TOTAL OF 6 DAYS active Not Available Not Available No t Available losartan 100 mg tablet TAKE 1 TABLET BY MOUTH EVERY DAY IN THE MORNING active Not Available Not Available No t Available Ventolin HFA 90 mcg/actuatio n aerosol inhaler INHALE 2 PUFFS BY MOUTH EVERY 4 HOURS active Not Available Not Available No t Available cholestyrami ne (with sugar) 4 gram oral powder PLEASE SEE ATTACHED FOR DETAILED DIRECTIONS active Not Available Not Available N ot Available duloxetine 60 mg capsule,carolina yed release TAKE 1 CAPSULE BY MOUTH TWICE A DAY active Not Available Not Available No t Available quetiapine 50 mg tablet TAKE 1 TABLET BY MOUTH EVERYDAY AT BEDTIME active Not Available Not Available No t Available FreeStyle Lite Strips USE TO TEST BLOOD SUGAR ONCE DAILY active Not Available Not Available N ot Available Myrbetriq 25 mg tablet,exten ded release TAKE 1 TABLET BY MOUTH EVERY DAY DO NOT CRUSH OR CHEW active Not Available Not Available No t Available Anoro Ellipta 62.5 mcg-25 mcg/actuatio n powder for inhalation INHALE 1 PUFF BY MOUTH DAILY active Not Available Not Available Not Available Trulicity 1.5 mg/0.5 mL subcutaneous pen injector INJECT 1.5 MG UNDER THE SKIN 1 (ONE) TIME PER WEEK. active Not Available Not Available No t Available Arnuity Ellipta 100 mcg/actuatio n powder for inhalation INHALE 1 PUFF DAILY active Not Available Not Available N ot Available Voltaren Arthritis Pain 1 % topical gel APPLY 2 GRAMS TO THE AFFECTED AREA(S) BY TOPICAL ROUTE 4 TIMES PER DAY 2024 active Not Available Not Available Not Avai lable Trulicity 3 mg/0.5 mL subcutaneous pen injector INJECT 3 MG UNDER THE SKIN EVERY 7 (SEVEN) DAYS. active Not Available Not Available No t Available Mounjaro 2.5 mg/0.5 mL subcutaneous pen injector INJECT ONE PEN (=2.5MG) SUBCUTANEOU SLY ONCE A WEEK DIRECTED active Not Available Not Available No t Available Vitals None Recorded Social History None recorded. Functional Status None recorded. Mental Status None recorded. Family History Nothing Reported. Medical History No medical history recorded. Gynecological HistoryNo gynecological history recorded. Obstetrics History GPAL:G 0 P 0 0 0 0 Past Encounters Encounter ID Performer Location Encounter Start Date Encounter Closed Date Diagnosis/Indication Diagnosis SNOMED-CT Code Diagnosis ICD10 Code Diagnosis IMO Codes Diagnosis Note [id number] ERICA MEJÍA, PT [facility] [address] [place] [address] 07/28/2025 15:11:14 07/28/2025 16:11:15 Contusion of left knee [id number] S80.02XA [id number] Nigel Howard, AT [facility] [address] [place] [address] 08/03/2025 12:00:57 08/03/2025 12:58:55 Contusion of left knee [id number] [id number] Nigel Anita, AT [facility] [address] [place] [address] 08/09/2025 11:05:34 08/09/2025 11:50:39 Contusion of left knee [id number] S80.02XA [id number] ERICA MEJÍA, PT [facility] [address] [place] [address] 08/16/2025 11:22:16 08/16/2025 12:04:35 Contusion of left knee [id number] [id number] ERICA MAXWELLTTON, PT [facility] [address] [place] [address] 08/19/2025 13:26:56 08/19/2025 14:01:40 Contusion of left knee [id number] [id number] ERICA MEJÍA, PT [facility] [address] [place] [address] 08/24/2025 12:57:13 08/24/2025 16:40:25 Contusion of left knee [id number] [id number] Health Concerns Section Related Observation LastModified by Organization Detai ls LastModified Time None Recorded Concern Status LastModified by Organization Details LastModified Time None Recorded Payers Encounter Date Sequence Insurance Name Policy Number Policy Roberts Covered Member ID Roberts Member ID Guarantor Name 08/24/2025 1 [place]: [facility] Mecca Lundy [id number] Mecca Lundy Notes Date Note Type Note Provider Name and Address Organization Details Recorded Time 08/24/2025 text/html Patient presents today reporting 9/10 pain. Pt needs to leave at 2:30 for another appointment. ERICA MEJÍA, PT [address], [place], [address], [facility] 08/24/2025 14:30:32 OBGyn Episode No OBEpisode recorded.
--- OUTSIDE RECORDS SUMMARY | 2025-08-26 15:41 | XMS_ITS | Encounter Summary ---
Author Organization [employer] Address [address] [facility] 7t [place] [address] Care Team Providers Care Semiconductor Bonder Name Role Phone Mecca Couch MD Primary Care Pro vider Lizeth Singleton RN Unavailable Unavailable Reason for Visit * Reason Comments Med Refill Encounter Details Date Type Department Care Team (Late Contact Info) Description 06/30/2023 Refill [facility] MEDICINE [address] [place] [address] Cinthya Mckeon FNP [address] [place] [address] Essential hypertension Social History Tobacco Use Types [...] Description 10/10/2025 1:30 PM EST Clinical Support [address] [address] 10/20/2025 9:00 AM EST Office Visit [address] [address] Mecca Couch MD [address] [place] [address] documented as of this encounter Visit Diagnoses Diagnosis Essential hypertension Unspecified essential hypertension documented in this encounter Additional Health Concerns Assessment Noted Time PHQ-9 Depression Total Score: 6 04/01/20 23 9:29 AM EDT documented as of this encounter Care Teams Semiconductor Bonder Relationship Specialty Start Date End Date Mecca Cocuh MD [address] [place] [address] PCP - General Internal Medicine 03/28/23 Lizeth Singleton RN [address] [place] [address] Registered Nurse Family Medicine 05/12/25 06/07/25 documented as of this encounter
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
--- OUTSIDE RECORDS SUMMARY | 2025-08-26 15:41 | XMS_ITS | Encounter Summary ---
Author Organization [employer] Address [address] [place] [address] 7 [place] [address] Care Team Providers Care Head Worker Name Role Phone Mecca Couch MD Primary Care Pro vider Lizeth Singleton RN Unavailable Unavailable Reason for Visit * Reason Onset Date Comments Medication Problem 11/27/2023 Encounter Details Date Type Department Care Team ([facility] st Contact Info) Description 11/27/2023 Telephone [facility] MEDICINE [address] [place], [place] [phone] Mecca Couch MD 230 [place], [place] [phone] Medication Problem Social History Tobacco Use Types [...] Description 10/10/2025 1:30 PM EST Clinical Support [address] [address] 10/20/2025 9:00 AM EST Office Visit [address] [address] Mecca Couch MD 230 [place] [address] documented as of this encounter Visit Diagnoses Not on filedocumented in this encounter Additional Health Concerns Assessment Noted Time PHQ-9 Depression Total Score: 6 04/01/20 23 9:29 AM EDT documented as of this encounter Care Teams Head Worker Relationship Specialty Start Date End Date Mecca Couch MD 230 [place] [address] PCP - General Internal Medicine 03/28/23 Lizeth Singleton RN 230 [place] [address] Registered Nurse Family Medicine 05/12/25 06/07/25 documented as of this encounter
--- OUTSIDE RECORDS SUMMARY | 2025-08-26 15:41 | XMS_ITS | Encounter Summary ---
Author Organization [employer] Address [address] [place] [address] 7 [place] [address] Care Team Providers Care Submarine Advisory Team Watch Officer Name Role Phone Mecca Couch MD Primary Care Pro vider Lizeth Singleton RN Unavailable Unavailable Reason for Visit * Reason Onset Date Comments Med Refill 07/20/2024 Encounter Details Date Type Department Care Team ([facility] st Contact Info) Description 07/20/2024 Refill [facility] MEDICINE 230 [place], [place] [phone] Mecca Couch MD 230 [place] [address] Type 2 diabetes mellitus with other circulatory complication, without long-term current use of insulin ([facility]) Social History Tobacco Use Types Packs/Day Years [...] is your housing situation today? I have gabinoloan wright 02/11/[address] you [...] Description 10/10/2025 1:30 PM EST Clinical Support [facility] MEDICINE [address] [place] [address] 10/20/2025 9:00 AM EST Office Visit [facility] MEDICINE [address] [place] [address] Mecca Couch MD [address] [place] [address] documented as of this encounter Visit Diagnoses Diagnosis Type 2 diabetes mellitus with other circulatory complication, without long-term current use of insulin (HCC) documented in this encounter Additional Health Concerns Assessment Noted Time PHQ-9 Depression Total Score: 10 024 2:38 PM EDT documented as of this encounter Care Teams Submarine Advisory Team Watch Officer Relationship Specialty Start Date End Date Mecca Couch MD [address] [place] [address] PCP - General Internal Medicine 03/28/23 Lizeth Singleton RN [address] [place] [address] Registered Nurse Family Medicine 05/12/25 06/07/25 documented as of this encounter
--- OUTSIDE RECORDS SUMMARY | 2025-08-26 15:41 | XMS_ITS | Encounter Summary ---
Author Organization [employer] Address [address] [place] [address] 7 [place] [address] Care Team Providers Care Engineering Team Supervisor Name Role Phone Mecca Couch MD Primary Care Pro vider Lizeth Singleton RN Unavailable Unavailable Reason for Visit * Reason Comments Med Refill Encounter Details Date Type Department Care Team ([facility] st Contact Info) Description 11/26/2024 Refill [facility] MEDICINE 230 [place], [place] [phone] Mecca Couch MD 230 [place] [address] Social History Tobacco Use Types Packs/Day Years [...] Description 10/10/2025 1:30 PM EST Clinical Support [address] [address] 10/20/2025 9:00 AM EST Office Visit [address] [address] Mecca Couch MD [address] [place] [address] documented as of this encounter Visit Diagnoses Not on filedocumented in this encounter Additional Health Concerns Assessment Noted Time PHQ-9 Depression Total Score: 10 024 2:38 PM EDT documented as of this encounter Care Teams Engineering Team Supervisor Relationship Specialty Start Date End Date Mecca Couch MD [address] [place] [address] PCP - General Internal Medicine 03/28/23 Lizeth Singleton RN [address] [place] [address] Registered Nurse Family Medicine 05/12/25 06/07/25 documented as of this encounter
--- OUTSIDE RECORDS SUMMARY | 2025-08-26 15:41 | XMS_ITS | Encounter Summary ---
Author Organization [employer] Address [address] [place] [address] [address] [place] [address] Care Team Providers Care Rubber Liner Name Role Phone Mecca Couch MD Primary Care Pro vider Lizeth Singleton RN Unavailable Unavailable Reason for Visit * Reason Comments Med Refill Encounter Details Date Type Department Care Team ([facility] st Contact Info) Description 12/01/2024 Refill [facility] MEDICINE [address] [place], [place] [phone] Mecca Couch MD 230 [place] [address] Social History Tobacco Use Types Packs/Day Years [...] Description 10/10/2025 1:30 PM EST Clinical Support [address] [address] 10/20/2025 9:00 AM EST Office Visit [address] [address] Mecca Couch MD [address] [place] [address] documented as of this encounter Visit Diagnoses Not on filedocumented in this encounter Additional Health Concerns Assessment Noted Time PHQ-9 Depression Total Score: 10 024 2:38 PM EDT documented as of this encounter Care Teams Rubber Liner Relationship Specialty Start Date End Date Mecca Couch MD [address] [place] [address] PCP - General Internal Medicine 03/28/23 Lizeth Singleton RN [address] [place] [address] Registered Nurse Family Medicine 05/12/25 06/07/25 documented as of this encounter
--- OUTSIDE RECORDS SUMMARY | 2025-08-26 15:41 | XMS_ITS | Data Portability ---
Author Organization [place] - [facility], [facility] Address [address] [place] [address] Care Team Providers Care Financial Sales Advisor Name Role Phone ADONIS ROYAL Referring Provider Assessment Encounter Date Assessment Date Assessment LastModified by Organization Details LastModified Time 08/03/2025 08/03/2025 Assessment: Poor tolerance to ther-ex with high pains and severe limits of quad activation and knee mobility. Plan: Continue mobility exercises and quad activation exercises to improve gait. Not available 08/03/2025 14:32:22 08/09/2025 08/09/2025 Assessment: Nice gains with flexion/extensio n measure. Plan: Continue 1-2x/wk with LE stretch/strength programming. Not available 08/09/2025 13:42:25 08/16/2025 08/16/2025 Assessment: Patient demonstrated increased pain during session today. Patient able to complete exercises but with continued difficulty and pain. No abnormalities with palpation, good patellar mobility, open end feel within extension and flexion of the knee with limitations by pain . Plan: Continue 1-2x/wk with LE stretch/strength programming to tolerance. Not available 08/16/2025 13:02:12 08/19/2025 08/19/2025 Assessment: Patient able to tolerate more exercises and activities this session. Patient demonstrating full passive and active knee extension. Patient able to tolerate 2 inch box step up this session. Antalgic gait with decreased time in SLS on LLE. Plan: Continue 1-2x/wk with LE stretch/strength programming to tolerance. [email or web address] Not available 08/21/2025 20:19:38 08/24/2025 08/24/2025 Assessment: Extreme pain today utilizing [...] 1-2x/wk with LE stretch/strength programming to tolerance. [email or web address] Not available 08/24/2025 14:29:52 Plan of Treatment Reminders Order Date Submit Date Provider Last Modified By Organization Details Last Modified Time Details Appointments PT FOLLOW -UP 12:30PM ERICA MEJÍA PT Not available Not available Not available PT FOLLOW -UP 025 12:30PM Edmar Boogie DPT Not available Not available Not available PT [...] instructions recorded. Reason for Referral None Reported. Results Created Date Observation Date Name Description Value Unit Range Abnormal Flag Note LastModifiedBy Organization Detail LastModifiedTime 07/06/2007/06/2025 XR, knee, 4 or more view http:/ [email or web address] ?Encry pted=s hAaTro YD8dLq bEUv6g %2BXZw aYqtaq 0bqfl% 2Fg9IQ a4ajBk vP9nXo QUaueC m3YtLR FvZlgJ JJ8mAn HZtai3 6b3461 AC0Klb 3WMV6q nKiQtr MwF INTERFACE [facility] [address] [facility] [address], [place], [address], 07/06/2025 13:39:39 07/06/20 25 07/06/2025 XR, knee, 4 or more view http:/ [email or web address] ?Encry pted=s hAaTro YD8dLq bEUv6g %2BXZw aYqtaq 0bqfl% 2Fg9IQ a4ajBk vP9nXo QUaueC m3YtLR FvZlgJ JJ8mAn HZtai3 8p8027 AC0Klb 3WMV6q nKiQtr MwF INTERFACE [facility] [address], [place], [address], 07/06/2025 13:39:41 Result Notes None recorded. Problems Name Problem SNOMED Code Status Onset Date Resolution Date Notes Provider Name and Address Organization Details Recorded Time Pain of left knee region [id number] [facility] 13:34:03 Problem Notes None recorded. Procedures Surgical History Date Name Laterality Status Provider Name and Address Organization Details Recorded Time 5 16122 Therapeutic Exercise (1:1) completed ERICA ALFONZO, PT [address] [facility], [place], [address], [facility] 08/23/2025 21:43:36 87687: Hot or Cold Pack completed ERICA MEJÍA, PT [address], [place], [address], [facility] 08/23/2025 21:43:36 28235: Manual therapy completed ERICAELIAS HERZOGON, PT [address], [place], [address], [facility] 08/23/2025 21:43:36 5 [address]909 Therapeutic Exercise (1:1) completed ERICA ALFONZO, PT [address], [place], [address], [facility] 08/21/2025 20:19:55 75422: Hot or Cold Pack completed ERICA ALFONZO, PT [address], [place], [address], [facility] 08/19/2025 00:00:21 13772: Manual therapy completed ERICA ALFONZO, PT [address], [place], [address], [facility] 08/19/2025 00:00:21 46179 Therapeutic Exercise (1:1) completed ERICA ALFONZO, PT [address], [place], [address], [facility] 08/16/2025 13:02:26 65384: Hot or Cold Pack completed ERICA ALFONZO, PT [address], [place], [address], [facility] 08/16/2025 08:36:03 58428: Manual therapy completed ERICA ALFONZO, PT [address], [place], [address], [facility] 08/16/2025 13:02:44 79794 Therapeutic Exercise (1:1) completed Nigel Howard, AT [address], [place], [address], [facility] 08/09/2025 12:29:15 56814: Hot or Cold Pack completed Nigel Howard, AT [address], [place], [address], [facility] 08/09/2025 13:40:37 19786: Manual therapy completed Nigel Howard, AT [address], [place], [address], [facility] 08/09/2025 12:29:15 07451 Therapeutic Exercise (1:1) completed Nigel Howard, AT [address], [place], [address], [facility] 08/03/2025 14:27:14 34731: Manual therapy completed Nigel Howard, AT [address], [place], [address], [facility] 08/03/2025 14:27:22 5 57233 Therapeutic Exercise (1:1) completed ERICA MEJÍA, PT [address], [place], [address], [facility] 07/28/2025 21:47:42 97249: Low complexity PT Eval completed ERICA MEJÍA, PT [address], [place], [address], [facility] 07/28/2025 21:47:38 Imaging Results None recorded. Procedure [...] ICD10 Code Diagnosis IMO Codes Diagnosis Note [id number] D[facility] [place] [facility] [address] [place] [address] 07/06/2025 12:53:00 07/27/2025 07:59:56 Pain of knee region [id number] M25.562 [id number] Adonis Royal PA-C [facility] [place] [address] [place] [address] 07/06/2025 12:50:05 07/19/2025 12:16:45 Pain of left knee region [id number] 58782 M25.562 [id number] ERICA EMJÍA, PT [facility] [address] [place] [address] 07/28/2025 15:11:14 07/28/2025 16:11:15 Contusion of left knee [id number] S80.02XA [id number] Nigel Howard, AT [facility] [address] [place] [address] 08/03/2025 12:00:57 08/03/2025 12:58:55 Contusion of left knee 0578848098 [id number] S80.02XA [id number] Nigel Howard, AT [facility] [address] [place] [address] 08/09/2025 11:05:34 08/09/2025 11:50:39 Contusion of left knee [id number] [id number] S80.02XA [id number] ERICA MEJÍA, PT [facility] [address] [place] [address] 08/16/2025 11:22:16 08/16/2025 12:04:35 Contusion of left knee [id number] S80.02XA [id number] ERICA MEJÍA, PT [facility] [address] [place] [address] 08/19/2025 13:26:56 08/19/2025 14:01:40 Contusion of left knee [id number] [id number] S80.02XA [id number] ERICA MEJÍA, PT [facility] [address] [place] [address] 08/24/2025 12:57:13 08/24/2025 16:40:25 Contusion of left knee [id number] S80.02XA [id number] Health Concerns Section Related Observation LastModified by Organization Detai ls LastModified Time None Recorded Concern Status LastModified by Organization Details LastModified Time None Recorded Advance Directives Directive None Recorded Payers Insurance Date Sequence Insurance Name Policy Number Policy Roberts Covered Member ID Roberts Member ID Guarantor Name 08/03/2025 1 [place] [facility] Mecca Lundy [id number] Mecca Lundy Notes Date Note Type Note Provider Name and Address Organization Details Recorded Time 08/03/2025 text/html Patient presents today reporting 9/10 pain. Pt arrives with c/o high pains and severe limits of function. Nigel Howard, AT [address] [facility], [place], [address], [facility] 08/03/2025 14:33:21 08/09/2025 text/html Patient presents today reporting 5/10 pain. Pt states feeling better movements with therapy and exercises. Nigel Howard, AT [address] [facility], [place], [address], [facility] 08/09/2025 13:43:07 08/16/2025 text/html Patient presents today reporting 8/10 pain. Pt states that their knee feels aggravated today. ERICA MEJÍA, PT [address] [facility] [address] [facility], [place], [address], [facility] 08/16/2025 13:03:06 08/19/2025 text/html Patient presents today reporting 8/10 pain. Pt states that they had increased knee pain after LV with some soreness today. ERICA MEJÍA, PT [address], [place], [address], [facility] 08/21/2025 20:20:34 08/24/2025 text/html Patient presents today reporting 9/10 pain. Pt needs to leave at 2:30 for another appointment. ERICA MEJÍA, PT [address], [place], [address], [facility] 08/24/2025 14:30:32 OBGyn Episode No OBEpisode recorded.
--- OUTSIDE RECORDS SUMMARY | 2025-08-26 15:41 | XMS_ITS | Encounter Summary ---
Author Organization [employer] Address [address] [place] [address] 7 [place] [address] Care Team Providers Care Project Management Director Name Role Phone Mecca Couch MD Primary Care Pro vider Lizeth Singleton RN Unavailable Unavailable Reason for Visit * Reason Comments Med Refill Encounter Details Date Type Department Care Team ([facility] st Contact Info) Description 11/26/2024 Refill [facility] MEDICINE 230 [place], [place] [phone] Mecca Couch MD 230 [place] [address] Social History Tobacco Use Types Packs/Day Years [...] Description 10/10/2025 1:30 PM EST Clinical Support [address] [address] 10/20/2025 9:00 AM EST Office Visit [address] [address] Mecca Couch MD [address] [place] [address] documented as of this encounter Visit Diagnoses Not on filedocumented in this encounter Additional Health Concerns Assessment Noted Time PHQ-9 Depression Total Score: 10 024 2:38 PM EDT documented as of this encounter Care Teams Project Management Director Relationship Specialty Start Date End Date Mecca Couch MD [address] [place] [address] PCP - General Internal Medicine 03/28/23 Lizeth Singleton RN [address] [place] [address] Registered Nurse Family Medicine 05/12/25 06/07/25 documented as of this encounter
--- OUTSIDE RECORDS SUMMARY | 2025-08-26 15:41 | XMS_ITS | Encounter Summary ---
Author Organization [employer] Address [address] [facility] 7t [place] [address] Care Team Providers Care Licensed Mortgage Loan Officer Name Role Phone Mecca Couch MD Primary Care Pro vider Lizeth Singleton RN Unavailable Unavailable Reason for Visit * Reason Comments Med Refill Encounter Details Date Type Department Care Team ([facility] st Contact Info) Description 04/07/2023 Refill [facility] MEDICINE 230 [place], [place] [phone] Mecca Mclain MD 230 [place] [address] Social History Tobacco Use Types Packs/Day Years [...] Description 10/10/2025 1:30 PM EST Clinical Support [address] [address] 10/20/2025 9:00 AM EST Office Visit [address] [address] Mecca Couch MD [address] [place] [address] documented as of this encounter Visit Diagnoses Not on filedocumented in this encounter Additional Health Concerns Assessment Noted Time PHQ-9 Depression Total Score: 6 04/01/20 23 9:29 AM EDT documented as of this encounter Care Teams Licensed Mortgage Loan Officer Relationship Specialty Start Date End Date Mecca Couch MD [address] [place] [address] PCP - General Internal Medicine 03/28/23 Lizeth Singleton RN [address] [place] [address] Registered Nurse Family Medicine 05/12/25 06/07/25 documented as of this encounter
--- OUTSIDE RECORDS SUMMARY | 2025-08-26 15:41 | XMS_ITS | Encounter Summary ---
Author Organization [employer] Address [address] [place] [address] 7 [place] [address] Care Team Providers Care Professor Of Geography Name Role Phone Mecca Couch MD Primary Care Pro vider Reason for Visit * Reason Comments Med Refill Encounter Details Date Type Department Care Team ([facility] st Contact Info) Description 08/24/2025 Refill [facility] MEDICINE 230 [place], [place] [phone] Mecca Couch MD 230 [place] [address] Type 2 diabetes mellitus with other circulatory complication, without long-term current use of insulin (HCC) Social History Tobacco Use Types Packs/Day Years [...] Description 10/10/2025 1:30 PM EST Clinical Support [facility] MED[facility]INE [address] [place] [address] 10/20/2025 9:00 AM EST Office Visit [facility] MED[facility]INE [address] [place] [address] Mecca Couch MD [address] [place] [address] documented as of this encounter Visit Diagnoses Diagnosis Type 2 diabetes mellitus with other circulatory complication, without long-term current use of insulin (HCC) documented in this encounter Additional Health Concerns Assessment Noted Time PHQ-9 Depression Total Score: 22 025 10:39 AM EDT documented as of this encounter Care Teams Professor Of Geography Relationship Specialty Start Date End Date Mecca Couch MD [address] [place] [address] PCP - General Internal Medicine 03/28/23 documented as of this encounter
--- OUTSIDE RECORDS SUMMARY | 2025-08-26 15:41 | XMS_ITS | Encounter Summary ---
Author Organization [employer] Address [address] [place] [address] 7 [place] [address] Care Team Providers Care Coding Technician Name Role Phone Mecca Couch MD Primary Care Pro vider Lizeth Singleton RN Unavailable Unavailable Reason for Visit * Reason Onset Date Comments Med Refill 08/14/2023 Encounter Details Date Type Department Care Team ([facility] st Contact Info) Description 08/14/2023 Telephone [facility] MEDICINE 230 [place], [place] [phone] Mecca Couch MD 230 [place], [place] [phone] Med Refill Social History Tobacco Use Types [...] Description 10/10/2025 1:30 PM EST Clinical Support [facility] MEDICINE [address] [place] [phone] 10/20/2025 9:00 AM EST Office Visit [facility] MEDICINE [address] [place] [address] Mecca Couch MD 230 [place], [place] [phone] documented as of this encounter Visit Diagnoses Not on filedocumented in this encounter Additional Health Concerns Assessment Noted Time PHQ-9 Depression Total Score: 6 04/01/20 23 9:29 AM EDT documented as of this encounter Care Teams Coding Technician Relationship Specialty Start Date End Date Mecca Couch MD 230 [place] [address] PCP - General Internal Medicine 03/28/23 Lizeth Singleton RN 230 [place] [address] Registered Nurse Family Medicine 05/12/25 06/07/25 documented as of this encounter
--- OUTSIDE RECORDS SUMMARY | 2025-08-26 15:41 | XMS_ITS | Encounter Summary ---
Author Organization [employer] Address [address] [place] [address], [place] [address] Care Team Providers Care Warp Dyeing Tender Name Role Phone Cinthya Mckeon Primary Care Provider [phone] Mecca Couch MD Primary Care Pro vider Lizeth Singleton RN Unavailable Unavailable Encounter Details Date Type Department Care Team (Late st Contact Info) Description 10/25/[address] [address] Cinthya Mcekon FNP [address], [place] [phone] Social History Tobacco Use Types Packs/Day Years [...] 10/10/2025 1:30 PM EST Clinical Support [address] [phone] 10/20/2025 9:00 AM EST Office Visit [address] [address] Mecca Couch MD 230 [place], [place] [phone] documented as of this encounter Visit Diagnoses Not on filedocumented in this encounter Care Teams Warp Dyeing Tender Relationship Specialty Start Date End Date Cinthya Mckeon FNP [address] [place] [address] PCP - General Family Medicine 06/27/22 03/27/23 Mecca Couch MD [address] [place] [address] PCP - General Internal Medicine 03/28/23 Lizeth Singleton RN [address] [place] [address] Registered Nurse Family Medicine 05/12/25 06/07/25 documented as of this encounter
--- OUTSIDE RECORDS SUMMARY | 2025-08-26 15:41 | XMS_ITS | Encounter Summary ---
Author Organization [employer] Address [address] [facility] [address] [place] [address] Care Team Providers Care Regulator Mechanic Name Role Phone Mecca Couch MD Primary Care Pro vider Reason for Visit * Reason Comments Med Refill Encounter Details Date Type Department Care Team ([facility] st Contact Info) Description 07/11/2025 Refill [facility] [address] [place], [place] [phone] Neida Barlow DO [address] [place] [address] Social History Tobacco Use Types Packs/Day Years [...] Description 10/10/2025 1:30 PM EST Clinical Support [address] [address] 10/20/2025 9:00 AM EST Office Visit [address] [address] Mecca Couch MD [address] [place] [address] documented as of this encounter Visit Diagnoses Not on filedocumented in this encounter Additional Health Concerns Assessment Noted Time PHQ-9 Depression Total Score: 22 025 10:39 AM EDT documented as of this encounter Care Teams Regulator Mechanic Relationship Specialty Start Date End Date Mecca Couch MD [address] [place] [id number] PCP - General Internal Medicine 03/28/23 documented as of this encounter
== END ==
LOC: HO.CARD 13:41
PROVIDERS: PCP Student in an Organized Health Care Education/Training Program
DX: R06.09 Other forms of dyspnea (principal)
CPT/HCPCS: 93306

== ENCOUNTER → 2025-08-26 13:47 | Outpatient (BNV) | payer MEDICAID, SELFPAY | PROVIDERS: PCP Student in an Organized Health Care Education/Training Program; Visit Provider Internal Medicine Cardiovascular Disease | DX: I51.89 Other ill-defined heart diseases (principal) | CPT/HCPCS: 93306 ==

== ENCOUNTER 2025-09-21 10:02 | Emergency (ER) | payer MEDICAID, SELFPAY ==
[2025-09-21 10:04] VITALS: BP 151/72; PULSE 73; RESP 18; TEMP 36.2; O2SAT 97; BMI 35.9
--- NOTE | 2025-09-21 10:06 | ED.SKABFB ---
HPI - Skin/Abscess/Foreign Bdy General Chief complaint: Dental/Oral Stated complaint: Mouth sores Time Seen by Provider: 09/21/25 10:14 Source: patient, RN notes reviewed and old records reviewed History of Present Illness ED Provider: Jessica Campbell PA-C HPI narrative: 52-year-old female with a past medical history of GERD, asthma, ANDRES, HTN, HLD, diabetes, presenting to the ED complaining of painful sore on right side of tongue x 2 months reports difficulty speaking and eating secondary to pain. Admits pain radiates to throat and ear. Admits previously saw PCP and was prescribed mouthwash without improvement. Denies injury/trauma, fever, inability to swallow, drainage from ear/hearing loss, concern of STIs. Sexually active with the same partner x 19 years Related Data Home Medications ?Medication ?Instructions ?Recorded ?Confirmed duloxetine 60 mg capsule,delayed 60 mg PO BID 12/22/20 12/01/24 release (Cymbalta) risperidone 3 mg tablet (Risperdal) 3 mg PO BEDTIME 12/22/20 07/26/25 amlodipine 10 mg tablet 10 mg PO DAILY 02/11/22 07/26/25 diphenhydramine HCl 25 mg capsule 25 mg PO BEDTIME PRN insomnia 02/11/22 07/26/25 (Banophen) hydroxyzine pamoate 50 mg capsule 50 mg PO DAILY PRN anxiety 02/11/22 07/26/25 epinephrine 0.3 mg/0.3 mL 0.3 mg IM ONCE PRN Anaphylaxis 04/22/23 07/26/25 injection, auto-injector losartan 50 mg tablet 50 mg PO QAM 04/22/23 07/26/25 oxcarbazepine 300 mg tablet 900 mg PO DAILY 04/22/23 07/26/25 prazosin 1 mg capsule 1 mg PO BID 04/22/23 07/26/25 albuterol sulfate 90 mcg/actuation 2 puff inhalation Q4H PRN Wheezing 06/11/23 07/26/25 aerosol inhaler (Ventolin HFA) aspirin 81 mg tablet,delayed 81 mg PO DAILY 06/11/23 07/26/25 release atorvastatin 20 mg tablet 20 mg PO DAILY 06/11/23 07/26/25 famotidine 20 mg tablet 20 mg PO BEDTIME 06/11/23 07/26/25 quetiapine 100 mg tablet 100 mg PO BEDTIME 07/26/25 07/26/25 tirzepatide 2.5 mg/0.5 mL 2.5 mg subcut QWEEK 07/26/25 07/26/25 subcutaneous pen injector (Flavia) tramadol 50 mg tablet 50 mg PO DAILY 07/26/25 07/26/25 Previous Rx's ?Medication ?Instructions ?Recorded cholestyramine (with sugar) 4 gram 4 g PO BID #756 grams 01/20/24 oral powder metoprolol tartrate 25 mg tablet 25 mg PO BID #60 tabs 03/15/24 omeprazole 40 mg capsule,delayed 40 mg PO BID #180 caps 09/13/24 release budesonide 160 mcg-glycopyr 9 2 inh inhalation BID #1 ea 11/18/24 mcg-formot 4.8 mcg/actuation HFA inhaler (Breztri Aerosphere) Magic Mouthwash 5 ml PO .Q6 PRN pain 5 days #100 mL 09/21/25 Diphen/Lido/Antacid 1:1:1 240 mL suspension Allergies Allergy/AdvReac Type Severity Reaction Status Date / Time bee pollen (BEE STINGS) Allergy Severe Anaphylaxis Verified 09/21/25 10:06 shrimp (SHRIMP) Allergy Severe Anaphylaxis Verified 09/21/25 10:06 gabapentin (GABAPENTIN) Allergy Intermediate memory loss Verified 09/21/25 10:06 TARA Inhibitors AdvReac Intermediate cough Uncoded 12/01/24 15:09 Review of Systems Review of Systems: Yes all other systems are reviewed and are negative Constitutional: Constitutional: Reports as per [facility] Past Medical History Attestation statement: The following information was validated with the patient. Source: old records reviewed Medical History Multinodular goiter Bipolar 1 disorder PTSD (post-traumatic stress disorder) Depression Fibromyalgia CAD (coronary artery disease) Hypertension High cholesterol Diabetes (~2015) Asthma Tubular adenoma of colon (~2017) Surgical History History of suburethral sling procedure Status post insertion of spinal cord stimulator History of elbow surgery History of colonoscopy History of hysterectomy History of appendectomy History of cholecystectomy History of carpal tunnel surgery Family History Family History Father Dialysis patient Mother HTN (hypertension) Diabetes Maternal Grandmother Stroke Maternal Grandfather Alcoholic Paternal Uncle Stomach cancer Family/Other Stomach cancer Maternal Uncle Lung cancer Social History Social History Alcohol intake: current Alcohol intake frequency: does not drink Patient Tobacco Use Status: Former Tobacco user Years Smoked: (onset 13yo, 1-2ppd x 31 - 45PYH - quit 2008) Advance Directives: No Advance Directives Information Provided: Yes Physical Exam Vital Signs: Vital Signs: Last Vital Signs Temp 97.2 F 09/21/25 10:30 Pulse 73 09/21/25 10:30 Resp 18 09/21/25 10:30 BP 151/72 H 09/21/25 10:30 Pulse Ox 97 09/21/25 10:30 O2 Del Method Room Air 09/21/25 10:30 BMI result Body Mass Index 35.9 Const: General: cooperative, healthy appearing and no acute distress Orientation/consciousness: patient oriented x3 Limitations: no limitations HEENT: Other: + flat erythematous patch noted to right lateral tongue. No ulceration. No fluctuance/induration or pustule. Tender to palpation. Head: Yes normal to inspection and Yes atraumatic Ears: hearing grossly normal bilaterally, TM's normal bilaterally and mastoids normal General nose exam: Normal external nose present Face and sinus: Yes normal facial exam Mouth: moist mucous membranes Eyes: General: appearance normal, both eyes and all related structures EOM: EOMs intact bilaterally Neck: Other: + small right-sided submandibular lymphadenopathy Neck: Yes normal visual inspection, Yes full ROM, Yes no meningeal signs, No anterior neck swelling and No torticollis Resp: Effort & Inspection: normal respiratory effort, no respiratory distress and no stridor Cardio: Rate: regular rate Skin: Wounds: no wounds Neuro: General: patient oriented x3, tone normal and no meningeal signs Cranial nerves: Yes CN's II-XII intact bilaterally Gait exam (Neuro): Normal gait present Extrem: General: Yes normal to inspection Medical Decision Making Medical Decision Making MDM Narrative: 52-year-old female with a past medical history of GERD, asthma, ANDRES, HTN, HLD, diabetes, presenting to the ED complaining of painful sore on right side of tongue x 2 months reports difficulty speaking and eating secondary to pain. On exam vital signs stable, NAD, nontoxic appearing physical exam as noted above. No evidence of ulceration or cellulitis. Uvula midline. No evidence of BLOW MOLDER/retropharyngeal abscess. Lower suspicion for STI. No evidence of SJS/TENs Plan: Magic mouthwash and ENT/dermatology follow-up. Discussed with patient at length likely needs biopsy No imaging indicated at this time Please refer to course for remaining clinical decision making, interpretation of labs/imaging results, and discussions with consultants and/or family members. Results discussed with patient including worrisome signs and symptoms and strict return precautions, and when to return to the emergency department. They verbalized understanding and feel safe for discharge at this time. Differential Diagnosis Differential Diagnoses: The differential diagnosis associated with the presentation includes As above External Record Review External record reviewed: Inpatient record, Office record, Outpatient record, Prior outpatient labs, Prior outpatient radiology, Primary care record and Outside ED record Tests considered The following testing was considered but not selected: As above Prescription Management I considered prescription management with: Pain Medication and Antibiotic Chronic Conditions Patient?s care impacted by: Diabetes, Hypertension and Other Social Determinants Patient?s care significantly limited by Social Determinants of Health including: Other Social Determinant of Health Discharge Plan Discharge Clinical Impression: Lesion of tongue Patient Disposition: Home, Self-Care Instructions: Skin Biopsy (DC) Additional Instructions: Use magic mouthwash as needed for symptomatic relief Please have close follow up with your PCP as well as ENT Your dentist and dermatology may also be helpful If area is growing, worsens, you have inability to swallow or fever return to the ED Prescriptions: New Magic Mouthwash Diphen/Lido/Antacid 1:1:1 240 mL suspension 5 ml PO .Q6 PRN (Reason: pain) 5 Days Qty: 100 0RF Rx Instructions: Lidocaine Viscous 2 % 80mL; diphenhydramine 12.5 mg/5 mL 80mL; aluminum-mag hydrox-simeth 859ko-549oj-37ml/5mL 80mL SWISH & SPIT No Action cholestyramine (with sugar) 4 gram powder 4 g PO BID Qty: 756 3RF omeprazole 40 mg capsule,delayed release(DR/EC) 40 mg PO BID Qty: 180 1RF atorvastatin 20 mg tablet 20 mg PO DAILY aspirin 81 mg tablet,delayed release (DR/EC) 81 mg PO DAILY famotidine 20 mg tablet 20 mg PO BEDTIME albuterol sulfate [Ventolin HFA] 90 mcg/actuation HFA aerosol inhaler 2 puff INHALATION Q4H PRN (Reason: Wheezing) risperidone [Risperdal] 3 mg tablet 3 mg PO BEDTIME duloxetine [Cymbalta] 60 mg capsule,delayed release(DR/EC) 60 mg PO BID hydroxyzine pamoate 50 mg capsule 50 mg PO DAILY PRN (Reason: anxiety) amlodipine 10 mg tablet 10 mg PO DAILY diphenhydramine HCl [Banophen] 25 mg capsule 25 mg PO BEDTIME PRN (Reason: insomnia) prazosin 1 mg capsule 1 mg PO BID Rx Instructions: one capsule daily and 2 capsules at bedtime. oxcarbazepine 300 mg tablet 900 mg PO DAILY epinephrine 0.3 mg/0.3 mL auto-injector 0.3 mg IM ONCE PRN (Reason: Anaphylaxis) losartan 50 mg tablet 50 mg PO QAM metoprolol tartrate 25 mg tablet 25 mg PO BID Qty: 60 4RF Breztri Aerosphere 160-9-4.8 mcg/actuation HFA aerosol inhaler 2 inh inhalation BID Qty: 1 6RF tramadol 50 mg tablet 50 mg PO DAILY quetiapine 100 mg tablet 100 mg PO BEDTIME Mounjaro 2.5 mg/0.5 mL pen injector 2.5 mg subcut QWEEK Rx Instructions: for 4 weeks Referrals: [facility] [Provider Group, Ear, Nose, Throat] - 5 days Ignacio Garza [Physician, Ear, Nose, Throat] - 5 days Interventions: ED Discharge Assessment Last Done: 09/21/25 10:30 Discharge Date/Time: 09/21/25 10:31 Print Language: Sao Tomean
[2025-09-21 10:30] VITALS: BP 151/72; PULSE 73; RESP 18; TEMP 36.2; O2SAT 97
--- OUTSIDE RECORDS SUMMARY | 2025-09-21 19:56 | XMS_ITS | Continuity of Care Document ---
Author Organization [facility], [facility] Address [address] [place] [address] Care Team Providers Care Sales Promotion Director Name Role Phone ADONIS PETE Referring Provider Assessment Encounter Date Assessment Date Assessment LastModified by Organization Details LastModified Time 08/09/2025 08/09/2025 Assessment: Nice gains with flexion/exten cristina measure. Plan: Continue 1-2x/wk with LE stretch/stren gth programming. [email or web address] Not available 08/09/2025 13:42:25 Plan of Treatment Reminders Order Date Submit Date Provider Last Modified By Organization Details Last Modified Time Details Appointments None record ed. Lab None record ed. Referral None record ed. Procedures None record ed. Surgeries None record ed. Imaging None record ed. Medication Orders None record ed. Patient TargetsNo targets recorded. Patient InstructionsNo instructions recorded. Reason for Referral None Reported. Problems Name Problem SNOMED Code Status Onset Date Resolution Date Notes Provider Name and Address Organization Details Recorded Time Pain of left knee region 665517517038024 Active 2024 Neida bello, [facility] 13:34:03 Problem Notes None recorded. Procedures Surgical History Date Name Laterality Status Provider Name and Address Organization Details Recorded Time 5 55719 Therapeutic Exercise (1:1) cancelled ERICA MEJÍA, PT [address], [place], [address], [place] [facility] 09/07/2025 23:37:06 5 53677: Hot or Cold Pack cancelled ERICA MEJÍA, PT [address], [place], [address], [facility] 09/07/2025 23:37:06 41676: Manual therapy cancelled ERICA ALFONZO, PT [address], [place], [address], [facility] 09/07/2025 23:37:06 51436 Therapeutic Exercise (1:1) cancelled ERICA ALFONZO, PT [address], [place], [address], [facility] 09/06/2025 08:54:00 79706: Hot or Cold Pack cancelled ERICA ALFONZO, PT [address], [place], [address], [facility] 09/06/2025 08:54:00 5 29115: Manual therapy cancelled ERICA ALFONZO, PT [address], [place], [address], [facility] 09/06/2025 08:54:00 [id number] Therapeutic Exercise (1:1) completed ERICA ALFONZO, PT [address], [place], [address], [facility] 08/29/2025 14:53:05 80541: Hot or Cold Pack completed ERICA ALFONZO, PT [address], [place], [address], [facility] 08/28/2025 17:31:34 28171: Manual therapy completed ERICA ALFONZO, PT [address], [place], [address], [facility] 08/28/2025 17:31:34 [id number] Therapeutic Exercise (1:1) completed ERICA ALFONZO, PT [address], [place], [address], [facility] 08/23/2025 21:43:36 66044: Hot or Cold Pack completed ERICA ALFONZO, PT [address], [place], [address], [facility] 08/23/2025 21:43:36 58548: Manual therapy completed ERICA ALFONZO, PT [address], [place], [address], [facility] 08/23/2025 21:43:36 54208 Therapeutic Exercise (1:1) completed ERICA ALFONZO, PT [address], [place], [address], [facility] 08/21/2025 20:19:55 05439: Hot or Cold Pack completed ERICA ALFONZO, PT [address], [place], [address], [facility] 08/19/2025 00:00:21 54177: Manual therapy completed ERICA ALFONZO, PT [address], [place], [address], [facility] 08/19/2025 00:00:21 68950 Therapeutic Exercise (1:1) completed ERICA ALFONZO, PT [address], [place], [address], [facility] 08/16/2025 13:02:26 92093: Hot or Cold Pack completed ERICA ALFONZO, PT [address], [place], [address], [facility] 08/16/2025 08:36:03 35329: Manual therapy completed ERICA ALFONZO, PT [address], [place], [address], [facility] 08/16/2025 13:02:44 81994 Therapeutic Exercise (1:1) completed Nigel Howard, AT [address], [place], [address], [facility] 08/09/2025 12:29:15 5 32728: Hot or Cold Pack completed Nigel Howard, AT [address], [place], [address], [facility] 08/09/2025 13:40:37 88952: Manual therapy completed Nigel Howard, AT [address], [place], [address], [facility] 08/09/2025 12:29:15 5 01950 Therapeutic Exercise (1:1) completed Nigel Howard, AT [address], [place], [address], [facility] 08/03/2025 14:27:14 56176: Manual therapy completed Nigel Howard, AT [address], [place], [address], [facility] 08/03/2025 14:27:22 16675 Therapeutic Exercise (1:1) completed ERICA MEJÍA, PT [address], [place], [address], [facility] 07/28/2025 21:47:42 21288: Low complexity PT Eval completed ERICA MEJÍA, PT [address], [place], [address], [facility] 07/28/2025 21:47:38 Imaging Results None recorded. Procedure [...] t Available prazosin 1 mg capsule TAKE 3 CAPSULES BY MOUTH EVERY DAY AT BEDTIME active [...] Available Not Available No t Available Mounjaro 5 mg/0.5 mL subcutaneous pen injector INJECT ONE PEN (=5MG) SUBCUTANEOU SLY ONCE A WEEK DIRECTED active [...] ICD10 Code Diagnosis IMO Codes Diagnosis Note [id number] ERICA ALFONZO, PT [facility] [address] [place] [address] 07/28/2025 15:11:14 07/28/2025 16:11:15 Contusion of left knee [id number] S80.02XA [id number] Nigel Howard, AT [facility] [address] [place] [address] 08/03/2025 12:00:57 08/03/2025 12:58:55 Contusion of left knee [id number] S80.02XA 232614 [id number] Nigel Howard, AT [facility] [address] [place] [address] 08/09/2025 11:05:34 08/09/2025 11:50:39 Contusion of left knee [id number] S80.02XA [id number] Health Concerns Section Related Observation LastModified by Organization Detai ls LastModified Time None Recorded Concern Status LastModified by Organization Details LastModified Time None Recorded Payers Encounter Date Sequence Insurance Name Policy Number Policy Roberts Covered Member ID Roberts Member ID Guarantor Name 08/09/2025 1 [place]: [facility] Mecca Lundy [id number] Mecca Lundy Notes Date Note Type Note Provider Name and Address Organization Details Recorded Time 08/09/2025 text/html Patient presents today reporting 5/10 pain. Pt states feeling better movements with therapy and exercises. Nigel Howard, AT [address], [place], [address], [facility] 08/09/2025 13:43:07 OBGyn Episode No OBEpisode recorded.
--- OUTSIDE RECORDS SUMMARY | 2025-09-21 19:56 | XMS_ITS | Clinical Summary ---
Author Organization [address] [place] [address] [place] [address] Phone Care Team Providers Care Parking Patroller Name Role Phone Delta Couch MD Primary [...] Date Diagnosed Date Anxiety 09/09/2024 Bipolar disorder ([facility] V24, [facility] V28) 05/2024 Hypertriglyceridemia 09/09/2024 Female stress incontinence 09/09/2024 Fibromyalgia 09/09/2024 T2DM (type 2 diabetes mellitus) ([facility] V24, [facility] V28) 09/09/2024 HTN (hypertension) 09/09/2024 GERD [...] Test 08/13/2024 Depression Screening 11/03/2024 COVID-19 Vaccine (2024-2 6 season) 2025 Influenza Vaccine (#1) 2025 HIB [...] topic Insurance MEDICAID - [place] Care Teams Parking Patroller Relationship Specialty Start Date End Date Delta Couch MD [address] [id number] PCP - General 04/20/24
--- OUTSIDE RECORDS SUMMARY | 2025-09-21 19:56 | XMS_ITS | Continuity of Care Document ---
Author Organization [place] [facility] [address] [place] [address] Care Team Providers Care Mesh Man Name Role Phone ADONIS PETE Referring Provider [phone] Assessment Encounter Date Assessment Date Assessment LastModified [...] LE stretch/strength programming to tolerance. Not available 08/24/2025 14:29:52 Plan of Treatment [...] Recorded Time Pain of left knee region [id number] Active 2024 Neida bello [place] [facility] 13:34:03 Problem Notes None recorded. Procedures Surgical History Date Name Laterality Status Provider Name and Address Organization Details Recorded Time 5 56768 Therapeutic Exercise (1:1) cancelled ERICA ALFONZO, PT [address], [place], [address], [facility] 09/07/2025 23:37:06 5 75519: Hot or Cold Pack cancelled ERICA ALFONZO, PT [address], [place], [address], [facility] 09/07/2025 23:37:06 5 93619: Manual therapy cancelled ERICA ALFONZO, PT [address], [place], [address], [facility] 09/07/2025 23:37:06 5 75213 Therapeutic Exercise (1:1) cancelled ERICA ALFONZO, PT [address], [place], [address], [facility] 09/06/2025 08:54:00 5 49764: Hot or Cold Pack cancelled ERICA ALFONZO, PT [address], [place], [address], [facility] 09/06/2025 08:54:00 94365: Manual therapy cancelled ERICA ALFONZO, PT [address], [place], [address], [facility] 09/06/2025 08:54:00 96003 Therapeutic Exercise (1:1) completed ERICA ALFONZO, PT [address], [place], [address], [facility] 08/29/2025 14:53:05 67211: Hot or Cold Pack completed ERICA ALFONZO, PT [address], [place], [address], [facility] 08/28/2025 17:31:34 44320: Manual therapy completed ERICA ALFONZO, PT [address], [place], [address], [facility] 08/28/2025 17:31:34 56339 Therapeutic Exercise (1:1) completed ERICA ALFONZO, PT [address], [place], [address], [facility] 08/23/2025 21:43:36 39685: Hot or Cold Pack completed ERICA ALFONZO, PT [address], [place], [address], [facility] 08/23/2025 21:43:36 30695: Manual therapy completed ERICA MEJÍA, PT [address], [place], [address], [facility] 08/23/2025 21:43:36 71910 Therapeutic Exercise (1:1) completed ERICA ALFONZO, PT [address], [place], [address], [facility] 08/21/2025 20:19:55 04213: Hot or Cold Pack completed ERICA HERZOGON, PT [address], [place], [address], [facility] 08/19/2025 00:00:21 86044: Manual therapy completed ERICA ALFONZO, PT [address], [place], [address], [facility] 08/19/2025 00:00:21 97940 Therapeutic Exercise (1:1) completed ERICA ALFONZO, PT [address], [place], [address], [facility] 08/16/2025 13:02:26 51690: Hot or Cold Pack completed ERICA ALFONZO, PT [address], [place], [address], [facility] 08/16/2025 08:36:03 06290: Manual therapy completed ERICA MEJÍA, PT [address], [place], [address], [facility] 08/16/2025 13:02:44 46254 Therapeutic Exercise (1:1) completed Nigel Howard, AT [address], [place], [address], [facility] 08/09/2025 12:29:15 20066: Hot or Cold Pack completed Nigel Howard, AT [address], [place], [address], [facility] 08/09/2025 13:40:37 05068: Manual therapy completed Nigel Howard, AT [address], [place], [address], [facility] 08/09/2025 12:29:15 15838 Therapeutic Exercise (1:1) completed Nigel Howard, AT [address], [place], [address], [facility] 08/03/2025 14:27:14 47459: Manual therapy completed Nigel Howard, AT [address], [place], [address], [facility] 08/03/2025 14:27:22 65547 Therapeutic Exercise (1:1) completed ERICA MEJÍA, PT [address], [place], [address], [facility] 07/28/2025 21:47:42 32938: Low complexity PT Eval completed ERICA MEJÍA, PT [address], [place], [address], [facility] 07/28/2025 21:47:38 Imaging Results [...] ICD10 Code Diagnosis IMO Codes Diagnosis Note [id number] ERICA MEJÍA, PT [facility] [address] [place] [address] 07/28/2025 15:11:14 07/28/2025 16:11:15 Contusion of left knee [id number] S80.02XA [id number] Nigelabdulaziz AndersonHoward, AT [facility] [address] [place] [address] 08/03/2025 12:00:57 08/03/2025 12:58:55 Contusion of left knee [id number] S80.02XA [id number] Nigelabdulaziz AndersonHoward, AT [facility] [address] [place] [address] 08/09/2025 11:05:34 08/09/2025 11:50:39 Contusion of left knee [id number] S80.02XA 374686 [id number] ERICA MEJÍA, PT [facility] [address] [place] [address] 08/16/2025 11:22:16 08/16/2025 12:04:35 Contusion of left knee [id number] S80.02XA [id number] ERICA MEJÍA, PT [facility] [address] [place] [address] 08/19/2025 13:26:56 08/19/2025 14:01:40 Contusion of left knee [id number] S80.02XA [id number] ERICA MEJÍA, PT [facility] [address] [place] [address] 08/24/2025 12:57:13 08/24/2025 16:40:25 Contusion of left knee [id number] S80.02XA [id number] Health Concerns Section Related Observation LastModified by Organization Detai ls LastModified Time None Recorded Concern Status LastModified by Organization Details LastModified Time None Recorded Payers Encounter Date Sequence Insurance Name Policy Number Policy Roberts Covered Member ID Roberts Member ID Guarantor Name 08/24/2025 1 [place] [facility] Mecca Lundy [id number] Mecca Lundy Notes Date Note Type Note Provider Name and Address Organization Details Recorded Time 08/24/2025 text/html Patient presents today reporting 9/10 pain. Pt needs to leave at 2:30 for another appointment. ERICA MEJÍA, PT [address], [place], [address], [facility] 08/24/2025 14:30:32 OBGyn Episode No OBEpisode recorded.
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
--- OUTSIDE RECORDS SUMMARY | 2025-09-21 19:56 | XMS_ITS | Continuity of Care Document ---
Author Organization [facility], [facility] Address [address] [place] [address] Care Team Providers Care Metal Hanger Name Role Phone ADONIS PETE Referring Provider Assessment Encounter Date Assessment Date Assessment LastModified by Organization Details LastModified Time 08/29/2025 08/29/2025 Assessment: Improved tolerance to exercises and activities with ability to complete ant. step up/down from L3 box. Plan: Continue 1-2x/wk with LE stretch/streng th programming to tolerance. [email or web address] Not available 08/29/2025 14:55:17 Plan of Treatment Reminders Order Date Submit [...] Recorded Time Pain of left knee region [id number] Active 2024 Neida bello, [facility] 13:34:03 Problem Notes None recorded. Procedures Surgical History Date Name Laterality Status Provider Name and Address Organization Details Recorded Time 5 65806 Therapeutic Exercise (1:1) cancelled ERICA MEJÍA, PT [address], [place], [address], [facility] 09/07/2025 23:37:06 5 19516: Hot or Cold Pack cancelled ERICA ALFONZO, PT [address], [place], [address], [facility] 09/07/2025 23:37:06 40070: Manual therapy cancelled ERICA ALFONZO, PT [address], [place], [address], [facility] 09/07/2025 23:37:06 81086 Therapeutic Exercise (1:1) cancelled ERICA ALFONZO, PT [address], [place], [address], [facility] 09/06/2025 08:54:00 06456: Hot or Cold Pack cancelled ERICA ALFONZO, PT [address], [place], [address], [facility] 09/06/2025 08:54:00 41199: Manual therapy cancelled ERICA ALFONZO, PT [address], [place], [address], [facility] 09/06/2025 08:54:00 27386 Therapeutic Exercise (1:1) completed ERICA ALFONZO, PT [address], [place], [address], [facility] 08/29/2025 14:53:05 21195: Hot or Cold Pack completed ERICA ALFONZO, PT [address], [place], [address], [facility] 08/28/2025 17:31:34 53819: Manual therapy completed ERICA ALFONZO, PT [address], [place], [address], [facility] 08/28/2025 17:31:34 11228 Therapeutic Exercise (1:1) completed ERICA ALFONZO, PT [address], [place], [address], [facility] 08/23/2025 21:43:36 33833: Hot or Cold Pack completed ERICA ALFONZO, PT [address], [place], [address], [facility] 08/23/2025 21:43:36 54689: Manual therapy completed ERICA ALFONZO, PT [address], [place], [address], [facility] 08/23/2025 21:43:36 61458 Therapeutic Exercise (1:1) completed ERICA ALFONZO, PT [address], [place], [address], [facility] 08/21/2025 20:19:55 78459: Hot or Cold Pack completed ERICA ALFONZO, PT [address], [place], [address], [facility] 08/19/2025 00:00:21 69391: Manual therapy completed ERICA ALFONZO, PT [address], [place], [address], [facility] 08/19/2025 00:00:21 32270 Therapeutic Exercise (1:1) completed ERICA ALFONZO, PT [address], [place], [address], [facility] 08/16/2025 13:02:26 02138: Hot or Cold Pack completed ERICA ALFONZO, PT [address], [place], [address], [facility] 08/16/2025 08:36:03 02142: Manual therapy completed ERICA ALFONZO, PT [address], [place], [address], [facility] 08/16/2025 13:02:44 5 58388 Therapeutic Exercise (1:1) completed Nigel Howard, AT [address], [place], [address], [facility] 08/09/2025 12:29:15 81761: Hot or Cold Pack completed Nigel Howard, AT [address], [place], [address], [facility] 08/09/2025 13:40:37 43294: Manual therapy completed Nigel Howard, AT [address], [place], [address], [facility] 08/09/2025 12:29:15 5 16534 Therapeutic Exercise (1:1) completed Nigel Howard, AT [address], [place], [address], [facility] 08/03/2025 14:27:14 60353: Manual therapy completed Nigel Howard, AT [address], [place], [address], [facility] 08/03/2025 14:27:22 53645 Therapeutic Exercise (1:1) completed ERICA MEJÍA, PT [address], [place], [address], [facility] 07/28/2025 21:47:42 94128: Low complexity PT Eval completed ERICA MEJÍA, PT [address], [place], [address], [facility] 07/28/2025 21:47:38 Imaging Results None recorded. [...] ICD10 Code Diagnosis IMO Codes Diagnosis Note [id number] Nigel Howard, AT [facility] [address] [place] [address] 08/03/2025 12:00:57 08/03/2025 12:58:55 Contusion of left knee [id number] S80.02XA 357143 [id number] Nigel Howard, AT [facility] [address] [place] [address] 08/09/2025 11:05:34 08/09/2025 11:50:39 Contusion of left knee 5545532654 9851174 S80.02XA 527959 [id number] ERICA MEJÍA, PT [facility] [address] [place] [address] 08/16/2025 11:22:16 08/16/2025 12:04:35 Contusion of left knee 1258443299 6502189 S80.02XA 916260 [id number] ERICA MEJÍA, PT [facility] [address] [place] [address] 08/19/2025 13:26:56 08/19/2025 14:01:40 Contusion of left knee [id number] 2808942 S80.02XA 475806 [id number] ERICA MEJÍA, PT [facility] [address] [place] [address] 08/24/2025 12:57:13 08/24/2025 16:40:25 Contusion of left knee [id number] 6943145 S80.02XA 013791 [id number] ERICA MEJÍA, PT [facility] [address] [place] [address] 08/29/2025 12:14:12 08/29/2025 13:16:02 Contusion of left knee [id number] [id number] S80.02XA [id number] Health Concerns Section Related Observation LastModified by Organization Detai ls LastModified Time None Recorded Concern Status LastModified by Organization Details LastModified Time None Recorded Payers Encounter Date Sequence Insurance Name Policy Number Policy Roberts Covered Member ID Roberts Member ID Guarantor Name 08/29/2025 1 [place] [facility] Mecca Lundy [id number] Mecca Lundy Notes Date Note Type Note Provider Name and Address Organization Details Recorded Time 08/29/2025 text/html Patient presents today reporting 6/10 pain. Patient reports decreased pain since LV. ERICA MEJÍA, PT [address] [facility] [address], [place], [address], [facility] 08/29/2025 14:55:59 OBGyn Episode No OBEpisode recorded.
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
--- OUTSIDE RECORDS SUMMARY | 2025-09-21 19:57 | XMS_ITS | Continuity of Care Document ---
Author Organization [facility], [facility] Maynard PT Address [address] [place] [address] Care Team Providers Care Data Analytics Architect Name Role Phone YANCI ADONIS Referring Provider Assessment Encounter Date Assessment Date Assessment LastModified by Organization Details LastModified Time 08/16/2025 08/16/2025 Assessment: Patient demonstrated increased pain during session today. Patient able to complete exercises but with continued difficulty and pain. No abnormalities with palpation, good patellar mobility, open end feel within extension and flexion of the knee with limitations by pain . Plan: Continue 1-2x/wk with LE stretch/strength programming to tolerance. [email or web address] Not available 08/16/2025 13:02:12 Plan of Treatment Reminders Order Date Submit [...] Recorded Time Pain of left knee region [id number] Active 2024 Neida bello [facility] 13:34:03 Problem Notes None recorded. Procedures Surgical History Date Name Laterality Status Provider Name and Address Organization Details Recorded Time 5 43204 Therapeutic Exercise (1:1) cancelled ERICA MEJÍA, PT [address], [place], [address], [facility] 09/07/2025 23:37:06 5 71800: Hot or Cold Pack cancelled ERICA ALFONZO, PT [address], [place], [address], [facility] 09/07/2025 23:37:06 66506: Manual therapy cancelled ERICA ALFONZO, PT [address], [place], [address], [facility] 09/07/2025 23:37:06 10304 Therapeutic Exercise (1:1) cancelled ERICA ALFONZO, PT [address], [place], [address], [facility] 09/06/2025 08:54:00 72947: Hot or Cold Pack cancelled ERICA ALFONZO, PT [address], [place], [address], [facility] 09/06/2025 08:54:00 26724: Manual therapy cancelled ERICA ALFONZO, PT [address], [place], [address], [facility] 09/06/2025 08:54:00 90482 Therapeutic Exercise (1:1) completed ERICA ALFONZO, PT [address], [place], [address], [facility] 08/29/2025 14:53:05 07830: Hot or Cold Pack completed ERICA ALFONZO, PT [address], [place], [address], [facility] 08/28/2025 17:31:34 64784: Manual therapy completed ERICA ALFONZO, PT [address], [place], [address], [facility] 08/28/2025 17:31:34 93963 Therapeutic Exercise (1:1) completed ERICA ALFONZO, PT [address], [place], [address], [facility] [place] [facility] 08/23/2025 21:43:36 33568: Hot or Cold Pack completed ERICA ALFONZO, PT [address], [place], [address], [facility] [place] [facility] 08/23/2025 21:43:36 72672: Manual therapy completed ERICA ALFONZO, PT [address], [place], [address], [facility] [place] [facility] 08/23/2025 21:43:36 15347 Therapeutic Exercise (1:1) completed ERICA ALFONZO, PT [address], [place], [address], [facility] [place] [facility] 08/21/2025 20:19:55 01998: Hot or Cold Pack completed ERICA ALFONZO, PT [address], [place], [address], [facility] [place] [facility] 08/19/2025 00:00:21 45142: Manual therapy completed ERICA ALFONZO, PT [address], [place], [address], [facility] 08/19/2025 00:00:21 54462 Therapeutic Exercise (1:1) completed ERICA ALFONZO, PT [address], [place], [address], [facility] 08/16/2025 13:02:26 5 48737: Hot or Cold Pack completed ERICA ALFONZO, PT [address], [place], [address], [facility] 08/16/2025 08:36:03 10662: Manual therapy completed ERICA ALFONZO, PT [address], [place], [address], [facility] 08/16/2025 13:02:44 36898 Therapeutic Exercise (1:1) completed Nigel Howard, AT [address] [facility], [place], [address], [facility] 08/09/2025 12:29:15 30907: Hot or Cold Pack completed Nigel Howard, AT [address] [facility], [place], [address], [facility] 08/09/2025 13:40:37 78097: Manual therapy completed Nigel Howard, AT [address] [facility], [place], [address], [facility] 08/09/2025 12:29:15 16720 Therapeutic Exercise (1:1) completed Nigel Howard, AT [address] [facility], [place], [address], [facility] 08/03/2025 14:27:14 29702: Manual therapy completed Nigle Howard, AT [address] [facility], [place], [address], [facility] 08/03/2025 14:27:22 47271 Therapeutic Exercise (1:1) completed ERICA MEJÍA, PT [address] [address], [place], [address], [facility] 07/28/2025 21:47:42 48765: Low complexity PT Eval completed ERICA MEJÍA, PT [address] [facility], [place], [address], [facility] 07/28/2025 21:47:38 Imaging Results [...] ICD10 Code Diagnosis IMO Codes Diagnosis Note [id number] ERICAELIAS MEJÍA, PT [facility] [address] [place] [address] 07/28/2025 15:11:14 07/28/2025 16:11:15 Contusion of left knee [id number] S80.02XA [id number] Nigel Andersonolson, AT [facility] [address] [place] [address] 08/03/2025 12:00:57 08/03/2025 12:58:55 Contusion of left knee [id number] S80.02XA [id number] Nigel Andersonolson, AT [facility] [address] [place] [address] 08/09/2025 11:05:34 08/09/2025 11:50:39 Contusion of left knee [id number] S80.02XA [id number] ERICA MAXWELLTTON, PT [facility] [address] [place] [address] 08/16/2025 11:22:16 08/16/2025 12:04:35 Contusion of left knee [id number] S80.02XA [id number] Health Concerns Section Related Observation LastModified by Organization Detai ls LastModified Time None Recorded Concern Status LastModified by Organization Details LastModified Time None Recorded Payers Encounter Date Sequence Insurance Name Policy Number Policy Roberts Covered Member ID Roberts Member ID Guarantor Name 08/16/2025 1 [place] [facility] Mecca Lundy [id number] Mecca Lundy Notes Date Note Type Note Provider Name and Address Organization Details Recorded Time 08/16/2025 text/html Patient presents today reporting 8/10 pain. Pt states that their knee feels aggravated today. ERICA MEJÍA, PT [address], [place], [address], [facility] [place] [facility] 08/16/2025 13:03:06 OBGyn Episode No OBEpisode recorded.
--- OUTSIDE RECORDS SUMMARY | 2025-09-21 19:57 | XMS_ITS | Data Portability ---
Author Organization [place] - [facility], [facility] Waskish Address [address] [place] [address] Care Team Providers Care Health Concierge Name Role Phone ADONIS ROYAL Referring Provider [phone] Assessment Encounter Date Assessment Date Assessment LastModified by Organization Details LastModified Time 08/09/2025 08/09/2025 Assessment: Nice gains with flexion/extensio n measure. Plan: Continue 1-2x/wk with LE stretch/strength programming. [email or web address] Not available 08/09/2025 13:42:25 08/16/2025 08/16/2025 Assessment: Patient demonstrated increased pain during session today. Patient able to complete exercises but with continued difficulty and pain. No abnormalities with palpation, good patellar mobility, open end feel within extension and flexion of the knee with limitations by pain . Plan: Continue 1-2x/wk with LE stretch/strength programming to tolerance. [email or web address] Not available 08/16/2025 13:02:12 08/19/2025 08/19/2025 Assessment: Patient able to tolerate more exercises and activities this session. Patient demonstrating full passive and active knee extension. Patient able to tolerate 2 inch box step up this session. Antalgic gait with decreased time in SLS on LLE. Plan: Continue 1-2x/wk with LE stretch/strength programming to tolerance. [email or web address] Not available 08/21/2025 20:19:38 08/24/2025 08/24/2025 Assessment: [...] 1-2x/wk with LE stretch/strength programming to tolerance. [email or web address] Not available 08/24/2025 14:29:52 08/29/2025 08/29/2025 Assessment: Improved tolerance to exercises and activities with ability to complete ant. step up/down from L3 box. Plan: Continue 1-2x/wk with LE stretch/strength programming to tolerance. [email or web address] Not available 08/29/2025 14:55:17 Plan of Treatment [...] Recorded Time Pain of left knee region [id number] Active 2024 Neida Obrien [facility] 5 13:34:03 Problem Notes None recorded. Procedures Surgical History Date Name Laterality Status Provider Name and Address Organization Details Recorded Time 5 09164 Therapeutic Exercise (1:1) cancelled ERICA ALFONZO, PT [address], [place], [address], [facility] 09/07/2025 23:37:06 5 27063: Hot or Cold Pack cancelled ERICA ALFONZO, PT [address], [place], [address], [facility] 09/07/2025 23:37:06 5 52511: Manual therapy cancelled ERICA ALFONZO, PT [address], [place], [address], [facility] 09/07/2025 23:37:06 5 56556 Therapeutic Exercise (1:1) cancelled ERICA ALFONZO, PT [address], [place], [address], [facility] 09/06/2025 08:54:00 78722: Hot or Cold Pack cancelled ERICA ALFONZO, PT [address], [place], [address], [facility] 09/06/2025 08:54:00 31050: Manual therapy cancelled ERICA ALFONZO, PT [address], [place], [address], [facility] 09/06/2025 08:54:00 29281 Therapeutic Exercise (1:1) completed ERICA ALFONZO, PT [address], [place], [address], [facility] 08/29/2025 14:53:05 45106: Hot or Cold Pack completed ERICA ALFONZO, PT [address], [place], [address], [facility] [place] 08/28/2025 17:31:34 44563: Manual therapy completed ERICA ALFONZO, PT [address], [place], [address], [facility] 08/28/2025 17:31:34 27252 Therapeutic Exercise (1:1) completed ERICA ALFONZO, PT [address], [place], [address], [facility] 08/23/2025 21:43:36 95284: Hot or Cold Pack completed ERICA ALFONZO, PT [address], [place], [address], [facility] 08/23/2025 21:43:36 42552: Manual therapy completed ERICA ALFONZO, PT [address], [place], [address], [facility] 08/23/2025 21:43:36 19511 Therapeutic Exercise (1:1) completed ERICA MEJÍA, PT [address], [place], [address], [facility] 08/21/2025 20:19:55 5 65175: Hot or Cold Pack completed ERICA MEJÍA, PT [address], [place], [address], [facility] 08/19/2025 00:00:21 97431: Manual therapy completed ERICA MEJÍA, PT [address], [place], [address], [facility] 08/19/2025 00:00:21 5 01294 Therapeutic Exercise (1:1) completed ERICA MEJÍA, PT [address], [place], [address], [facility] 08/16/2025 13:02:26 5 29810: Hot or Cold Pack completed ERICA MEJÍA, PT [address], [place], [address], [facility] 08/16/2025 08:36:03 5 45133: Manual therapy completed ERICA MEJÍA, PT [address], [place], [address], [facility] 08/16/2025 13:02:44 65274 Therapeutic Exercise (1:1) completed Nigel Howard, AT [address], [place], [address], [facility] 08/09/2025 12:29:15 5 11003: Hot or Cold Pack completed Nigel Howard AT [address], [place], [address], [facility] 08/09/2025 13:40:37 5 37878: Manual therapy completed Nigel Howard, AT [address], [place], [address], [facility] 08/09/2025 12:29:15 5 60781 Therapeutic Exercise (1:1) completed Nigel Howard, AT [address], [place], [address], [facility] 08/03/2025 14:27:14 5 01305: Manual therapy completed Nigel Howard, AT [address], [place], [address], [facility] 08/03/2025 14:27:22 73079 Therapeutic Exercise (1:1) completed ERICA MEJÍA, PT [address] [facility], [place], [address], [facility] 07/28/2025 21:47:42 02082: Low complexity PT Eval completed ERICA MEJÍA, PT [address] [facility], [place], [address], [facility] 07/28/2025 21:47:38 Imaging Results None recorded. [...] ICD10 Code Diagnosis IMO Codes Diagnosis Note [id number] Adonis Royal PA-C [facility] [place] [address] [place] [address] 07/06/2025 12:53:00 07/27/2025 07:59:56 Pain of knee region [id number] 5.562 [id number] Adonis Royal PA-C [facility] [place] [address] [place] [address] 07/06/2025 12:50:05 07/19/2025 12:16:45 Pain of left knee region [id number] 22792 5.562 [id number] ERICA MAXWELLTTON, PT [facility] [address] [place] [address] 07/28/2025 15:11:14 07/28/2025 16:11:15 Contusion of left knee [id number] S80.02XA [id number] Nigel Andersonolson, AT [facility] [address] [place] [address] 08/03/2025 12:00:57 08/03/2025 12:58:55 Contusion of left knee [id number] S80.02XA [id number] Nigel Anita, AT [facility] [address] [place] [address] 08/09/2025 11:05:34 08/09/2025 11:50:39 Contusion of left knee [id number] S80.02XA [id number] ERICA MEJÍA, PT [facility] [address] [place] [address] 08/16/2025 11:22:16 08/16/2025 12:04:35 Contusion of left knee 8113523025 [id number] S80.02XA [id number] ERICA MAXWELLTTON, PT [facility] [address] [place] [address] 08/19/2025 13:26:56 08/19/2025 14:01:40 Contusion of left knee 5058902654 [id number] S80.02XA [id number] ERICA MAXWELLTTON, PT [facility] [address] [place] [address] 08/24/2025 12:57:13 08/24/2025 16:40:25 Contusion of left knee 5898850496 [id number] S80.02XA [id number] ERICA MEJÍA, PT [facility] [address] [place] [address] 08/29/2025 12:14:12 08/29/2025 13:16:02 Contusion of left knee 0395416390 [id number] S80.02XA [id number] Health Concerns Section Related Observation LastModified by Organization Detai ls LastModified Time None Recorded Concern Status LastModified by Organization Details LastModified Time None Recorded Advance Directives Directive None Recorded Payers Insurance Date Sequence Insurance Name Policy Number Policy Roberts Covered Member ID Roberts Member ID Guarantor Name 09/03/2025 1 [place] [facility] Mecca Lundy [id number] Mecca Quintanillarera Notes Date Note Type Note Provider Name and Address Organization Details Recorded Time 08/09/2025 text/html Patient presents today reporting 5/10 pain. Pt states feeling better movements with therapy and exercises. Nigel Howard, AT [address], [place], [address], [facility] 08/09/2025 13:43:07 08/16/2025 text/html Patient presents today reporting 8/10 pain. Pt states that their knee feels aggravated today. ERICA MEJÍA, PT [address], [place], [address], [facility] 08/16/2025 13:03:06 08/19/2025 text/html Patient presents today reporting 8/10 pain. Pt states that they had increased knee pain after LV with some soreness today. ERICA MEJÍA PT [address], [place], [address], [facility] 08/21/2025 20:20:34 08/24/2025 text/html Patient presents today reporting 9/10 pain. Pt needs to leave at 2:30 for another appointment. ERICA MEJÍA PT [address], [place], [address], [facility] 08/24/2025 14:30:32 08/29/2025 text/html Patient presents today reporting 6/10 pain. Patient reports decreased pain since LV. ERICA MEJÍA, PT [address], [place], [address], [facility] 08/29/2025 14:55:59 OBGyn Episode No OBEpisode recorded.
--- OUTSIDE RECORDS SUMMARY | 2025-09-21 19:57 | XMS_ITS | Continuity of Care Document ---
Author Organization [place] - [facility], [place] [facility] [place] Address [address] [place] [address] Care Team Providers Care Dermatology Physician Name Role Phone ADONIS ROYAL Referring Provider Assessment No assessment recorded. Plan of Treatment [...] Abnormal Flag Note LastModifiedBy Organization Detail LastModifiedTime 07/06/20 25 07/06/2025 XR, knee, 4 or more view http:/ [email or web address] ?Encry pted=s hAaTro YD8dLq bEUv6g %2BXZw aYqtaq 0bqfl% 2Fg9IQ a4ajBk vP9nXo QUaueC m3YtLR FvZlgJ JJ8mAn HZtai3 5s8858 AC0Klb 3WMV6q nKiQtr MwF INTERFACE [facility] Office [address], [place], [address], 07/06/2025 13:39:39 07/06/20 25 07/06/2025 XR, knee, 4 or more view [email or web address]:/ [email or web address] ?Encry pted=s hAaTro YD8dLq bEUv6g %2BXZw aYqtaq 0bqfl% 2Fg9IQ a4ajBk vP9nXo QUaueC m3YtLR FvZlgJ JJ8mAn HZtai3 2t5177 AC0Klb 3WMV6q nKiQtr MwF INTERFACE [facility] [address] [facility] [address], [place], [address], 07/06/2025 13:39:41 Result Notes Documentation Provider Name and Address Organization Details Recorded Time Xr, Knee, 4 Or More View : [email or web address]? Encrypted=awNgZcxLW7eLnmI Uv6g%8QWJmdNscwj6oedt%2Fg 4DAs2oaGrzQ2bMsCRnasBz5Nf DWIhScsANA6tCgOTced83j559 0TV1Coi5XOS0deIgYgeUkW Not Available [facility] 07/06/2025 13:39: 40 Xr, Knee, 4 Or More View : [email or web address] Encrypted=kcLyCobDC9pTxmM Uv6g%8MYOhwRsmpd7cgfm%2Fg 9XJy9xnXfaG1aJrJPmeuTm6Tm TRZhNwhTZK9kNmSVfgf37b785 9XB6Byn0SSP9obPbIjzCnK Not Available [facility] 07/06/2025 13:39: 42 Problems Name Problem SNOMED Code Status Onset Date Resolution Date Notes Provider Name and Address Organization Details Recorded Time Pain of left knee region 703287799169432 Active 2024 Neida bello [place] - [facility] 13:34:03 Problem Notes None recorded. Procedures Surgical History Date Name Laterality Status Provider Name and Address Organization Details Recorded Time 5 41603 Therapeutic Exercise (1:1) cancelled ERICA MEJÍA, PT [address], [place], [address], [facility] 09/07/2025 23:37:06 5 27413: Hot or Cold Pack cancelled ERICA ALFONZO, PT [address], [place], [address], [facility] - [facility] 09/07/2025 23:37:06 38659: Manual therapy cancelled ERICA ALFONZO, PT [address], [place], [address], [facility] 09/07/2025 23:37:06 40533 Therapeutic Exercise (1:1) cancelled ERICA ALFONZO, PT [address], [place], [address], [facility] - [facility] 09/06/2025 08:54:00 89408: Hot or Cold Pack cancelled ERICA ALFONZO, PT [address], [place], [address], [facility] 09/06/2025 08:54:00 5 67966: Manual therapy cancelled ERICA ALFONZO, PT [address], [place], [address], [facility] 09/06/2025 08:54:00 39612 Therapeutic Exercise (1:1) completed ERICA ALFONZO, PT [address], [place], [address], [facility] 08/29/2025 14:53:05 46103: Hot or Cold Pack completed ERICA ALFONZO, PT [address], [place], [address], [facility] 08/28/2025 17:31:34 81217: Manual therapy completed ERICA ALFONZO, PT [address], [place], [address], [facility] 08/28/2025 17:31:34 29047 Therapeutic Exercise (1:1) completed ERICA ALFONZO, PT [address], [place], [address], [facility] 08/23/2025 21:43:36 09625: Hot or Cold Pack completed ERICA ALFONZO, PT [address], [place], [address], [facility] 08/23/2025 21:43:36 76978: Manual therapy completed ERICA ALFONZO, PT [address], [place], [address], [facility] 08/23/2025 21:43:36 87834 Therapeutic Exercise (1:1) completed ERICA ALFONZO, PT [address], [place], [address], [facility] 08/21/2025 20:19:55 87686: Hot or Cold Pack completed ERICA ALFONZO, PT [address], [place], [address], [facility] 08/19/2025 00:00:21 44189: Manual therapy completed ERICA ALFONZO, PT [address], [place], [address], [facility] 08/19/2025 00:00:21 06888 Therapeutic Exercise (1:1) completed ERICA ALFONZO, PT [address], [place], [address], [facility] 08/16/2025 13:02:26 40947: Hot or Cold Pack completed EIRCA ALFONZO, PT [address], [place], [address], [facility] 08/16/2025 08:36:03 86618: Manual therapy completed ERICA ALFONZO, PT [address], [place], [address], [facility] 08/16/2025 13:02:44 5 70512 Therapeutic Exercise (1:1) completed Nigel Howard, AT [address] [facility], [place], [address], [facility] 08/09/2025 12:29:15 5 20146: Hot or Cold Pack completed Nigel Howard, AT [address], [place], [address], [facility] 08/09/2025 13:40:37 5 99761: Manual therapy completed Nigel Howard, AT [address] [facility], [place], [address], [facility] 08/09/2025 12:29:15 5 64645 Therapeutic Exercise (1:1) completed Nigel Howard, AT [address] [facility], [place], [address], [facility] 08/03/2025 14:27:14 5 34826: Manual therapy completed Nigel Howard, AT [address] [facility], [place], [address], [facility] 08/03/2025 14:27:22 5 96356 Therapeutic Exercise (1:1) completed ERICA MEJÍA, PT [address] [facility], [place], [address], [facility] 07/28/2025 21:47:42 96855: Low complexity PT Eval completed ERICA MEJÍA, PT [address], [place], [address], [facility] 07/28/2025 21:47:38 Imaging Results None recorded. [...] 2024 active Not Available Not Available Not Shyla newell Trulicity 3 mg/0.5 mL subcutaneous pen injector [...] Updated DateTime 07/06/2025 170.18 cm 36.6 kg/m2 749361.61 g Neida Obrien [place] - [facility] 07/06/2025 13:34:39 Social History None recorded. Functional Status None recorded. Mental Status None recorded. Family History Nothing Reported. Medical History No medical history recorded. Gynecological HistoryNo gynecological history recorded. Obstetrics History GPAL:G 0 P 0 0 0 0 Past Encounters Encounter ID Performer Location Encounter Start Date Encounter Closed Date Diagnosis/Indication Diagnosis SNOMED-CT Code Diagnosis ICD10 Code Diagnosis IMO Codes Diagnosis Note [id number] Adonis Royal PA-C [place] [place] [address] [place] [address] 07/06/2025 12:53:00 07/27/2025 07:59:56 Pain of knee region 8435482368 M25.562 [id number] Adonis Royal PA-C [place] [place] [address] [place] [address] 07/06/2025 12:50:05 07/19/2025 12:16:45 Pain of left knee region 0938819913 75259 M25.562 [id number] Health Concerns Section Related Observation LastModified by Organization Detai ls LastModified Time None Recorded Concern Status LastModified by Organization Details LastModified Time None Recorded Payers Encounter Date Sequence Insurance Name Policy Number Policy Roberts Covered Member ID Roberts Member ID Guarantor Name 07/06/2025 1 [place] [facility] Mecca Lundy [id number] Mecca Lundy Notes Date Note Type Note [...] normal limits.X-rays ordered, obtained and reviewed at [facility] 4 views of the left knee reviewed [...] were satisfaction today. Adonis Royal PA-C [address], [place], [address], [facility] 07/06/2025 14:26:29 OBGyn Episode No OBEpisode recorded.
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
--- OUTSIDE RECORDS SUMMARY | 2025-09-21 19:57 | XMS_ITS | Continuity of Care Document ---
Author Organization [facility], [facility] Address [address] [place] [address] Care Team Providers Care [employer] Attendant Name Role Phone ADONIS PETE Referring Provider Assessment Encounter Date Assessment Date Assessment LastModified by Organization Details LastModified Time 08/03/2025 08/03/2025 Assessment: Poor tolerance to ther-ex with high pains and severe limits of quad activation and knee mobility. Plan: Continue mobility exercises and quad activation exercises to improve gait. [email or web address] Not available 08/03/2025 14:32:22 Plan of Treatment Reminders Order Date Submit [...] a4ajBk vP9nXo QUaueC m3YtLR FvZlgJ JJ8mAn HZtai3 [id number] AC0Klb 3WMV6q nKiQtr MwF INTERFACE [facility] [address], [place], [address], 07/06/2025 13:39:39 07/06/20 25 07/06/2025 XR, knee, 4 or more view http:/ [email or web address] ?Encry pted=s hAaTro YD8dLq bEUv6g %2BXZw aYqtaq 0bqfl% 2Fg9IQ a4ajBk vP9nXo QUaueC m3YtLR FvZlgJ JJ8mAn HZtai3 8t4628 AC0Klb 3WMV6q nKiQtr MwF INTERFACE [facility] [address], [place], [address], 07/06/2025 13:39:41 Result Notes None recorded. Problems Name Problem SNOMED Code Status Onset Date Resolution Date Notes Provider Name and Address Organization Details Recorded Time Pain of left knee region [id number] Active 2024 Neida Obrien [facility] 13:34:03 Problem Notes None recorded. Procedures Surgical History Date Name Laterality Status Provider Name and Address Organization Details Recorded Time 5 16954 Therapeutic Exercise (1:1) cancelled ERICA ALFONZO, PT [address] [facility], [place], [address], [facility] 09/07/2025 23:37:06 5 63201: Hot or Cold Pack cancelled ERICA ALFONZO, PT [address] [facility], [place], [address], [facility] 09/07/2025 23:37:06 5 03806: Manual therapy cancelled ERICA ALFONZO, PT [address], [place], [address], [facility] 09/07/2025 23:37:06 5 29588 Therapeutic Exercise (1:1) cancelled ERICA ALFONZO, PT [address], [place], [address], [facility] 09/06/2025 08:54:00 74511: Hot or Cold Pack cancelled ERICA ALFONZO, PT [address], [place], [address], [facility] 09/06/2025 08:54:00 92726: Manual therapy cancelled ERICA ALFONZO, PT [address], [place], [address], [facility] 09/06/2025 08:54:00 58315 Therapeutic Exercise (1:1) completed ERICA ALFONZO, PT [address], [place], [address], [facility] 08/29/2025 14:53:05 92903: Hot or Cold Pack completed ERICA ALFONZO, PT [address], [place], [address], [facility] 08/28/2025 17:31:34 83807: Manual therapy completed ERICA ALFONZO, PT [address], [place], [address], [facility] 08/28/2025 17:31:34 59981 Therapeutic Exercise (1:1) completed ERICA ALFONZO, PT [address], [place], [address], [facility] 08/23/2025 21:43:36 22498: Hot or Cold Pack completed ERICA ALFONZO, PT [address], [place], [address], [facility] 08/23/2025 21:43:36 04659: Manual therapy completed ERICA ALFONZO, PT [address], [place], [address], [facility] 08/23/2025 21:43:36 04095 Therapeutic Exercise (1:1) completed ERICA ALFONZO, PT [address], [place], [address], [facility] 08/21/2025 20:19:55 13987: Hot or Cold Pack completed ERICA ALFONZO, PT [address], [place], [address], [facility] 08/19/2025 00:00:21 34285: Manual therapy completed ERICA ALFONZO, PT [address], [place], [address], [facility] 08/19/2025 00:00:21 69486 Therapeutic Exercise (1:1) completed ERICA HERZOGON, PT [address], [place], [address], [facility] 08/16/2025 13:02:26 79986: Hot or Cold Pack completed ERICA HERZOGON, PT [address], [place], [address], [facility] 08/16/2025 08:36:03 81924: Manual therapy completed ERICA HERZOGON, PT [address], [place], [address], [facility] 08/16/2025 13:02:44 79632 Therapeutic Exercise (1:1) completed Nigel Howard, AT [address], [place], [address], [facility] 08/09/2025 12:29:15 00578: Hot or Cold Pack completed Nigel Howard, AT [address], [place], [address], [facility] 08/09/2025 13:40:37 05941: Manual therapy completed Nigel Howard, AT [address], [place], [address], [facility] 08/09/2025 12:29:15 5 33847 Therapeutic Exercise (1:1) completed Nigel Howard, AT [address], [place], [address], [facility] 08/03/2025 14:27:14 94850: Manual therapy completed Nigel Howard, AT [address], [place], [address], [facility] 08/03/2025 14:27:22 81361 Therapeutic Exercise (1:1) completed ERICA MEJÍA, PT [address] [facility], [place], [address], [facility] 07/28/2025 21:47:42 18674: Low complexity PT Eval completed ERICA MEJÍA, PT [address], [place], [address], [facility] 07/28/2025 21:47:38 Imaging Results None recorded. [...] ICD10 Code Diagnosis IMO Codes Diagnosis Note [id number] DARBY Edmond [address] [place] [address] 07/06/2025 12:53:00 07/27/2025 07:59:56 Pain of knee region [id number] M25.562 [id number] DARBY [facility] [address] [place] [address] 07/06/2025 12:50:05 07/19/2025 12:16:45 Pain of left knee region [id number] 09355 5.562 [id number] ERICA MEJÍA, PT [facility] [address] [place] [address] 07/28/2025 15:11:14 07/28/2025 16:11:15 Contusion of left knee [id number] S80.02XA [id number] Nigel Howard, AT [facility] [address] [place] [address] 08/03/2025 12:00:57 08/03/2025 12:58:55 Contusion of left knee [id number] S80.02XA [id number] Health Concerns Section Related Observation LastModified by Organization Detai ls LastModified Time None Recorded Concern Status LastModified by Organization Details LastModified Time None Recorded Payers Encounter Date Sequence Insurance Name Policy Number Policy Roberts Covered Member ID Roberts Member ID Guarantor Name 08/03/2025 1 [place] [facility] Mecca Lundy [id number] Mecca Lundy Notes Date Note Type Note Provider Name and Address Organization Details Recorded Time 08/03/2025 text/html Patient presents today reporting 9/10 pain. Pt arrives with c/o high pains and severe limits of function. Nigel Howard, AT [address], [place], [address], [facility] 08/03/2025 14:33:21 OBGyn Episode No OBEpisode recorded.
== END 2025-09-21 10:31 | disposition home or self-care (01) ==
PROVIDERS: Emergency Provider Emergency Medicine; PCP Student in an Organized Health Care Education/Training Program
DX: K13.70 Unspecified lesions of oral mucosa (principal); I10 Essential (primary) hypertension; E78.00 Pure hypercholesterolemia, unspecified; E11.9 Type 2 diabetes mellitus without complications; J45.909 Unspecified asthma, uncomplicated; Z79.899 Other long term (current) drug therapy; Z79.51 Long term (current) use of inhaled steroids; K21.9 Gastro-esophageal reflux disease without esophagitis
CPT/HCPCS: 99282

== ENCOUNTER 2025-10-20 09:38 | Outpatient (REF) | payer MEDICAID, SELFPAY ==
--- OUTSIDE RECORDS SUMMARY | 2025-10-20 09:00 | XMS_ITS | Encounter Summary ---
Author Organization [employer] Address [address] [place] [address] 7 [place] [address] Care Team Providers Care Contact Center Professional Name Role Phone Mecca Couch MD Primary Care Pro vider Encounter Details Date Type Department Care Team ([facility] st Contact Info) Description 10/20/2025 9:00 AM EST Office Visit [facility] [address] [place] [address] [phone] Mecca Couch MD [address] [place] [address] Type 2 diabetes mellitus with other circulatory complication, without long-term current use of insulin (HCC) (Primary Dx); Hypertension, unspecified type; Tongue lesion; Class 1 obesity; Health care maintenance Social History Tobacco Use Types Packs/Day Years [...] Answer Date Recorded Patient Health Questionnaire-9 Score 05/03/2025 Patient Health Questionnaire-9 Score 05/03/2025 Last [...] Sign Reading Time Taken Comments Blood Pressure 140/60 10/20/2025 9:13 AM EST Pulse 88 10/20/2025 9:09 AM EST Temperature 36.1 C (97 F) 10/20/2025 9:09 AM EST Respiratory Rate 20 10/20/2025 9:09 AM EST Oxygen Saturation 98% 10/20/2025 9:09 AM EST Inhaled Oxygen Concentration - - Weight 105 kg (232 lb 3.2 oz) 10/20/2025 9:09 AM EST Height 170.2 cm (5' 7 ) 10/20/2025 9:09 AM EST Body Mass Index 36.37 10/20/2025 9:09 AM EST documented in this encounter Progress Notes * Mecca Wilkinson MD - 10/20/2025 9:00 AM EST Subjective Patient ID: Mecca Lundy is a 60 y.o. female who presents for f up apt HPI 60 y o F with PMX of Obesity,mild CAD, HTN,DM2,Bipolar dx/anxiety/PTSD f w psychiatry,Fibromyalgia,hx of alcoholism-stopped years ago, hx of cocaine use- stopped years ago,hx of tobacco use -stopped years ago.Hx of cleared hep B infection ,GERD,Asthma , Hx of urinary incontinence w pelvic organ prol apse,thyroid nodules Comes for f up apt ,pt has not done labs ordered at annual exam 05/2025 Reports having ongoing pain in right side of tongue since 08/2025 Associated with odynophagia for pain in mouth but denies dysphagia Reports also having for the past couple of months some sweating unusual for her w no fever, denies any new respiratory symptoms,denies any new or GI symptoms. no active tobacco smoker but history of it Already saw Oral surgeon at [facility] 2 days ago ,referred for CT scan of the neck because was noted a new right cervical lump ,states pending to get result of CT scan done same day of apt ,as well has apt on 11/01/2025 for tongue biopsy Assessment and Plan: Health care maintenance -Annual exam done 04/2025 -Menopause: s/p hysterectomy -Pap smear 04/2023 here: neg/HPV neg---apt w Eliane R 04/05/2024-- seen No cervix on exam, no prior abnormal pap. No further paps needed. -MM 06/2025 BIRADS 1 -Colonoscopy: per pt in 2018 to repeat in 5 years---to see GI--Apt on 11/10/25 -Vaccines: s/P COVID 19-last booster 07/2024, s/p Tdap 01/2024 , s/p P20 03/2023 , Hep B core +,surg ab grazone-refuse vaccine , Shringrix x 1-pd 2nd dose to get at px-encouraged today. Flu and COVID 19vaccine 08/2025 ------- -has already a car so denies needing transportation any more -referred to Care management to help w apts at last visit -but refuse need today -not done annual labs ordered back in 05/2025 ,encourage pt to get labs done Asthma -PFT 03/2024 consistent w asthma -CXR 10/2023 : Coarsened interstitial lung markings. Bibasilar atelectasis. Prominence of the pulmonary vasculature. -TTE 10/2023 LV wall thickness is mildly increased . EF 50 to 60% -machinery engineer seen in 11/2024 ftjgadoncf-qxeobjix-iasyomqpze 160-9-4.8 mcg/actuation (Breztri Aerosphere) 2 inhalations inhalation BID however pt states Inh was not covered . Pt used to be on (Arnuity Ellipta) + umeclidinium-vilanterol 62.5-25 mcg/actuation (Anoro Ellipta) -pt to reschedule apt w machinery engineer -remind today -WARNER prn Obesity BMI 36<--37 -lost 5 pounds in 5 mo w GLP1 Trulicity not covered any longer by her insurance -Advised pt to improve diet and exercise,discussed healthy life style -discussed geek squad manager referral --referred already but refused now to schedule apt -on Mounjaro 7.5 mg weekly ---- increase dose monhly tolerating well med Type 2 diabetes mellitus /HLD/Hypertriglyceridemia There is hx of DM2 -10/2025 capillary hb1AC 6.3<---6.2 ,CBG 195 -06/24/2024 -not in fasting -trig 193, total ch 145, LDL 61 , HDL 46 . hb1AC 5.5 AST 32, ALT 39 10/31/2023 hb1AC 5.3<---5.9 ,LDL 120<---79 ,total ch 243 trig 394 03/2023 microalb neg -saw client relationship executive 06/2025 no mjor findings To f up in 1 y Off metformin since GLP1( Trulicity-not covered by insurance anymore) -no SE w metformin Medication for DM2/Obesity/in eval for very likely ANDRES-pt definitely will benefit from weight loss and injectable medication -on Mounjaro 7.5 mg weekly increase dose montly -continue omega 3 daily --pt getting OTC- not taking lately -atorvastatin 80 mg daily -podiatry referral done again----has apt per pt scheduled already -DM labs -pd to get labs done HTN BP controlled at home ,states not took meds this am -EKG 04/2023 x baseline TWI in V2-V3,AvL and Q wave in lead III -03/2023 Microalb neg -saw client relationship executive 06/2025 no mjor findings To f up in 1 y -continue amlodipine 10 mg daily -continue losartan 100 mg daily -continue metoprolol 50 mg BID -Advised pt to bring home BP readings--state < 140/90 -encouraged to take meds consistently Loud snoring Was referred for sleep med at home by machinery engineer but never completed test at home -pt wants to be referred to sleep med-referred at last apt -sent for insomnia,loud snoring ,denies apnea -- gave information to pt to call for apt CAD -from framing mill operator records 04/2023 Cardiac stress test : ST depression noted and Myocardial perfusion study : with abnormal partially reversible small mild intensity perfusion defect in basal to distal anterior wall. -05/01/2023,pt underwent cardiac angiography reporting mild to moderate RCA disease -TTE 10/2023 LV wall thickness is mildly increased . EF 50 to 60% -cards 03/2024 underwent cardiac event monitor 11/2023 did not show any significant arrhythmia other than occasional premature ventricular complexes. She did have some symptoms at times when she had PVCs. EKG showing left bundle branch block which she is known to have intermittent left bundle-branch block in the past. -Saw cards 10/2024 -Khadar Vidal MD She underwent coronary CTA to rule out obstructive coronary artery disease. Very mild plaque was noted in the mid LAD on the coronary CTA.She is on aspirin and atorvastatin. I have reassured her that chest discomfort is not due to coronary artery disease based on the coronary CTA findings. -continue Statins,ASA,BB and ,NG prn -alarm signs and symptoms -saw cards 07/2025 To follow up in 6 mo -stable from note --Cardiology Pending appointment on 11/23/25 GERD (gastroesophageal reflux disease) Pt on chronic PPI prn -w ongoing GERD symptoms w no major change w PPis -EGD 06/2023 Esophagus: GE junction at 38 cms Irrgular Z line with 1 cm of possible Soto's - biopsied. Gastric: few 5 to 8 mm benign appearing polyps- biopsied--mild chronic inactive inflammation -continue famotidine HS and on PPI BID -continue care w GI--referred again --Gastroenterology Pending appointment on 11/10/25 Female stress incontinence -denies currently issue w urinary incontinence states had surgery -last year , there is only a minor leakage . Pt reports needs to schedule f up apt and request # of UroGYN- per pt seen 08/2025 Renal cyst -pelvic US 2018: s/p Hysterectomy.,Incidental left ureterocele. -US renal 11/2023 : Benign Bosniak class 2 left renal cyst-which requires no additional imaging or follow up. Incidentally noted hepatic steatosis and mild splenomegaly. -US abdomen complete 07/08/2025 Hepatomegaly with diffuse steatosis. Left renal cyst described as avascular cyst 2.3 cm in the upper pole, not well visualized due to limited acoustic window, previously 2.2 cm, otherwise left kidney is normal No indication for repeating image Fibromyalgia -CERVICAL SPINE MRI WO contrast 2018:Minor cervical spondylosis without significant canal or foraminal stenosis at any level. -LUMBAR MRI W/O CONTRAST 2018 :Transitional anatomy. As confirmed on the previous plain films, there are articulating transverse processes at the lower most thoracic type segment and 5 ptflzn-swcsfgquumvbw-qthx vertebral bodies are considered for this report [...] pt w hx of Lumbar radiculopathy s/p spinal cord stimulator -pt confirms to have stimulator in place but not working -pt states that cause worsen symptoms and never f up-states was told by sp to not remove implant if not having symptoms -referred to her process operator to continue care but was told that here specialist dont f w fibromyalgia -pt in mx meds x psych care including cymbalta 60 mg BID -will continue to monitor x now -offered acupuncture again -pt thinking about it -offered chronic pain [facility] program but refuse Bipolar disorder /Insomnia PHQ9 19<---22, WILFREDO 15<---17,does reports sometimes thoughts of hurting herself w no plans ,denies currently SI -Pt f w psychiatrist -Dr Overton at [facility] -continue w therapist -,risperidone, prazosin,trileptal ,atarax and duloxetine,Quetiapine--pt states discussed w psychiatrist about risperidone and quetiapine use and was ok to use both given at different times of the day -benadryl prn for sleep by psychiatrist --advised pt against chronic Benadryl use -pt stopped already -states taking seroquel lately ,states had last EKG w cards 07/2025 --From note EKG 07/2025 showed normal sinus rhythm, rate 72 beats per minute, rightward axis, nonspecific intraventricular block, nonspecific STT wave, normal GA, corrected QT. Tobacco use-stopped Started at 13 y of age -stopped 15 [...] heart, lungs,mediastinum, bony thorax or soft tissues. -CT Chest low dose contrast 05/2024 Again seen is an area of atelectasis/scarring in the right lowerlobe which is flat on coronal imaging and similar in appearance when compared with the 2018 study. No new or concerning lung nodule seen. Lungs bilaterally symmetrically expanded. There is mild emphysema and bronchial thickening without bronchiectasis. -given already 15 y that stopped smoking -stop lung ca screening Thyroid Nodules -Thyroid US 07/2024 report Left mid/lower pole 2.9 cm TR 5 nodule for which fine- needle aspiration biopsy is recommended. Left mid pole 1.6 cm TR 4 nodules qualifies for fine-needle aspiration biopsy. -Motor Setter saw last in 11/2024 underwent FNA of the left mid/low 2.9 cm nodule which came back as benign, [place] category 2 and FNA of the left mid 1.6 cm nodule which came back as AUS with nuclear atypia, [place] category 3. Afirma was pending----Pt states was told of neg Afirma test and told to follow up w Endo in 1 y so in 11/2025 Right Shoulder pain Reports right shoulder pain for last week ,reports no trauma , woke up w pain, denies erythema nor swelling .States overall improving. Using lidoderm patch -continue lidoderm patch -diclofenac topical -tylenol prn -home exercises advised and discussed today -refuse PT Left knee pain -XR knee LT 06/2025 Suprapatellar joint effusion. No fracture or dislocation. Mild medial and patellofemoral compartment osteoarthrosis. -saw orthopedic 08/03/2025 for left knee pain moderate medial compartment arthritis and mild patellofemoral arthritis of the left knee. There is no fracture evident. Patella and quad tendon intact .Patient reports increased pain with attempts to both extend or flex knee. Patient reports they livein an apartment on the second floor with 11 stairs to enter, R hand railing to ascend. Patients functional limitations include; decreased functional strength, decreased functional rom, decreased ability to ambulate community distances, decreased ability to perform stairs and transfers. --Plan: Continue mobility exercises and quad activation exercises to improve gait. States pain is better controlled -tylenol PRN -did PT -continue to f w orthopedic LUQ abd pain States LUQ pain since last year on and off ,states on and off diarrhea ,no mucus no blood ,denies constipation. No N/V Thinks is not associated w GLP1 -Abd XR 02/2025 Normal -US abdomen complete 07/08/2025 Hepatomegaly with diffuse steatosis. Left renal cyst described as avascular cyst 2.3 cm in the upper pole, not well visualized due to limited acoustic window, previously 2.2 cm, otherwise left kidney is normal -referred to GI again for colon ca screening -to see GI--Apt on 11/10/25 Poor Memory -MOCA by RN 10/10/2025 -wnl -start w labs -pd to get done -advised to stop Benadryl ,is very likely several of her meds may be causing symptoms -stopped med already -Continue to monitor Tongue lesion Reports having ongoing pain in right side of tongue since 08/2025 Associated with odynophagia for pain in mouth but denies dysphagia Reports also having for the past couple of months some sweating unusual for her w no fever, denies any new respiratory symptoms,denies any new or GI symptoms. no active tobacco smoker but history of it Already saw Oral surgeon at [facility] 2 days ago ,referred for CT scan of the neck because was noted a new right cervical lump ,states pending to get result of CT scan done same day of apt ,as well has apt on 11/01/2025 for tongue biopsy From exam noted tender lump in right side of neck ,difficult to palpate due to neck size , no otherobvious LDN in neck Noted tiny indentation In night side of tongue where pt feels pain ,no ulcers or masses seen but tender w palpation , no other mouth lesions noted -Using lidocaine topical pxed by oral surgeon and helping -advised to continue care w Oral surgeon at [facility] ,had CT scan of neck per pt 2 days ago w them and will have tongue biopsy 11/01/25 --requested [place] today to get records -malignancy will need to be r/o , if neg workup and pt reports ongoing sweating w no explanation will need to further investigate Review of Systems Right side of tongue and neck pain ,odynophagia,sweating ,neck mass sensation Objective BP (!) 140/60 (BP Location: Right arm, Patient Position: Sitting, BP Cuff Size: Adult) Pulse 88 Temp 97 ??F (36.1 ??C) (Temporal) Resp 20 Ht 5' 7 (1.702 m) Wt 232 lb 3.2 oz (105 kg) MjS430% BMI 36.37 kg/m?? Physical Exam Constitutional: General: She is not in acute distress. Appearance: Normal appearance. She is obese. HENT: Head: Comments: From exam noted tender lump in right side of neck ,difficult to palpate due to neck size , no other obvious LDN in neck Noted tiny indentation In night side of tongue where pt feels pain ,no ulcers or masses seen but tender w palpation , no other mouth lesions noted Neurological: Mental Status: She is alert. Assessment/Plan Problem List Items Addressed This Visit HTN (hypertension) Type 2 diabetes mellitus (HCC) - Primary Relevant Orders POCT Glucose (Completed) POCT Hgb A1c (Completed) Class 1 obesity Health care maintenance Tongue lesion documented in this encounter Plan of Treatment Upcoming Encounters Date Type Department Care Team (Late st Contact Info) Description 01/18/2026 9:45 AM EDT Office Visit [facility] [address] [place], [place] [phone] Mecca Couch MD [address] [place] [address] documented as of this encounter Goals Goal Patient Goal Type Associated Problems Recent Progress Patient-Stated? Author Help patients manage their type 2 diabetes Care Plan Help patients manage their type 2 diabetes No Pat, Jamil Weekly blood pressure task Care Plan Weekly blood pressure task No Pat Jamil Help patients manage their type 2 diabetes Care Plan Help patients manage their type 2 diabetes No Pat, Jamil Patient has chronic kidney disease Care Plan Patient has chronic kidney disease No Pat, Jamil Weekly blood pressure task Care Plan Weekly blood pressure task No Pat, Jamil Patient has chronic kidney disease Care Plan Patient has chronic kidney disease No Pat, Jamil Weekly blood pressure task Care Plan Weekly blood pressure task No Pat, Jamil Weekly blood pressure task Care Plan Weekly blood pressure task No Pat, Jamil Patient has chronic kidney disease Care Plan Patient has chronic kidney disease No Bi, Jamil Patient has chronic kidney disease Care Plan Patient has chronic kidney disease No Pat, Jamil Weekly blood pressure task Care Plan Weekly blood pressure task No Tammy Werner Weekly blood pressure task Care Plan Weekly blood pressure task No Tammy Werner Patient has chronic kidney disease Care Plan Patient has chronic kidney disease No Tammy Werner Patient has chronic kidney disease Care Plan Patient has chronic kidney disease No Tammy Werner Weekly blood pressure task Care Plan Weekly blood pressure task No Tammy Werner Weekly blood pressure task Care Plan Weekly blood pressure task No Tammy Werner Patient has chronic kidney disease Care Plan Patient has chronic kidney disease No Tammy Werner Patient has chronic kidney disease Care Plan Patient has chronic kidney disease No Tammy Werner Weekly blood pressure task Care Plan Weekly blood pressure task No Neida Cruz LPN Weekly blood pressure task Care Plan Weekly blood pressure task No Neida Cruz LPN Patient has chronic kidney disease Care Plan Patient has chronic kidney disease No Neida Cruz LPN Patient has chronic kidney disease Care Plan Patient has chronic kidney disease No Neida Cruz LPN Weekly blood pressure task Care Plan Weekly blood pressure task No Domenica Cummings [place] Weekly blood pressure task Care Plan Weekly blood pressure task No Domenica Cummings [place] Patient has chronic kidney disease Care Plan Patient has chronic kidney disease No Domenica Cummings [place] Patient has chronic kidney disease Care Plan Patient has chronic kidney disease No Domenica Cummings [place] Weekly blood pressure task Care Plan Weekly blood pressure task No Tammy Werner Weekly blood pressure task Care Plan Weekly blood pressure task No Tammy Werner Patient has chronic kidney disease Care Plan Patient has chronic kidney disease No Tammy Werner Patient has chronic kidney disease Care Plan Patient has chronic kidney disease No Tammy Werner Weekly blood pressure task Care Plan Weekly blood pressure task No Mecca Couch MD Weekly blood pressure task Care Plan Weekly blood pressure task No Mecca Couch MD Patient has chronic kidney disease Care Plan Patient has chronic kidney disease No Mecca Couch MD Patient has chronic kidney disease Care Plan Patient has chronic kidney disease No Mecca Couch MD Weekly blood pressure task Care Plan Weekly blood pressure task No Aminata Humphries RN Weekly blood pressure task Care Plan Weekly blood pressure task No Aminata Humphries RN Patient has chronic kidney disease Care Plan Patient has chronic kidney disease No Aminata Humphries RN Patient has chronic kidney disease Care Plan Patient has chronic kidney disease No Aminata Humphries RN Weekly blood pressure task Care Plan Weekly blood pressure task No Margy [place] Weekly blood pressure task Care Plan Weekly blood pressure task No Margy [place] Patient has chronic kidney disease Care Plan Patient has chronic kidney disease No Margy [place] Patient has chronic kidney disease Care Plan Patient has chronic kidney disease No Margy [place] Weekly blood pressure task Care Plan Weekly blood pressure task No Nia Swayer [place] Weekly blood pressure task Care Plan Weekly blood pressure task No Nai Sawyer [place] Patient has chronic kidney disease Care Plan Patient has chronic kidney disease No Nia Sawyer [place] Patient has chronic kidney disease Care Plan Patient has chronic kidney disease No Nia Sawyer [place] Weekly blood pressure task Care Plan Weekly blood pressure task No Nia Sawyer [place] Weekly blood pressure task Care Plan Weekly blood pressure task No Nia Sawyer [place] Patient has chronic kidney disease Care Plan Patient has chronic kidney disease No Nia Sawyer [place] Patient has chronic kidney disease Care Plan Patient has chronic kidney disease No Nia Sawyer, [place] documented as of this encounter Procedures Procedure Name Priority Date/Time Associated Diagnosis Comments POCT GLYCATED HEMOGLOBIN, TOTAL Routine 10/20/2025 9:55 AM EST Type 2 diabetes mellitus with other circulatory complication, without long-term current use of insulin (HCC) POCT GLUCOSE Routine 10/20/2025 9:55 AM EST Type 2 diabetes mellitus with other circulatory complication, without long-term current use of insulin (HCC) documented in this encounter Results * (ABNORMAL) POCT Hgb A1c (10/20/2025 9:55 AM EST) Hemoglobin A1C 6.3(A) 4.0 - 5.7 % QC Media Lot # [id number] Lot# Expiration Date Blood 10/20/2025 9:55 AM EST Mecca Wilkinson MD POINT OF CARE ROBERTH T ENTER/EDIT ORDERABLES Final Result * POCT Glucose (10/20/2025 9:55 AM EST) Glucose Blood, POC 195 60 - 200 mg/dL QC Media Lot # [id number] Lot# Expiration Date Blood Capillary blood specimen / Unknown 10/20/2025 9:55 AM EST Mecca Wilkinson MD POINT OF CARE ROBERTH T ENTER/EDIT ORDERABLES Final Result documented in this encounter Visit Diagnoses Diagnosis Type 2 diabetes mellitus with other circulatory complication, without long-term current use of insulin (HCC)- Primary Hypertension, unspecified type Tongue lesion Unspecified condition of the tongue Class 1 obesity Health care maintenance documented in this encounter Additional Health Concerns Active Problems Noted Date Diagnosed Date Help patients manage their type 2 diabetes 09/22 Weekly blood pressure task 09/22/2025 Help patients manage their type 2 diabetes 09/22 Patient has chronic kidney disease 09/22/2025 Weekly blood pressure task 09/22/2025 Patient has chronic kidney disease 09/22/2025 Weekly blood pressure task 09/26/2025 Weekly blood pressure task 09/26/2025 Patient has chronic kidney disease 09/26/2025 Patient has chronic kidney disease 09/26/2025 Weekly blood pressure task 09/28/2025 Weekly blood pressure task 09/28/2025 Patient has chronic kidney disease 09/28/2025 Patient has chronic kidney disease 09/28/2025 Weekly blood pressure task 09/28/2025 Weekly blood pressure task 09/28/2025 Patient has chronic kidney disease 09/28/2025 Patient has chronic kidney disease 09/28/2025 Weekly blood pressure task 09/28/2025 Weekly blood pressure task 09/28/2025 Patient has chronic kidney disease 09/28/2025 Patient has chronic kidney disease 09/28/2025 Weekly blood pressure task 10/03/2025 Weekly blood pressure task 10/03/2025 Patient has chronic kidney disease 10/03/2025 Patient has chronic kidney disease 10/03/2025 Weekly blood pressure task 10/06/2025 Weekly blood pressure task 10/06/2025 Patient has chronic kidney disease 10/06/2025 Patient has chronic kidney disease 10/06/2025 Weekly blood pressure task 10/06/2025 Weekly blood pressure task 10/06/2025 Patient has chronic kidney disease 10/06/2025 Patient has chronic kidney disease 10/06/2025 Weekly blood pressure task 10/10/2025 Weekly blood pressure task 10/10/2025 Patient has chronic kidney disease 10/10/2025 Patient has chronic kidney disease 10/10/2025 Weekly blood pressure task 10/11/2025 Weekly blood pressure task 10/11/2025 Patient has chronic kidney disease 10/11/2025 Patient has chronic kidney disease 10/11/2025 Weekly blood pressure task 10/19/2025 Weekly blood pressure task 10/19/2025 Patient has chronic kidney disease 10/19/2025 Patient has chronic kidney disease 10/19/2025 Weekly blood pressure task 10/19/2025 Weekly blood pressure task 10/19/2025 Patient has chronic kidney disease 10/19/2025 Patient has chronic kidney disease 10/19/2025 Assessment Noted Time PHQ-9 Depression Total Score: 22 05/03/ 025 10:39 AM EDT documented as of this encounter Care Teams Contact Center Professional Relationship Specialty Start Date End Date Mecca Couch MD [address] [place] [id number] PCP - General Internal Medicine 03/28/23 documented as of this encounter
--- OUTSIDE RECORDS SUMMARY | 2025-10-20 11:19 | XMS_ITS | Encounter Summary ---
Author Organization [employer] Address [address] [facility] 7t [place] [address] Care Team Providers Care Alley Tender Name Role Phone Mecca Couch MD Primary Care Pro vider Lizeth Singleton RN Unavailable Unavailable Reason for Visit * Reason Comments Med Refill Encounter Details Date Type Department Care Team (Late Contact Info) Description 06/30/2023 Refill [facility] [address] [place] [address] Cinthya Mckeon FNP [address] [place] [address] Essential hypertension Social History Tobacco Use Types [...] Description 01/18/2026 9:45 AM EDT Office Visit [facility] [address] [place] [address] Mecca Couch MD [address] [place] [address] documented as of this encounter Visit Diagnoses Diagnosis Essential hypertension Unspecified essential hypertension documented in this encounter Additional Health Concerns Assessment Noted Time PHQ-9 Depression Total Score: 6 04/01/20 23 9:29 AM EDT documented as of this encounter Care Teams Alley Tender Relationship Specialty Start Date End Date Mecca Couch MD [address] [place] [address] PCP - General Internal Medicine 03/28/23 Lizeth Singleton RN [address] [place] [phone] Registered Nurse Family Medicine 05/12/25 06/07/25 documented as of this encounter
--- OUTSIDE RECORDS SUMMARY | 2025-10-20 11:19 | XMS_ITS | Encounter Summary ---
Author Organization [employer] Address [address] [place] [address] 7 [place] [address] Care Team Providers Care Wink Cutter Operator Name Role Phone Mecca Couch MD Primary Care Pro vider Lizeth Singleton RN Unavailable Unavailable Reason for Visit * Reason Onset Date Comments Med Refill 08/14/2023 Encounter Details Date Type Department Care Team ([facility] st Contact Info) Description 08/14/2023 Telephone [facility]INE [address] [place], [place] [phone] Mecca Couch MD [address] [place], [place] [phone] Med Refill Social History Tobacco Use Types [...] Description 01/18/2026 9:45 AM EDT Office Visit [facility] [address], [place] [phone] Mecca Couch MD [address] [place], [place] [phone] documented as of this encounter Visit Diagnoses Not on filedocumented in this encounter Additional Health Concerns Assessment Noted Time PHQ-9 Depression Total Score: 6 04/01/20 23 9:29 AM EDT documented as of this encounter Care Teams Wink Cutter Operator Relationship Specialty Start Date End Date Mecca Couch MD [address] [place] [address] PCP - General Internal Medicine 03/28/23 Lizeth Singleton RN [address] [place] [address] Registered Nurse Family Medicine 05/12/25 06/07/25 documented as of this encounter
--- OUTSIDE RECORDS SUMMARY | 2025-10-20 11:19 | XMS_ITS | Encounter Summary ---
Author Organization [employer] Address [address] [place] [address] 7 [place] [address] Care Team Providers Care Calibrator Barometers Name Role Phone Mecca Couch MD Primary Care Pro vider Reason for Visit * Reason Comments Med Refill Encounter Details Date Type Department Care Team ([facility] st Contact Info) Description 09/06/2025 Refill [facility] [address] [place], [place] [phone] Mecca Couch MD [address] [place] [address] Social History Tobacco Use Types Packs/Day Years [...] Description 01/18/2026 9:45 AM EDT Office Visit [facility] MED[facility]INE [address] [place] [address] [phone] Mecca Couch MD [address] [place] [phone] documented as of this encounter Visit Diagnoses Not on filedocumented in this encounter Additional Health Concerns Assessment Noted Time PHQ-9 Depression Total Score: 22 025 10:39 AM EDT documented as of this encounter Care Teams Calibrator Barometers Relationship Specialty Start Date End Date Mecca Couch MD [address] [place] [address] [phone] PCP - General Internal Medicine 03/28/23 documented as of this encounter
--- OUTSIDE RECORDS SUMMARY | 2025-10-20 11:19 | XMS_ITS | Encounter Summary ---
Author Organization [employer] Address [address] [place] [address] 7 [place] [address] Care Team Providers Care Millinery Designer Name Role Phone Mecca Couch MD Primary Care Pro vider Reason for Visit * Reason Onset Date Comments call back request 08/09/2025 Encounter Details Date Type Department Care Team ([facility] st Contact Info) Description 08/09/[address] [facility] MED[facility]INE [address] [place], [place] [phone] Mecca Couch MD [address] [place] [address] call back request Social History Tobacco Use [...] from encounter 08/09 Please contact pt at [phone] documented in this encounter Plan of Treatment Upcoming Encounters Date Type Department Care Team (Late st Contact Info) Description 01/18/2026 9:45 AM EDT Office Visit [facility] [address] [place] [address] Mecca Couch MD [address] [place] [address] documented as of this encounter Visit Diagnoses Not on filedocumented in this encounter Additional Health Concerns Assessment Noted Time PHQ-9 Depression Total Score: 22 025 10:39 AM EDT documented as of this encounter Care Teams Millinery Designer Relationship Specialty Start Date End Date Mecca Couch MD [address] [place] [phone] PCP - General Internal Medicine 03/28/23 documented as of this encounter
--- OUTSIDE RECORDS SUMMARY | 2025-10-20 11:19 | XMS_ITS | Encounter Summary ---
Author Organization [employer] Address [address] [place] [address] 7 [place] [address] Care Team Providers Care Black Ash Burner Operator Name Role Phone Mecca Couch MD Primary Care Pro vider Lizeth Singleton RN Unavailable Unavailable Reason for Visit * Reason Onset Date Comments Med Refill 07/06/2023 Encounter Details Date Type Department Care Team (Late st Contact Info) Description 07/06/2023 Refill [facility] [address] [place], [place] [phone] Mecca Couch MD [address] [place] [address] Social History Tobacco Use Types Packs/Day Years [...] Description 01/18/2026 9:45 AM EDT Office Visit [facility] [address] [place] [address] Mecca Couch MD [address] [place] [address] documented as of this encounter Visit Diagnoses Not on filedocumented in this encounter Additional Health Concerns Assessment Noted Time PHQ-9 Depression Total Score: 6 04/01/20 23 9:29 AM EDT documented as of this encounter Care Teams Black Ash Burner Operator Relationship Specialty Start Date End Date Mecca Couch MD [address] [place] [phone] PCP - General Internal Medicine 03/28/23 Lizeth Singleton RN [address] [place] [phone] Registered Nurse Family Medicine 05/12/25 06/07/25 documented as of this encounter
--- OUTSIDE RECORDS SUMMARY | 2025-10-20 11:19 | XMS_ITS | Encounter Summary ---
Author Organization [employer] Address [address] [place] [address] 7 [place] [address] Care Team Providers Care Fly Fishing Guide Name Role Phone Mecca Couch MD Primary Care Pro vider Lizeth Singleton RN Unavailable Unavailable Reason for Visit * Reason Onset Date Comments Med Refill 07/08/2023 Encounter Details Date Type Department Care Team ([facility] st Contact Info) Description 07/08/2023 Telephone [facility] [address] [place], [place] [phone] Mecca Couch MD [address] [place], [place] [phone] Med Refill Social History Tobacco Use Types [...] 1:37 PM EDT Medication was sent to [id number] on 06/13/23 with 2 refills. * Telephone Encounter - Evangelina Sawyer - 07/08/2023 1:27 PM EDT Tc from pt requesting medication refill on dulaglutide (Trulicity) 0.75 MG/0.5ML solution pen-injector documented in this encounter Plan of Treatment Upcoming Encounters Date Type Department Care Team (Late st Contact Info) Description 01/18/2026 9:45 AM EDT Office Visit [facility] [address] [place] [phone] Mecca Couch MD [address] [place] [phone] documented as of this encounter Visit Diagnoses Not on filedocumented in this encounter Additional Health Concerns Assessment Noted Time PHQ-9 Depression Total Score: 6 04/01/20 23 9:29 AM EDT documented as of this encounter Care Teams Fly Fishing Guide Relationship Specialty Start Date End Date Mecca Couch MD [address] [place] [phone] PCP - General Internal Medicine 03/28/23 Lizeth Singleton RN [address] [place] [phone] Registered Nurse Family Medicine 05/12/25 06/07/25 documented as of this encounter
--- OUTSIDE RECORDS SUMMARY | 2025-10-20 11:19 | XMS_ITS | Encounter Summary ---
Author Organization [employer] Address [address] [facility] 7t [place] [address] Care Team Providers Care Door To Door Salesman Name Role Phone Mecca Couch MD Primary Care Pro vider Lizeth Singleton RN Unavailable Unavailable Reason for Visit * Reason Comments Med Refill Encounter Details Date Type Department Care Team ([facility] st Contact Info) Description 04/07/2023 Refill [facility] MEDICINE 230 [place], [place] [phone] Mecca Mclain MD 230 [place] [address] Social History Tobacco Use Types Packs/Day Years [...] Description 01/18/2026 9:45 AM EDT Office Visit [facility] MEDICINE [address] [place] [phone] Mecca Couch MD [address] [place] [address] documented as of this encounter Visit Diagnoses Not on filedocumented in this encounter Additional Health Concerns Assessment Noted Time PHQ-9 Depression Total Score: 6 04/01/20 23 9:29 AM EDT documented as of this encounter Care Teams Door To Door Salesman Relationship Specialty Start Date End Date Mecca Couch MD [address] [place] [address] PCP - General Internal Medicine 03/28/23 Lizeth Singleton RN [address] [place] [address] Registered Nurse Family Medicine 05/12/25 06/07/25 documented as of this encounter
--- OUTSIDE RECORDS SUMMARY | 2025-10-20 11:19 | XMS_ITS | Encounter Summary ---
Author Organization [employer] Address [address] [place] [address] 7 [place] [address] Care Team Providers Care Geographic Information Scientist Name Role Phone Mecca Couch MD Primary Care Pro vider Lizeth Singleton RN Unavailable Unavailable Reason for Visit * Reason Comments Med Refill Encounter Details Date Type Department Care Team (Late st Contact Info) Description 06/05/2023 Refill [facility] MEDICINE 230 [place], [place] [phone] Mecca Couch MD 230 [place] [address] Essential hypertension Social History Tobacco Use Types [...] Department Care Team (Late Contact Info) Description 01/18/2026 9:45 AM EDT Office Visit [facility] MEDICINE 230 [place] [address] Mecca Couch MD 230 [place] [address] documented as of this encounter Visit Diagnoses Diagnosis Essential hypertension Unspecified essential hypertension documented in this encounter Additional Health Concerns Assessment Noted Time PHQ-9 Depression Total Score: 6 04/01/20 23 9:29 AM EDT documented as of this encounter Care Teams Geographic Information Scientist Relationship Specialty Start Date End Date Mecca Couch MD 230 [place] [address] PCP - General Internal Medicine 03/28/23 Lizeth Singleton RN [address] [place] [phone] Registered Nurse Family Medicine 05/12/25 06/07/25 documented as of this encounter
--- OUTSIDE RECORDS SUMMARY | 2025-10-20 11:19 | XMS_ITS | Clinical Summary ---
Author Organization [address] [place] [address] [place] [phone] Phone Care Team Providers Care Crime Laboratory Analyst Name Role Phone Delta Couch MD Primary [...] Depression Screening 11/03/2024 COVID-19 Vaccine ( - 2024-2 6 season) 2025 Influenza Vaccine (#1) 2025 [...] topic Insurance MEDICAID - [place] Care Teams Crime Laboratory Analyst Relationship Specialty Start Date End Date Delta Couch MD [address] [facility] 9 [place] [phone] PCP - General 04/20/24
--- OUTSIDE RECORDS SUMMARY | 2025-10-20 11:19 | XMS_ITS | Encounter Summary ---
Author Organization [employer] Address [address] [place] [address] 7 [place] [address] Care Team Providers Care Flight Operations Manager Name Role Phone Mecca Couch MD Primary Care Pro vider Lizeth Singleton RN Unavailable Unavailable Reason for Visit * Reason Comments Med Refill Encounter Details Date Type Department Care Team (Late st Contact Info) Description 06/11/2023 Refill [facility] MEDICINE 230 [place], [place] [phone] Mecca Couch MD 230 [place] [address] Essential hypertension Social History Tobacco Use Types [...] Description 01/18/2026 9:45 AM EDT Office Visit [facility] MEDICINE [address] [place] [address] Mecca Couch MD 230 [place] [address] documented as of this encounter Visit Diagnoses Diagnosis Essential hypertension Unspecified essential hypertension documented in this encounter Additional Health Concerns Assessment Noted Time PHQ-9 Depression Total Score: 6 04/01/20 23 9:29 AM EDT documented as of this encounter Care Teams Flight Operations Manager Relationship Specialty Start Date End Date Mecca Couch MD 230 [place] [address] PCP - General Internal Medicine 03/28/23 Lizeth Singleton RN [address] [place] [phone] Registered Nurse Family Medicine 05/12/25 06/07/25 documented as of this encounter
--- OUTSIDE RECORDS SUMMARY | 2025-10-20 11:20 | XMS_ITS | Encounter Summary ---
Author Organization [employer] Address [address] [place] [address] 7 [place] [address] Care Team Providers Care Nuclear Technologist Name Role Phone Mecca Couch MD Primary Care Pro vider Lizeth Singleton RN Unavailable Unavailable Reason for Visit * Reason Comments Med Refill Encounter Details Date Type Department Care Team ([facility] st Contact Info) Description 12/01/2024 Refill [facility] MEDICINE 230 [place], [place] [phone] Mecca Couch MD 230 [place] [address] Social History Tobacco Use Types Packs/Day Years [...] 01/18/2026 9:45 AM EDT Office Visit [facility] MEDICINE [address] [place] [phone] Mecca Couch MD [address] [place] [phone] documented as of this encounter Visit Diagnoses Not on filedocumented in this encounter Additional Health Concerns Assessment Noted Time PHQ-9 Depression Total Score: 10 024 2:38 PM EDT documented as of this encounter Care Teams Nuclear Technologist Relationship Specialty Start Date End Date Mecca Couch MD [address] [place] [phone] PCP - General Internal Medicine 03/28/23 Lizteh Singleton RN [address] [place] [phone] Registered Nurse Family Medicine 05/12/25 06/07/25 documented as of this encounter
--- OUTSIDE RECORDS SUMMARY | 2025-10-20 11:20 | XMS_ITS | Encounter Summary ---
Author Organization [employer] Address [address] [facility] 7t [place] [address] Care Team Providers Care Counter Stacker Name Role Phone Mecca Couch MD Primary Care Pro vider Encounter Details Date Type Department Care Team (Latest Contact Info) Description 10/19/2025 Travel Social History Tobacco Use Types Packs/Day [...] Upcoming Encounters Date Type Department Care Team ([facility] st Contact Info) Description 01/18/2026 9:45 AM EDT Office Visit [facility] MEDICINE [address] [place] [address] [phone] Mecca Couch MD 230 [place] [address] documented as of this encounter Goals Goal Patient Goal Type Associated Problems Recent Progress Patient-Stated? Author Help patients manage their type 2 diabetes Care Plan Help patients manage their type 2 diabetes No Jamil Pat Weekly blood pressure task Care Plan Weekly blood pressure task No Jamil Pat Help patients manage their type 2 diabetes Care Plan Help patients manage their type 2 diabetes No Jamil Pat Patient has chronic kidney disease Care Plan Patient has chronic kidney disease No Jamil Pat Weekly blood pressure task Care Plan Weekly blood pressure task No Jamil Pat Patient has chronic kidney disease Care Plan Patient has chronic kidney disease No Jamil Pat Weekly blood pressure task Care Plan Weekly blood pressure task No Jamil Pat Weekly blood pressure task Care Plan Weekly blood pressure task No Jamil Pat Patient has chronic kidney [...] Care Plan Weekly blood pressure task No Orquidea CruzferCORINEN Patient has chronic kidney disease Care Plan [...] chronic kidney disease No Nia Sawyer [place] documented as of this encounter Visit Diagnoses Not on filedocumented in this encounter Additional Health Concerns Active [...] documented as of this encounter Care Teams Counter Stacker Relationship Specialty Start Date End Date Mecca Couch MD [address] [place] [phone] PCP - General Internal Medicine 03/28/23 documented as of this encounter
--- OUTSIDE RECORDS SUMMARY | 2025-10-20 11:20 | XMS_ITS | Encounter Summary ---
Author Organization [employer] Address [address] [place] [address] 7 [place] [address] Care Team Providers Care In Flight Refueling Manager Name Role Phone Mecca Couch MD Primary Care Pro vider Lizeth Singleton RN Unavailable Unavailable Reason for Visit * Reason Onset Date Comments Med Refill 07/20/2024 Encounter Details Date Type Department Care Team ([facility] st Contact Info) Description 07/20/2024 Refill [facility] MEDICINE 230 [place], [place] [phone] Mecca Couch MD 230 [place] [address] Type 2 diabetes mellitus with other circulatory complication, without long-term current use of insulin ([facility]) Social History Tobacco Use Types Packs/Day Years [...] Description 01/18/2026 9:45 AM EDT Office Visit [facility] MEDICINE [address] [place] [phone] Mecca Couch MD [address] [place] [phone] documented as of this encounter Visit Diagnoses Diagnosis Type 2 diabetes mellitus with other circulatory complication, without long-term current use of insulin (HCC) documented in this encounter Additional Health Concerns Assessment Noted Time PHQ-9 Depression Total Score: 10 024 2:38 PM EDT documented as of this encounter Care Teams In Flight Refueling Manager Relationship Specialty Start Date End Date Mecca Couch MD [address] [place] [phone] PCP - General Internal Medicine 03/28/23 Lizeth Singleton RN [address] [place] [address] Registered Nurse Family Medicine 05/12/25 06/07/25 documented as of this encounter
--- OUTSIDE RECORDS SUMMARY | 2025-10-20 11:20 | XMS_ITS | Encounter Summary ---
Author Organization [employer] Address [address] [place] [address] 7 [place] [address] Care Team Providers Care Security And Compliance Analyst Name Role Phone Mecca Couch MD Primary Care Pro vider Lizeth Singleton RN Unavailable Unavailable Reason for Visit * Reason Comments Med Refill Encounter Details Date Type Department Care Team ([facility] st Contact Info) Description 11/26/2024 Refill [facility] MEDICINE 230 [place], [place] [phone] Mecca Couch MD 230 [place] [address] Social History Tobacco Use Types Packs/Day Years [...] Description 01/18/2026 9:45 AM EDT Office Visit [facility] MEDICINE [address] [place] [address] Mecca Couch MD [address] [place] [address] documented as of this encounter Visit Diagnoses Not on filedocumented in this encounter Additional Health Concerns Assessment Noted Time PHQ-9 Depression Total Score: 10 024 2:38 PM EDT documented as of this encounter Care Teams Security And Compliance Analyst Relationship Specialty Start Date End Date Mecca Couch MD [address] [place] [address] PCP - General Internal Medicine 03/28/23 Lizeth Singleton RN [address] [place] [phone] Registered Nurse Family Medicine 05/12/25 06/07/25 documented as of this encounter
--- OUTSIDE RECORDS SUMMARY | 2025-10-20 11:20 | XMS_ITS | Encounter Summary ---
Author Organization [employer] Address [address] [place] [address] 7 [place] [address] Care Team Providers Care Advertising Photographer Name Role Phone Mecca Couch MD Primary Care Pro vider Lizeth Singleton RN Unavailable Unavailable Reason for Visit * Reason Comments Med Refill Encounter Details Date Type Department Care Team ([facility] st Contact Info) Description 11/26/2024 Refill [facility] MEDICINE 230 [place], [place] [phone] Mecca Couch MD 230 [place] [address] Social History Tobacco Use Types Packs/Day Years [...] 9:45 AM EDT Office Visit [facility] MEDICINE [address] [place] [address] Mecca Couch MD [address] [place] [address] documented as of this encounter Visit Diagnoses Not on filedocumented in this encounter Additional Health Concerns Assessment Noted Time PHQ-9 Depression Total Score: 10 024 2:38 PM EDT documented as of this encounter Care Teams Advertising Photographer Relationship Specialty Start Date End Date Mecca Couch MD [address] [place] [phone] PCP - General Internal Medicine 03/28/23 Lizeth Singleton RN [address] [place] [phone] Registered Nurse Family Medicine 05/12/25 06/07/25 documented as of this encounter
--- OUTSIDE RECORDS SUMMARY | 2025-10-20 11:20 | XMS_ITS | Encounter Summary ---
Author Organization [employer] Address [address] [place] [address] 7 [place] [address] Care Team Providers Care Drawing Checker Name Role Phone Mecca Couch MD Primary Care Pro vider Lizeth Singleton RN Unavailable Unavailable Reason for Visit * Reason Onset Date Comments Medication Problem 11/27/2023 Encounter Details Date Type Department Care Team ([facility] st Contact Info) Description 11/27/2023 Telephone [facility] MEDICINE 230 [place], [place] [phone] Mecca Couch MD 230 [place], [place] [phone] Medication Problem Social History Tobacco Use Types [...] 01/18/2026 9:45 AM EDT Office Visit [facility] MEDICINE 230 [place] [address] Mecca Couch MD [address] [place] [address] documented as of this encounter Visit Diagnoses Not on filedocumented in this encounter Additional Health Concerns Assessment Noted Time PHQ-9 Depression Total Score: 6 04/01/20 23 9:29 AM EDT documented as of this encounter Care Teams Drawing Checker Relationship Specialty Start Date End Date Mecca Couch MD [address] [place] [phone] PCP - General Internal Medicine 03/28/23 Lizeth Singleton RN [address] [place] [phone] Registered Nurse Family Medicine 05/12/25 06/07/25 documented as of this encounter
--- OUTSIDE RECORDS SUMMARY | 2025-10-20 11:20 | XMS_ITS | Clinical Summary ---
Author Organization [employer] Address [address] [place] [address] 7[address] [place] [address] Care Team Providers Care Transportation Department Head Name Role Phone Mecca Couch MD Primary [...] split. 60 tablet 1 025 2025 Active Diclofenac Sodium 1 % gel Apply 2 g topically if needed in the morning, at noon, in the evening, and at bedtime (pain). 150 g 3 Active mirabegron ER (Myrbetriq) 25 MG 24 hr tablet TAKE 1 TABLET BY MOUTH EVERY DAY DO NOT CRUSH OR CHEW Active QUEtiapine (SEROquel) 100 MG tablet Take 100 mg by mouth at bedtime. Active atorvastatin (Lipitor) 80 MG tablet Take 1 tablet (80 mg) by mouth in the morning. 90 tablet 1 Active Tirzepatide (Mounjaro) 7.5 MG/0.5ML solution auto-injector Inject 7.5 mg as directed 1 (one) time per week. INJECT ONE PEN (=7.5 MG) SUBCUTANEOUSLY ONCE A WEEK 2 mL 10/03/20 25 10:34 AM EST Active baclofen (Lioresal) 10 MG tablet Take 1 tablet (10 mg) by mouth if needed in the morning, at noon, and at bedtime for muscle spasms. 60 tablet 1 025 2024 Discontinued(O ther) Tirzepatide (Mounjaro) 5 MG/0.5ML solution auto-injector Inject 5 mg under the skin 1 (one) time per week. 2 mL 025 2024 Discontinued celecoxib (CeleBREX) 200 MG capsuleIndicati ons:Tongue lesion Take 1 capsule (200 mg) by mouth 2 times daily for 10 days. 20 capsule 025 2024 Active Problems Problem Noted Date Diagnosed Date Tongue lesion 08/09/2025 Assessment & Plan (10/03/2025 12:46 PM EST): - Tongue lesion with associated odynophagia, referred for biopsy and evaluation by oral pathology. Differential includes neoplastic, infectious, or inflammatory etiologies. - Referral to oral surgeon/pathologist for biopsy and possible removal of lesion. - Start on Celebrex for the pain alternating with tylenol. Orders: celecoxib (CeleBREX) 200 MG capsule; Take 1 capsule (200 mg) by mouth 2 times daily for 10 days. Referral to Oral Maxillofacial Surgery; Future Left knee pain 07/06/2025 Thyroid nodule 05/03/2025 Loud snoring 05/03/2025 Poor memory 05/03/2025 Acute pain of right shoulder 05/03/2025 LUQ pain 05/03/2025 CAD (coronary artery disease) 06/11/2023 Assessment & Plan (06/11/2023 5:29 PM EDT): -from records custodian records 04/2023 Cardiac stress test : ST depression noted and Myocardial perfusion study : with abnormal partially reversible small mild intensity perfusion defect in basal to distal anterior wall. -Pt was seen at hospital on 05/01/2023,pt underwent cardiac angiography reporting mild to moderate RCA disease Asymptomatic now -advised to continue care with records custodian-planned per pt to have cardiac image and [...] diet and exercise,discussed healthy life style -discussed scale tank operator referral --referred again today -will start GLP1 Assessment & Plan (05/01/2023 5:39 PM EDT): Gained 4 pounds in last month -Advised pt to improve diet and exercise,discussed healthy life style -discussed scale tank operator referral --referred already -has apt scheduled -may consider GLP1 x weight and DM at next visit Assessment & Plan (04/01/2023 2:19 PM EDT): -Advised pt to improve diet and exercise,discussed healthy life style -discussed scale tank operator referral --referred today -may consider GLP1 x weight and DM at next visit Cocaine abuse in remission ([facility]) 04/01/2023 Health care maintenance 04/01/2023 Assessment & Plan [...] x EGD once is cleared by her records custodian -for now will add famotidine HS Assessment [...] mo -opthlmo 03/2023 -Normal per pt - graphic coordinator referral today Assessment & Plan (05/01/2023 5:22 [...] pt -will refer at next visit to graphic coordinator Assessment & Plan (04/01/2023 2:18 PM EDT): -pt on metformin 1 gr BID -DM labs today -opthlmo 03/2023 -Normal per pt -will refer at next visit to graphic coordinator Female stress incontinence 01/23/2017 Assessment & Plan [...] removed at next apt -referred to her rn referral to continue care but was told that [...] removed at next apt -referred to her rn referral to continue care but was told that [...] at next visit -referred today to her rn referral to continue care -pt in mx meds x psych care including cymbalta 60 mg BID Anxiety 08/27/2016 Bipolar disorder 08/27/2016 Assessment & Plan (06/11/2023 5:16 PM EDT): PHQ9; 6 ( 03/2023) Pt f w psychiatrist -Dr Sin Cochran at [facility] -continue care w specialist [...] f w psychiatrist -Dr Sin Cochran at [facility] per pt on mx meds-states to be stable Pt appears anxious -continue care w specialist Assessment & Plan (04/01/2023 2:37 PM EDT): PHQ9; 6 today Pt f w psychiatrist -Dr Sin Cochran at [facility] per pt on mx [...] ondition w oth circulatory comp 05/01/2023 05/01/2023 Tobacco use 04/01/2023 10/20/2025 Assessment & Plan (06/11/2023 5:18 PM EDT): [...] 14 y ago so still needs screening Encounters Date Type Department Care Team Description 10/20/2025 9:00 AM EST Office Visit [facility] Tomy [facility] [place] [address] Mecca Couch MD Type 2 diabetes mellitus with other circulatory complication, without long-term current use of insulin (HCC) (Primary Dx); Hypertension, unspecified type; Tongue lesion; Class 1 obesity; Health care maintenance 10/20/2025 Travel 10/19/2025 Travel 10/19/2025 Telephone [facility] Tomy [facility] [place] [address] Mecca Couch MD chart prep 10/11/2025 2:40 PM EST Office Visit [facility] [address] Pamela Cantrell MD Throat discomfort (Primary Dx) 10/11/2025 Travel 10/10/2025 1:30 PM EST Clinical Support [facility] oTmy [facility] [place] [address] Aminata Humphries RN Poor memory 10/10/2025 Travel 10/06/2025 Orders Only [facility] Tomy [facility], [place] [address] Mecca Couch MD Tongue lesion (Primary Dx) 10/06/2025 Telephone [facility] Tomy [facility], [place] [address] Mecca Couch MD Referral 10/03/2025 10:45 AM EST Office Visit [facility] [address] [facility] [address] Jamil Whipple MD Tongue lesion (Primary Dx) 10/03/2025 Travel 09/28/2025 Telephone [facility] [address] [facility], [place] [address] Mecca Couch MD Referral 09/28/2025 Telephone [facility] [address] [place] [address] Mecca Couch MD Med Refill 09/28/2025 Refill [facility] [address] [place] [address] Mecca Couch MD 09/26/2025 Telephone [facility] [address] [place] [address] Mecca Couch MD Referral 09/22/2025 Telephone [facility] [address] [place] [address] Mecca Couch MD Referral 09/06/2025 Refill [facility] 230 [facility] [place] [address] Mecca Couch MD 08/24/2025 Refill [facility] [address] [place] [address] Mecca Couch MD Type 2 diabetes mellitus with other circulatory complication, without long-term current use of insulin (HCC) 08/15/2025 Telephone [facility] [address] [place] [address] Mecca Couch MD Med Refill 08/12/2025 Refill [facility] [address] [place] [address] Mecca Couch MD 08/09/2025 9:45 AM EDT Office Visit [facility] 230 [facility] [place] [address] Mecca Couch MD Hypertension, unspecified type (Primary Dx); Type 2 diabetes mellitus with other circulatory complication, without long-term current use of insulin (HCC); Encounter for vaccination; Encounter for immunization; Hypertriglyceridemia; Class 1 obesity; Renal cyst; Health care maintenance; Poor memory; Loud snoring; Tongue lesion 08/09/2025 Telephone [facility] [address] [place] [address] Mecca Couch MD Prior Auth Prescription 08/09/[address] [address] Mecca Couch MD call back request 08/09/2025 Patient Outreach [address] [address] Mecca Couch MD Care Coordination ([facility] outreach for SDOH PT-1 and food needs-referral completed /) 08/09/[address] [address] Mecca Couch MD Referral 08/09/2025 Travel 08/08/[address] [address] Mecca Couch MD chart prep 08/05/2025 10:45 AM EDT Office Visit [facility] [address] [place] [address] Jose Roberto, Isabella, OD Presbyopia (Primary Dx) 08/05/2025 Refill [facility] [address] [place] [phone] Mecca Couch MD Acute pain of left knee 08/03/2025 Travel 07/26/2025 Refill [facility] [address] [place] [phone] Neida Barlow DO Acute pain of left knee from Last 3 Months Immunizations Immunization Administration [...] Mass Index 36.37 10/20/2025 9:09 AM EST Plan of Treatment Upcoming Encounters Date Type Department Care Team (Late st Contact Info) Description 01/18/2026 9:45 AM EDT Office Visit [facility] [address] [place] [phone] Mecca Couch MD [address] [place], [place] [phone] Health Maintenance Due Date Last Done Comments CT Colonography 1967 Colonoscopy 1967 Colorectal Cancer Screening 1967 FIT DNA/Cologuard 1967 FIT 1967 FOBT 1967 Sigmoidoscopy 1967 Diabetes: Foot Exam 1977 Hepatitis A Vaccines (1 of 2 - Risk 2-dose series) 1986 Hepatitis B Vaccines (1 of 3 - 19+ 3-dose series) 1986 RSV Patients and Patients Aged 60 years or older (1 - Risk 50-74 years 1-dose series) 2017 Zoster Vaccines (2 of 2) 11/19/2023 09/24/2023 Diabetes: Urine Protein Screening 04/03/2024 04/03/2023, 04/03/2023, 01/31/2020 Lipid Panel 06/24/2025 06/24/2024, 10/04, 04/03/2023, Additional history exists Depression Monitoring 11/03/2025 05/03/2025, 025 Diabetes: Hemoglobin A1C 04/20/2026 025, 05/03/2025, 06/24/2024, Additional history exists SDOH Screening 04/26/2026 04/26/2025 Alcohol/Substance Use Screening 05/03/2026 05/03/2025 Disability Screening 08/03/2026 08/03/2025 Tobacco Screening 10/20/2026 10/20/2025 Mammogram 06/16/2027 06/16/2025, 07/0 01/2024, 04/23/2023, Additional history exists Eye Exam 06/21/2027 06/21/2025, 06/03, 06/21/2025, Additional history exists DTaP/Tdap/Td Vaccines (4 - Td or Tdap) 01/20/2034 01/21/2024, 11/13/2015, 02/07/2014 Pneumococcal Vaccine: 50+ Years Completed 04/01/2023 Cervical [...] on patient's age to complete this topic Goals Goal Patient Goal Type Associated Problems Recent Progress Patient-Stated? Author Help patients manage their type 2 diabetes Care Plan Help patients manage their type 2 diabetes No Jamil Pat Weekly blood pressure task Care Plan Weekly blood pressure task No Bi Jamil Help patients manage their type 2 diabetes Care Plan Help patients manage their type 2 diabetes No Bi Jamil Patient has chronic kidney disease Care Plan Patient has chronic kidney disease No Bi Jamil Weekly blood pressure task Care Plan Weekly blood pressure task No Bi Jamil Patient has chronic kidney disease Care Plan Patient has chronic kidney disease No Bi Jamil Weekly blood pressure task [...] chronic kidney disease No Nia Sawyer MA Procedures Procedure Name Priority Date/Time Associated Diagnosis Comments POCT GLYCATED HEMOGLOBIN, TOTAL Routine 10/20/2025 9:55 AM EST Type 2 diabetes mellitus with other circulatory complication, without long-term current use of insulin (HCC) POCT GLUCOSE Routine 10/20/2025 9:55 AM EST Type 2 diabetes mellitus with other circulatory complication, without long-term current use of insulin (HCC) POCT INFLUENZA B Routine 10/11/2025 4:10 PM EST Throat discomfort POCT INFLUENZA A Routine 10/11/2025 4:10 PM EST Throat discomfort POCT RAPID STREP A Routine 10/11/2025 4: 09 PM EST Throat discomfort POCT RAPID COVID ANTIGEN Routine 10/11/2025 4:08 PM EST Throat discomfort BI MAMMOGRAM SCREENING TOMOSYNTHESIS BILATERAL Routine 06/16/2025 3:15 PM EDT HEPATITIS C AB W/REFL TO HCV RNA, [...] 2 diabetes mellitus without complication, unspecified whether longterm insulin use (CMS/HCC) from Last 3 Months or Most Recently Relevant to Health Maintenance Results * (ABNORMAL) POCT Hgb A1c (10/20/2025 9:55 AM EST) [facility] Hemoglobin A1C 6.3(A) 4.0 - 5.7 % QC Media Lot # [id number] Lot# Expiration Date Blood 10/20/2025 9:55 AM EST Result [facility] Mecca Wilkinson MD POINT OF CARE ROBERTH T ENTER/EDIT ORDERABLES Final Result * POCT Glucose (10/20/2025 9:55 AM EST) [facility] Glucose Blood, POC 195 60 - 200 mg/dL QC Media Lot # [id number] Lot# Expiration Date Blood Capillary blood specimen / Unknown 10/20/2025 9:55 AM EST Result [facility] Mecca Wilkinson MD POINT OF CARE ROBERTH T ENTER/EDIT ORDERABLES Final Result * POCT Influenza B manually resulted (10/11/2025 4:10 PM EST) [facility] Rapid Influenza B Ag Negative Negative, Indeterminate QC Media Lot # [id number] Lot# Expiration Date [id number] Swab 10/11/2025 4:10 PM EST Result [facility] Pamela Cantrell MD POINT OF CARE TEST ENTER/E DIT ORDERABLES Final Result * POCT Influenza A manually resulted (10/11/2025 4:10 PM EST) [facility] Rapid Influenza A Ag Negative Negative, Indeterminate QC Media Lot # [id number] Lot# Expiration Date Swab Nasopharyngeal structure / Unknown 10/11/2025 4:10 PM EST Result [facility] Pamela Cantrell MD POINT OF CARE TEST ENTER/E DIT ORDERABLES Final Result * POCT rapid strep A manually resulted (10/11/2025 4:09 PM EST) [facility] Rapid Strep A Screen Negative Negative, None Detected QC Media Lot # [id number] Lot# Expiration Date [id number] Swab 10/11/2025 4:09 PM EST Pamela Cantrell MD POINT OF CARE TEST ENTER/E DIT ORDERABLES Final Result * POCT Rapid COVID Ag (10/11/2025 4:08 PM EST) Rapid COVID Ag Negative QC Media Lot # [id number] Lot# Expiration Date [id number] Swab 10/11/2025 4:08 PM EST Pamela Cantrell MD POINT OF CARE TEST ENTER/E DIT ORDERABLES Final Result * BI Mammogram Screening Tomosynthesis Bilateral (06/16/2025 3:15 PM EDT) Anatomical Region Laterality Modality Breast Bilateral Mammography 06/16/2025 3:15 PM EDT Narrative 06/21/2025 2:04 PM EDT [facility] [address] [place] [address] Mammography Report Signed Patient: Mecca Lundy MR#: [id number] 5 : 1965 Acct:[id number] Age/Sex: 60 / F ADM Date: 06/16/25 Loc: HO.MAMMO Attending Dr: Mecca Wilkinson MD Ordering Physician: Mecca Couch MD Re sults: 1Negative Date of Service: 06/16/25 Follow Up: 1 Year From [facility] ina Mammogram Procedure(s): MM tomosynthesis screening BI Accession Number(s): [id number] cc: Mecca Couch MD EXAMINATION: MM SCREENING [...] 06/21/25 1401 DD/ 1515 TD/TT: 06/16/25 1530 Media Analytics Manager: Procedure Note Donotuseinterpreter, Image - [facility] [address] [place] [address] Mammography Report Signed Patient: Mecca LundyMR#: [id number] 5 : 1965Acct:[id number] Age/Sex: 60 / FADM Date: 06/16/25 Loc: HO.MAMMO Attending Dr: Mecca Wilkinson MD Ordering Physician: Mecca Couch sults: 1Negative Date of Service: 06/16/25Follow Up: 1 Year From [facility] Mammogram Procedure(s): MM tomosynthesis screening BI Accession Number(s): [id number] cc: Mecca Couch MD EXAMINATION: MM SCREENING [...] 06/21/25 1401 DD/ 1515 TD/TT: 06/16/25 1530 Media Analytics Manager: Mecca Wilkinson MD IMG BI PROCEDURES Final Result * Hepatitis C Antibody with Reflex to HCV, RNA, Quantitative, Real-Time PCR (06/24/2024 1:25 PM EDT) Hepatitis C Antibody Nonreactive Nonreactive [facility] Comment:Antibodies to HCV no t detected; does not exclude early acuteHCV infection. Blood Venous blood specimen / Unknown 06/24/2024 1:25 PM EDT 06/24/2024 4:01 PM EDT us Mecca Wilkinson MD LAB BLOOD ORDERAB LES Final Result [facility] [address] [place] [phone] * HIV-1/2 Antigen and Antibodies, Fourth Generation, with Reflexes (06/24/2024 1:25 PM EDT) HIV AB/AG Nonreactive Nonreactive [facility] Comment:HIV-1 p24 Ag and/or HIV-1/HIV-2 Ab not detected.A test result that is nonreactive does not exclude thepossibility of exposure to or infection with HIV-1 and/orHIV-2. Nonreactive results in this assay for individualswith prior exposure to HIV-1 and/or HIV-2 may be due toantigen and antibody levels that are below the limit ofdetection of this assay.The [employer] HIV Ag/Ab Combo assay result andsupplemental assay results should be interpreted inconjunction with the patient's clinical presentation,history and other laboratory results. If the results areinconsistent with clinical evidence, additional testing issuggested to confirm the result. Blood Venous blood specimen / Unknown 06/24/2024 1:25 PM EDT 06/24/2024 4:01 PM EDT us Mecca Wilkinson MD LAB BLOOD ORDERAB LES Final Result [facility] [address] [place] [phone] * (ABNORMAL) Lipid Panel, Standard (06/24/2024 1:25 PM EDT) Triglycerides 193(H) <150 mg/dL [facility] Comment:Desirable Triglyceri de: less than 150 mg/dLBorderline High Triglyceride 150-199 mg/dLHigh Triglyceride: 200-499 mg/dLVery High Triglyceride: greater than or equal to 5OO mg/dL Cholesterol 145 <200 mg/dL [facility] Comment:Desirable Cholestero l: less than 200 mg/dLBorderline High Cholesterol: 200-239 mg/dLHigh Cholesterol: greater than 239 mg/dL LDL Cholesterol Calculated 61 <100 mg/dL [facility] Comment:Desirable LDL: less than 100 mg/dLNear Optimal/Above Optimal LDL: 110- 129 mg/dLBorderline High LDL: 130-159 mg/dLHigh LDL: 160-189 mg/dLVery High LDL: greater than or equal to 190 mg/dL HDL Cholesterol 46 >40 mg/dL [facility] Comment:Desirable HDL: great er than 40 mg/dL Note: This HDL assay may give artificially low results in patients with liver disease. Blood Venous blood specimen / Unknown 06/24/2024 1:25 PM EDT 06/24/2024 4:01 PM EDT Mecca Wilkinson MD LAB BLOOD ORDERAB LES Final Result [facility] [address] [place] [phone] * Image-Guided Pap with Age-Based Screening Protocols (04/24/2023 2:25 PM EDT) Comment [facility] Comment: This order for age-based cervical cancer and STI screening follows ACOG guidelines(PB 168, 140, CXX845). See individual assays for performing site location. Clinical Information: None given [employer] LMP: NONE GIVEN [employer] Prev. PAP: NONE GIVEN [employer] Prev. BX: NONE GIVEN [employer] SOURCE: None given [employer] Statement Of Adequacy: [facility] Comment: Satisfactory for evaluation. Endocervical/transformation zone component absent. Interpretation/ Result: Negative for intraepithelial lesion or malignancy. [facility] Comment: This Pap test has been evaluated with computer assisted technology. [facility] Cytotechnologis t: [facility] Comment: MSM, CT(ASCP) CT screening location: [place] [address] (Always Message) [facility] Comment: EXPLANATORY NOTE: The Pap is a [...] HPV nRNA E6/E7 Not Detected Not Detected [facility] Comment: Methodology: High [employer] Coordinator-Mediated Amplification This assay detects E6/E7 viral messenger RNA (mRNA) from 14 high-risk HPV types (16,18,31,33,35,39,45,51,52,56,58,59,66,68). Cervical sources are required for HPV testing. If a vaginal source from a patient who has had a total hysterectomy with removal of cervix was submitted, please contact the testing laboratory for alternative testing options. For additional information, please refer to [email or web address]/faq/VPP445e9 (This link if provided for information/ educational purposes only.) Pap Vial 04/24/2023 2:25 PM EDT 04/25/2023 1:57 AM EDT Result [facility] Eliane REECE LAB BLOOD ORDERABLES Michelle l Result Performing Organization Address [facility] Co de Phone Number [address], [place] [phone] [employer] [address] [place] [phone] * Albumin, Random Urine W/O Creatinine (04/03/2023 8:13 AM EDT) Albumin, Urine 1.3 See Note: mg/dL [employer] Comment: Reference Range: Reference Range Not established [employer] Comment: The ADA defines abnormalities in albumin [...] ORDERAB LES Final Result Performing Organization Address [facility] Co de Phone Number [address], [place] [phone] [employer] [address] [place] [phone] from Last 3 Months or Most Recently Relevant to Health Maintenance Additional Health Concerns Active Problems Noted Date [...] 10/19/2025 Patient has chronic kidney disease 10/19/[address] [place] [address] [place] [address] [employer] [facility] C3 Care Teams Transportation Department Head Relationship Specialty Start Date End Date Mecca Couch MD [address] [place] [phone] PCP - General Internal Medicine 03/28/23
--- OUTSIDE RECORDS SUMMARY | 2025-10-20 11:20 | XMS_ITS | Encounter Summary ---
Author Organization [employer] Address [address] [place] [address] 7 [place] [address] Care Team Providers Care Stove Cleaner Name Role Phone Mecca Couch MD Primary Care Pro vider Reason for Visit * Reason Onset Date Comments Med Refill 09/28/2025 Encounter Details Date Type Department Care Team ([facility] st Contact Info) Description 09/28/2025 Telephone [facility] [address] [place], [place] [phone] Mecca Couch MD [address] [place] [address] Med Refill Social History Tobacco Use Types [...] Telephone Encounter - Neida Cruz LPN - 09/28/2025 12:49 PM EST Medication pended to PCP. * Telephone Encounter - Tammy Werner - 09/28/2025 12:44 PM EST TC from pt requesting medication refill. Medications needing refill : Mounjaro 5mg To be sent to: [facility] - [place], [place] - [address] [place] [address] documented in this encounter Plan of Treatment Upcoming Encounters Date Type Department Care Team ([facility] st Contact Info) Description 01/18/2026 9:45 AM EDT Office Visit [facility] [address] [place], [place] [phone] Mecca Couch MD [address] [place], [place] [phone] documented as of this encounter Goals Goal [...] Weekly blood pressure task No Pat Jamil Patient has chronic kidney disease Care Plan Patient has chronic kidney disease No Bi Jamil Weekly blood pressure task Care Plan Weekly blood pressure task No Pat, Jamil Weekly blood pressure task Care Plan Weekly blood pressure task No Bi Jamil Patient has chronic kidney disease Care Plan Patient has chronic kidney disease No Bi Jamil Patient has chronic kidney [...] chronic kidney disease No Neida Cruz LPN documented as of this encounter Visit Diagnoses [...] 09/28/2025 Patient has chronic kidney disease 09/28/2025 Assessment Noted Time PHQ-9 Depression Total Score: 22 025 10:39 AM EDT documented as of this encounter Care Teams Stove Cleaner Relationship Specialty Start Date End Date Mecca Couch MD [address] [place] [phone] PCP - General Internal Medicine 03/28/23 documented as of this encounter
--- OUTSIDE RECORDS SUMMARY | 2025-10-20 11:20 | XMS_ITS | Encounter Summary ---
Author Organization [employer] Address [address] [place] [address] [address] [address] Care Team Providers Care Infantry Unit Leader Name Role Phone Cinthya Mckeon Primary Care Provider [phone] Mecca Couch MD Primary Care Pro vider Lizeth Singleton RN Unavailable Unavailable Encounter Details Date Type Department Care Team (Late st Contact Info) Description 10/25/2022 Abstract [facility] MEDICINE [address] [place] [phone] Cinthya Mckeon FNP [address] [place], [place] [phone] Social History Tobacco Use Types Packs/Day Years [...] Description 01/18/2026 9:45 AM EDT Office Visit [facility] MEDICINE [address] [place] [phone] Mecca Couch MD [address] [place] [address] documented as of this encounter Visit Diagnoses Not on filedocumented in this encounter Care Teams Infantry Unit Leader Relationship Specialty Start Date End Date Cinthya Mckeon FNP 230 [place] [address] PCP - General Family Medicine 06/27/22 03/27/23 Mecca Couch MD 230 [place] [address] PCP - General Internal Medicine 03/28/23 Lizeth Singleton, KRISTIE [address] [place] [address] Registered Nurse Family Medicine 05/12/25 06/07/25 documented as of this encounter
--- OUTSIDE RECORDS SUMMARY | 2025-10-20 11:20 | XMS_ITS | Encounter Summary ---
Author Organization [email or web address] Address [address] [place] [address] 7 [place] [address] Care Team Providers Care Credit Union Manager Name Role Phone Mecca Couch MD Primary Care Pro vider Reason for Visit * Reason Onset Date Comments chart prep 10/19/2025 Encounter Details Date Type Department Care Team ([facility] st Contact Info) Description 10/19/2025 Telephone [facility] 230 [place], [place] [phone] Mecca Couch MD 230 [place] [address] chart prep Social History Tobacco Use Types Packs/Day Years [...] encounter Miscellaneous Notes * Telephone Encounter - Nia Sawyer [place] - 10/19/2025 3:19 PM EST ..Chart Prep Labs: not applicable Images: not applicable Vaccines due: Hep A Due and Hep B Due Referrals: Gastroenterology Pending appointment on 11/10/25 and Cardiology Pending appointment on 11/23/25 Screenings: Colonoscopy Overdue care gaps: A1C, Glucose, and PHQ9 documented in this encounter Plan of Treatment Upcoming Encounters Date Type Department Care Team (Late st Contact Info) Description 01/18/2026 9:45 AM EDT Office Visit [facility] 230 [place], [place] [phone] Mecca Couch MD 230 [place] [address] documented as of this encounter Goals Goal Patient Goal Type Associated Problems Recent Progress Patient-Stated? Author Help patients manage their type 2 diabetes Care Plan Help patients manage their type 2 diabetes Jamil Mobley Weekly blood pressure task Care Plan Weekly blood pressure task No Pat, Jamil Help patients manage their type 2 diabetes Care Plan Help patients manage their type 2 diabetes No Bi, Jamil Patient has chronic kidney [...] documented as of this encounter Care Teams Credit Union Manager Relationship Specialty Start Date End Date Mecca Couch MD [address] [place] [phone] PCP - General Internal Medicine 03/28/23 documented as of this encounter
--- OUTSIDE RECORDS SUMMARY | 2025-10-20 11:20 | XMS_ITS | Encounter Summary ---
Author Organization [employer] Address [address] [place] [address] 7 [place] [address] Care Team Providers Care Fiber Design Engineer Name Role Phone Mecca Couch MD Primary Care Pro vider Lizeth Singleton RN Unavailable Unavailable Reason for Visit * Reason Onset Date Comments Med Refill 09/01/2023 Encounter Details Date Type Department Care Team ([facility] st Contact Info) Description 09/01/2023 Refill [facility] MEDICINE 230 [place], [place] [phone] Mecca Couch MD 230 [place] [address] Social History Tobacco Use Types Packs/Day Years [...] 9:45 AM EDT Office Visit [facility] MEDICINE [address] [place] [phone] Mecca Couch MD [address] [place] [phone] documented as of this encounter Visit Diagnoses Not on filedocumented in this encounter Additional Health Concerns Assessment Noted Time PHQ-9 Depression Total Score: 6 04/01/20 23 9:29 AM EDT documented as of this encounter Care Teams Fiber Design Engineer Relationship Specialty Start Date End Date Mecca Couch MD [address] [place] [address] PCP - General Internal Medicine 03/28/23 Lizeth Singleton RN [address] [place] [address] Registered Nurse Family Medicine 05/12/25 06/07/25 documented as of this encounter
--- OUTSIDE RECORDS SUMMARY | 2025-10-20 11:20 | XMS_ITS | Encounter Summary ---
Author Organization [employer] Address [address] [facility] 7t [place] [address] Care Team Providers Care Leaf Sucker Operator Name Role Phone Mecca Couch MD Primary Care Pro vider Reason for Visit * Reason Comments Med Refill Encounter Details Date Type Department Care Team ([facility] st Contact Info) Description 07/11/2025 Refill [facility] 230 [place], [place] [phone] Neida Barlow DO 230 [place] [address] Social History Tobacco Use Types Packs/Day Years [...] 01/18/2026 9:45 AM EDT Office Visit [facility] MEDICINE [address] [place] [address] [phone] Mecca Couch MD [address] [place] [address] documented as of this encounter Visit Diagnoses Not on filedocumented in this encounter Additional Health Concerns Assessment Noted Time PHQ-9 Depression Total Score: 22 025 10:39 AM EDT documented as of this encounter Care Teams Leaf Sucker Operator Relationship Specialty Start Date End Date Mecca Couch MD [address] [place] [address] [phone] PCP - General Internal Medicine 03/28/23 documented as of this encounter
--- OUTSIDE RECORDS SUMMARY | 2025-10-20 11:21 | XMS_ITS | Encounter Summary ---
Author Organization [employer] Address [address] [facility] 7t [place] [address] Care Team Providers Care Weatherization And Housing Inspector Name Role Phone Mecca Couch MD Primary Care Pro vider Encounter Details Date Type Department Care Team (Latest Contact Info) Description 10/20/2025 Travel Social History Tobacco Use Types Packs/Day [...] Upcoming Encounters Date Type Department Care Team ([facility] st Contact Info) Description 01/18/2026 9:45 AM EDT Office Visit [facility] MEDICINE [address] [place] [address] [phone] Mecca Couch MD 230 [place] [address] documented as of this encounter Goals Goal [...] documented as of this encounter Care Teams Weatherization And Housing Inspector Relationship Specialty Start Date End Date Mecca Couch MD [address] [place] [address] PCP - General Internal Medicine 03/28/23 documented as of this encounter
--- OUTSIDE RECORDS SUMMARY | 2025-10-20 11:21 | XMS_ITS | Encounter Summary ---
Author Organization [employer] Address [address] [place] [address] 7 [place] [address] Care Team Providers Care Iridologist Name Role Phone Mecca Couch MD Primary Care Pro vider Reason for Visit * Reason Comments Med Refill Encounter Details Date Type Department Care Team ([facility] st Contact Info) Description 08/24/2025 Refill [facility] MEDICINE 230 [place], [place] [phone] Mecca Couch MD 230 [place] [address] Type 2 diabetes mellitus with other circulatory [...] EDT Office Visit [facility] MEDICINE [address] [place] [address] Mecca Couch MD [address] [place] [address] documented as of this encounter Visit Diagnoses Diagnosis Type 2 diabetes mellitus with other circulatory complication, without long-term current use of insulin (HCC) documented in this encounter Additional Health Concerns Assessment Noted Time PHQ-9 Depression Total Score: 22 025 10:39 AM EDT documented as of this encounter Care Teams Iridologist Relationship Specialty Start Date End Date Mecca Couch MD [address] [place] [phone] PCP - General Internal Medicine 03/28/23 documented as of this encounter
[2025-10-20 11:51] LABS: Hematocrit 36.8 % (37.0-47.0); Hemoglobin 12.5 g/dl (12.0-16.0); Mean Corpuscular HGB Conc 34.0 g/dl (31.0-35.0); Mean Corpuscular Hemoglobin 29.1 pg (27.0-33.0); Mean Corpuscular Volume 85.6 fL (80.0-98.0); NRBC Abs Auto 0.000 X10*3/uL (0.0-0.012); NRBC Pct Auto 0.0 /100WBC (0.0-0.2); Platelet Count 246 X10*3/uL (160-400); Red Blood Count 4.30 X10*6/uL (4.20-5.50); White Blood Count 5.3 X10*3/uL (4.8-10.8)
[2025-10-20 12:17] LABS: Alanine Aminotransferase 40 U/L (0-31); Albumin Level 4.5 g/dL (3.5-5.0); Alkaline Phosphatase 126 U/L (39-117); Anion Gap 13 (12-20); Aspartate Amino Transferase 38 U/L (5-31); Blood Urea Nitrogen 12 mg/dL (9-16); Calcium 9.6 mg/dL (8.4-10.2); Carbon Dioxide 24 mmol/L (22-29); Chloride 107 mmol/L (96-108); Cholesterol 145 mg/dL (<200); Estimated Glomerular Filt Rate > 60; HDL Cholesterol 38 mg/dL (>40); Potassium 4.0 mmol/L (3.3-5.1); Sodium 140 mmol/L (135-145); Total Protein 7.2 g/dL (6.5-8.0); Triglycerides 231 mg/dL (<150)
[2025-10-20 12:27] LABS: Microalbum/Creatinine Ratio Ur 8.2 ug/mg cr (<30)
[2025-10-20 12:39] LABS: Folate 13.3 ng/mL (> or = 4.0); Vitamin B12 369 pg/mL (200-900)
[2025-10-20 13:38] LABS: Syphilis Screen Nonreactive (Nonreactive)
[2025-10-20 14:01] LABS: HBS Num1 21.23 mIU/mL (0-7.99); HBc Num1 9.04 S/CO (0.00-0.79); HBsAGNum1 0.29 S/CO (0.00-0.99); HIV Num 1 0.08 S/CO (0.00-0.99); Hepatitis B Surface Antigen Negative (Negative); ~HepC Num1 0.10 S/CO (0.00-0.79); ~Hepatitis B Surface Antibody REACTIVE (Nonreactive); ~Hepatitis C Antibody Nonreactive (Nonreactive)
[2025-10-21 05:19] LABS: Rubeola IgG (Measles) 19.50 AU/mL
[2025-10-21 08:49] LABS: HBc Num2 9.41 S/CO; HBc Num3 9.37 S/CO
== END 2025-10-20 09:39 ==
LOC: HO.HHCL 09:38
PROVIDERS: Student in an Organized Health Care Education/Training Program; PCP Student in an Organized Health Care Education/Training Program; Visit Provider Student in an Organized Health Care Education/Training Program
DX: Z00.00 Encounter for general adult medical examination without abnormal findings (principal); Z01.84 Encounter for antibody response examination; Z11.4 Encounter for screening for human immunodeficiency virus [HIV]; Z11.59 Encounter for screening for other viral diseases; Z11.3 Encounter for screening for infections with a predominantly sexual mode of transmission; E04.2 Nontoxic multinodular goiter
CPT/HCPCS: 36415; 80053; 80061; 82043; 82306; 82570; 82607; 82746; 83036; 84443; 85027; 86704; 86706; 86735; 86762; 86765; 86780; 86803; 87340; 87389

== ENCOUNTER 2025-10-25 15:00 | Outpatient (REF) | payer MEDICAID, SELFPAY ==
--- OUTSIDE RECORDS SUMMARY | 2025-10-20 09:00 | XMS_ITS | Encounter Summary ---
Author Organization [employer] Address [address] [place] [address] [facility] [place] [address] Care Team Providers Care Child Guidance Counselor Name Role Phone Delta Dumont MD Primary Care Pro vider Reason for Referral * Imaging (STAT) - Canceled Specialty Diagnoses / Procedures Referred By Contac t Referred To Contact Radiology Diagnoses Lung nodule Hx of smoking Procedures CT Low Dose Screening Delta Dumont MD [address] [place] [address] Phone: tel: fax: Referral ID Status Reason Start Date Expiration Date V isits Requested Visits Authorized [id number] Canceled 10/20/2025 10/20/2026 1 1 Encounter Details Date Type Department Care Team (Late st Contact Info) Description 10/20/2025 9:00 AM EST Office Visit [facility] [address] [place] [address] [phone] Delta Dumont MD [address] [place], [place] [phone] Type 2 diabetes mellitus with other circulatory complication, without long-term current use of insulin (HCC) (Primary Dx); Hypertension, unspecified type; Tongue lesion; Class 1 obesity; Health care maintenance; Lung nodule; Hx of smoking Social History Tobacco Use Types Packs/Day Years Used Date Smoking Tobacco: Former Cigarettes Smokeless Tobacco: Never Tobacco Cessation:Counseling Given: Not Answered Comments:Started at 13 y of age -stopped 16 y ago at her 44 y of age , used to smoke 1 2 PQT , x 31 years --PQT a year calc 46.5 Alcohol Use Standard Drinks/Week Comments Not Currently 0 (1 standard drink = 0.6 oz pure alcohol) hx of alcoholism from 32 to 35 years -now stopped Depression Answer Date Recorded Patient Health Questionnaire-9 Score 19 10/20/2025 Patient Health Questionnaire-9 Score 19 10/20/2025 Last PHQ-9: Questionnaire Data Not on file 1 12/21/2024 Housing Stability Answer Date Recorded What is [...] Answer Date Recorded Patient Health Questionnaire-2 Score 5 10/20/2025 Internet Access Answer Date Recorded Internet Access [...] 9:09 AM EST documented in this encounter Functional Status * Over the past 2 weeks, how often have you been bothered by any of the following problems? Question Answer Date of Assessment Author Patient Health Questionnaire -2 Score 5 10/20/2025 1:17 PM EST Yamilka Dunne MA * Little interest or pleasure in doing things Answer Date of Assessment Author Nearly every day 10/20/2025 1:17 PM EST Yamilka Dunne MA * Feeling down, depressed, or hopeless Answer Date of Assessment Author More than half the days 10/20/2025 1:17 PM EST Yamilka Mccracken MA * Trouble falling or staying asleep, or sleeping too much Answer Date of Assessment Author Nearly every day 10/20/2025 1:17 PM EST Yamilka Dunne MA * Feeling tired or having little energy Answer Date of Assessment Author More than half the days 10/20/2025 1:17 PM EST Yamilka Mccracken MA * Poor appetite or overeating Answer Date of Assessment Author Nearly every day 10/20/2025 1:17 PM EST Yamilka Dunne MA * Feeling bad about yourself - or that you are a failure or have let yourself or your family down Answer Date of Assessment Author More than half the days 10/20/2025 1:17 PM EST Yamilka Mccracken MA * Trouble concentrating on things, such as reading the newspaper or watching television Answer Date of Assessment Author More than half the days 10/20/2025 1:17 PM EST Yamilka Mccracken MA * Moving or speaking so slowly that other people could have noticed? Or the opposite - being so fidgety or restless that you have been moving around a lot more than usual. Answer Date of Assessment Author More than half the days 10/20/2025 1:17 PM Yamilka Ramirez MA * Thoughts that you would be better off or hurting yourself in some way Answer Date of Assessment Author Not at all 10/20/2025 1:17 PM Jamari Garcia MA * Patient Health Questionnaire-9 Score Answer Date of Assessment Author 19 10/20/2025 1:17 PM Jamari Garcia MA * Over the last 2 weeks, how often have you been bothered by any of the following problems? Question Answer Date of Assessment Author Feeling nervous, anxious, or on edge 3 10/20/2025 1:17 PM Yamilka Garcia MA Not being able to stop or co ntrol worrying 3 10/20/2025 1:17 PM Yamilka Garcia MA Worrying too much about diff erent things 2 10/20/2025 1:17 PM Yamilka Garcia MA Trouble relaxing 3 10/20/2025 1:17 PM Yamilka Ramirez MA Being so restless that it is hard to sit still 2 10/20/2025 1:17 PM Yamilka Garcia MA Becoming easily annoyed or irritable 1 10/20/2025 1:17 PM Yamilka Garcia MA Feeling afraid as if somethi ng awful might happen 1 10/20/2025 1:17 PM Yamilka Garcia MA WILFREDO-7 Total Score 15 10/20/2025 1:17 PM Yamilka Garcia MA * How difficult have these problems made it for you to do your work, take care of things at home, or get along with other people? Answer Date of Assessment Author Somewhat difficult 10/20/2025 1:17 PM Yamilka Garcia MA documented as of this encounter Progress Notes * Delta Wilkinson MD - 10/20/2025 9:00 AM EST Subjective Patient ID: Delta Lundy is a 60 y.o. female who [...] of it Already saw Oral surgeon at [facility] 2 days ago ,referred [...] mildly increased . EF 50 to 60% -automotive service cashier seen in 11/2024 vglnsvamov-pnvkgvro-xehafajqki 160-9-4.8 mcg/actuation (Breztri Aerosphere) 2 inhalations inhalation BID however pt states Inh was not covered . Pt used to be on (Arnuity Ellipta) + umeclidinium-vilanterol 62.5-25 mcg/actuation (Anoro Ellipta) -pt to reschedule apt w automotive service cashier -remind today -WARNER prn Obesity BMI 36<--37 -lost 5 pounds in 5 mo w GLP1 Trulicity not covered any longer by her insurance -Advised pt to improve diet and exercise,discussed healthy life style -discussed base filler operator referral --referred already but refused now to [...] 243 trig 394 03/2023 microalb neg -saw auto emissions technician 06/2025 no mjor findings To f up in 1 y Off metformin since GLP( Trulicity-not covered by insurance anymore) -no SE [...] in lead III -03/2023 Microalb neg -saw auto emissions technician 06/2025 no mjor findings To f up in 1 y -continue amlodipine 10 mg daily -continue losartan 100 mg daily -continue metoprolol 50 mg BID -Advised pt to bring home BP readings--state < 140/90 -encouraged to take meds consistently Loud snoring Was referred for sleep med at home by automotive service cashier but never completed test at home -pt wants to be referred to sleep med-referred at last apt -sent for insomnia,loud snoring ,denies apnea -- gave information to pt to call for apt CAD -from game preserve manager records 04/2023 Cardiac stress test : ST [...] lower most thoracic type segment and 5 npayqy-byoedxyeyhtec-sahf vertebral bodies are considered for this report [...] if not having symptoms -referred to her stereo operator to continue care but was told that here specialist dont f w fibromyalgia -pt in mx meds x psych care including cymbalta 60 mg BID -will continue to monitor x now -offered acupuncture again -pt thinking about it -offered chronic pain [facility] program but refuse Bipolar disorder /Insomnia PHQ9 19<---22, WILFREDO 15<---17,does reports sometimes thoughts of hurting herself w no plans ,denies currently SI -Pt f w psychiatrist -Dr Overton at [facility] -continue w therapist -,risperidone, prazosin,trileptal ,atarax and [...] nonspecific intraventricular block, nonspecific STT wave, normal MT, corrected QT. Tobacco use-stopped Started at 13 [...] 4 nodules qualifies for fine-needle aspiration biopsy. -Varnisher Plasticoater saw last in 11/2024 underwent FNA of the left mid/low 2.9 cm nodule which came back as benign, Kenton category 2 and FNA of the left mid 1.6 cm nodule which came back as AUS with nuclear atypia, Kenton category 3. Afirma was pending----Pt states was [...] of it Already saw Oral surgeon at [facility] 2 days ago ,referred [...] to continue care w Oral surgeon at [facility] ,had CT scan of neck per pt 2 days ago w them and will have tongue biopsy 11/01/25 --requested [place] today to get records -malignancy will need to be r/o , if neg workup and pt reports ongoing sweating w no explanation will need to further investigate ----- Addendum Obtained today -CT neck soft tissue w contrast 10/2025 done by julián maxillofacial No enhancing mass that could correspond to the reported ulcerated lesion along the right lateral tongue. Minimal asymmetric soft tissue fullness and enhancement piriform sinus measuring approximately1.3 x 1 cm. Recommend direct visualization.Borderline enlarged left level II a lymph nodes, nonspecific . Right upper lobe measuring up to 6 mm in size not well characterized due to respiratory motion. Recommend chest CT for further evaluation.2.3 cm nodule in the left thyroid lobe. Recommend thyroid ultrasound if not already obtained elsewhere for further characterization. I called pt inform results ,advise to f w maxillofacial to get tongue biopsy and discuss further report of CT scan , in regards thyroid nodule remind pt to boni Caro that has apt per pt in 11/2025 and in regards lung nodule seen referred today for CT chest Review of Systems Right side of tongue and neck pain ,odynophagia,sweating ,neck mass sensation Objective BP (!) 140/60 (BP Location: Right arm, Patient Position: Sitting, BP Cuff Size: Adult) Pulse 88 Temp 97 ??F (36.1 ??C) (Temporal) Resp 20 Ht 5' 7 (1.702 m) Wt 232 lb 3.2 oz (105 kg) TfP856% BMI 36.37 kg/m?? Physical Exam Constitutional: General: [...] maintenance Tongue lesion documented in this encounter Miscellaneous Notes * Addendum Note - Delta Wilkinson MD - 10/20/2025 9:00 AM EST Addended by: DELTA DUMONT on: 10/20/2025 03:59 PM Modules accepted: Orders documented in this encounter Plan of Treatment Upcoming Encounters Date Type Department Care Team (Late st Contact Info) Description 01/18/2026 9:45 AM EDT Office Visit [facility] [address] [place] [address] [phone] Delta Dumont MD [address], [place] [phone] Scheduled Orders Name Type Priority Associated Diagnoses Orde r Schedule CT Low Dose Screening Imaging STAT Lung nodule Hx of smoking Expected: 10/20/2025, Expires: 10/20/2026 documented as of this encounter Goals Goal Patient Goal Type Associated Problems Recent Progress Patient-Stated? Author Help patients manage their type 2 diabetes Care Plan Help patients manage their type 2 diabetes Jamil Mobley Weekly blood pressure task Care Plan Weekly blood pressure task Jamil Mobley Help patients manage their type 2 diabetes Care Plan Help patients manage their type 2 diabetes Jamil Mobley Patient has chronic kidney disease Care Plan Patient has chronic kidney disease Jamil Mobley Weekly blood pressure task Care Plan Weekly blood pressure task Latonia Pat, Jamil Patient has chronic kidney disease Care Plan Patient has chronic kidney disease No Jamil Pat Weekly blood pressure task Care Plan Weekly blood pressure task No Bi Jamil Weekly blood pressure task Care Plan Weekly blood pressure task No Bi Jamil Patient has chronic kidney disease Care Plan Patient has chronic kidney disease No Jamil Pat Patient has chronic kidney disease Care Plan Patient has chronic kidney disease No Jamil Pat Weekly blood pressure task Care Plan Weekly [...] Plan Patient has chronic kidney disease No Olman CummingsheCHAKA miller Patient has chronic kidney disease Care Plan [...] Care Plan Weekly blood pressure task No Delta Dumont MD Weekly blood pressure task Care Plan Weekly blood pressure task No Delta Dumont MD Patient has chronic kidney disease Care Plan Patient has chronic kidney disease No eDlta Dumont MD Patient has chronic kidney disease Care Plan Patient has chronic kidney disease No Delta Dumont MD Weekly blood pressure task Care Plan [...] Care Plan Weekly blood pressure task No Yamilka Dunne MA Weekly blood pressure task Care Plan Weekly blood pressure task No Yamilka Dunne MA Patient has chronic kidney disease Care Plan Patient has chronic kidney disease No Yamilka Dunne MA Patient has chronic kidney disease Care Plan Patient has chronic kidney disease No Yamilka Dunne MA Weekly blood pressure task Care Plan Weekly blood pressure task No Delta Dumont MD Weekly blood pressure task Care Plan Weekly blood pressure task No Delta Dumont MD Patient has chronic kidney disease Care Plan Patient has chronic kidney disease No Delta Dumont MD Patient has chronic kidney disease Care Plan Patient has chronic kidney disease No Delta Dumont MD Weekly blood pressure task Care Plan Weekly blood pressure task Delta West MD Weekly blood pressure task Care Plan Weekly blood pressure task No Delta Dumont MD Patient has chronic kidney disease Care Plan Patient has chronic kidney disease No Delta Dumont MD Patient has chronic kidney disease Care Plan Patient has chronic kidney disease No Delta Dumont MD documented as of this encounter Procedures Procedure Name Priority Date/Time Associated Diagnosis Comments POCT GLYCATED HEMOGLOBIN, TOTAL Routine 10/20/2025 9:55 AM EST Type 2 diabetes mellitus with other circulatory complication, without long-term current use of insulin (HCC) POCT GLUCOSE ([id number]) Routine 10/20/2025 9:55 AM EST Type 2 diabetes mellitus with other circulatory complication, without long-term current use of insulin (HCC) documented in this encounter Results * (ABNORMAL) POCT Hgb A1c (10/20/2025 9:55 AM EST) Hemoglobin A1C 6.3(A) 4.0 - 5.7 % QC Media Lot # [id number] Lot# Expiration Date Blood 10/20/2025 9:55 AM EST Delta Wilkinson MD POINT OF CARE ROBERTH T ENTER/EDIT ORDERABLES Final Result * POCT Glucose (10/20/2025 9:55 AM EST) Glucose Blood, POC 195 60 - 200 mg/dL QC Media Lot # [id number] Lot# Expiration Date Blood Capillary blood specimen / Unknown 10/20/2025 9:55 AM EST Delta Wilkinson MD POINT OF CARE ROBERTH T ENTER/EDIT ORDERABLES Final Result documented in this encounter Visit Diagnoses Diagnosis Type 2 diabetes mellitus with other circulatory complication, without long-term current use of insulin (HCC)- Primary Hypertension, unspecified type Tongue lesion Unspecified condition of the tongue Class 1 obesity Health care maintenance Lung nodule Other diseases of lung, not elsewhere classified Hx of smoking documented in this encounter Additional Health Concerns [...] kidney disease 10/19/2025 Weekly blood pressure task 10/20/2025 Weekly blood pressure task 10/20/2025 Patient has chronic kidney disease 10/20/2025 Patient has chronic kidney disease 10/20/2025 Weekly blood pressure task 10/21/2025 Weekly blood pressure task 10/21/2025 Patient has chronic kidney disease 10/21/2025 Patient has chronic kidney disease 10/21/2025 Weekly blood pressure task 10/21/2025 Weekly blood pressure task 10/21/2025 Patient has chronic kidney disease 10/21/2025 Patient has chronic kidney disease 10/21/2025 Assessment Noted Time PHQ-9 Depression Total Score: 19 025 1:17 PM EST documented as of this encounter Care Teams Child Guidance Counselor Relationship Specialty Start Date End Date Delta Dumont MD [address] [place] [phone] PCP - General Internal Medicine 03/28/23 documented as of this encounter
--- NOTE | ~2025-10-25 | CT_ITS ---
EXAMINATION: CT CHEST WITH CONTRAST CLINICAL INFORMATION: Solitary pulmonary nodule. COMPARISON: May 28, 2024 and March 04, 2018 TECHNIQUE: Multidetector volumetric CT imaging of the chest was obtained after the administration of 50 mL of Omnipaque 350 intravenous contrast without immediate adverse reactions. Axial MIP volume rendering provided. Sagittal and coronal reformatted images were obtained. This CT examination was performed using dose optimization techniques as appropriate, variously including the following: *Automated exposure control *Adjustment of mA and/or kV according to patient size (this includes techniques or standardized protocols for targeted exams where dose is matched to indication/reason for exam; i.e. extremities or head) *Use of iterative reconstruction technique FINDINGS: LUNGS: Again seen are changes in the anterior segment right lower lobe with an irregular density that appears more nodular in the axial plane, and more linear in the coronal and sagittal plane. The appearance is stable since [address] #5 image 71: There is a new part solid nodular density measuring 4 x 5 mm in the posterior aspect of the right middle lobe. MEDIASTINUM: There is an 18 x 24 mm nodule in the left lobe thyroid gland, previously 18 mm diameter. PLEURA: There is no pleural effusion. No pleural mass or thickening. AXILLA: No lymphadenopathy. UPPER ABDOMEN: Diffuse low attenuation is present throughout the liver. The gallbladder is surgically absent and there are clips in the gallbladder fossa. OSSEOUS STRUCTURES: Again seen is a neural stimulator in the dorsal mid to lower thoracic spine. There is multilevel degenerative changes with disc space narrowing and small anterior osteophyte. CT/CT chest w IV con IMPRESSION: There is a new part solid nodular density 4x5 mm in the right middle lobe. No further follow-up is indicated per Fleischner Society recommendations, unless the patient falls into a high risk category, in which case a 12 month follow-up CT chest without contrast is optional. High risk patients includes those with a history of smoking, first-degree relative with lung cancer, or exposure to uranium, radon, or asbestos. Stable irregular linear density in the anterior segment right lower lobe since 2018. Increased size of the left lobe thyroid gland nodule. Follow-up thyroid ultrasound. Hepatic steatosis. Cholecystectomy Fleischner guidelines were followed. Electronically signed by: Nik Cheng MD 10/25/2025 04:31 PM [facility]
[2025-10-25] MEDS: iohexoL 350 MG/ML 100 ML INFUS..BTL IV (15:40)
--- OUTSIDE RECORDS SUMMARY | 2025-10-25 16:16 | XMS_ITS | Encounter Summary ---
Author Organization [email or web address] Address [address] [facility] 7t [place] [address] Care Team Providers Care Manufacturing Recruiter Name Role Phone Mecca Couch MD Primary Care Pro vider Lizeth Singleton RN Unavailable Unavailable Reason for Visit * Reason Comments Med Refill Encounter Details Date Type Department Care Team (Late Contact Info) Description 06/30/2023 Refill [facility] MEDICINE 230 [place] [address] Cinthya Mckeon FNP 505 [place] [address] Essential hypertension Social History Tobacco Use Types [...] Description 01/18/2026 9:45 AM EDT Office Visit [facility] MEDICINE 230 [place] [address] Mecca Couch MD 230 [place] [address] documented as of this encounter Visit Diagnoses Diagnosis Essential hypertension Unspecified essential hypertension documented in this encounter Additional Health Concerns Assessment Noted Time PHQ-9 Depression Total Score: 6 04/01/20 23 9:29 AM EDT documented as of this encounter Care Teams Manufacturing Recruiter Relationship Specialty Start Date End Date Mecca Couch MD 230 [place] [address] PCP - General Internal Medicine 03/28/23 Lizeth Singleton RN [address] [place] [address] Registered Nurse Family Medicine 05/12/25 06/07/25 documented as of this encounter
--- OUTSIDE RECORDS SUMMARY | 2025-10-25 16:16 | XMS_ITS | Encounter Summary ---
Author Organization [employer] Address [address] [place] [address] 7 [place] [address] Care Team Providers Care Refrigerator Repair Technician Name Role Phone Mecca Couch MD Primary Care Pro vider Lizeth Singleton RN Unavailable Unavailable Reason for Visit * Reason Comments Med Refill Encounter Details Date Type Department Care Team (Late Contact Info) Description 06/05/2023 Refill [facility] MEDICINE 230 [place], [place] [phone] Mecca Couch MD 230 [place] [address] Essential hypertension Social History Tobacco Use Types [...] Description 01/18/2026 9:45 AM EDT Office Visit [facility] MEDICINE 230 [place] [address] Mecca Couch MD 230 [place] [address] documented as of this encounter Visit Diagnoses Diagnosis Essential hypertension Unspecified essential hypertension documented in this encounter Additional Health Concerns Assessment Noted Time PHQ-9 Depression Total Score: 6 04/01/20 23 9:29 AM EDT documented as of this encounter Care Teams Refrigerator Repair Technician Relationship Specialty Start Date End Date Mecca Couch MD 230 [place] [address] PCP - General Internal Medicine 03/28/23 Lizeth Singleton RN [address] [place] [address] Registered Nurse Family Medicine 05/12/25 06/07/25 documented as of this encounter
--- OUTSIDE RECORDS SUMMARY | 2025-10-25 16:16 | XMS_ITS | Encounter Summary ---
Author Organization [employer] Address [address] [place] [address] 7 [place] [address] Care Team Providers Care Solderer Assembly Repair Name Role Phone Mecca Couch MD Primary Care Pro vider Reason for Visit * Reason Onset Date Comments call back request 08/09/2025 Encounter Details Date Type Department Care Team ([facility] st Contact Info) Description 08/09/2025 Telephone [facility] 230 [place], [place] [phone] Mecca Couch MD 230 [place] [address] call back request Social History Tobacco Use [...] from encounter 08/09 Please contact pt at [phone] documented in this encounter Plan of Treatment Upcoming Encounters Date Type Department Care Team (Late st Contact Info) Description 01/18/2026 9:45 AM EDT Office Visit [facility] 230 [place] [address] Mecca Couch MD [address] [place] [address] documented as of this encounter Visit Diagnoses Not on filedocumented in this encounter Additional Health Concerns Assessment Noted Time PHQ-9 Depression Total Score: 22 025 10:39 AM EDT documented as of this encounter Care Teams Solderer Assembly Repair Relationship Specialty Start Date End Date Mecca Couch MD [address] [place] [address] PCP - General Internal Medicine 03/28/23 documented as of this encounter
--- OUTSIDE RECORDS SUMMARY | 2025-10-25 16:16 | XMS_ITS | Encounter Summary ---
Author Organization [employer] Address [address] [place] [address] 7 [place] [address] Care Team Providers Care Entrepreneurship Program Director Name Role Phone Mecca Couch MD Primary Care Pro vider Lizeth Singleton RN Unavailable Unavailable Reason for Visit * Reason Onset Date Comments Med Refill 07/06/2023 Encounter Details Date Type Department Care Team (Late st Contact Info) Description 07/06/2023 Refill [facility] MEDICINE 230 [place], [place] [phone] Mecca Couch MD 230 [place] [address] Social History Tobacco Use Types Packs/Day Years [...] Description 01/18/2026 9:45 AM EDT Office Visit [facility] MEDICINE 230 [place] [address] Mecca Couch MD 230 [place] [address] documented as of this encounter Visit Diagnoses Not on filedocumented in this encounter Additional Health Concerns Assessment Noted Time PHQ-9 Depression Total Score: 6 04/01/20 23 9:29 AM EDT documented as of this encounter Care Teams Entrepreneurship Program Director Relationship Specialty Start Date End Date Mecca Couch MD [address] [place] [address] PCP - General Internal Medicine 03/28/23 Lizeth Singleton RN [address] [place] [address] Registered Nurse Family Medicine 05/12/25 06/07/25 documented as of this encounter
--- OUTSIDE RECORDS SUMMARY | 2025-10-25 16:16 | XMS_ITS | Encounter Summary ---
Author Organization [employer] Address [address] [place] [address] 7 [place] [address] Care Team Providers Care Ethologist Name Role Phone Mecca Couch MD Primary Care Pro vider Lizeth Singleton RN Unavailable Unavailable Reason for Visit * Reason Comments Med Refill Encounter Details Date Type Department Care Team (Late Contact Info) Description 06/11/2023 Refill [facility] MEDICINE 230 [place], [place] [phone] Mecca Couch MD 230 [place] [address] Essential hypertension Social History Tobacco Use Types [...] Description 01/18/2026 9:45 AM EDT Office Visit [facility] MEDICINE 230 [place] [address] Mecca Couch MD [address] [place] [address] documented as of this encounter Visit Diagnoses Diagnosis Essential hypertension Unspecified essential hypertension documented in this encounter Additional Health Concerns Assessment Noted Time PHQ-9 Depression Total Score: 6 04/01/20 23 9:29 AM EDT documented as of this encounter Care Teams Ethologist Relationship Specialty Start Date End Date Mecca Couch MD 230 [place] [address] PCP - General Internal Medicine 03/28/23 Lizeth Singleton RN [address] [place] [address] Registered Nurse Family Medicine 05/12/25 06/07/25 documented as of this encounter
--- OUTSIDE RECORDS SUMMARY | 2025-10-25 16:16 | XMS_ITS | Encounter Summary ---
Author Organization [employer] Address [address] [place] [address] 7 [place] [address] Care Team Providers Care Ring Making Machine Operator Name Role Phone Mecca Couch MD Primary Care Pro vider Lizeth Singleton RN Unavailable Unavailable Reason for Visit * Reason Onset Date Comments Med Refill 08/14/2023 Encounter Details Date Type Department Care Team ([facility] st Contact Info) Description 08/14/2023 Telephone [facility] MEDICINE 230 [place], [place] [phone] Mecca Couch MD [address] [place], [place] [phone] Med Refill Social History Tobacco Use Types [...] Description 01/18/2026 9:45 AM EDT Office Visit [facility] MEDICINE 230 [place], [place] [phone] Mecca Couch MD [address] [place], [place] [phone] documented as of this encounter Visit Diagnoses Not on filedocumented in this encounter Additional Health Concerns Assessment Noted Time PHQ-9 Depression Total Score: 6 04/01/20 23 9:29 AM EDT documented as of this encounter Care Teams Ring Making Machine Operator Relationship Specialty Start Date End Date Mecca Couch MD [address] [place] [address] PCP - General Internal Medicine 03/28/23 Lizeth Singleton RN [address] [place] [address] Registered Nurse Family Medicine 05/12/25 06/07/25 documented as of this encounter
--- OUTSIDE RECORDS SUMMARY | 2025-10-25 16:16 | XMS_ITS | Clinical Summary ---
Author Organization [address] [place] [address] [place] [phone] Phone Care Team Providers Care Guidance Director Name Role Phone Delta Couch MD Primary [...] topic Insurance MEDICAID - [place] Care Teams Guidance Director Relationship Specialty Start Date End Date Delta Couch MD [address] [facility] 9 [place] [phone] PCP - General 04/20/24
--- OUTSIDE RECORDS SUMMARY | 2025-10-25 16:16 | XMS_ITS | Encounter Summary ---
Author Organization [employer] Address [address] [place] [address] 7 [place] [address] Care Team Providers Care Loading Manager Name Role Phone Mecca Couch MD Primary Care Pro vider Lizeth Singleton RN Unavailable Unavailable Reason for Visit * Reason Onset Date Comments Med Refill 07/08/2023 Encounter Details Date Type Department Care Team ([facility] st Contact Info) Description 07/08/2023 Telephone [facility] MEDICINE 230 [place], [place] [phone] Mecca Couch MD 230 [place], [place] [phone] Med Refill Social History Tobacco Use Types [...] 1:37 PM EDT Medication was sent to [id number] on 06/13/23 with 2 refills. * Telephone Encounter - Evangelina Sawyer - 07/08/2023 1:27 PM EDT Tc from pt requesting medication refill on dulaglutide (Trulicity) 0.75 MG/0.5ML solution pen-injector documented in this encounter Plan of Treatment Upcoming Encounters Date Type Department Care Team (Late st Contact Info) Description 01/18/2026 9:45 AM EDT Office Visit [facility] MEDICINE [address] [place] [address] Mecca Couch MD [address] [place] [phone] documented as of this encounter Visit Diagnoses Not on filedocumented in this encounter Additional Health Concerns Assessment Noted Time PHQ-9 Depression Total Score: 6 04/01/20 23 9:29 AM EDT documented as of this encounter Care Teams Loading Manager Relationship Specialty Start Date End Date Mecca Couch MD [address] [place] [address] PCP - General Internal Medicine 03/28/23 Lizeth Singleton RN [address] [place] [address] Registered Nurse Family Medicine 05/12/25 06/07/25 documented as of this encounter
--- OUTSIDE RECORDS SUMMARY | 2025-10-25 16:16 | XMS_ITS | Encounter Summary ---
Author Organization [employer] Address [address] [place] [address] 7 [place] [address] Care Team Providers Care Radiator Tester Name Role Phone Mecca Couch MD Primary Care Pro vider Reason for Visit * Reason Comments Med Refill Encounter Details Date Type Department Care Team ([facility] st Contact Info) Description 09/06/2025 Refill [facility] MEDICINE 230 [place], [place] [phone] Mecca Couch MD 230 [place] [address] Social History Tobacco Use Types Packs/Day Years [...] Description 01/18/2026 9:45 AM EDT Office Visit [facility] MEDICINE [address] [place] [address] [phone] Mecca Couch MD [address] [place] [phone] documented as of this encounter Visit Diagnoses Not on filedocumented in this encounter Additional Health Concerns Assessment Noted Time PHQ-9 Depression Total Score: 22 025 10:39 AM EDT documented as of this encounter Care Teams Radiator Tester Relationship Specialty Start Date End Date Mecca Couch MD [address] [place] [address] [phone] PCP - General Internal Medicine 03/28/23 documented as of this encounter
--- OUTSIDE RECORDS SUMMARY | 2025-10-25 16:17 | XMS_ITS | Continuity of Care Document ---
Author Organization [facility], [facility] Address [address] [place] [address] Assessment Encounter Date Assessment Date Assessment LastModified by Organization Details LastModified Time 08/19/2025 08/19/2025 Assessment: Patient able to tolerate more exercises and activities this session. Patient demonstrating full passive and active knee extension. Patient able to tolerate 2 inch box step up this session. Antalgic gait with decreased time in SLS on LLE. Plan: Continue 1-2x/wk with LE stretch/strength programming to tolerance. [email or web address] Not available 08/21/2025 20:19:38 Plan of Treatment Reminders Order Date Submit Date Provider Name Organization Details Last Modified By Last Modified Time Details Appointments None record ed. Lab None record ed. Referral None record ed. Procedures None record ed. Surgeries None record ed. Imaging None record ed. MedicationOrders None record ed. VaccineOrders None record ed. Patient TargetsNo targets recorded. Patient InstructionsNo instructions recorded. Reason for Referral None Reported. Problems Name Problem SNOMED Code Status Onset Date Resolution Date Notes Provider Name and Address Organization Details Recorded Time Pain of left knee region [id number] Active 2024 Neida bello, [facility] 5 13:34:03 Problem Notes None recorded. Procedures Surgical History Date Name Laterality Status Provider Name and Address Organization Details Recorded Time 5 86897 Therapeutic Exercise (1:1) cancelled ERICA MEJÍA, PT [address], [place], [address], [facility] 09/07/2025 23:37:06 5 76218: Hot or Cold Pack cancelled ERICA ALFONZO, PT [address], [place], [address], [facility] 09/07/2025 23:37:06 08807: Manual therapy cancelled ERICA ALFONZO, PT [address], [place], [address], [facility] 09/07/2025 23:37:06 79835 Therapeutic Exercise (1:1) cancelled ERICA ALFONZO, PT [address], [place], [address], [facility] 09/06/2025 08:54:00 75244: Hot or Cold Pack cancelled ERICA ALFONZO, PT [address], [place], [address], [facility] 09/06/2025 08:54:00 5 63427: Manual therapy cancelled ERICA ALFONZO, PT [address], [place], [address], [facility] 09/06/2025 08:54:00 80669 Therapeutic Exercise (1:1) completed ERICA ALFONZO, PT [address], [place], [address], [facility] 08/29/2025 14:53:05 73459: Hot or Cold Pack completed ERICA ALFONZO, PT [address], [place], [address], [facility] 08/28/2025 17:31:34 07419: Manual therapy completed ERICA ALFONZO, PT [address], [place], [address], [facility] 08/28/2025 17:31:34 63061 Therapeutic Exercise (1:1) completed ERICA ALFONZO, PT [address], [place], [address], [facility] 08/23/2025 21:43:36 19019: Hot or Cold Pack completed ERICA ALFONZO, PT [address], [place], [address], [facility] 08/23/2025 21:43:36 27646: Manual therapy completed ERICA ALFONZO, PT [address], [place], [address], [facility] 08/23/2025 21:43:36 75075 Therapeutic Exercise (1:1) completed ERICA ALFONZO, PT [address], [place], [address], [facility] 08/21/2025 20:19:55 54364: Hot or Cold Pack completed ERICA ALFONZO, PT [address], [place], [address], [facility] 08/19/2025 00:00:21 89250: Manual therapy completed ERICA ALFONZO, PT [address], [place], [address], [facility] 08/19/2025 00:00:21 67330 Therapeutic Exercise (1:1) completed ERICA ALFONZO, PT [address], [place], [address], [facility] 08/16/2025 13:02:26 92437: Hot or Cold Pack completed ERICA ALFONZO, PT [address], [place], [address], [facility] 08/16/2025 08:36:03 13986: Manual therapy completed ERICA ALFONZO, PT [address], [place], [address], [facility] 08/16/2025 13:02:44 5 [id number] Therapeutic Exercise (1:1) completed Nigel Howard, AT [address] [facility], [place], [address], [facility] 08/09/2025 12:29:15 5 64546: Hot or Cold Pack completed Nigel Howard, AT [address], [place], [address], [facility] 08/09/2025 13:40:37 5 29908: Manual therapy completed Nigel Howard, AT [address] [facility], [place], [address], [facility] 08/09/2025 12:29:15 5 11754 Therapeutic Exercise (1:1) completed Nigel Howard, AT [address] [facility], [place], [address], [facility] 08/03/2025 14:27:14 5 15406: Manual therapy completed Nigel Howard, AT [address] [facility], [place], [address], [facility] 08/03/2025 14:27:22 5 67764 Therapeutic Exercise (1:1) completed ERICA MEJÍA, PT [address] [facility], [place], [address], [facility] 07/28/2025 21:47:42 5 60636: Low complexity PT Eval completed ERICA MEJÍA, PT [address], [place], [address], [facility] 07/28/2025 21:47:38 Imaging Results None recorded. Procedure Notes None recorded. Medical Equipment None Reported. Medications Name Authored On Sig Start Date Stop Date Status Note Indication Fill Status Repeat Number Dispense Quantity LastModified by Organization Details LastModified Time aceta minop hen ER 650 mg table t,ext ended relea se 12:52:57 PLEA SE SEE HUGO CHED FOR DETA ILED DIRE CTIO NS active Not Available Not availab le 0 Not Available Not Available ninfa - External Data Service - prod 07/06/2025 12:52:57 baclo fen 10 mg table t 12:52:58 TAKE 1 TABL ET (10 MG) BY MOUT H NEED ED IN THE MORN ING , AT NOON , AND AT BEDT MIKIE FOR MUSC LE SPAS MS active Not Available Not availab le 0 Not Available Not Available ninfa - External Data Service - prod 07/06/2025 12:52:58 famot idine 20 mg table t 12:52:58 TAKE 1 TABL ET BY MOUT H AT BEDT MIK[facility] active Not Available Not availab le 0 Not Available Not Available ninfa - External Data Service - prod 07/06/2025 12:52:58 methy lpred nisol one 4 mg table ts in a dose pack 12:52:58 TAKE 6 TABL ETS ON DAY 1 DIRE CTED ON PACK AGE AND DECR EASE BY 1 TAB EACH DAY FOR A TOTA L OF 6 DAYS active Not Available Not availab le 0 Not Available Not Available ninfa - External Data Service - prod 07/06/2025 12:52:58 trama dol 50 mg table t 5 12:52:58 TAKE 1 TABL ET BY MOUT H EVER Y 8 HOUR S NEED ED FOR KATE RE PAIN FOR UP TO 5 DAYS active Not Available Not availab le 0 Not Available Not Available ninfa - External Data Service - prod 07/06/2025 12:52:58 atorv astat in 80 mg table t 5 12:53:00 TAKE 1 TABL ET (80 MG) BY MOUT H IN THE MORN ING active Not Available Not availab le 0 Not Available Not Available ninfa - External Data Service - prod 07/06/2025 12:53:00 Arnui ty Ellip ta 100 mcg/a ctuat ion powde r for inhal ation 5 12:53:01 INHA LE 1 PUFF BA Y active Not Available Not availab le 0 Not Available Not Available ninfa - External Data Service - prod 07/06/2025 12:53:01 trazo done 100 mg table t 5 12:53:01 TAKE 2 TABL ETS BY MOUT H EVER Y DAY AT BEDT [facility] active Not Available Not availab le 0 Not Available Not Available ninfa - External Data Service - prod 07/06/2025 12:53:01 Truli city 3 mg/0. 5 mL subcu taneo us pen injec tor 5 12:53:[address] 3 MG UNDE R THE SKIN EVER Y 7 (SEV EN) DAYS . active Not Available Not availab le 0 Not Available Not Available ninfa - External Data Service - prod 07/06/2025 12:53:01 metop rolol tartr ate 50 mg table t 5 12:53:02 TAKE 1 TABL ET BY MOUT H TWIC E A DAY active Not Available Not availab le 0 Not Available Not Available ninfa - External Data Service - prod 07/06/2025 12:53:02 Anoro Ellip ta 62.5 mcg-2 5 mcg/a ctuat ion powde r for inhal ation 5 12:53:03 INHA LE 1 PUFF BY MOUT H BA Y active Not Available Not availab le 0 Not Available Not Available ninfa - External Data Service - prod 07/06/2025 12:53:03 estra diol 0.01% (0.1 mg/gr am) vagin al cream 5 12:53:04 INSE RT 1 GRAM INTO THE VAGI NA ONCE PER DAY FOR 2 WEEK S THEN TWIC E WEEK LY THER EAFT ER active Not Available Not availab le 0 Not Available Not Available ninfa - External Data Service - prod 07/06/2025 12:53:04 Myrbe triq 25 mg table t,ext ended relea se 5 12:53:04 TAKE 1 TABL ET BY MOUT H EVER Y DAY DO NOT HAIDER H OR CHEW active Not Available Not availab le 0 Not Available Not Available ninfa - External Data Service - prod 07/06/2025 12:53:04 Chilo deloris HFA 90 mcg/a ctuat ion aeros ol inhal er 5 12:53:04 INHA LE 2 PUFF S BY MOUT H EVER Y 4 HOUR S active Not Available Not availab le 0 Not Available Not Available ninfa - External Data Service - prod 07/06/2025 12:53:04 FreeS tyle [employer]ite [employer] s 5 12:53:06 USE TO TEST BLOO D SUGA R ONCE BA Y active Not Available Not availab le 0 Not Available Not Available ninfa - External Data Service - prod 07/06/2025 12:53:06 losar higgins 100 mg table t 5 12:53:06 TAKE 1 TABL ET BY MOUT H EVER Y DAY IN THE MORN ING active Not Available Not availab le 0 Not Available Not Available ninfa - External Data Service - prod 07/06/2025 12:53:06 Truli [place] 1.5 mg/0. 5 mL subcu taneo us pen injec tor [address] 12:53:[address] 1.5 MG UNDE R THE SKIN 1 (ONE ) TIME PER WEEK . active Not Available Not availab le 0 Not Available Not Available ninfa - External Data Service - prod 07/06/2025 12:53:06 aceta minop hen 325 mg table t 5 12:53:07 TAKE 1 TABL ET BY MOUT H EVER Y 4 HOUR S NEED ED FOR PAIN active Not Available Not availab le 0 Not Available Not Available ninfa - External Data Service - prod 07/06/2025 12:53:07 ibupr ofen 600 mg table t 5 12:53:07 TAKE 1 TABL ET BY MOUT H EVER Y 6 HOUR S NEED ED FOR PAIN active Not Available Not availab le 0 Not Available Not Available ninfa - External Data Service - prod 07/06/2025 12:53:07 hermelindo styra mine (with sugar ) 4 gram oral powde r 5 12:53:10 PLEA SE SEE HUGO CHED FOR DETA ILED DIRE CTIO NS active Not Available Not availab le 0 Not Available Not Available ninfa - External Data Service - prod 07/06/2025 12:53:10 [place] araceli Arthr itis Pain 1 % topic al gel 5 13:50:00 APPL Y 2 GRAM S TO THE AFFE CTED AREA (S) BY MONE JAEGER E 4 TIME S PER DAY complet ed Contusion of left knee Not availab le 3 Not Available Not Available [facility] 07/06/2025 13:51:50 celec oxib 200 mg capsu le 5 13:13:04 TAKE 1 CAPS ULE BY MOUT H EVER Y DAY active Not Available Not availab le 0 Not Available Not Available ninfa - External Data Service - prod 07/17/2025 13:13:04 dulox etine 60 mg capsu le,de layed relea se 13:13:04 TAKE 1 CAPS ULE BY MOUT H TWIC E A DAY active Not Available Not availab le 0 Not Available Not Available ninfa - External Data Service - prod 07/17/2025 13:13:04 hydro xyzin e pamoa te 50 mg capsu le 5 13:13:05 TAKE 1 CAPS ULE BY MOUT H EVER Y DAY NEED ED FOR ANXI ETY active Not Available Not availab le 0 Not Available Not Available ninfa - External Data Service - prod 07/17/2025 13:13:05 oxcar bazep ine 300 mg table t 5 13:13:05 TAKE 1 TABL ET BY MOUT H EVER Y DAY IN THE MORN ING AND TAKE 2 TABL ETS AT BEDT [facility] active Not Available Not availab le 0 Not Available Not Available ninfa - External Data Service - prod 07/17/2025 13:13:05 queti apine 50 mg table t 5 13:13:05 TAKE 1 TABL ET BY MOUT H EVER YDAY AT BEDT [place] active Not Available Not availab le 0 Not Available Not Available ninfa - External Data Service - prod 07/17/2025 13:13:05 Mounj damaris 2.5 mg/0. 5 mL subcu taneo us pen injec tor [address] 11:54:[address] ONE PEN (=2. 5MG) SUBC UTAN EOUS LY ONCE A WEEK DIRE CTED active Not Available Not availab le 0 Not Available Not Available ninfa - External Data Service - prod 08/06/2025 11:54:16 Banop hen 25 mg capsu le 11:54:17 TAKE 2 CAPS ULES BY MOUT H AT BEDT [facility] NEED ED active Not Available Not availab le 0 Not Available Not Available ninfa - External Data Service - prod 08/06/2025 11:54:17 lidoc valdemar 5 % topic al patch 11:54:17 PLEA SE SEE HUGO CHED FOR DETA ILED DIRE CTIO NS active Not Available Not availab le 0 Not Available Not Available ninfa - External Data Service - prod 08/06/2025 11:54:17 nysta tin 100,0 00 unit/ mL oral suspe nsion 23:59:13 TAKE 5 ML'S BY MOUT H 4 TIME S BA Y FOR 14 DAYS active Not Available Not availab le 0 Not Available Not Available ninfa - External Data Service - prod 08/15/2025 23:59:13 queti apine 100 mg table t 5 02:07:59 TAKE 1 TABL ET BY MOUT H EVER YDAY AT B[facility]T [place] active Not Available Not availab le 0 Not Available Not Available ninfa - External Data Service - prod 08/19/2025 02:07:59 rispe ridon e 3 mg table t 5 02:07:59 TAKE 1/2 TABL ET BY MOUT H EVER Y MORN ING AND TAKE 1 TABL ET EVER Y EVEN ING active Not Available Not availab le 0 Not Available Not Available ninfa - External Data Service - prod 08/19/2025 02:07:59 Mounj damaris 5 mg/0. 5 mL subcu taneo us pen injec tor 12:48:[address] ONE PEN (=5M G) SUBC UTAN EOUS LY ONCE A WEEK DIRE CTED active Not Available Not availab le 0 Not Available Not Available ninfa - External Data Service - prod 08/28/2025 12:48:34 prazo sin 1 mg capsu le 23:51:53 TAKE 3 CAPS ULES BY MOUT H EVER Y DAY AT [facility] [place] active Not Available Not availab le 0 Not Available Not Available ninfa - External Data Service - prod 09/07/2025 23:51:53 Vitals None Recorded Social History Social History Observation Description Date Observed Sex Unknown 08/19/2025 Legal Sex Female Status Not (finding) 10/25/20 No social history survey screeners recorded No social history SDOH screeners recorded Functional Status None recorded. No Functional Screening assessment recorded No Functional SDOH screeners recorded Mental Status None recorded. No Mental Screening assessment recorded No Mental SDOH screeners recorded Family History Nothing Reported. Medical History No medical history recorded. Gynecological HistoryNo gynecological history recorded. Obstetrics History GPAL:G 0 P 0 0 0 0 Past Encounters Encounter ID Performer Location Encounter Start Date Encounter Closed Date Diagnosis/Indication Diagnosis SNOMED-CT Code Diagnosis ICD10 Code Diagnosis IMO Codes Diagnosis Note [id number] ERICA MEJÍA, PT [facility] [address] [place] [address] 07/28/2025 15:11:14 07/28/2025 16:11:15 Contusion of left knee [id number] S80.02XA [id number] Nigel Howard, AT [facility] [address] [place] [address] 08/03/2025 12:00:57 08/03/2025 12:58:55 Contusion of left knee [id number] S80.02XA [id number] Nigel Howard, AT [facility] [address] [place] [address] 08/09/2025 11:05:34 08/09/2025 11:50:39 Contusion of left knee [id number] S80.02XA [id number] ERICA MAXWELLTTON, PT [facility] [address] [place] [address] 08/16/2025 11:22:16 08/16/2025 12:04:35 Contusion of left knee [id number] S80.02XA [id number] EIRCA MAXWELLTTON, PT [facility] [address] [place] [address] 08/19/2025 13:26:56 08/19/2025 14:01:40 Contusion of left knee [id number] S80.02XA [id number] Health Concerns Section Related Observation LastModified by Organization Detai ls LastModified Time None Recorded Concern Status LastModified by Organization Details LastModified Time None Recorded SDOH Concern Status LastModified by Organization Detai ls LastModified Time None Recorded Payers Encounter Date Sequence Insurance Name Policy Number Policy Roberts Covered Member ID Roberts Member ID Guarantor Name 08/19/2025 1 [place]: [facility] [address] Mecca Lundy [id number] Mecca Lundy Notes Date Note Type Note Provider Name and Address Organization Details Recorded Time 08/19/2025 text/html Patient presents today reporting 8/10 pain. Pt states that they had increased knee pain after LV with some soreness today. ERICA MEJ[facility]A, PT [address] [facility] [address], [place], [address], [facility] 08/21/2025 20:20:34 Care Team Name Role Member ID Specialty Address Phone None Recorded. OBGyn Episode No OBEpisode recorded.
--- OUTSIDE RECORDS SUMMARY | 2025-10-25 16:17 | XMS_ITS | Encounter Summary ---
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 Role Phone Mecca Couch MD Primary Care Pro vider Reason for Visit * Reason Onset Date Comments Med Refill 09/28/2025 Encounter Details Date Type Department Care Team ([facility] st Contact Info) Description 09/28/2025 Telephone [facility] [address] [place], [place] [phone] Mecca Couch MD [address] [place] [address] Med Refill Social History Tobacco Use Types [...] : Mounjaro 5mg To be sent to: [facility] - [place], [place] - [address] [place] [address] documented in this encounter Plan of Treatment Upcoming Encounters Date Type Department Care Team ([facility] st Contact Info) Description 01/18/2026 9:45 AM EDT Office Visit [facility] [address] [place], [place] [phone] Mecca Couch MD [address] [place], [place] [phone] documented as of this encounter Goals Goal [...] documented as of this encounter Care Teams Dairy Machine Operator Farmworker Relationship Specialty Start Date End Date Mecca Couch MD [address] [place] [id number] PCP - General Internal Medicine 03/28/23 documented as of this encounter
--- OUTSIDE RECORDS SUMMARY | 2025-10-25 16:17 | XMS_ITS | Continuity of Care Document ---
Author Organization [facility], TIMOTHY Maynard PT Address [address] [place] [address] Assessment Encounter Date Assessment Date Assessment LastModified [...] 1-2x/wk with LE stretch/strength programming to tolerance. [email or web address] Not available 08/16/2025 13:02:12 Plan of Treatment [...] Recorded Time Pain of left knee region [id number] Active 2024 Neida bello, [facility] 5 13:34:03 Problem Notes None recorded. Procedures Surgical History Date Name Laterality Status Provider Name and Address Organization Details Recorded Time 5 77212 Therapeutic Exercise (1:1) cancelled ERICA MEJÍA, PT [address], [place], [address], [facility] 09/07/2025 23:37:06 5 43380: Hot or Cold Pack cancelled ERICA ALFONZO, PT [address], [place], [address], [facility] 09/07/2025 23:37:06 15570: Manual therapy cancelled ERICA ALFONZO, PT [address], [place], [address], [facility] 09/07/2025 23:37:06 22022 Therapeutic Exercise (1:1) cancelled ERICA ALFONZO, PT [address], [place], [address], [facility] 09/06/2025 08:54:00 82257: Hot or Cold Pack cancelled ERICA ALFONZO, PT [address], [place], [address], [facility] 09/06/2025 08:54:00 76017: Manual therapy cancelled ERICA ALFONZO, PT [address], [place], [address], [facility] 09/06/2025 08:54:00 95912 Therapeutic Exercise (1:1) completed ERICA ALFONZO, PT [address], [place], [address], [facility] 08/29/2025 14:53:05 32342: Hot or Cold Pack completed ERICA ALFONZO, PT [address], [place], [address], [facility] 08/28/2025 17:31:34 86522: Manual therapy completed ERICA ALFONZO, PT [address], [place], [address], [facility] 08/28/2025 17:31:34 [id number] Therapeutic Exercise (1:1) completed ERICA ALFONZO, PT [address], [place], [address], [facility] 08/23/2025 21:43:36 5 78963: Hot or Cold Pack completed ERICA ALFONZO, PT [address], [place], [address], [facility] 08/23/2025 21:43:36 5 64167: Manual therapy completed ERICA ALFONZO, PT [address], [place], [address], [facility] 08/23/2025 21:43:36 15536 Therapeutic Exercise (1:1) completed ERICA ALFONZO, PT [address], [place], [address], [facility] 08/21/2025 20:19:55 11177: Hot or Cold Pack completed ERICA ALFONZO, PT [address], [place], [address], [facility] 08/19/2025 00:00:21 06231: Manual therapy completed ERICA ALFONZO, PT [address], [place], [address], [facility] 08/19/2025 00:00:21 35705 Therapeutic Exercise (1:1) completed ERICA ALFONZO, PT [address], [place], [address], [facility] 08/16/2025 13:02:26 50545: Hot or Cold Pack completed ERICA ALFONZO, PT [address], [place], [address], [facility] 08/16/2025 08:36:03 89308: Manual therapy completed ERICA ALFONZO, PT [address], [place], [address], [facility] 08/16/2025 13:02:44 5 39392 Therapeutic Exercise (1:1) completed Nigel Howard, AT [address] [facility], [place], [address], [facility] 08/09/2025 12:29:15 5 30934: Hot or Cold Pack completed Nigel Howard, AT [address], [place], [address], [facility] 08/09/2025 13:40:37 86442: Manual therapy completed Nigel Howard, AT [address] [facility], [place], [address], [facility] 08/09/2025 12:29:15 5 74317 Therapeutic Exercise (1:1) completed Nigel Howard, AT [address] [facility], [place], [address], [facility] 08/03/2025 14:27:14 5 21159: Manual therapy completed Nigel Howard, AT [address] [facility], [place], [address], [facility] 08/03/2025 14:27:22 29470 Therapeutic Exercise (1:1) completed ERICA MEJÍA, PT [address] [facility], [place], [address], [facility] 07/28/2025 21:47:42 84747: Low complexity PT Eval completed ERICA MEJÍA, PT [address] [facility], [place], [address], [facility] 07/28/2025 21:47:38 [...] External Data Service - prod 07/06/2025 12:53:10 [place] araceli Arthr itis Pain 1 % topic al gel 5 13:50:00 APPL Y 2 GRAM S TO THE AFFE CTED AREA (S) BY MONE JAEGER E 4 TIME S PER DAY complet ed Contusion of left knee Not availab le 3 Not Available Not Available [facility] 07/06/2025 13:51:50 celec oxib 200 mg capsu [...] History Observation Description Date Observed Sex Unknown 08/16/2025 Legal Sex Female Status Not (finding) 10/25/20 [...] ICD10 Code Diagnosis IMO Codes Diagnosis Note [id number] ERICA MEJÍA, PT [facility] [address] [place] [address] 07/28/2025 15:11:14 07/28/2025 16:11:15 Contusion of left knee [id number] S80.02XA 775285 [id number] Nigel Howard, AT [facility] [address] [place] [address] 08/03/2025 12:00:57 08/03/2025 12:58:55 Contusion of left knee [id number] S80.02XA [id number] Nigel Howard, AT [facility] [address] [place] [address] 08/09/2025 11:05:34 08/09/2025 11:50:39 Contusion of left knee [id number] [id number] S80.02XA [id number] ERICA MEJÍA, PT [facility] [address] [place] [address] 08/16/2025 11:22:16 08/16/2025 12:04:35 Contusion of left knee [id number] 3447572 S80.02XA 194225 Health Concerns Section Related Observation LastModified by Organization Detai ls LastModified Time None Recorded Concern Status LastModified by Organization Details LastModified Time None Recorded SDOH Concern Status LastModified by Organization Detai ls LastModified Time None Recorded Payers Encounter Date Sequence Insurance Name Policy Number Policy Roberts Covered Member ID Roberts Member ID Guarantor Name 08/16/2025 1 [place]: [facility] Mecca Lundy [id number] Mecca Lundy Notes Date Note Type Note Provider Name and Address Organization Details Recorded Time 08/16/2025 text/html Patient presents today reporting 8/10 pain. Pt states that their knee feels aggravated today. ERICA MEJÍA, PT [address], [place], [address], [facility] 08/16/2025 13:03:06 Care Team Name Role Member ID Specialty Address Phone None Recorded. OBGyn Episode No OBEpisode recorded.
--- OUTSIDE RECORDS SUMMARY | 2025-10-25 16:17 | XMS_ITS | Data Portability ---
Author Organization [place] - [facility], TIMOTHY Osorio Address [address] [place] [address] Assessment Encounter Date Assessment Date Assessment LastModified [...] 1-2x/wk with LE stretch/strength programming to tolerance. [email or web address] Not available 08/16/2025 13:02:12 08/19/2025 08/19/2025 Assessment: Patient able to tolerate more exercises and activities this session. Patient demonstrating full passive and active knee extension. Patient able to tolerate 2 inch box step up this session. Antalgic gait with decreased time in SLS on LLE. Plan: Continue 1-2x/wk with LE stretch/strength programming to tolerance. [email or web address] Not available 08/21/2025 20:19:38 08/24/2025 08/24/2025 Assessment: [...] 1-2x/wk with LE stretch/strength programming to tolerance. [email or web address] Not available 08/24/2025 14:29:52 08/29/2025 08/29/2025 Assessment: Improved tolerance to exercises and activities with ability to complete ant. step up/down from L3 box. Plan: Continue 1-2x/wk with LE stretch/strength programming to tolerance. [email or web address] Not available 08/29/2025 14:55:17 Plan of Treatment [...] Recorded Time Pain of left knee region [id number] Active 2024 Neida Obrien [facility] 5 13:34:03 Problem Notes None recorded. Procedures Surgical History Date Name Laterality Status Provider Name and Address Organization Details Recorded Time 5 71709 Therapeutic Exercise (1:1) cancelled ERICA MEJÍA, PT [address], [place], [address], [facility] 09/07/2025 23:37:06 5 48269: Hot or Cold Pack cancelled ERICA MEJÍA, PT [address], [place], [address], [facility] 09/07/2025 23:37:06 5 38693: Manual therapy cancelled ERICA MEJÍA, PT [address], [place], [address], [facility] 09/07/2025 23:37:06 5 33284 Therapeutic Exercise (1:1) cancelled ERICAELIAS HERZOGON, PT [address], [place], [address], [facility] 09/06/2025 08:54:00 60407: Hot or Cold Pack cancelled ERICA ALFONZO, PT [address], [place], [address], [facility] 09/06/2025 08:54:00 31497: Manual therapy cancelled ERICA ALFONZO, PT [address], [place], [address], [facility] 09/06/2025 08:54:00 [id number] Therapeutic Exercise (1:1) completed ERICA ALFONZO, PT [address], [place], [address], [facility] 08/29/2025 14:53:05 64939: Hot or Cold Pack completed ERICA ALFONZO, PT [address], [place], [address], [facility] 08/28/2025 17:31:34 26047: Manual therapy completed ERICA ALFONZO, PT [address], [place], [address], [facility] 08/28/2025 17:31:34 77033 Therapeutic Exercise (1:1) completed ERICA ALFONZO, PT [address], [place], [address], [facility] 08/23/2025 21:43:36 74079: Hot or Cold Pack completed ERICA ALFONZO, PT [address], [place], [address], [facility] 08/23/2025 21:43:36 20165: Manual therapy completed ERICA ALFONZO, PT [address], [place], [address], [facility] 08/23/2025 21:43:36 14112 Therapeutic Exercise (1:1) completed ERICA MEJÍA, PT [address], [place], [address], [facility] 08/21/2025 20:19:55 5 52396: Hot or Cold Pack completed ERICA MEJÍA, PT [address], [place], [address], [facility] 08/19/2025 00:00:21 89561: Manual therapy completed ERICA MEJÍA, PT [address], [place], [address], [facility] 08/19/2025 00:00:21 01256 Therapeutic Exercise (1:1) completed ERICA MEJÍA, PT [address], [place], [address], [facility] 08/16/2025 13:02:26 5 47071: Hot or Cold Pack completed ERICA MEJÍA, PT [address], [place], [address], [facility] 08/16/2025 08:36:03 76562: Manual therapy completed ERICA MEJÍA, PT [address], [place], [address], [facility] 08/16/2025 13:02:44 16427 Therapeutic Exercise (1:1) completed Nigel Howard, AT [address], [place], [address], [facility] 08/09/2025 12:29:15 5 19977: Hot or Cold Pack completed Nigel Howard, AT [address], [place], [address], [facility] 08/09/2025 13:40:37 76261: Manual therapy completed Nigel Howard, AT [address], [place], [address], [facility] 08/09/2025 12:29:15 83131 Therapeutic Exercise (1:1) completed Nigel Howard, AT [address], [place], [address], [facility] 08/03/2025 14:27:14 42362: Manual therapy completed Nigel Howard, AT [address], [place], [address], [facility] 08/03/2025 14:27:22 32920 Therapeutic Exercise (1:1) completed ERICA MEJÍA, PT [address], [place], [address], [facility] 07/28/2025 21:47:42 30453: Low complexity PT Eval completed ERICA MEJÍA, PT [address], [place], [address], [facility] 07/28/2025 21:47:38 Imaging Results None [...] 12:52:58 famot idine 20 mg table t 5 12:52:58 TAKE 1 TABL ET BY MOUT H AT BEDT [place] active Not Available Not availab le 0 Not Available Not Available ninfa - External Data Service - prod 07/06/2025 12:52:58 methy lpred nisol one 4 mg table ts in a dose pack 5 12:52:58 TAKE 6 TABL ETS ON DAY [...] External Data Service - prod 07/06/2025 12:53:10 [place] araceli Arthr itis Pain 1 % topic al gel 5 13:50:00 APPL Y 2 GRAM S TO THE AFFE CTED AREA (S) BY MONE JAEGER E 4 TIME S PER DAY complet ed Contusion of left knee Not availab le 3 Not Available Not Available [facility] 07/06/2025 13:51:50 celec oxib 200 mg capsu [...] e pamoa te 50 mg capsu le 13:13:05 TAKE 1 CAPS ULE BY MOUT H EVER Y DAY NEED ED FOR ANXI ETY active Not Available Not availab le 0 Not Available Not Available ninfa - External Data Service - prod 07/17/2025 13:13:05 oxcar bazep ine 300 mg table t 13:13:05 TAKE 1 TABL ET BY MOUT H EVER Y DAY IN THE MORN ING AND TAKE 2 TABL ETS AT BEDT [place] active Not Available Not availab le 0 Not Available Not Available ninfa - External Data Service - prod 07/17/2025 13:13:05 queti apine 50 mg table t 13:13:05 TAKE 1 TABL ET BY MOUT H EVER YDAY AT BEDT [place] active Not Available Not availab le 0 Not Available Not Available ninfa - External Data Service - prod 07/17/2025 13:13:05 Mounj damaris 2.5 mg/0. 5 mL subcu taneo us pen injec tor 11:54:[address] ONE PEN (=2. 5MG) [...] 23:59:13 queti apine 100 mg table t 02:07:59 TAKE 1 TABL ET BY MOUT H EVER YDAY AT BEDT [place] active Not Available Not availab le 0 Not Available Not Available ninfa - External Data Service - prod 08/19/2025 02:07:59 rispe ridon e 3 mg table t 02:07:59 TAKE 1/2 TABL ET BY MOUT [...] History Observation Description Date Observed Sex Unknown 08/11/2025 Legal Sex Female Status Not (finding) 10/25/20 25 No social history survey screeners recorded No [...] ICD10 Code Diagnosis IMO Codes Diagnosis Note [id number] Sin Royal PA-C [facility] [place] [address] [place] [address] 07/06/2025 12:53:00 07/27/2025 07:59:56 Pain of knee region [id number] M25.562 [id number] Sin Royal PA-C [facility] [place] [address] [place] [address] 07/06/2025 12:50:05 07/19/2025 12:16:45 Pain of left knee region [id number] 82151 M25.562 [id number] ERICA MEJÍA, PT [facility] [address] [place] [address] 07/28/2025 15:11:14 07/28/2025 16:11:15 Contusion of left knee [id number] S80.02XA [id number] Nigel Howard, AT [facility] [address] [place] [address] 08/03/2025 12:00:57 08/03/2025 12:58:55 Contusion of left knee [id number] S80.02XA [id number] Nigel Howard, AT [facility] [address] [place] [address] 08/09/2025 11:05:34 08/09/2025 11:50:39 Contusion of left knee [id number] S80.02XA 695584 [id number] ERICA MEJÍA, PT [facility] [address] [place] [address] 08/16/2025 11:22:16 08/16/2025 12:04:35 Contusion of left knee [id number] S80.02XA 142229 [id number] ERICA MEJÍA, PT [facility] [address] [place] [address] 08/19/2025 13:26:56 08/19/2025 14:01:40 Contusion of left knee [id number] [id number] S80.02XA 607092 [id number] ERICA MAXWELLTTON, PT [facility] [address] [place] [address] 08/24/2025 12:57:13 08/24/2025 16:40:25 Contusion of left knee [id number] 7796034 S80.02XA 318114 [id number] ERICA ALFONZO, PT [facility] [address] [place] [address] 08/29/2025 12:14:12 08/29/2025 13:16:02 Contusion of left knee [id number] 7974401 S80.02XA 334119 Health Concerns Section Related Observation LastModified by Organization Detai ls LastModified Time None Recorded Concern Status LastModified by Organization Details LastModified Time None Recorded SDOH Concern Status LastModified by Organization Detai ls LastModified Time None Recorded Advance Directives Directive None Recorded Payers Insurance Date Sequence Insurance Name Policy Number Policy Roberts Covered Member ID Roberts Member ID Guarantor Name 09/03/2025 1 [place]: [facility] Mecca Lundy [id number] eMcca Quintanillarera Notes Date Note Type Note Provider Name and Address Organization Details Recorded Time 08/09/2025 text/html Patient presents today reporting 5/10 pain. Pt states feeling better movements with therapy and exercises. Nigel Howard, AT [address], [place], [address], [facility] 08/09/2025 13:43:07 08/16/2025 text/html Patient presents today reporting 8/10 pain. Pt states that their knee feels aggravated today. ERICA MEJÍA, PT [address], [place], [address], [facility] [place] [facility] 08/16/2025 13:03:06 08/19/2025 text/html Patient presents today reporting 8/10 pain. Pt states that they had increased knee pain after LV with some soreness today. ERICA MEJÍA, PT [address], [place], [address], [facility] 08/21/2025 20:20:34 08/24/2025 text/html Patient presents today reporting 9/10 pain. Pt needs to leave at 2:30 for another appointment. ERICA MEJÍA, PT [address], [place], [address], [facility] 08/24/2025 14:30:32 08/29/2025 text/html Patient presents today reporting 6/10 pain. Patient reports decreased pain since LV. ERICA MEJÍA, PT [address], [place], [address], [facility] 08/29/2025 14:55:59 Care Team Name Role Member ID Specialty Address Phone None Recorded. OBGyn Episode No OBEpisode recorded.
--- OUTSIDE RECORDS SUMMARY | 2025-10-25 16:17 | XMS_ITS | Clinical Summary ---
Author Organization [employer] Address [address] [place] [address] 7[address] [place] [address] Care Team Providers Care Tool Room Attendant Name Role Phone Mecca Couch MD [...] & Plan (06/11/2023 5:29 PM EDT): -from child and adolescent psychiatrist records 04/2023 Cardiac stress test : ST depression noted and Myocardial perfusion study : with abnormal partially reversible small mild intensity perfusion defect in basal to distal anterior wall. -Pt was seen at hospital on 05/01/2023,pt underwent cardiac angiography reporting mild to moderate RCA disease Asymptomatic now -advised to continue care with child and adolescent psychiatrist-planned per pt to have cardiac image and [...] diet and exercise,discussed healthy life style -discussed medical stenographer referral --referred again today -will start GLP1 Assessment & Plan (05/01/2023 5:39 PM EDT): Gained 4 pounds in last month -Advised pt to improve diet and exercise,discussed healthy life style -discussed medical stenographer referral --referred already -has apt scheduled -may consider GLP1 x weight and DM at next visit Assessment & Plan (04/01/2023 2:19 PM EDT): -Advised pt to improve diet and exercise,discussed healthy life style -discussed medical stenographer referral --referred today -may consider GLP1 x weight and DM at next visit Cocaine abuse in remission ([facility]) 04/01/2023 Health care maintenance 04/01/2023 Assessment & [...] x EGD once is cleared by her child and adolescent psychiatrist -for now will add famotidine HS Assessment [...] mo -opthlmo 03/2023 -Normal per pt - frame carver spindle referral today Assessment & Plan (05/01/2023 5:22 [...] pt -will refer at next visit to frame carver spindle Assessment & Plan (04/01/2023 2:18 PM EDT): -pt on metformin 1 gr BID -DM labs today -opthlmo 03/2023 -Normal per pt -will refer at next visit to frame carver spindle Female stress incontinence 01/23/2017 Assessment & Plan [...] removed at next apt -referred to her [employer] consultant to continue care but was told that [...] removed at next apt -referred to her [employer] consultant to continue care but was told that [...] at next visit -referred today to her [employer] consultant to continue care -pt in mx meds x psych care including cymbalta 60 mg BID Anxiety 08/27/2016 Bipolar disorder 08/27/2016 Assessment & Plan (06/11/2023 5:16 PM EDT): PHQ9; 6 ( 03/2023) Pt f w psychiatrist -Dr Sin Cochran at [facility] -continue care w specialist -pt on trazodone,risperidone, [...] f w psychiatrist -Dr Sin Cochran at [facility] per pt on mx meds-states to be stable Pt appears anxious -continue care w specialist Assessment & Plan (04/01/2023 2:37 PM EDT): PHQ9; 6 today Pt f w psychiatrist -Dr Sin Cochran at [facility] per pt on mx meds-states to be [...] Encounters Date Type Department Care Team Description 10/21/2025 Orders Only [address] [address] Mecca Couch MD Lung nodule (Primary Dx); Heavy tobacco smoker; Former heavy tobacco smoker 10/20/2025 9:00 AM EST Office Visit [address] [address] Mecca Couch MD Type 2 diabetes mellitus with other circulatory complication, without long-term current use of insulin (HCC) (Primary Dx); Hypertension, unspecified type; Tongue lesion; Class 1 obesity; Health care maintenance; Lung nodule; Hx of smoking 10/20/[address] [address] Mecca Couch MD Requested Record 10/20/2025 Orders Only GENERIC EXTERNAL DATA DEPARTMENT Provider, Generic External Data 10/20/2025 Travel 10/19/2025 Travel 10/19/[address] [address] Mecca Couch MD chart prep 10/11/2025 2:40 PM EST Office Visit [facility] [address] [place] [phone] Pamela Cantrell MD Throat discomfort (Primary Dx) 10/11/2025 Travel 10/10/2025 1:30 PM EST Clinical Support [address], [place] [address] Aminata Humphries RN Poor memory 10/10/2025 Travel 10/06/2025 Orders Only [facility] [address], [place] [address] Mecca Couch MD Tongue lesion (Primary Dx) 10/06/2025 Telephone [facility] [place], [place] [address] Mecca Couch MD Referral 10/03/2025 10:45 AM EST Office Visit [facility] [place] [address] Jamil Whipple MD Tongue lesion (Primary Dx) 10/03/2025 Travel 09/28/2025 Telephone [facility] [address] [place], [place] [address] Mecca Couch MD Referral 09/28/2025 Telephone [facility] [place] [address] Mecca Couch MD Med Refill 09/28/2025 Refill [facility] [place], [place] [address] Mecca Couch MD 09/26/2025 Telephone [facility] [address] [place] [address] Mecca Couch MD Referral 09/22/2025 Telephone [facility] [place], [place] [address] Mecca Couch MD Referral 09/06/2025 Refill [facility] [address], [place] [address] Mecca Couch MD 08/24/2025 Refill [facility] [address], [place] [address] Mecca Couch MD Type 2 diabetes mellitus with other circulatory complication, without long-term current use of insulin (HCC) 08/15/2025 Telephone [facility] [address] [place] [address] Mecca Couch MD Med Refill 08/12/2025 Refill [facility] [address] [place] [phone] Mecca Couch MD 08/09/2025 9:45 AM EDT Office Visit [facility] [address] [place] [phone] Mecac Couch MD Hypertension, unspecified type (Primary Dx); Type 2 diabetes mellitus with other circulatory complication, without long-term current use of insulin (HCC); Encounter for vaccination; Encounter for immunization; Hypertriglyceridemia ; Class 1 obesity; Renal cyst; Health care maintenance; Poor memory; Loud snoring; Tongue lesion 08/09/2025 Telephone [facility] [address] [place] [phone] Mecca Couch MD Prior Auth Prescription 08/09/[address] [address] Mecca Couch MD call back request 08/09/2025 Patient Outreach [address] [address] Mecca Couch MD Care Coordination (CH[facility] outreach for SDOH PT-1 and food needs-referral completed /) 08/09/[address] [address] Mecca Couch MD Referral 08/09/2025 Travel 08/08/[address] [address] Mecca Couch MD chart prep 08/05/2025 10:45 AM EDT Office Visit [facility] [address] [place] [phone] Jose Roberto, Isabella, OD Presbyopia (Primary Dx) 08/05/2025 Refill [facility] [address] [place] [phone] Mecca Couch MD Acute pain of left knee 08/03/2025 Travel 07/26/2025 Refill [facility] [address] [place] [phone] Jurcsak, Neida, DO Acute pain of left knee from [...] Description 01/18/2026 9:45 AM EDT Office Visit [facility] [address] [place] [phone] Mecca Couch MD [address] [place] [address] Health Maintenance Due Date Last Done Comments [...] Zoster Vaccines (2 of 2) 11/19/2023 09/24/2023 Depression Monitoring 04/20/2026 10/20/2025, 025 Diabetes: Hemoglobin A1C 04/20/2026 025, 10/20/2025, 05/03/2025, Additional history exists SDOH Screening 04/26/2026 04/26/2025 Alcohol/Substance Use Screening 05/03/2026 05/03/2025 Disability Screening 08/03/2026 08/03/2025 Diabetes: Urine Protein Screening 10/20/2026 10/20/2025, 04/03/2023, 04/03/2023, Additional history exists Lipid Panel 10/20/2026 10/20/2025, 06/04, 10/31/2023, Additional history exists Tobacco Screening 10/20/2026 10/20/2025 Mammogram 06/16/2027 06/16/2025, 07/0 01/2024, 04/23/2023, Additional history exists Eye Exam 06/21/2027 06/21/2025, 08/07/2025, 06/21/2025, Additional history exists DTaP/Tdap/Td Vaccines (4 - Td or Tdap) 01/20/2034 01/21/2024, 11/13/2015, 02/07/2014 Pneumococcal Vaccine: 50+ Years Completed 04/01/2023 Cervical Cancer Screening Discontinued HPV/Cotest Discontinued 04/24/2023 Pap Smear Discontinued 04/24/2023 COVID-19 Vaccine Completed 08/09/2025, , 09/24/2023, Additional history exists Influenza Vaccine Completed 08/09/2025, , 09/24/2023, Additional history exists HIV Screening Completed 10/20/2025, 06/04, 04/03/2023 Hepatitis C Screening Completed 10/20/2025 , 06/24/2024, 04/03/2023, Additional history exists HIB Vaccines Aged Out [...] Plan Patient has chronic kidney disease No iNa Sawyer [place] Patient has chronic kidney disease [...] chronic kidney disease No Mecca Couch MD Procedures Procedure Name Priority Date/Time Associated Diagnosis Comments POCT GLYCATED HEMOGLOBIN, TOTAL Routine 10/20/2025 9:55 AM EST Type 2 diabetes mellitus with other circulatory complication, without long-term current use of insulin (HCC) POCT GLUCOSE (CPT-30946) Routine 10/20/2025 9:55 AM EST Type 2 diabetes mellitus with other circulatory complication, without long-term current use of insulin (HCC) TSH W/REFLEX TO FT4 Routine 10/20/2025 9 :46 AM EST MEASLES, MUMPS, AND RUBELLA (MMR) AB (IGG) PANEL, IMMUNE STATUS Routine 10/20/2025 9:46 AM EST Annual physical exam VITAMIN D,25-OH,TOTAL,IA Routine 10/20/2025 9:46 AM EST Annual physical exam VITAMIN B12/FOLATE, SERUM PANEL Routine 10/20/2025 9:46 AM EST Annual physical exam SYPHILIS SCREEN Routine 10/20/2025 9:46 AM EST Annual physical exam LIPID PANEL, STANDARD Routine 10/20/2025 9:46 AM EST Annual physical exam HIV 1/2 ANTIGEN/ANTIBODY, FOURTH GENERATION W/RFL Routine 10/20/2025 9:46 AM EST Annual physical exam HEPATITIS C AB W/REFL TO HCV RNA, QN, PCR Routine 10/20/2025 9:46 AM EST Annual physical exam HEPATITIS B SURFACE ANTIGEN, EIA Routine 10/20/2025 9:46 AM EST Annual physical exam HEPATITIS B SURFACE ANTIBODY, QUALITATIVE Routine 10/20/2025 9:46 AM EST Annual physical exam HEPATITIS B CORE AB TOTAL Routine 10/20/2025 9:46 AM EST Annual physical exam HEMOGLOBIN A1C Routine 10/20/2025 9:46 AM EST Annual physical exam COMPREHENSIVE METABOLIC PANEL Routine 10/20/2025 9:46 AM EST Annual physical exam CBC Routine 10/20/2025 9:46 AM EST Annual physical exam ALBUMIN, RANDOM URINE W/CREATININE Routine 10/20/2025 9:46 AM EST Annual physical exam POCT INFLUENZA B Routine 10/11/2025 4:10 PM EST Throat discomfort POCT INFLUENZA A Routine 10/11/2025 4:10 PM EST Throat discomfort POCT RAPID STREP A Routine 10/11/2025 4: 09 PM EST Throat discomfort POCT RAPID COVID ANTIGEN Routine 10/11/2025 4:08 PM EST Throat discomfort BI MAMMOGRAM SCREENING TOMOSYNTHESIS BILATERAL Routine 06/16/2025 3:15 PM EDT IMAGE-GUIDED PAP W/AGE BASED SCR PROTOCOLS Routine 04/24/2023 2:25 PM EDT Cervical cancer screening Screening examination for venereal disease from Last 3 Months or Most Recently Relevant to Health Maintenance Results * (ABNORMAL) POCT Hgb A1c (10/20/2025 9:55 AM EST) Hemoglobin A1C 6.3(A) 4.0 - 5.7 % QC Media Lot # [id number] Lot# Expiration Date [id number] Blood 10/20/2025 9:55 AM EST Mecca Wilkinson MD POINT OF CARE ROBERTH T ENTER/EDIT ORDERABLES Final Result * POCT Glucose (10/20/2025 9:55 AM EST) Pathologist [facility] Glucose Blood, POC 195 60 - 200 mg/dL QC Media Lot # [id number] Lot# Expiration Date [id number] Blood Capillary blood specimen / Unknown 10/20/2025 9:55 AM EST Mecca Wilkinson MD POINT OF CARE ROBERTH T ENTER/EDIT ORDERABLES Final Result * Syphilis Screen (10/20/2025 9:46 AM EST) Syphilis Screen Nonreactive Nonreactive [facility] Blood 10/20/2025 9:46 AM EST 10/20/2025 10:59 AM EST Mecca Wilkinson MD LAB BLOOD ORDERAB LES Final Result [facility] [address] [place] [phone] * Vitamin D, 25-Hydroxy, Total, Immunoassay (10/20/2025 9:46 AM EST) Vitamin D 25-OH Total 45.1 >30 ng/mL [facility] Comment: Health Based Reference Values*< 20 ng/mL Wnflrvlyy97-39 ng/mL Insufficient> 30 ng/mL Sufficient*Zachary CONTE. N Engl J Med. 2007;357:266-280There is no well-established upper level of normal vitamin Dlevels. Some laboratories use 50 ng/mL as an upper limit ofnormal. However, toxicity is patient-dependent and may occurat any level. Careful correlation with the patient'spresentation is necessary and, if there is concern forvitamin D toxicity, treatment should be consideredirrespective of the serum level.Care must be taken in interpreting Vitamin D results fromdifferent laboratories and methodologies. Published datademonstrated that results from patients undergoinghemodialysis may show a negative bias when tested withvarious automated 25-OH vitamin D assays when compared toLC-MS/MS.When testing samples from patients whose predominant form ofVitamin D is Vitamin D2, such as patients receiving VitaminD2 supplementation, results that are subtherapeutic shouldbe confirmed with another method such as LC-MS/MS. Blood Venous blood specimen / Unknown 10/20/2025 9:46 AM EST 10/20/2025 10:59 AM EST us Mecca Wilkinson MD LAB BLOOD ORDERAB LES Final Result Performing Organization Address City/[facility]/ZIP Co de Phone Number [facility] [address] [place] [phone] * Vitamin B12 (Cobalamin) and Folate Panel, Serum (10/20/2025 9:46 AM EST) Vitamin B12 369 200 - 900 pg/mL [facility] Comment:NORMAL 200-900 PG/ML INDETERMINATE 160-199 PG/ML DEFICIENT < 160 PG/ML Folate 13.3 > or = 4.0 ng/mL [facility] Comment:Reference Values:> o r = 4.0 ng/mL< 4.0 ng/mL suggests folate deficiency Methotrexate, aminopterin and folinic acid(leucovorin) are chemotherapeutic agents whose molecularstructures are similar to folate; therefore, the Architectfolate assay cannot be used for patients using these drugs. Blood 10/20/2025 9:46 AM EST 10/20/2025 10:59 AM EST us Mecca Wilkinson MD LAB BLOOD ORDERAB LES Final Result Performing Organization Address [facility]/ZIP Co de Phone Number [facility] [address] [place] [phone] * TSH with Reflex to Free T4 (10/20/2025 9:46 AM EST) Pathologist [facility] TSH reflex Free T4 1.09 0.32 - 4.0 uIU/mL [facility] 10/20/2025 9:46 AM EST 10/20/2025 10:59 AM EST us Generic External Data Provider LAB BLOOD ORDERAB LES Final Result Performing Organization Address [facility] Co de Phone Number [facility] [address] [place] [phone] * Measles, Mumps, and Rubella (MMR) Antibodies??(IgG) Panel, Immune Status (10/20/2025 9:46 AM EST) Pathologist [facility] Mumps Virus IgG Antibody 38.60 AU/mL [facility] Comment:AU/mL Interpretation ------- <9.00 Not consistent with immunity9.00-10.99 Equivocal>10.99 Consistent with immunityThe presence of mumps IgG antibody suggests immunizationor past or current infection with mumps virus. Rubella IgG Antibody 1.91 Index [facility] Comment:Index Interpretation ----- <0.90 Not consistent with immunity 0.90-0.99 Equivocal > or = 1.00 Consistent with immunityThe presence of rubella IgG antibody suggestsimmunization or past or current infection withrubella virus.THIS TEST WAS PERFORMED AT:[employer] [place] [phone] DRISCOLL MD Rubeola IgG (Measles) 19.50 AU/mL [facility] Comment:AU/mL Interpretation ----- <13.50 Not consistent with nbwikrpb77.50-16.49 Equivocal>16.49 Consistent with immunityThe presence of measles IgG suggests immunization orpast or current infection with measles virus.For additional information, please refer [email or web address]/faq/[email or web address](This link is being provided for informational/educational purposes only.) Blood Venous blood specimen / Unknown 10/20/2025 9:46 AM EST 10/20/2025 10:59 AM EST Mecca Wilkinson MD LAB BLOOD ORDERAB LES Final Result [facility] [address] [place] [phone] * Albumin, Random Urine W/Creatinine (10/20/2025 9:46 AM EST) Creatinine, Urine 265.89 mg/dL [facility] Microalbumin Urine 22.0 mg/L [facility] Microalbum Creatinine Ratio Ur 8.2 <30 ug/mg cr [facility] Comment:Albumin/Creatinine R atio Reference Ranges: Normal: < 30 ug/mg creatinine Microalbuminuria: 30 - 300 ug/mg creatinineClinical Albuminuria: > 300 ug/mg creatinine Urine (Urine, Random) 10/20/2025 9:46 AM EST 10/20/2025 11:05 AM EST Mecca Wilkinson MD LAB URINE ORDERAB LES Final Result Performing Organization Address [facility] Co de Phone Number [facility] [address] [place] [phone] * Hepatitis C Antibody with Reflex to HCV, RNA, Quantitative, Real-Time PCR (10/20/2025 9:46 AM EST) Hepatitis C Antibody Nonreactive Nonreactive [facility] Comment:Antibodies to HCV no t detected; does not exclude early acuteHCV infection. Blood Venous blood specimen / Unknown 10/20/2025 9:46 AM EST 10/20/2025 10:59 AM EST us Mecca Wilkinson MD LAB BLOOD ORDERAB LES Final Result Performing Organization Address [facility] Co de Phone Number [facility] [address] [place] [phone] * Hepatitis B surface antigen, EIA (10/20/2025 9:46 AM EST) Hepatitis B Surface Ag Negative Negative [facility] Blood Venous blood specimen / Unknown 10/20/2025 9:46 AM EST 10/20/2025 10:59 AM EST Mecca Wilkinson MD LAB BLOOD ORDERAB LES Final Result Performing Organization Address City/[facility] Co de Phone Number [facility] [address] [place] [phone] * Hepatitis B Core Antibody, Total (10/20/2025 9:46 AM EST) Hepatitis B Core Antibody Reactive Nonreactive [facility] Comment:Presumptive evidence of anti-HBc. Blood Venous blood specimen / Unknown 10/20/2025 9:46 AM EST 10/20/2025 10:59 AM EST Mecca Wilkinson MD LAB BLOOD ORDERAB LES Final Result Performing Organization Address City/[facility]/ZIP Co de Phone Number [facility] [address] [place] [phone] * HIV-1/2 Antigen and Antibodies, Fourth Generation, with Reflexes (10/20/2025 9:46 AM EST) Pathologist [facility] HIV AB/AG Nonreactive Nonreactive [facility] Comment:HIV-1 p24 Ag and/or HIV-1/HIV-2 Ab not detected.A test result that is nonreactive does not exclude thepossibility of exposure to or infection with HIV-1 and/orHIV-2. Nonreactive results in this assay for individualswith prior exposure to HIV-1 and/or HIV-2 may be due toantigen and antibody levels that are below the limit ofdetection of this assay.The [employer] HIV Ag/Ab Combo assay result andsupplemental assay results should be interpreted inconjunction with the patient's clinical presentation,history and other laboratory results. If the results areinconsistent with clinical evidence, additional testing issuggested to confirm the result. Blood Venous blood specimen / Unknown 10/20/2025 9:46 AM EST 10/20/2025 10:59 AM EST Mecca Wilkinson MD LAB BLOOD ORDERAB LES Final Result Performing Organization Address City/[facility]/ZIP Co de Phone Number [facility] [address] [place] [phone] * Hepatitis B Surface Antibody, Qualitative (10/20/2025 9:46 AM EST) ~Hepatitis B Surface Antibody REACTIVE Nonreactive [facility] Comment:REACTIVE: > 11.99 mI U/mL Blood Venous blood specimen / Unknown 10/20/2025 9:46 AM EST 10/20/2025 10:59 AM EST us Mecca Wilkinson MD LAB BLOOD ORDERAB LES Final Result Performing Organization Address City/[facility]/ZIP Co de Phone Number [facility] [address] [place] [phone] * (ABNORMAL) CBC (10/20/2025 9:46 AM EST) White Blood Count 5.3 4.8 - 10.8 X10*3/uL [facility] Red Blood Count 4.30 4.20 - 5.50 X10*6/uL [facility] Hemoglobin 12.5 12.0 - 16.0 g/dl [facility] Hematocrit 36.8(L) 37.0 - 47.0 % [facility] Mean Corpuscular Volume 85.6 80.0 - 98.0 fL [facility] Mean Corpuscular Hemoglobin 29.1 27.0 - 33.0 pg [facility] Mean Corpuscular HGB Conc 34.0 31.0 - 35.0 g/dl [facility] Red Cell Distribution Width 12.5 11.0 - 16.0 % [facility] Platelet Count 246 160 - 400 X10*3/uL [facility] Mean Platelet Volume 11.0 9.4 - 12.3 fL [facility] NRBC Pct Auto 0.0 0.0 - 0.2 /100WBC [facility] NRBC Abs Auto 0.000 0.0 - 0.012 X10*3/uL [facility] Blood Venous blood specimen / Unknown 10/20/2025 9:46 AM EST 10/20/2025 10:59 AM EST us Mecca Wilkinson MD LAB BLOOD ORDERAB LES Final Result Performing Organization Address City/[facility]/ZIP Co de Phone Number [facility] [address] [place] [phone] * (ABNORMAL) Hemoglobin A1c (10/20/2025 9:46 AM EST) Hemoglobin A1c 6.3(H) <6.0 % [facility] Comment:Hemoglobin A1C Refer ence Range Adults: 4.8 - 6.0 % Non diabetic: < 6.0 % Goal: < 7.0 %Additional Action Suggested: > 8.0 %Note: Hemoglobin A1c results are invalid for patients with abnormal amounts of HbF. Blood transfusions may impact the HbA1c concentration in the patient sample. Estimated Average Glucose 134 mg/dL [facility] Comment:eAG = Estimated ave rage glucose which is %A1C expressed asaverage glucose, using the formula of the [id number] Glucose study (ADAG), Diabetes Care, Vol.31,#8,2007 Blood Venous blood specimen / Unknown 10/20/2025 9:46 AM EST 10/20/2025 10:59 AM EST Mecca Wilkinson MD LAB BLOOD ORDERAB LES Final Result [facility] [address] [place] [phone] * (ABNORMAL) Lipid Panel, Standard (10/20/2025 9:46 AM EST) Triglycerides 231(H) <150 mg/dL [facility] Comment:Desirable Triglyceri de: less than [...] or equal to 190 mg/dL HDL Cholesterol 38(L) >40 mg/dL [facility] Comment:Desirable HDL: great er than 40 mg/dL Note: This HDL assay may give artificially low results in patients with liver disease. Blood Venous blood specimen / Unknown 10/20/2025 9:46 AM EST 10/20/2025 10:59 AM EST Mecca Wilkinson MD LAB BLOOD ORDERAB LES Final Result [facility] [address] [place] [phone] * (ABNORMAL) Comprehensive Metabolic Panel (10/20/2025 9:46 AM EST) Sodium 140 135 - 145 mmol/L [facility] Potassium 4.0 3.3 - 5.1 mmol/L [facility] Chloride 107 96 - 108 mmol/L [facility] Carbon Dioxide 24 22 - 29 mmol/L [facility] Anion Gap 13 12 - 20 [facility] Urea Nitrogen (BUN) 12 9 - 16 mg/dL [facility] Creatinine, Serum 0.69 0.5 - 1.4 mg/dL [facility] Estimated Glomerular Filt Rate >60 [facility] Comment:Chronic Kidney Disea se: Estimated GFR < 60 mL/min/1.81g9Krjcyp Kidney Disease: Estimated GFR < 15 mL/min/1.73m2 Glucose 99 60 - 115 mg/dL [facility] Calcium 9.6 8.4 - 10.2 mg/dL [facility] Bilirubin, Total 0.3 0.0 - 1.0 mg/dL [facility] Aspartate Amino Transferase 38(H) 5 - 31 U/L [facility] Alanine Aminotransferase 40(H) 0 - 31 U/L [facility] Total Protein 7.2 6.5 - 8.0 g/dL [facility] Albumin Level 4.5 3.5 - 5.0 g/dL [facility] Alkaline Phosphatase 126(H) 39 - 117 U/L [facility] Blood Venous blood specimen / Unknown 10/20/2025 9:46 AM EST 10/20/2025 10:59 AM EST Result [facility] Mecca Wilkinson MD LAB BLOOD ORDERAB LES Final Result [facility] [address] [place] [phone] * POCT Influenza B manually resulted (10/11/2025 4:10 PM EST) [facility] Rapid Influenza B Ag Negative Negative, Indeterminate QC Media Lot # [id number] Lot# Expiration Date [id number] Swab 10/11/2025 4:10 PM EST Result [facility] Pamela Cantrell MD POINT OF CARE TEST ENTER/E DIT ORDERABLES Final Result * POCT Influenza A manually resulted (10/11/2025 4:10 PM EST) [facility] Rapid Influenza A Ag Negative Negative, Indeterminate QC Media Lot # [id number] Lot# Expiration Date [id number] Swab Nasopharyngeal structure / Unknown 10/11/2025 4:10 PM EST Result [facility] Pamela Cantrell MD POINT OF CARE TEST ENTER/E DIT ORDERABLES Final Result * POCT rapid strep A manually resulted (10/11/2025 4:09 PM EST) [facility] Rapid Strep A Screen Negative Negative, None Detected QC Media Lot # [id number] Lot# Expiration Date [id number] Swab 10/11/2025 4:09 PM EST Result [facility] Pamela Cantrell MD POINT OF CARE TEST ENTER/E DIT ORDERABLES Final Result * POCT Rapid COVID Ag (10/11/2025 4:08 PM EST) [facility] Rapid COVID Ag Negative QC Media Lot # [id number] Lot# Expiration Date [id number] Swab 10/11/2025 4:08 PM EST Pamela Cantrell MD POINT OF CARE TEST ENTER/E DIT ORDERABLES Final Result * BI Mammogram Screening Tomosynthesis Bilateral (06/16/2025 3:15 PM EDT) Anatomical Region Laterality Modality Breast Bilateral Mammography 06/16/2025 3:15 PM EDT Narrative 06/21/2025 2:04 PM EDT [facility] [place] [address] Mammography Report Signed Patient: Mecca Lundy MR#: [id number] 5 : 1965 Acct:[id number] Age/Sex: 60 / F ADM Date: 06/16/25 Loc: HO.MAMMO Attending Dr: Mecca Wilkinson MD Ordering Physician: Mecca Couch MD Re sults: 1Negative Date of Service: 06/16/25 Follow Up: 1 Year From [facility] ina Mammogram Procedure(s): MM tomosynthesis screening BI Accession Number(s): [id number] cc: Mecca Couch MD EXAMINATION: MM SCREENING [...] 06/21/25 1401 DD/ 1515 TD/TT: 06/16/25 1530 Silverware Cleaner: Procedure Note Donotuseinterpreter, Image - 06/21/20[facility] [address] [place] [address] Mammography Report Signed Patient: Mecca LundyMR#: [id number] 5 : 1965Acct:[id number] Age/Sex: 60 / FADM Date: 06/16/25 Loc: HO.MAMMO Attending Dr: Mecca Wilkinson MD Ordering Physician: Mecca Couch sults: 1Negative Date of Service: 06/16/25Follow Up: 1 Year From Orig inal Mammogram Procedure(s): MM tomosynthesis screening BI Accession Number(s): [id number] cc: Mecca Couch MD EXAMINATION: MM SCREENING [...] 06/21/25 1401 DD/ 1515 TD/TT: 06/16/25 1530 Silverware Cleaner: Mecca Wilkinson MD IMG BI PROCEDURES Final Result * Image-Guided Pap with Age-Based Screening Protocols (04/24/2023 2:25 PM EDT) Comment Zoe Majeste Comment: This order for age-based cervical cancer and STI screening follows ACOG guidelines(PB 168, 140, TCU612). See individual assays for performing site location. Clinical Information: None given [facility] LMP: NONE GIVEN [facility] (Chapter 11[facility] Prev. PAP: NONE GIVEN [facility] Prev. BX: NONE GIVEN [facility] SOURCE: None given [facility] Statement Of Adequacy: [facility] Comment: Satisfactory for evaluation. Endocervical/transformation zone component absent. Interpretation/ Result: Negative for intraepithelial lesion or malignancy. [facility] Comment: This Pap test has been evaluated with computer assisted technology. Zoe Majeste Cytotechnologis t: [facility] Comment: MSM, CT(ASCP) CT screening location: [place] [address] (Always Message) [employer] Comment: EXPLANATORY NOTE: The Pap is a [...] HPV nRNA E6/E7 Not Detected Not Detected Zoe Majeste Comment: Methodology: Dater Assembler-Mediated Amplification This assay detects E6/E7 viral messenger RNA (mRNA) from 14 high-risk HPV types (16,18,31,33,35,39,45,51,52,56,58,59,66,68). Cervical sources are required for HPV testing. If a vaginal source from a patient who has had a total hysterectomy with removal of cervix was submitted, please contact the testing laboratory for alternative testing options. For additional information, please refer to http://education.Zazum/faq/TEK925p6 (This link if provided for information/ educational purposes only.) Pap Vial 04/24/2023 2:25 PM EDT 04/25/2023 1:57 AM EDT us Eliane Richardson [facility] BLOOD ORDERABLES Michelle l Result [facility] [address], [place] [address] [facility] [address] [place] [address] from Last 3 Months or Most Recently [...] 10/21/2025 Patient has chronic kidney disease 10/21/[address] [place] [address] [place] [address] C3 [employer]ANCE [facility] C3 Care Teams Tool Room Attendant Relationship Specialty Start Date End Date Mecca Couch MD [address] [place] [address] PCP - General Internal Medicine 03/28/23
--- OUTSIDE RECORDS SUMMARY | 2025-10-25 16:17 | XMS_ITS | Encounter Summary ---
Author Organization [employer] Address [address] [facility] 7t [place] [address] Care Team Providers Care Construction Sales Manager Name Role Phone Mecca Couch MD Primary Care Pro vider Reason for Visit * Reason Comments Med Refill Encounter Details Date Type Department Care Team ([facility] st Contact Info) Description 07/11/2025 Refill [facility] [address] [place], [place] [phone] Neida Barlow DO 230 [place] [address] Social History Tobacco Use Types Packs/Day Years [...] Description 01/18/2026 9:45 AM EDT Office Visit [facility] [address] [place] [address] [phone] Mecca Couch MD [address] [place] [address] documented as of this encounter Visit Diagnoses Not on filedocumented in this encounter Additional Health Concerns Assessment Noted Time PHQ-9 Depression Total Score: 22 025 10:39 AM EDT documented as of this encounter Care Teams Construction Sales Manager Relationship Specialty Start Date End Date Mecca Couch MD [address] [place] [address] [phone] PCP - General Internal Medicine 03/28/23 documented as of this encounter
--- OUTSIDE RECORDS SUMMARY | 2025-10-25 16:17 | XMS_ITS | Encounter Summary ---
Author Organization [email or web address] Address [address] [place] [address] 7 [place] [address] Care Team Providers Care Salesperson Sewing Machines Name Role Phone Mecca Couch MD Primary Care Pro vider Encounter Details Date Type Department Care Team ([facility] st Contact Info) Description 07/08/2025 Results Follow-Up [facility] 230 [place] [address] Mecca Couch MD 230 [place] [address] US Abdomen Complete, Albumin, Random Urine W/Creatinine, CBC, Additional followed-up results: 12 Social History Tobacco Use Types Packs/Day Years [...] Description 01/18/2026 9:45 AM EDT Office Visit [facility] [address] [place] [address] [phone] Mecca Couch MD [address] [place], [place] [phone] documented as of this encounter Goals Goal Patient Goal Type Associated Problems Recent Progress Patient-Stated? Author Help patients manage their type 2 diabetes Care Plan Help patients manage their type 2 diabetes Jamil Mobley Weekly blood pressure task Care Plan Weekly blood pressure task No aJmil Pat Help patients manage their type 2 [...] Care Plan Weekly blood pressure task No AnthonyDigna ruffinnifer [employer]ARM[employer] Weekly blood pressure task Care Plan Weekly blood pressure task No Anthony, Neida, FARM[employer] CR[employer] Patient has chronic kidney disease Care Plan Patient has chronic kidney disease No Digna Cruznifer FARMER DIVERS[employer]IED CROPS Patient has chronic kidney disease Care Plan Patient has chronic kidney disease No Anthony Neida FARMER [employer] Weekly blood pressure task Care Plan Weekly [...] chronic kidney disease No Mecca Couch MD documented as of this encounter Visit Diagnoses [...] documented as of this encounter Care Teams Salesperson Sewing Machines Relationship Specialty Start Date End Date Mecca Couch MD [address] [place] [address] PCP - General Internal Medicine 03/28/23 documented as of this encounter
--- OUTSIDE RECORDS SUMMARY | 2025-10-25 16:17 | XMS_ITS | Encounter Summary ---
Author Organization [employer] Address [address] [place] [address] 7 [place] [address] Care Team Providers Care Center Sales And Service Associate Name Role Phone Mecca Couch MD Primary Care Pro vider Lizeth Singleton RN Unavailable Unavailable Reason for Visit * Reason Comments Med Refill Encounter Details Date Type Department Care Team ([facility] st Contact Info) Description 11/26/2024 Refill [facility] 230 [place], [place] [phone] Mecca Couch MD 230 [place] [address] Social History Tobacco Use Types Packs/Day Years [...] Description 01/18/2026 9:45 AM EDT Office Visit [facility] [address] [place] [address] Mecca Couch MD [address] [place] [address] documented as of this encounter Visit Diagnoses Not on filedocumented in this encounter Additional Health Concerns Assessment Noted Time PHQ-9 Depression Total Score: 10 024 2:38 PM EDT documented as of this encounter Care Teams Center Sales And Service Associate Relationship Specialty Start Date End Date Mecca Couch MD [address] [place] [address] PCP - General Internal Medicine 03/28/23 Lizeth Singleton RN [address] [place] [address] Registered Nurse Family Medicine 05/12/25 06/07/25 documented as of this encounter
--- OUTSIDE RECORDS SUMMARY | 2025-10-25 16:17 | XMS_ITS | Continuity of Care Document ---
Author Organization [facility], TIMOTHY Maynard PT Address [address] [place] [address] Assessment Encounter Date Assessment Date Assessment LastModified by Organization Details LastModified Time 08/09/2025 08/09/2025 Assessment: Nice gains with flexion/exten cristina measure. Plan: Continue 1-2x/wk with LE stretch/stren gth programming. [email or web address] Not available 08/09/2025 13:42:25 Plan of Treatment [...] Recorded Time Pain of left knee region [id number] Active 2024 Neida bello [facility] 13:34:03 Problem Notes None recorded. Procedures Surgical History Date Name Laterality Status Provider Name and Address Organization Details Recorded Time 5 06821 Therapeutic Exercise (1:1) cancelled ERICA MEJÍA, PT [address], [place], [address], [facility] 09/07/2025 23:37:06 5 78231: Hot or Cold Pack cancelled ERICA MEJÍA, PT [address], [place], [address], [facility] 09/07/2025 23:37:06 5 19945: Manual therapy cancelled ERICA ALFONZO, PT [address], [place], [address], [facility] 09/07/2025 23:37:06 38841 Therapeutic Exercise (1:1) cancelled ERICA ALFONZO, PT [address], [place], [address], [facility] 09/06/2025 08:54:00 5 67041: Hot or Cold Pack cancelled ERICA ALFONZO, PT [address], [place], [address], [facility] 09/06/2025 08:54:00 5 32563: Manual therapy cancelled ERICA ALFONZO, PT [address], [place], [address], [facility] 09/06/2025 08:54:00 [id number] Therapeutic Exercise (1:1) completed ERICA ALFONZO, PT [address], [place], [address], [facility] 08/29/2025 14:53:05 85177: Hot or Cold Pack completed ERICA ALFONZO, PT [address], [place], [address], [facility] 08/28/2025 17:31:34 41482: Manual therapy completed ERICA ALFONZO, PT [address], [place], [address], [facility] 08/28/2025 17:31:34 51465 Therapeutic Exercise (1:1) completed ERICA ALFONZO, PT [address], [place], [address], [facility] 08/23/2025 21:43:36 98672: Hot or Cold Pack completed ERICA ALFONZO, PT [address], [place], [address], [facility] 08/23/2025 21:43:36 83319: Manual therapy completed ERICA ALFONZO, PT [address], [place], [address], [facility] 08/23/2025 21:43:36 10138 Therapeutic Exercise (1:1) completed ERICA ALFONZO, PT [address], [place], [address], [facility] 08/21/2025 20:19:55 92633: Hot or Cold Pack completed ERICA ALFONZO, PT [address], [place], [address], [facility] 08/19/2025 00:00:21 38970: Manual therapy completed ERICA ALFONZO, PT [address], [place], [address], [facility] 08/19/2025 00:00:21 31307 Therapeutic Exercise (1:1) completed ERICA ALFONZO, PT [address], [place], [address], [facility] 08/16/2025 13:02:26 23858: Hot or Cold Pack completed ERICA ALFONZO, PT [address], [place], [address], [facility] 08/16/2025 08:36:03 31563: Manual therapy completed ERICA ALFONZO, PT [address], [place], [address], [facility] 08/16/2025 13:02:44 33711 Therapeutic Exercise (1:1) completed Nigel Howard, AT [address], [place], [address], [facility] 08/09/2025 12:29:15 16816: Hot or Cold Pack completed Nigel Howard, AT [address], [place], [address], [facility] 08/09/2025 13:40:37 87139: Manual therapy completed Nigel Howard, AT [address], [place], [address], [facility] 08/09/2025 12:29:15 74001 Therapeutic Exercise (1:1) completed Nigel Howard, AT [address], [place], [address], [facility] 08/03/2025 14:27:14 13701: Manual therapy completed Nigel Howard, AT [address], [place], [address], [facility] 08/03/2025 14:27:22 91633 Therapeutic Exercise (1:1) completed ERICA MEJÍA, PT [address], [place], [address], [facility] 07/28/2025 21:47:42 59003: Low complexity PT Eval completed ERICA MEJÍA, PT [address], [place], [address], [facility] 07/28/2025 21:47:38 Imaging Results [...] 12:52:57 baclo fen 10 mg table t 5 12:52:58 TAKE 1 TABL ET (10 MG) [...] 12:52:58 trama dol 50 mg table t 12:52:58 TAKE 1 TABL [...] (80 MG) BY MOUT H [facility] active Not Available Not availab le 0 [...] External Data Service - prod 07/06/2025 12:53:10 Pilger araceli Arthr itis Pain 1 % topic al gel 5 13:50:00 APPL Y 2 GRAM S TO THE AFFE CTED AREA (S) BY MONE JAEGER E 4 TIME S PER DAY complet ed Contusion of left knee Not availab le 3 Not Available Not Available [facility] 07/06/2025 13:51:50 celec oxib 200 mg capsu le 5 13:13:04 TAKE 1 CAPS ULE BY MOUT H EVER Y DAY active Not Available Not availab le 0 Not Available Not Available ninfa - External Data Service - prod 07/17/2025 13:13:04 dulox etine 60 mg capsu le,de layed relea se 5 13:13:04 TAKE 1 CAPS ULE BY [...] 11:54:16 Banop hen 25 mg capsu le 5 11:54:17 TAKE 2 CAPS ULES BY MOUT [...] History Observation Description Date Observed Sex Unknown 08/09/2025 Legal Sex Female Status Not (finding) 10/25/20 [...] ICD10 Code Diagnosis IMO Codes Diagnosis Note [id number] ERICA MEJÍA, PT [facility] [address] [place] [address] 07/28/2025 15:11:14 07/28/2025 16:11:15 Contusion of left knee [id number] S80.02XA [id number] [facility] [address] [place] [address] 08/03/2025 12:00:57 08/03/2025 12:58:55 Contusion of left knee [id number] S80.02XA [id number] Nigel Howard AT [facility] [address] [place] [address] 08/09/2025 11:05:34 08/09/2025 11:50:39 Contusion of left knee [id number] [id number] S80.02XA [id number] Health Concerns Section Related Observation LastModified by Organization Detai ls LastModified Time None Recorded Concern Status LastModified by Organization Details LastModified Time None Recorded SDOH Concern Status LastModified by Organization Detai LastModified Time None Recorded Payers Encounter Date Sequence Insurance Name Policy Number Policy Roberts Covered Member ID Roberts Member ID Guarantor Name 08/09/2025 1 [place] [facility] Mecca Lundy [id number] Mecca Lundy Notes Date Note Type Note Provider Name and Address Organization Details Recorded Time 08/09/2025 text/html Patient presents today reporting 5/10 pain. Pt states feeling better movements with therapy and exercises. Nigel Howard, AT [address], [place], [address], [place] [facility] 08/09/2025 13:43:07 Care Team Name Role Member ID Specialty Address Phone None Recorded. OBGyn Episode No OBEpisode recorded.
--- OUTSIDE RECORDS SUMMARY | 2025-10-25 16:17 | XMS_ITS | Encounter Summary ---
Author Organization [employer] Address [address] [place] [address] 7 [place] [address] Care Team Providers Care Citrus Peeler Name Role Phone Mecca Couch MD Primary Care Pro vider Lizeth Singleton RN Unavailable Unavailable Reason for Visit * Reason Onset Date Comments Medication Problem 11/27/2023 Encounter Details Date Type Department Care Team ([facility] st Contact Info) Description 11/27/2023 Telephone [facility] 230 [place], [place] [phone] Mecca Couch MD 230 [place], [place] [phone] Medication Problem Social History Tobacco Use Types [...] Description 01/18/2026 9:45 AM EDT Office Visit [facility] [address] [place] [address] Mecca Couch MD [address] [place] [address] documented as of this encounter Visit Diagnoses Not on filedocumented in this encounter Additional Health Concerns Assessment Noted Time PHQ-9 Depression Total Score: 6 04/01/20 23 9:29 AM EDT documented as of this encounter Care Teams Citrus Peeler Relationship Specialty Start Date End Date Mecca Couch MD [address] [place] [address] PCP - General Internal Medicine 03/28/23 Lizeth Singleton RN [address] [place] [address] Registered Nurse Family Medicine 05/12/25 06/07/25 documented as of this encounter
--- OUTSIDE RECORDS SUMMARY | 2025-10-25 16:17 | XMS_ITS | Encounter Summary ---
Author Organization [employer] Address [address] [facility] 7t [place] [address] Care Team Providers Care R&D Engineer Name Role Phone Mecca Couch MD Primary Care Pro vider Lizeth Singleton RN Unavailable Unavailable Reason for Visit * Reason Comments Med Refill Encounter Details Date Type Department Care Team ([facility] st Contact Info) Description 04/07/2023 Refill [facility] 230 [place], [place] [phone] Mecca Mclain MD 230 [place] [address] Social History Tobacco Use Types Packs/Day Years [...] Description 01/18/2026 9:45 AM EDT Office Visit [facility] [address] [place] [address] Mecca Couch MD [address] [place] [address] documented as of this encounter Visit Diagnoses Not on filedocumented in this encounter Additional Health Concerns Assessment Noted Time PHQ-9 Depression Total Score: 6 04/01/20 23 9:29 AM EDT documented as of this encounter Care Teams R&D Engineer Relationship Specialty Start Date End Date Mecca Couch MD [address] [place] [address] PCP - General Internal Medicine 03/28/23 Lizeth Singleton RN [address] [place] [address] Registered Nurse Family Medicine 05/12/25 06/07/25 documented as of this encounter
--- OUTSIDE RECORDS SUMMARY | 2025-10-25 16:17 | XMS_ITS | Encounter Summary ---
Author Organization [employer] Address [address] [place] [address] [place] [address] Care Team Providers Care Coin Rolling Machine Operator Name Role Phone Cinthya Mckeon Primary Care Provider [phone] Mecca Couch MD Primary Care Pro vider Lizeth Singleton RN Unavailable Unavailable Encounter Details Date Type Department Care Team (Late st Contact Info) Description 10/25/2022 Abstract [facility] [address] [place] [phone] Cinthya Mckeon FNP [address] [place], [place] [phone] Social History Tobacco Use Types Packs/Day Years [...] 9:45 AM EDT Office Visit [facility] [address] [place] [address] Mecca Couch MD 230 [place] [address] documented as of this encounter Visit Diagnoses Not on filedocumented in this encounter Care Teams Coin Rolling Machine Operator Relationship Specialty Start Date End Date Cinthya Mckeon FNP 230 [place] [address] PCP - General Family Medicine 06/27/22 03/27/23 Mecca Couch MD 230 [place] [address] PCP - General Internal Medicine 03/28/23 Lizeth Singleton, KRISTIE [address] [place] [address] Registered Nurse Family Medicine 05/12/25 06/07/25 documented as of this encounter
--- OUTSIDE RECORDS SUMMARY | 2025-10-25 16:17 | XMS_ITS | Encounter Summary ---
Author Organization [employer] Address [address] [place] [address] 7 [place] [address] Care Team Providers Care It Application Architect Name Role Phone Mecca Couch MD Primary Care Pro vider Lizeth Singleton RN Unavailable Unavailable Reason for Visit * Reason Onset Date Comments Med Refill 09/01/2023 Encounter Details Date Type Department Care Team ([facility] st Contact Info) Description 09/01/2023 Refill [facility] 230 [place], [place] [phone] Mecca Couch MD [address] [place] [address] Social History Tobacco Use Types Packs/Day Years [...] Description 01/18/2026 9:45 AM EDT Office Visit [facility] [address] [place] [address] Mecca Couch MD [address] [place] [address] documented as of this encounter Visit Diagnoses Not on filedocumented in this encounter Additional Health Concerns Assessment Noted Time PHQ-9 Depression Total Score: 6 04/01/20 23 9:29 AM EDT documented as of this encounter Care Teams It Application Architect Relationship Specialty Start Date End Date Mecca Couch MD [address] [place] [address] PCP - General Internal Medicine 03/28/23 Lizeth Singleton RN [address] [place] [address] Registered Nurse Family Medicine 05/12/25 06/07/25 documented as of this encounter
--- OUTSIDE RECORDS SUMMARY | 2025-10-25 16:18 | XMS_ITS | Encounter Summary ---
Author Organization [employer] Address [address] [place] [address] 7 [place] [address] Care Team Providers Care Manager Environmental Services Name Role Phone Mecca Couch MD Primary Care Pro vider Lizeth Singleton RN Unavailable Unavailable Reason for Visit * Reason Comments Med Refill Encounter Details Date Type Department Care Team ([facility] st Contact Info) Description 12/01/2024 Refill [facility] MEDICINE [address] [place], [place] [phone] Mecca Couch MD [address] [place] [address] Social History Tobacco Use Types Packs/Day Years [...] Description 01/18/2026 9:45 AM EDT Office Visit [facility] MEDICINE [address] [place] [address] Mecca Couch MD [address] [place] [address] documented as of this encounter Visit Diagnoses Not on filedocumented in this encounter Additional Health Concerns Assessment Noted Time PHQ-9 Depression Total Score: 10 024 2:38 PM EDT documented as of this encounter Care Teams Manager Environmental Services Relationship Specialty Start Date End Date Mecca Couch MD [address] [place] [address] PCP - General Internal Medicine 03/28/23 Lizeth Singleton RN [address] [place] [address] Registered Nurse Family Medicine 05/12/25 06/07/25 documented as of this encounter
--- OUTSIDE RECORDS SUMMARY | 2025-10-25 16:18 | XMS_ITS | Encounter Summary ---
Author Organization [employer] Address [address] [place] [address] 7 [place] [address] Care Team Providers Care Technical Support Associate Name Role Phone Mecca Couch MD Primary Care Pro vider Reason for Referral * Imaging (STAT) - Authorized Specialty Diagnoses / Procedures Referred By Contac t Referred To Contact Radiology Diagnoses Lung nodule Former heavy tobacco smoker Procedures CT Chest w/ Contrast Mecca Couch MD [address] [place] [address] Phone: tel: fax: [address] [address] Phone: tel: fax: Referral ID Status Reason Start Date Expiration Date V isits Requested Visits Authorized [id number] Authorized 10/21/2025 10/21/2026 1 1 Encounter Details Date Type Department Care Team (Late st Contact Info) Description 10/21/2025 Orders Only [facility] MEDICINE [address] [place] [phone] Mecca Couch MD [address] [place], [place] [phone] Lung nodule (Primary Dx); Heavy tobacco smoker; Former heavy tobacco smoker Social History Tobacco Use Types Packs/Day Years [...] Visit [facility] MEDICINE [address] [place] [address] Mecca Couch MD [address] [place] [address] Scheduled Orders Name Type Priority Associated Diagnoses Orde r Schedule CT Chest w/ Contrast Imaging STAT Lung nodule Former heavy tobacco smoker Expected: 10/21/2025, Expires: 10/21/2026 documented as of this encounter Goals Goal [...] as of this encounter Visit Diagnoses Diagnosis Lung nodule- Primary Other diseases of lung, not elsewhere classified Heavy tobacco smoker Former heavy tobacco smoker documented in this encounter Additional Health Concerns [...] documented as of this encounter Care Teams Technical Support Associate Relationship Specialty Start Date End Date Mecca Couch MD [address] [place] [address] PCP - General Internal Medicine 03/28/23 documented as of this encounter
--- OUTSIDE RECORDS SUMMARY | 2025-10-25 16:18 | XMS_ITS | Continuity of Care Document ---
Author Organization [facility], TIMOTHY Maynard Address [address] [place] [address] Assessment Encounter Date Assessment Date Assessment LastModified by Organization Details LastModified Time 08/03/2025 08/03/2025 Assessment: Poor tolerance to ther-ex with high pains and severe limits of quad activation and knee mobility. Plan: Continue mobility exercises and quad activation exercises to improve gait. [email or web address] Not available 08/03/2025 14:32:22 Plan of Treatment [...] Name Description Value Unit Range Abnormal Flag Specimen Type Note LastModifiedBy Organization Detail LastModifiedTime 07/06/2025 07/06/2025 knee 4 view [email or web address] [id number] Not Available [facility] , [address] , [place] , [address], , 07/06/2025 13:39:40 07/06/2025 07/06/2025 knee 4 view [email or web address] Not Available [facility] , [address] , [place] , [address], , 07/06/2025 13:39:42 Result Notes None recorded. Problems Name Problem SNOMED Code Status Onset Date Resolution Date Notes Provider Name and Address Organization Details Recorded Time Pain of left knee region [id number] Active 2024 Neida bello [facility] 13:34:03 Problem Notes None recorded. Procedures Surgical History Date Name Laterality Status Provider Name and Address Organization Details Recorded Time 5 56194 Therapeutic Exercise (1:1) cancelled ERICA ALFONZO, PT [address], [place], [address], [facility] 09/07/2025 23:37:06 5 74104: Hot or Cold Pack cancelled ERICA ALFONZO, PT [address], [place], [address], [facility] 09/07/2025 23:37:06 5 98470: Manual therapy cancelled ERICA ALFONZO, PT [address], [place], [address], [facility] 09/07/2025 23:37:06 5 13107 Therapeutic Exercise (1:1) cancelled ERICA ALFONZO, PT [address], [place], [address], [facility] 09/06/2025 08:54:00 5 33375: Hot or Cold Pack cancelled ERICA ALFONZO, PT [address], [place], [address], [facility] 09/06/2025 08:54:00 97182: Manual therapy cancelled ERICA ALFONZO, PT [address], [place], [address], [facility] 09/06/2025 08:54:00 21910 Therapeutic Exercise (1:1) completed ERICA ALFONZO, PT [address], [place], [address], [facility] 08/29/2025 14:53:05 69240: Hot or Cold Pack completed ERICA ALFONZO, PT [address], [place], [address], [facility] 08/28/2025 17:31:34 14126: Manual therapy completed ERICA ALFONZO, PT [address], [place], [address], [facility] 08/28/2025 17:31:34 16571 Therapeutic Exercise (1:1) completed ERICA ALFONZO, PT [address], [place], [address], [facility] 08/23/2025 21:43:36 04319: Hot or Cold Pack completed ERICA ALFONZO, PT [address], [place], [address], [facility] 08/23/2025 21:43:36 52155: Manual therapy completed ERICA ALFONZO, PT [address], [place], [address], [facility] 08/23/2025 21:43:36 93231 Therapeutic Exercise (1:1) completed ERICA ALFONZO, PT [address], [place], [address], [facility] 08/21/2025 20:19:55 44098: Hot or Cold Pack completed ERICAELIAS MEJÍA, PT [address], [place], [address], [facility] 08/19/2025 00:00:21 14686: Manual therapy completed ERICA MEJÍA, PT [address], [place], [address], [facility] 08/19/2025 00:00:21 81282 Therapeutic Exercise (1:1) completed ERICA MEJÍA, PT [address], [place], [address], [facility] 08/16/2025 13:02:26 12365: Hot or Cold Pack completed ERICA MEJÍA, PT [address], [place], [address], [facility] 08/16/2025 08:36:03 67591: Manual therapy completed ERICA MEJÍA, PT [address], [place], [address], [facility] 08/16/2025 13:02:44 54241 Therapeutic Exercise (1:1) completed Nigel Howard, AT [address], [place], [address], [facility] 08/09/2025 12:29:15 23584: Hot or Cold Pack completed Nigel Howard, AT [address], [place], [address], [facility] 08/09/2025 13:40:37 52700: Manual therapy completed Nigel Howard, AT [address], [place], [address], [facility] 08/09/2025 12:29:15 5 39628 Therapeutic Exercise (1:1) completed Nigel Howard, AT [address], [place], [address], [facility] 08/03/2025 14:27:14 5 50943: Manual therapy completed Nigel Howard, AT [address], [place], [address], [facility] 08/03/2025 14:27:22 5 02707 Therapeutic Exercise (1:1) completed ERICA MEJÍA, PT [address], [place], [address], [facility] 07/28/2025 21:47:42 70618: Low complexity PT Eval completed ERICA MEJÍA, PT [address], [place], [address], [facility] 07/28/2025 21:47:38 Imaging Results Imaging Date Name Status LastModifiedBy Organiza tion Detail LastModifiedTime 07/06/2025 knee 4 view completed Not Available [facility] , [address] , [place] , [address], , 07/06/2025 13:39:40 07/06/2025 knee 4 view completed Not Available [facility] , [address] , [place] , [address], , 07/06/2025 13:39:42 Procedure Notes None recorded. Medical Equipment None [...] 12:52:57 baclo fen 10 mg table t 09/03/202 5 12:52:58 TAKE 1 TABL ET (10 [...] (80 MG) BY MOUT H IN [facility] active Not Available Not availab le [...] External Data Service - prod 07/06/2025 12:53:10 Ber[place] araceli Arthr itis Pain 1 % topic al gel 5 13:50:00 APPL Y 2 GRAM S TO THE AFFE CTED AREA (S) BY MONE HOLDEN ROUT E 4 TIME S PER DAY complet ed Contusion of left knee Not availab le 3 Not Available Not Available [facility] 07/06/2025 13:51:50 celec oxib 200 mg [...] History Observation Description Date Observed Sex Unknown 08/03/2025 Legal Sex Female Status Not (finding) 10/25/20 [...] ICD10 Code Diagnosis IMO Codes Diagnosis Note [id number] Sin Royal PA-C [facility] [address] [place] [address] 07/06/2025 12:53:00 07/27/2025 07:59:56 Pain of knee region 2813655337 M25.562 25470302 1868989 Sin Royal PA-C [facility] [address] [place] [address] 07/06/2025 12:50:05 07/19/2025 12:16:45 Pain of left knee region 8153657575 24649 M25.562 [id number] ERICA MEJÍA, PT [facility] [address] [place] [address] 07/28/2025 15:11:14 07/28/2025 16:11:15 Contusion of left knee 5475459503 3659358 S80.02XA 243313 [id number] Nigel Howard, AT [facility] [address] [place] [address] 08/03/2025 12:00:57 08/03/2025 12:58:55 Contusion of left knee 7538806688 4893471 S80.02XA 689235 Health Concerns Section Related Observation LastModified by Organization Detai ls LastModified Time None Recorded Concern Status LastModified by Organization Details LastModified Time None Recorded SDOH Concern Status LastModified by Organization Detai ls LastModified Time None Recorded Payers Encounter Date Sequence Insurance Name Policy Number Policy Roberts Covered Member ID Roberts Member ID Guarantor Name 08/03/2025 1 [place]: [facility] Mecca Lundy [id number] Mecca Lundy Notes Date Note Type Note Provider Name and Address Organization Details Recorded Time 08/03/2025 text/html Patient presents today reporting 9/10 pain. Pt arrives with c/o high pains and severe limits of function. Nigel Howard, AT [address] [facility] [address], [place], [address], [facility] 08/03/2025 14:33:21 Care Team Name Role Member ID Specialty Address Phone None Recorded. OBGyn Episode No OBEpisode recorded.
--- OUTSIDE RECORDS SUMMARY | 2025-10-25 16:18 | XMS_ITS | Continuity of Care Document ---
Author Organization [facility], TIMOTHY Maynard PT Address [address] [place] [address] Assessment Encounter Date Assessment Date Assessment LastModified by Organization Details LastModified Time 08/29/2025 08/29/2025 Assessment: Improved tolerance to exercises and activities with ability to complete ant. step up/down from L3 box. Plan: Continue 1-2x/wk with LE stretch/streng th programming to tolerance. [email or web address] Not available 08/29/2025 14:55:17 Plan of Treatment [...] Recorded Time Pain of left knee region [id number] Active 2024 Neida bello [facility] 13:34:03 Problem Notes None recorded. Procedures Surgical History Date Name Laterality Status Provider Name and Address Organization Details Recorded Time 5 62447 Therapeutic Exercise (1:1) cancelled ERICA MEJÍA, PT [address], [place], [address], [facility] 09/07/2025 23:37:06 5 23144: Hot or Cold Pack cancelled ERICA MEJÍA PT [address], [place], [address], [facility] 09/07/2025 23:37:06 16299: Manual therapy cancelled ERICA ALFONZO, PT [address], [place], [address], [facility] 09/07/2025 23:37:06 70627 Therapeutic Exercise (1:1) cancelled ERICA ALFONZO, PT [address], [place], [address], [facility] 09/06/2025 08:54:00 06743: Hot or Cold Pack cancelled ERICA ALFONZO, PT [address], [place], [address], [facility] 09/06/2025 08:54:00 96682: Manual therapy cancelled ERICA ALFONZO, PT [address], [place], [address], [facility] 09/06/2025 08:54:00 73716 Therapeutic Exercise (1:1) completed ERICA ALFNOZO, PT [address], [place], [address], [facility] 08/29/2025 14:53:05 87699: Hot or Cold Pack completed ERICA ALFONZO, PT [address], [place], [address], [facility] 08/28/2025 17:31:34 58147: Manual therapy completed ERICA ALFONZO, PT [address], [place], [address], [facility] 08/28/2025 17:31:34 38750 Therapeutic Exercise (1:1) completed ERICA ALFONZO, PT [address], [place], [address], [facility] 08/23/2025 21:43:36 08568: Hot or Cold Pack completed ERICA ALFONZO, PT [address], [place], [address], [facility] 08/23/2025 21:43:36 72260: Manual therapy completed ERICA ALFONZO, PT [address], [place], [address], [facility] 08/23/2025 21:43:36 40812 Therapeutic Exercise (1:1) completed ERICA ALFONZO, PT [address], [place], [address], [facility] 08/21/2025 20:19:55 83685: Hot or Cold Pack completed ERICA ALFONZO, PT [address], [place], [address], [facility] 08/19/2025 00:00:21 14721: Manual therapy completed ERICA ALFONZO, PT [address], [place], [address], [facility] 08/19/2025 00:00:21 72195 Therapeutic Exercise (1:1) completed ERICA ALFONZO, PT [address], [place], [address], [facility] 08/16/2025 13:02:26 03525: Hot or Cold Pack completed ERICA ALFONZO, PT [address], [place], [address], [facility] 08/16/2025 08:36:03 60353: Manual therapy completed ERICA ALFONZO, PT [address], [place], [address], [facility] 08/16/2025 13:02:44 21329 Therapeutic Exercise (1:1) completed Nigel Howard, AT [address], [place], [address], [facility] 08/09/2025 12:29:15 5 28346: Hot or Cold Pack completed Nigel Howard, AT [address], [place], [address], [facility] 08/09/2025 13:40:37 76099: Manual therapy completed Nigel Howard, AT [address], [place], [address], [facility] 08/09/2025 12:29:15 46060 Therapeutic Exercise (1:1) completed Nigel Howard, AT [address], [place], [address], [facility] 08/03/2025 14:27:14 57760: Manual therapy completed Nigel Howard, AT [address], [place], [address], [facility] 08/03/2025 14:27:22 09991 Therapeutic Exercise (1:1) completed ERICA MEJÍA, PT [address], [place], [address], [facility] 07/28/2025 21:47:42 58199: Low complexity PT Eval completed ERICA MEJÍA, PT [address], [place], [address], [facility] 07/28/2025 21:47:38 Imaging Results None recorded. Procedure [...] External Data Service - prod 07/06/2025 12:53:10 [place] araceli Arthr itis Pain 1 % topic al gel 5 13:50:00 APPL Y 2 GRAM S TO THE AFFE CTED AREA (S) BY MONE JAEGER E 4 TIME S PER DAY complet ed Contusion of left knee Not availab le 3 Not Available Not Available [facility] 07/06/2025 13:51:50 celec oxib 200 mg [...] History Observation Description Date Observed Sex Unknown 08/29/2025 Legal Sex Female Status Not (finding) 10/25/20 [...] ICD10 Code Diagnosis IMO Codes Diagnosis Note [id number] Nigelabdulaziz AndersonHoward, AT [facility] [address] [place] [address] 08/03/2025 12:00:57 08/03/2025 12:58:55 Contusion of left knee 4336386528 4757359 S80.02XA 049200 2405043 Nigelabdulaziz AndersonHoward, AT [facility] [address] [place] [address] 08/09/2025 11:05:34 08/09/2025 11:50:39 Contusion of left knee 7178621003 3459022 S80.02XA 165555 [id number] ERICA MEJÍA, PT [facility] [address] [place] [address] 08/16/2025 11:22:16 08/16/2025 12:04:35 Contusion of left knee 5961489826 8209267 S80.02XA 196345 6072868 EIRCA MEJÍA, PT [facility] [address] [place] [address] 08/19/2025 13:26:56 08/19/2025 14:01:40 Contusion of left knee 6311083799 6720632 S80.02XA 329508 4759436 ERICA MEJÍA, PT [facility] [address] [place] [address] 08/24/2025 12:57:13 08/24/2025 16:40:25 Contusion of left knee 4133609824 2433693 S80.02XA 165276 3060254 ERICA MEJÍA, PT [facility] [address] [place] [address] 08/29/2025 12:14:12 08/29/2025 13:16:02 Contusion of left knee 8639492554 0943782 S80.02XA 593902 Health Concerns Section Related Observation LastModified by Organization Detai ls LastModified Time None Recorded Concern Status LastModified by Organization Details LastModified Time None Recorded SDOH Concern Status LastModified by Organization Detai ls LastModified Time None Recorded Payers Encounter Date Sequence Insurance Name Policy Number Policy Roberts Covered Member ID Roberts Member ID Guarantor Name 08/29/2025 1 [place]: [facility] Mecca Lundy [id number] Mecca Lundy Notes Date Note Type Note Provider Name and Address Organization Details Recorded Time 08/29/2025 text/html Patient presents today reporting 6/10 pain. Patient reports decreased pain since LV. ERICA MEJÍA, PT [address], [place], [address], [facility] 08/29/2025 14:55:59 Care Team Name Role Member ID Specialty Address Phone None Recorded. OBGyn Episode No OBEpisode recorded.
--- OUTSIDE RECORDS SUMMARY | 2025-10-25 16:18 | XMS_ITS | Encounter Summary ---
Author Organization [facility] Address [address] [place] [address] [address] [place] [address] Care Team Providers Care Wind Energy Mechanic Name Role Phone Mecca Couch MD Primary Care Pro vider Reason for Visit * Reason Comments Med Refill Encounter Details Date Type Department Care Team ([facility] st Contact Info) Description 08/24/2025 Refill [facility] MEDICINE [address] [place], [place] [phone] Mecca Couch MD [address] [place] [address] Type 2 diabetes mellitus with other circulatory [...] 01/18/2026 9:45 AM EDT Office Visit [facility] MEDICINE [address] [place] [address] Mecca Couch MD [address] [place] [address] documented as of this encounter Visit Diagnoses Diagnosis Type 2 diabetes mellitus with other circulatory complication, without long-term current use of insulin (HCC) documented in this encounter Additional Health Concerns Assessment Noted Time PHQ-9 Depression Total Score: 22 025 10:39 AM EDT documented as of this encounter Care Teams Wind Energy Mechanic Relationship Specialty Start Date End Date Mecca Couch MD [address] [place] [address] PCP - General Internal Medicine 03/28/23 documented as of this encounter
--- OUTSIDE RECORDS SUMMARY | 2025-10-25 16:18 | XMS_ITS | Continuity of Care Document ---
Author Organization [place] - [facility] Address [address] [place] [address] Assessment Encounter Date Assessment Date Assessment LastModified [...] 1-2x/wk with LE stretch/strength programming to tolerance. [email or web address] Not available 08/24/2025 14:29:52 Plan of Treatment [...] Recorded Time Pain of left knee region [id number] Active 2024 Neida bello [place] - [facility] 13:34:03 Problem Notes None recorded. Procedures Surgical History Date Name Laterality Status Provider Name and Address Organization Details Recorded Time 5 12850 Therapeutic Exercise (1:1) cancelled ERICA ALFONZO, PT [address], [place], [address], [facility] 09/07/2025 23:37:06 5 84430: Hot or Cold Pack cancelled ERICA ALFONZO, PT [address], [place], [address], [facility] 09/07/2025 23:37:06 5 43496: Manual therapy cancelled ERICA ALFONZO, PT [address], [place], [address], [facility] 09/07/2025 23:37:06 5 04098 Therapeutic Exercise (1:1) cancelled ERICA ALFONZO, PT [address], [place], [address], [facility] 09/06/2025 08:54:00 5 21538: Hot or Cold Pack cancelled ERICA ALFONZO, PT [address], [place], [address], [facility] 09/06/2025 08:54:00 10626: Manual therapy cancelled ERICA ALFONZO, PT [address], [place], [address], [facility] 09/06/2025 08:54:00 5 37931 Therapeutic Exercise (1:1) completed ERICA ALFONZO, PT [address], [place], [address], [facility] 08/29/2025 14:53:05 5 25520: Hot or Cold Pack completed ERICA ALFONZO, PT [address], [place], [address], [facility] 08/28/2025 17:31:34 81012: Manual therapy completed ERICA ALFONZO, PT [address], [place], [address], [facility] 08/28/2025 17:31:34 11480 Therapeutic Exercise (1:1) completed ERICA ALFONZO, PT [address], [place], [address], [facility] 08/23/2025 21:43:36 05672: Hot or Cold Pack completed ERICA ALFONZO, PT [address], [place], [address], [facility] 08/23/2025 21:43:36 94046: Manual therapy completed ERICA ALFONZO, PT [address], [place], [address], [facility] 08/23/2025 21:43:36 83347 Therapeutic Exercise (1:1) completed ERICA ALFONZO, PT [address], [place], [address], [facility] 08/21/2025 20:19:55 35713: Hot or Cold Pack completed ERICA ALFNOZO, PT [address], [place], [address], [facility] 08/19/2025 00:00:21 56422: Manual therapy completed ERICA ALFONZO, PT [address], [place], [address], [facility] 08/19/2025 00:00:21 78757 Therapeutic Exercise (1:1) completed ERICA ALFONZO, PT [address], [place], [address], [facility] 08/16/2025 13:02:26 01837: Hot or Cold Pack completed ERICA ALFONZO, PT [address], [place], [address], [facility] 08/16/2025 08:36:03 23215: Manual therapy completed ERICA MEJÍA, PT [address], [place], [address], [facility] 08/16/2025 13:02:44 35135 Therapeutic Exercise (1:1) completed Nigel Howard, AT [address], [place], [address], [facility] 08/09/2025 12:29:15 30648: Hot or Cold Pack completed Nigel Howard, AT [address], [place], [address], [facility] 08/09/2025 13:40:37 21495: Manual therapy completed Nigel Howard, AT [address], [place], [address], [facility] 08/09/2025 12:29:15 49591 Therapeutic Exercise (1:1) completed Nigel Howard, AT [address], [place], [address], [facility] 08/03/2025 14:27:14 08950: Manual therapy completed Nigel Howard, AT [address], [place], [address], [facility] 08/03/2025 14:27:22 14708 Therapeutic Exercise (1:1) completed ERICA MEJÍA, PT [address], [place], [address], [facility] 07/28/2025 21:47:42 24149: Low complexity PT Eval completed ERICA MEJÍA, PT [address], [place], [address], [facility] 07/28/2025 21:47:38 Imaging Results None recorded. Procedure [...] atorv astat in 80 mg table t 12:53:00 TAKE 1 TABL ET (80 MG) [...] External Data Service - prod 07/06/2025 12:53:10 [place] araceli Arthr itis Pain 1 % topic al gel 5 13:50:00 APPL Y 2 GRAM S TO THE AFFE CTED AREA (S) BY MONE JAEGER E 4 TIME S PER DAY complet ed Contusion of left knee Not availab le 3 Not Available Not Available [facility] 07/06/2025 13:51:50 celec oxib 200 [...] availab le 0 Not Available Not Available [facility] - External Data Service - prod 09/07/2025 23:51:53 Vitals None Recorded Social History Social History Observation Description Date Observed Sex Unknown 08/24/2025 Legal Sex Female Status Not (finding) 10/25/20 [...] ICD10 Code Diagnosis IMO Codes Diagnosis Note [id number] ERICA MEJÍA, PT [facility] [address] [place] [address] 07/28/2025 15:11:14 07/28/2025 16:11:15 Contusion of left knee [id number] [id number] S80.02XA [id number] Nigel Howard, AT [facility] [address] [place] [address] 08/03/2025 12:00:57 08/03/2025 12:58:55 Contusion of left knee [id number] 1163369 S80.02XA 273723 [id number] Nigel Howard, AT [facility] [address] [place] [address] 08/09/2025 11:05:34 08/09/2025 11:50:39 Contusion of left knee 0277650020 6967317 S80.02XA 641978 [id number] ERICA MEJÍA, PT [facility] [address] [place] [address] 08/16/2025 11:22:16 08/16/2025 12:04:35 Contusion of left knee [id number] 5778355 S80.02XA 218553 [id number] ERICA MAXWELLTTON, PT [facility] [address] [place] [address] 08/19/2025 13:26:56 08/19/2025 14:01:40 Contusion of left knee [id number] 7487868 S80.02XA 239404 [id number] ERICA MEJÍA, PT [facility] [address] [place] [address] 08/24/2025 12:57:13 08/24/2025 16:40:25 Contusion of left knee 3881917722 7192436 S80.02XA [id number] Health Concerns Section Related Observation LastModified by Organization Detai ls LastModified Time None Recorded Concern Status LastModified by Organization Details LastModified Time None Recorded SDOH Concern Status LastModified by Organization Detai ls LastModified Time None Recorded Payers Encounter Date Sequence Insurance Name Policy Number Policy Roberts Covered Member ID Roberts Member ID Guarantor Name 08/24/2025 1 [place]ICA[place]: [facility] Mecca Lundy [id number] Mecca Lundy Notes Date Note Type Note Provider Name and Address Organization Details Recorded Time 08/24/2025 text/html Patient presents today reporting 9/10 pain. Pt needs to leave at 2:30 for another appointment. ERICA MEJÍA, PT [address], [place], [address], [facility] 08/24/2025 14:30:32 Care Team Name Role Member ID Specialty Address Phone None Recorded. OBGyn Episode No OBEpisode recorded.
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
--- OUTSIDE RECORDS SUMMARY | 2025-10-25 16:18 | XMS_ITS | Encounter Summary ---
Author Organization [employer] Address [address] [place] [address] 7 [place] [address] Care Team Providers Care Machine Sand Mixer Name Role Phone Mecca Couch MD Primary Care Pro vider Reason for Visit * Reason Onset Date Comments Requested Record 10/20/2025 Encounter Details Date Type Department Care Team ([facility] st Contact Info) Description 10/20/2025 Telephone [facility] [address] [place], [place] [phone] Mecca Couch MD [address] [place] [address] Requested Record Social History Tobacco Use Types Packs/Day Years [...] encounter Miscellaneous Notes * Telephone Encounter - Yamilka Dunne MA - 10/20/2025 1:15 PM EST [facility] requested Records from [facility] P# [phone] and F#[phone]. documented in this encounter Plan of Treatment Upcoming Encounters Date Type Department Care Team (Late st Contact Info) Description 01/18/2026 9:45 AM EDT Office Visit [facility] [address] [place] [phone] Mecca Couch MD [address] [place] [address] documented as of this encounter Goals Goal [...] Care Plan Weekly blood pressure task No Tamym Werner Weekly blood pressure task Care Plan [...] Patient has chronic kidney disease No Nia Swayer MA Weekly blood pressure [...] chronic kidney disease No Yamilka Dunne MA documented as of this encounter Visit [...] 10/20/2025 Patient has chronic kidney disease 10/20/2025 Assessment Noted Time PHQ-9 Depression Total Score: 19 025 1:17 PM EST documented as of this encounter Care Teams Machine Sand Mixer Relationship Specialty Start Date End Date Mecca Couch MD [address] [place] [address] PCP - General Internal Medicine 03/28/23 documented as of this encounter
--- OUTSIDE RECORDS SUMMARY | 2025-10-25 16:18 | XMS_ITS | Encounter Summary ---
Author Organization [employer] Address [address] [place] [address] 7 [place] [address] Care Team Providers Care Bow Rehairer Name Role Phone Mecca Couch MD Primary Care Pro vider Lizeth Singleton RN Unavailable Unavailable Reason for Visit * Reason Comments Med Refill Encounter Details Date Type Department Care Team ([facility] st Contact Info) Description 11/26/2024 Refill [facility] [address] [place], [place] [phone] Mecca Couch MD [address] [place] [address] Social History Tobacco Use Types Packs/Day Years [...] 9:45 AM EDT Office Visit [facility]INE [address] [place] [phone] Mecca Couch MD [address] [place] [address] documented as of this encounter Visit Diagnoses Not on filedocumented in this encounter Additional Health Concerns Assessment Noted Time PHQ-9 Depression Total Score: 10 024 2:38 PM EDT documented as of this encounter Care Teams Bow Rehairer Relationship Specialty Start Date End Date Mecca Couch MD [address] [place] [phone] PCP - General Internal Medicine 03/28/23 Lizeth Singleton RN [address] [place] [phone] Registered Nurse Family Medicine 05/12/25 06/07/25 documented as of this encounter
--- OUTSIDE RECORDS SUMMARY | 2025-10-25 16:18 | XMS_ITS | Encounter Summary ---
Author Organization [employer] Address [address] [place] [address] 7 [place] [address] Care Team Providers Care Master Carpenter Name Role Phone Mecca Couch MD Primary Care Pro vider Lizeth Singleton RN Unavailable Unavailable Reason for Visit * Reason Onset Date Comments Med Refill 07/20/2024 Encounter Details Date Type Department Care Team ([facility] st Contact Info) Description 07/20/2024 Refill [facility]INE [address] [place], [place] [phone] Mecca Couch MD [address] [place] [address] Type 2 diabetes mellitus with other circulatory complication, without long-term current use of insulin ([facility]) Social History Tobacco Use Types Packs/Day Years [...] 01/18/2026 9:45 AM EDT Office Visit [facility] MEDICINE [address] [place] [phone] Mecca Couch MD [address] [place] [phone] documented as of this encounter Visit Diagnoses Diagnosis Type 2 diabetes mellitus with other circulatory complication, without long-term current use of insulin (HCC) documented in this encounter Additional Health Concerns Assessment Noted Time PHQ-9 Depression Total Score: 10 024 2:38 PM EDT documented as of this encounter Care Teams Master Carpenter Relationship Specialty Start Date End Date Mecca Couch MD [address] [place] [phone] PCP - General Internal Medicine 03/28/23 Lizeth Singleton RN [address] [place] [phone] Registered Nurse Family Medicine 05/12/25 06/07/25 documented as of this encounter
--- OUTSIDE RECORDS SUMMARY | 2025-10-25 16:18 | XMS_ITS | Encounter Summary ---
Author Organization [employer] Address [address] [facility] 7t [place] [address] Care Team Providers Care Administrative Fellow Name Role Phone Mecca Couch MD Primary [...] ([facility] st Contact Info) Description 01/18/2026 9:45 AM EDT Office Visit [facility] [address] [place] [phone] Mecca Couch MD [address] [place] [address] documented as of this encounter Goals Goal Patient Goal Type Associated Problems Recent Progress Patient-Stated? Author Help patients manage their type 2 diabetes Care Plan Help patients manage their type 2 diabetes No Jamli Pat Weekly blood pressure task Care Plan [...] Plan Weekly blood pressure task No Mecca Cuoch MD Patient has chronic kidney disease Care [...] documented as of this encounter Care Teams Administrative Fellow Relationship Specialty Start Date End Date Mecca Couch MD [address] [place] [phone] PCP - General Internal Medicine 03/28/23 documented as of this encounter
--- OUTSIDE RECORDS SUMMARY | 2025-10-25 16:18 | XMS_ITS | Encounter Summary ---
Author Organization [employer] Address [address] [facility] 7t [place] [address] Care Team Providers Care Dye House Wheel Operator Name Role Phone Mecca Couch MD Primary Care Pro vider Encounter Details Date Type Department Care Team (Late st Contact Info) Description 10/20/2025 Orders Only GENERIC EXTERNAL DATA DEPARTMENT [...] 9:45 AM EDT Office Visit [facility] [address] [place] [address] Mecca Couch MD [address] [place] [address] documented as of this encounter Goals Goal [...] Plan Weekly blood pressure task No Anthony, Neida FEDERAL JAVA DEVELOPER Weekly blood pressure task Care Plan Weekly blood pressure task No Anthony, Neida, FEDER[employer] JAVA DEVELOPER Patient has chronic kidney disease Care Plan Patient has chronic kidney disease No AnthonyDigna ruffinniferCORINEN Patient has chronic kidney disease Care Plan Patient has chronic kidney disease No Digna Cruznifer FEDERAL JAVA DEVELOPER Weekly blood pressure task Care Plan Weekly blood pressure task No Domenica Cummings [place] Weekly blood pressure task Care Plan Weekly blood pressure task No Domenica Cummings [place] Patient has chronic kidney disease Care Plan Patient has chronic kidney disease No CummingsDomenica michael [place] Patient has chronic kidney disease Care Plan Patient has chronic kidney disease No Domenica Cummings [place] Weekly blood pressure task Care Plan Weekly [...] [place] documented as of this encounter Procedures Procedure Name Priority Date/Time Associated Diagnosis Comments TSH W/REFLEX TO FT4 Routine 10/20/2025 9 :46 AM EST documented in this encounter Results * TSH with Reflex to Free T4 (10/20/2025 9:46 AM EST) TSH reflex Free T4 1.09 0.32 - 4.0 uIU/mL [facility] 10/20/2025 9:46 AM EST 10/20/2025 10:59 AM EST us Generic External Data Provider LAB BLOOD ORDERAB LES Final Result [facility] [address] [place] [phone] documented in this encounter Visit Diagnoses [...] documented as of this encounter Care Teams Dye House Wheel Operator Relationship Specialty Start Date End Date Mecca Couch MD [address] [place] [phone] PCP - General Internal Medicine 03/28/23 documented as of this encounter
== END 2025-10-25 15:01 ==
LOC: HO.CT 15:00
PROVIDERS: PCP Student in an Organized Health Care Education/Training Program; Visit Provider Student in an Organized Health Care Education/Training Program
DX: R91.1 Solitary pulmonary nodule (principal); Z87.891 Personal history of nicotine dependence
CPT/HCPCS: 71260; Q9967

== ENCOUNTER → 2025-10-25 15:02 | Outpatient (BNV) | payer MEDICAID, SELFPAY | PROVIDERS: PCP Student in an Organized Health Care Education/Training Program; Visit Provider Radiology Diagnostic Radiology | DX: R91.1 Solitary pulmonary nodule (principal); E04.1 Nontoxic single thyroid nodule; K76.0 Fatty (change of) liver, not elsewhere classified; Z90.49 Acquired absence of other specified parts of digestive tract | CPT/HCPCS: 71260 ==